=== PATIENT | female | born 1945 | race Caucasian/White ===

== ENCOUNTER → 2018-01-13 | Outpatient (CLI) | payer MEDICARE, OTHER ==
[2018-01-13 11:19] LABS: HCT 40.1 % (34.0-46.0); HGB 13.7 gm/dL (11.4-16.0); Mean Platelet Volume 6.6; Platelet Count 231 k/uL (150-450); RBC 4.27 m/uL (3.80-5.40); RDW 12.8 % (11.5-15.5); WBC 3.9 k/uL (3.8-10.6)
[2018-01-13 11:42] LABS: Ionized Calcium 4.9 mg/dL (4.5-5.3)
[2018-01-13 11:50] LABS: ALT 43 U/L (9-52); AST 26 U/L (14-36); Albumin 4.1 g/dL (3.5-5.0); Alkaline Phosphatase 95 U/L (38-126); Anion Gap 11 mmol/L; Blood Urea Nitrogen 33 mg/dL (7-17); Calcium 9.5 mg/dL (8.4-10.2); Carbon Dioxide 29 mmol/L (22-30); Chloride 99 mmol/L (98-107); Cholesterol 174 mg/dL (<200); Glucose 144 mg/dL (74-99); Potassium 4.9 mmol/L (3.5-5.1); Sodium 139 mmol/L (137-145); Total Bilirubin 0.3 mg/dL (0.2-1.3); Total Protein 6.5 g/dL (6.3-8.2)
== END ==
LOC: LABWHC1 10:48
PROVIDERS: ATTEND Internal Medicine Sleep Medicine
DX: E11.9 Type 2 diabetes mellitus without complications (principal); I10 Essential (primary) hypertension; E83.52 Hypercalcemia
CPT/HCPCS: 36415; 80053; 82330; 82465; 85027

== ENCOUNTER 2018-02-02 09:48 | Inpatient (IN) | payer MEDICARE, OTHER ==
[2018-02-02] MEDS ORDERED: HYDROcodone/APAP 5-325MG 1 EACH TAB PO STA (10:12)
[2018-02-02 10:36] LABS: Amorphous Sediment,Urine Few /hpf; Appearance,Urine Cloudy (Clear); Bacteria,Urine Rare /hpf; Bilirubin,Urine Negative (Negative); Blood,Urine Small (Negative); Color,Urine Yellow; Glucose,Urine (UA) 4+ (Negative); Ketones,Urine Trace (Negative); Leukocyte Esterase,Urine Negative (Negative); Mucus,Urine Rare /hpf; Nitrite,Urine Negative (Negative); PH, Urine 5.5 (5.0-8.0); Protein,Urine 1+ (Negative); RBC,Urine 2 /hpf (0-5); Specific Gravity,Urine 1.023 (1.001-1.035); Squamous Epithelial Cell,Urine 1 /hpf (0-4); Urobilinogen,Urine <2.0 mg/dL (<2.0); WBC,Urine 2 /hpf (0-5)
--- NOTE | 2018-02-02 10:47 | ED ---
General Adult HPI - General Chief complaint: Extremity Injury, Lower Stated complaint: Right Knee Pain Time Seen by Provider: 02/02/18 09:55 Source: patient Mode of arrival: ambulatory Limitations: no limitations - History of Present Illness Initial comments: Patient is a 72-year-old female presents with a chief complaint of right-sided knee pain. Patient states that her symptoms began on Friday and it gradually gotten worse. The patient cannot identify an inciting incident however she states that just prior to the onset of her pain she went to the bathroom. When she stood up, she noticed her knee pain. The patient has a history of bilateral patellectomy. The patient states that aggravating factors are movement of the knee. She also notices swelling of the right knee and states that the pain is worst behind her knee. Alleviating factors are rest. Timing is constant. - Related Data Home Medications Medication Instructions Recorded Confirmed Ascorbic Acid [Vitamin C] 500 mg PO DAILY 01/03/14 02/02/18 Aspirin 325 mg PO DAILY 01/03/14 02/02/18 Bupivacaine HCl/Pf [Bupivacaine 1 dose INTRATHECA DAILY 01/03/14 02/02/18 0.25% Vial] Celecoxib [CeleBREX] 200 mg PO DAILY 01/03/14 02/02/18 Esomeprazole Magnesium [NexIUM] 40 mg PO BID 01/03/14 02/02/18 Ferrous Sulfate [Feosol] 325 mg PO DAILY 01/03/14 02/02/18 Imipramine [Tofranil] 25 mg PO BID 01/03/14 02/02/18 Lidocaine 5% Patch [Lidoderm 5% 1 - 3 patch TOPICAL Q12H 01/03/14 02/02/18 Patch] Lisinopril [Zestril] 5 mg PO BID 01/03/14 02/02/18 Multivitamin [Multivitamins] 1 tab PO DAILY 01/03/14 02/02/18 Potassium Chloride [K-Tab ER] 20 meq PO BID 01/03/14 02/02/18 Solifenacin Succinate [Vesicare] 10 mg PO HS 01/03/14 02/02/18 Zinc 50 mg PO HS 01/03/14 02/02/18 amLODIPine BESYLATE [Norvasc] 10 mg PO DAILY 01/03/14 02/02/18 hydrOXYzine HCL [Atarax] 25 mg PO TID PRN 01/03/14 02/02/18 Armodafinil [Nuvigil] 250 mg PO BID 08/01/15 02/02/18 Calcium/Magnesium/Zinc 1 tab PO DAILY 02/02/18 02/02/18 [Kwnpmzx-Gbjtzarff-Vcls Tablet] Hydromorphone Powder 7.893 mg INTRATHECA DAILY 02/02/18 02/02/18 Simvastatin [Zocor] 20 mg PO HS 02/02/18 02/02/18 cloNIDine HCL [Catapres] 0.2 mg PO DAILY 02/02/18 02/02/18 Allergies Allergy/AdvReac Type Severity Reaction Status Date / Time cephalexin monohydrate Allergy Swelling Verified 02/02/18 14:57 [From Keflex] Cephalosporins Allergy Unknown Verified 02/02/18 14:57 codeine Allergy Rash/Hives Verified 02/02/18 14:57 Penicillins Allergy Anaphylaxis Verified 02/02/18 14:57 tramadol Allergy Rash/Hives Verified 02/02/18 14:57 Review of Systems ROS Statement: Those systems with pertinent positive or pertinent negative responses have been documented in the HPI. ROS Other: All systems not noted in ROS Statement are negative. Constitutional: Reports: fever Genitourinary: Reports: frequency Past Medical History Past Medical History: Diabetes Mellitus, Fibromyalgia, GERD/Reflux, Hypertension , Musculoskeletal Disorder, Osteoarthritis (OA), Sleep Apnea/CPAP/BIPAP Additional Past Medical History / Comment(s): Anemia. asthma. narcolepsy. wound jeremi legs. diet controlled diabetic-pt denies being diabetic but watches what she eats History of Any Multi-Drug Resistant Organisms: None Reported Past Surgical History: Back Surgery, Cholecystectomy, Orthopedic Surgery Additional Past Surgical History / Comment(s): carpal tunnel, rib surgery, collagen implant,\. rt eye catatact. TMJ surgery. chronic back pain-pain pump Past Anesthesia/Blood Transfusion Reactions: No Reported Reaction Past Psychological History: Anxiety, Depression Smoking Status: Former smoker Past Alcohol Use History: None Reported Past Drug Use History: None Reported - Past Family History Brother(s) Family Medical History: Diabetes Mellitus General Exam Limitations: physical limitation General appearance: alert, in no apparent distress Head exam: Present: atraumatic, normocephalic Eye exam: Present: normal appearance ENT exam: Present: normal exam Neck exam: Present: normal inspection Respiratory exam: Present: rhonchi (Left-sided rhonchi). Absent: respiratory distress Cardiovascular Exam: Present: regular rate, normal rhythm GI/Abdominal exam: Present: soft, other (Patient has an intrathecal pump on the left lower abdomen.). Absent: distended, tenderness Rectal exam: Present: deferred Extremities exam: Present: other (Patient has surgical scars over bilateral knees. The right knee is swollen compared to the left. There is no erythema or induration. There is tenderness to palpation of the right popliteal fossa.) Back exam: Present: normal inspection Neurological exam: Present: alert, oriented X3 Psychiatric exam: Present: normal affect, normal mood Skin exam: Present: warm, dry, intact Course Vital Signs 02/02/18 02/02/18 02/02/18 09:56 12:23 13:52 Temperature 100.4 F H 98.4 F Pulse Rate 97 72 64 Respiratory 18 18 18 Rate Blood Pressure 154/106 115/64 108/57 O2 Sat by Pulse 95 97 97 Oximetry Medical Decision Making - Medical Decision Making Patient presents with a chief complaint of right knee pain. On initial evaluation, patient is mildly febrile at 100.4, otherwise vital signs are stable. The patient is no acute distress. History and physical examination are consistent with arthritis versus a Polanco's cyst. Considered a septic joint however there are no overlying skin changes, and the joint otherwise does not appear infected. We'll consider other causes of fever. Patient to be evaluated with basic lab work, chest x-ray, an x-ray of the right knee. ESR and CRP were included workup. 3:35 PM Lab evaluation of this patient is remarkable for an ESR of 42, and a CRP of 227.6. I was unable to identify any other cause a fever therefore verbal consent was obtained, and arthrocentesis was performed. There was minimal fluid returned, just enough for a fluid culture. Patient unable to bare weight at this time and is thought to be an unsafe discharge. I discussed this case with Dr. Mazariegos, who accepts admission under Dr. Simmons with consult to Orthopaedics. patient agreeable with this care plan. - Lab Data Result diagrams: 02/02/18 11:00 02/02/18 11:00 Lab Results 02/02/18 02/02/18 02/02/18 Range/Units 10:20 11:00 11:00 WBC 7.7 (3.8-10.6) k/uL RBC 4.35 (3.80-5.40) m/uL Hgb 13.7 (11.4-16.0) gm/dL Hct 40.4 (34.0-46.0) % MCV 93.0 (80.0-100.0) fL MCH 31.6 (25.0-35.0) pg MCHC 33.9 (31.0-37.0) g/dL RDW 12.8 (11.5-15.5) % Plt Count 227 (150-450) k/uL Neutrophils % 83 % Lymphocytes % 8 % Monocytes % 8 % Eosinophils % 0 % Basophils % 0 % Neutrophils # 6.3 (1.3-7.7) k/uL Lymphocytes # 0.6 L (1.0-4.8) k/uL Monocytes # 0.6 (0-1.0) k/uL Eosinophils # 0.0 (0-0.7) k/uL Basophils # 0.0 (0-0.2) k/uL ESR 42 H (0-20) mm/hr Sodium 139 (137-145) mmol/L Potassium 3.7 (3.5-5.1) mmol/L Chloride 97 L (98-107) mmol/L Carbon Dioxide 30 (22-30) mmol/L Anion Gap 12 mmol/L BUN 20 H (7-17) mg/dL Creatinine 0.48 L (0.52-1.04) mg/dL Est GFR (CKD-EPI)AfAm >90 (>60 ml/min/1.73 sqM) Est GFR (CKD-EPI)NonAf >90 (>60 ml/min/1.73 sqM) Glucose 210 H (74-99) mg/dL Calcium 9.2 (8.4-10.2) mg/dL C-Reactive Protein 227.6 H (<10.0) mg/L Urine Color Yellow Urine Appearance Cloudy H (Clear) Urine pH 5.5 (5.0-8.0) Ur Specific [place] 1.023 (1.001-1.035) Urine Protein 1+ H (Negative) Urine Glucose (UA) 4+ H (Negative) Urine Ketones Trace H (Negative) Urine Blood Small H (Negative) Urine Nitrite Negative (Negative) Urine Bilirubin Negative (Negative) Urine Urobilinogen <2.0 (<2.0) mg/dL Ur Leukocyte Esterase Negative (Negative) Urine RBC 2 (0-5) /hpf Urine WBC 2 (0-5) /hpf Ur Squamous Epith Cells 1 (0-4) /hpf Amorphous Sediment Few H (None) /hpf Urine Bacteria Rare H (None) /hpf Urine Mucus Rare H (None) /hpf Disposition Clinical Impression: Right knee pain, Elevated C-reactive protein (CRP), Elevated erythrocyte sedimentation rate Disposition: ADMITTED IP TO THIS [facility] Condition: Good Referrals: Joel Mazariegos MD [Primary Care Provider] - 1-2 days Decision to Admit Reason: Admit from [facility] - Out of Hospital Transfer - Req. Specs Out of Hospital Transfer - Requested Specifics: Other Non-Acute
[2018-02-02 11:18] LABS: Basophils % (A) 0 %; Eosinophils % (A) 0 %; HCT 40.4 % (34.0-46.0); HGB 13.7 gm/dL (11.4-16.0); Lymphocytes # (A) 0.6 k/uL (1.0-4.8); Lymphocytes % (A) 8 %; MCH 31.6 pg (25.0-35.0); MCHC 33.9 g/dL (31.0-37.0); Mean Platelet Volume 6.7; Monocytes # (A) 0.6 k/uL (0-1.0); Monocytes % (A) 8 %; Neutrophils # (A) 6.3 k/uL (1.3-7.7); Neutrophils % (A) 83 %; Platelet Count 227 k/uL (150-450); RBC 4.35 m/uL (3.80-5.40); RDW 12.8 % (11.5-15.5); WBC 7.7 k/uL (3.8-10.6)
[2018-02-02 11:24] LABS: Anion Gap 12 mmol/L; Blood Urea Nitrogen 20 mg/dL (7-17); Calcium 9.2 mg/dL (8.4-10.2); Carbon Dioxide 30 mmol/L (22-30); Chloride 97 mmol/L (98-107); Glucose 210 mg/dL (74-99); Potassium 3.7 mmol/L (3.5-5.1); Sodium 139 mmol/L (137-145)
[2018-02-02 11:54] LABS: C Reactive Protein 227.6 mg/L (<10.0)
--- NOTE | 2018-02-02 12:47 | US ---
EXAMINATION TYPE: US venous doppler duplex LE RT DATE OF EXAM: 02/02/2018 11:24 AM COMPARISON: NONE CLINICAL HISTORY: Pain. rt leg pain SIDE PERFORMED: Right TECHNIQUE: The lower extremity deep venous system is examined utilizing real time linear array sonog clint with graded compression, doppler sonography and color-flow sonography. VESSELS IMAGED: External Iliac Vein (EIV) Common Femoral Vein Deep Femoral Vein Greater Saphenous Vein * Femoral Vein Popliteal Vein Small Saphenous Vein * Proximal Calf Veins (* superficial vessels) Grayscale, color doppler, spectral doppler imaging performed of the deep veins of the right lower ex tremity. There is normal flow, compressibility, vascular waveforms. Right Leg: Negative for DVT IMPRESSION: No sonographic evidence of deep venous thrombosis within the right lower extremity.
[2018-02-02 13:26] LABS: Erythrocyte Sedimentation Rate 42 mm/hr (0-20)
--- NOTE | 2018-02-02 14:21 | XR ---
EXAMINATION TYPE: XR chest 2V DATE OF EXAM: 02/02/2018 COMPARISON: 07/27/2010 HISTORY: Shortness of breath TECHNIQUE: Frontal and lateral views of the chest are obtained. FINDINGS: Scattered senescent parenchymal changes noted. Progressive elevation right hemidiaphragm. No evidence for infiltrate. No evidence for atelectasis. Heart size is stable. Mediastinal structures are stable and grossly unremarkable. No evidence for hilar prominence. Degenerative changes dorsal spine. IMPRESSION: 1. No evidence for acute pulmonary disease.
--- NOTE | 2018-02-02 14:25 | XR ---
EXAMINATION TYPE: XR knee complete RT DATE OF EXAM: 02/02/2018 CLINICAL HISTORY: pain TECHNIQUE: Three views of the right knee are obtained. COMPARISON: None. FINDINGS: There is no acute fracture/dislocation. Distal femoral bone infarct severe degenerative ch juan carlos throughout all compartments of the knee. Chondrocalcinosis identified. Absence of the patella ma y be related prior surgery. Prepatellar soft tissue swelling as well as a suprapatellar joint effusio n. IMPRESSION: There is no acute fracture or dislocation.ICD 10 NO FRACTURE, INITIAL EVALUATION
[2018-02-02] MEDS ORDERED: NALOXONE 0.4 MG/ML 1 ML VIAL IV PRN (15:37)
[2018-02-02] MEDS ORDERED: VANCOMYCIN IV PER PHARMACY 1 EACH MISC MISCELLANE PRN (15:53)
[2018-02-02] MEDS ORDERED: VANCOMYCIN 1,250 MG in SODIUM CHLORIDE 0.9% 250 ML IVPB STA (15:53)
[2018-02-02] MEDS: HYDROcodone/APAP 5-325MG 1 EACH TAB PO PRN ×2 (16:38→20:27)
[2018-02-03] MEDS: VANCOMYCIN 1,000 MG in SODIUM CHLORIDE 0.9% 250 ML IVPB SCH ×4 (00:01→23:07)
[2018-02-03] MEDS: HYDROcodone/APAP 5-325MG 1 EACH TAB PO PRN ×2 (00:01→04:11)
[2018-02-03] MEDS ORDERED: hydrOXYzine HCL 25 MG TAB PO PRN (01:01)
--- NOTE | 2018-02-03 03:44 | HP ---
HISTORY AND PHYSICAL DATE OF SERVICE: 02/02/2018 CHIEF COMPLAINT: Pain and swelling of the right knee. HISTORY OF PRESENT ILLNESS: This 72-year-old woman with a past medical history of multiple medical problems including history of diabetes, fibromyalgia, GERD, hypertension, DJD, history of anemia, being followed by Dr. Joel Mazariegos in the outpatient setting is complaining of right-sided knee pain. The patient's pain is more in the posterior part of the knee, according to her which has gotten progressively worse and swelling also. There was no antecedent trauma, but however because of increasing difficulty, the patient came to [facility] and the patient was noted elevated ESR and right knee pain and effusion. Aspiration was done because of minimal fluid for fluid culture and the patient unable to bear weight the patient admitted for evaluation and treatment. There is no history of fever, rigors. No history of headache, loss of consciousness, seizures. PAST MEDICAL HISTORY: Diabetes, fibromyalgia, GERD, hypertension, DJD, history of sleep apnea. MEDICATIONS: Prior to admission include home medications are: 1. Atarax 25 mg t.i.d. p.r.n. 2. Catapres 0.2 daily. 3. Norvasc 10 mg p.o. daily. 4. Zinc 50 mg q.h.s. 5. VESIcare 10 mg q.h.s. 6. Zocor 20 mg q.h.s. 7. K-Tab ER 20 mEq p.o. b.i.d. 8. Multivitamins 1 p.o. daily. 9. Zestril 5 mg p.o. b.i.d. 10.Lidoderm 5% patch Q b.i.d. 11.Tofranil 25 mg b.i.d. 12.Hydromorphone 7.893 daily. 13.Iron sulfate 325 mg daily. 14.Nexium 40 mg b.i.d. 15.Celebrex 200 mg daily. 16.Bupivacaine. 17.Aspirin 325 mg daily. 18.Vitamin C 500 mg. 19.250 mg p.o. b.i.d. ALLERGIES: ARE CEPHALEXIN, CEPHALOSPORIN, CODEINE, PENICILLIN, ULTRAM. FAMILY HISTORY: History of diabetes mellitus. SOCIAL HISTORY: Previous history of smoking. No history of alcohol intake. REVIEW OF SYSTEMS: ENT: No diminished hearing or vision. CARDIOVASCULAR: As mentioned earlier. Respiration: As mentioned earlier. GI no nausea or vomiting. : No dysuria. Nervous system: No numbness or weakness. Allergy/Immunology: No asthma or hayfever. Musculoskeletal: As mentioned earlier. HEMATOLOGY/ONCOLOGY: No history of anemia. Endocrine: No history of diabetes or hypothyroidism. Constitutional: As mentioned earlier. Dermatology: Negative. Rheumatology: Negative. Psychiatry: As mentioned earlier. PHYSICAL EXAM: Patient is alert, oriented x2. Pulse is 61, blood pressure 118/60, respirations 18, temperature 98.5, pulse ox 98% on room air. HEENT: Conjunctivae normal. Oral mucosa moist. NECK: No jugular venous distention. No carotid bruit. No lymph node enlargement. CARDIOVASCULAR SYSTEM: S1, S2 muffled. No S3, no S4. RESPIRATORY: Breath sounds diminished in the bases. No rhonchi. No crackles. ABDOMEN: Soft, nontender. No mass palpable. LEGS: Right leg slightly swollen status post aspiration and movements are painful. No other joints involved. NERVOUS SYSTEM: Higher functions as mentioned earlier. Moves all 4 limbs. No focal deficits. LYMPHATICS: No lymph nodes palpable in the neck, axillae or groin. SKIN: No ulcer, rash or bleeding. LABS: CBC within normal limits. ESR is 42. C-reactive protein 227.6. UA is unremarkable. Joint fluids are not available. ASSESSMENT: 1. Right knee pain and swelling and effusion. Rule out infectious arthritis. Rule out gout. 2. Increased ERP and ESR. 3. Diabetes mellitus Type 2. 4. Fibromyalgia. 5. History of gastroesophageal reflux disease. 6. Hypertension. 7. History of degenerative joint disease. 8. Anemia. 10.Diet-controlled diabetes mellitus type 2. 11.History of back surgery. 12.Anxiety, depression. RECOMMENDATIONS AND DISCISSION: In this 72-year-old woman who presented with multiple complex medical issues, we will monitor the patient closely, continue the current management and symptomatic treatment. Otherwise, at this time, I recommend orthopedic evaluation and as well as symptomatic treatment will be provided. We will await the fluid cultures and also recommend symptomatic treatment and Toradol will be offered on a p.r.n. basis and continue to monitor. Further recommendations to follow. A copy of dictation being forwarded to Dr. Mazariegos who is the primary physician. Vancomycin has been initiated. I would also recommend infectious disease evaluation as well. MEREDITHODL / IJN: [id number] / ASHLEY
[2018-02-03] MEDS: LIDOCAINE 5% PATCH TOPICAL SCH ×2 (04:55→13:06)
[2018-02-03 07:08] LABS: Basophils % (A) 0 %; Eosinophils % (A) 1 %; HCT 36.4 % (34.0-46.0); HGB 11.9 gm/dL (11.4-16.0); Lymphocytes # (A) 0.5 k/uL (1.0-4.8); Lymphocytes % (A) 9 %; MCH 31.1 pg (25.0-35.0); MCHC 32.6 g/dL (31.0-37.0); MCV 95.3 fL (80.0-100.0); Mean Platelet Volume 6.8; Monocytes # (A) 0.4 k/uL (0-1.0); Monocytes % (A) 7 %; Neutrophils # (A) 4.9 k/uL (1.3-7.7); Neutrophils % (A) 82 %; Platelet Count 196 k/uL (150-450); RBC 3.82 m/uL (3.80-5.40); RDW 12.7 % (11.5-15.5)
[2018-02-03 07:26] LABS: Anion Gap 8 mmol/L; Blood Urea Nitrogen 19 mg/dL (7-17); Carbon Dioxide 30 mmol/L (22-30); Chloride 101 mmol/L (98-107); Glucose 197 mg/dL (74-99); Potassium 4.1 mmol/L (3.5-5.1); Sodium 139 mmol/L (137-145); Uric Acid 2.3 mg/dL (3.7-7.4)
[2018-02-03] MEDS: ONDANSETRON 4 MG/2 ML VIAL IVP PRN ×2 (07:43→19:11)
[2018-02-03] MEDS: HYDROMORPHONE INTRATHECA SCH (08:54)
[2018-02-03] MEDS: Armodafinil [Nuvigil] 250 MG PO SCH ×2 (08:55→22:25)
[2018-02-03] MEDS ORDERED: PANTOPRAZOLE 40 MG TABLET PO SCH (09:00)
[2018-02-03] MEDS ORDERED: NON-FORMULARY DRUG (Calcium/Magnesium/Zinc [Calcium-Magnesium-Zinc Tablet] 1 TAB) PO SCH (09:00)
[2018-02-03] MEDS ORDERED: methylPREDNISolone 4 MG TAB TAPER PO SCH (10:15)
[2018-02-03] MEDS: amLODIPine 10 MG TAB PO SCH (10:47)
[2018-02-03] MEDS: ASPIRIN 325 MG TAB PO SCH (10:47)
[2018-02-03] MEDS: IMIPRAMINE 25 MG TAB PO SCH ×2 (10:48→22:26)
[2018-02-03] MEDS: FERROUS SULFATE 325 MG TAB PO SCH (10:48)
[2018-02-03] MEDS: cloNIDine HCL 0.2 MG TAB PO SCH (10:48)
[2018-02-03] MEDS: LISINOPRIL 5 MG TAB PO SCH ×2 (10:49→22:26)
[2018-02-03] MEDS: MELOXICAM 7.5 MG TAB PO SCH (10:49)
[2018-02-03] MEDS: MULTIVITAMINS, THERA 1 EACH TAB PO SCH (10:50)
[2018-02-03] MEDS: POTASSIUM CHLORIDE ER 20 MEQ TAB.ER PO SCH ×2 (10:50→22:26)
[2018-02-03] MEDS ORDERED: methylPREDNISolone 4 MG TAB PO ONE (11:00)
[2018-02-03] MEDS ORDERED: ONDANSETRON 4 MG/2 ML VIAL IVP STA (11:32)
[2018-02-03] MEDS: ASCORBIC ACID 500 MG TAB PO SCH (12:50)
[2018-02-03] MEDS: ACETAMINOPHEN TAB 325 MG TAB PO PRN (12:54)
--- NOTE | 2018-02-03 14:52 | P.PN ---
Subjective Progress Note Date: 02/03/18 Progress note being dictated for Dr. Villagomez Interval History: This is a 72-year-old female admitted with acute right knee pain with swelling, effusion, increased CRP and ESR with history of fibromyalgia , degenerative joint disease and multiple other medical issues. Right knee aspirated, culture pending. Evaluated by both infectious disease and orthopedics with recommendations noted. Patient states pain was an abrupt onset. Nausea and vomiting this morning after taking [place]. Maintained on vancomycin. Afebrile, normal WBC. Objective - Vital Signs Vital signs: Vital Signs Temp 98.2 F 02/03/18 07:56 Pulse 56 L 02/03/18 07:56 Resp 16 02/03/18 07:56 BP 124/71 02/03/18 07:56 Pulse Ox 93 L 02/03/18 00:50 Intake & Output 02/02/18 02/03/18 02/03/18 18:59 06:59 18:59 Intake Total 1000 500 Balance 1000 500 Weight 55.338 kg Intake: Amount of Fluid Infused ( 1000 ml) Intake, IV Titration 500 Amount Vancomycin 1,000 mg In 500 Sodium Chloride 0.9% 250 ml @ 125 mls/hr IVPB Q8H [facility] Rx#:[id number] Other: Voiding Method Toilet # Voids 1 # Bowel Movements 1 - Exam PHYSICAL EXAM: VITAL SIGNS: As above GENERAL: Sitting up in bed, tired appearing no acute disc, HEENT: Conjunctivae normal. eyes normal. NECK: No JVD. No thyroid enlargement. No LNs CARDIOVASCULAR: S1, S2 muffled. No murmur RESPIRATION: Breath sounds diminished in the bases. No rhonchi or crackles. ABDOMEN: Soft, nontender . No guarding. no masses palpable. Bowel sounds heard. LEGS: Right leg with mild edema status post aspiration, tender, Sha wrapped PSYCHIATRY: Alert and oriented -3, mood and affect normal. NERVOUS SYSTEM: Cranial N 2-12 grossly normal. Moves all 4 limbs. Diffuse weakness No focal deficits. Skin: no ulcer no rash Lymphatic system. No LN neck axilla or groin. - Labs CBC & Chem 7: 02/03/18 06:39 02/03/18 06:39 Labs: Abnormal Lab Results - Last 24 Hours (Table) 02/02/18 02/02/18 02/02/18 Range/Units 10:20 11:00 11:00 Lymphocytes # 0.6 L (1.0-4.8) k/uL ESR 42 H (0-20) mm/hr Chloride 97 L (98-107) mmol/L BUN 20 H (7-17) mg/dL Creatinine 0.48 L (0.52-1.04) mg/dL Glucose 210 H (74-99) mg/dL Uric Acid (3.7-7.4) mg/dL C-Reactive Protein 227.6 H (<10.0) mg/L Urine Appearance Cloudy H (Clear) Urine Protein 1+ H (Negative) Urine Glucose (UA) 4+ H (Negative) Urine Ketones Trace H (Negative) Urine Blood Small H (Negative) Amorphous Sediment Few H (None) /hpf Urine Bacteria Rare H (None) /hpf Urine Mucus Rare H (None) /hpf 02/03/18 02/03/18 Range/Units 06:39 06:39 Lymphocytes # 0.5 L (1.0-4.8) k/uL ESR (0-20) mm/hr Chloride (98-107) mmol/L BUN 19 H (7-17) mg/dL Creatinine 0.47 L (0.52-1.04) mg/dL Glucose 197 H (74-99) mg/dL Uric Acid 2.3 L (3.7-7.4) mg/dL C-Reactive Protein (<10.0) mg/L Urine Appearance (Clear) Urine Protein (Negative) Urine Glucose (UA) (Negative) Urine Ketones (Negative) Urine Blood (Negative) Amorphous Sediment (None) /hpf Urine Bacteria (None) /hpf Urine Mucus (None) /hpf Microbiology - Last 24 Hours (Table) 02/02/18 15:00 Gram Stain - Preliminary Knee - Right Body Fluid Culture - Preliminary Assessment and Plan Assessment: 1. Right knee pain with swelling and effusion, rule out gout, possible infectious arthritis but doubt as patient states abrupt onset 2. Elevated ERP and ESR 3. Diabetes mellitus of 2 4. Fibromyalgia 5. Gastroesophageal reflux disease 6. Degenerative joint disease Plan: Continue on current medication regime ,monitoring and symptomatic treatment. PPI converted to IV push given patient's nausea and vomiting. Antibiotics as per infectious disease. Follow closely with both orthopedics and infectious disease. Await culture results. The impression and plan of care has been dictated as directed. : I performed a history and examination of this patient, discussed the same with the dictator. I agree with the dictator's note ,documented as a scribe. Any additional findings or plans will be noted.
--- NOTE | 2018-02-03 18:12 | P.CNPUL ---
History of Present Illness Consult date: 02/03/18 Reason for consult: asthma, obstructive sleep apnea, other (Narcolepsy) Chief complaint: Pain and swelling of the right knee started 1 day prior to coming History of present illness: 72-year-old female well-known to me with history of complex past medical history and multiple medical problems and issues patient has a history of severe degree of spine disease and arthritis has been on chronic pain medication pump as well, she walks with a walker, she has a history of sleep disorder breathing and sleep apnea however after losing significant weight sleep apnea has improved significantly and lately patient has not been using CPAP machine, patient does have a history of narcolepsy for which he is she has been on Nuvigil, she takes them 2 times a day, she lives independently at home but does have a history of severe degree of excessive daytime sleepiness, patient was at toilet seat try to get up but developed extreme degree of pain and swelling especially on the posterior part of the right knee no history of trauma or fall is present. Patient has been evaluated by emergency room physician at time was done to drain it very small amount of and minimal fluid obtained orthopedics has been consulted Patient denies any seizure-like to a loss of consciousness or hemiparesis, denies any chest pain or radiation of pain, denies any bowel or bladder dysfunction Review of Systems All systems: negative Past Medical History Past Medical History: Diabetes Mellitus, Fibromyalgia, GERD/Reflux, Hypertension , Musculoskeletal Disorder, Osteoarthritis (OA), Sleep Apnea/CPAP/BIPAP Additional Past Medical History / Comment(s): Anemia, no cpap used. asthma. narcolepsy. wound jeremi legs. diet controlled diabetic-pt denies being diabetic but watches what she eats History of Any Multi-Drug Resistant Organisms: None Reported Past Surgical History: Back Surgery, Cholecystectomy, Orthopedic Surgery Additional Past Surgical History / Comment(s): carpal tunnel, rib surgery, collagen implant,\. rt eye catatact. TMJ surgery. chronic back pain-pain pump Past Anesthesia/Blood Transfusion Reactions: No Reported Reaction Smoking Status: Former smoker - Past Family History Mother Family Medical History: Diabetes Mellitus Father History Unknown: Yes Additional Family Medical History / Comment(s): pt could'nt remember. Brother(s) Family Medical History: Diabetes Mellitus Medications and Allergies Home Medications Medication Instructions Recorded Confirmed Type Ascorbic Acid [Vitamin C] 500 mg PO DAILY 01/03/14 02/02/18 History Aspirin 325 mg PO DAILY 01/03/14 02/02/18 History Bupivacaine HCl/Pf [Bupivacaine 1 dose INTRATHECA DAILY 01/03/14 02/02/18 History 0.25% Vial] Celecoxib [CeleBREX] 200 mg PO DAILY 01/03/14 02/02/18 History Esomeprazole Magnesium [NexIUM] 40 mg PO BID 01/03/14 02/02/18 History Ferrous Sulfate [Feosol] 325 mg PO DAILY 01/03/14 02/02/18 History Imipramine [Tofranil] 25 mg PO BID 01/03/14 02/02/18 History Lidocaine 5% Patch [Lidoderm 5% 1 - 3 patch TOPICAL Q12H 01/03/14 02/02/18 History Patch] Lisinopril [Zestril] 5 mg PO BID 01/03/14 02/02/18 History Multivitamin [Multivitamins] 1 tab PO DAILY 01/03/14 02/02/18 History Potassium Chloride [K-Tab ER] 20 meq PO BID 01/03/14 02/02/18 History Solifenacin Succinate [Vesicare] 10 mg PO HS 01/03/14 02/02/18 History Zinc 50 mg PO HS 01/03/14 02/02/18 History amLODIPine BESYLATE [Norvasc] 10 mg PO DAILY 01/03/14 02/02/18 History hydrOXYzine HCL [Atarax] 25 mg PO TID PRN 01/03/14 02/02/18 History Armodafinil [Nuvigil] 250 mg PO BID 08/01/15 02/02/18 History Calcium/Magnesium/Zinc 1 tab PO DAILY 02/02/18 02/02/18 History [Utosvgb-Xccdtyhzu-Fffh Tablet] Hydromorphone Powder 7.893 mg INTRATHECA DAILY 02/02/18 02/02/18 History Simvastatin [Zocor] 20 mg PO HS 02/02/18 02/02/18 History cloNIDine HCL [Catapres] 0.2 mg PO DAILY 02/02/18 02/02/18 History Allergies Allergy/AdvReac Type Severity Reaction Status Date / Time cephalexin monohydrate Allergy Swelling Verified 02/02/18 14:57 [From Keflex] Cephalosporins Allergy Unknown Verified 02/02/18 14:57 codeine Allergy Rash/Hives Verified 02/02/18 14:57 Penicillins Allergy Anaphylaxis Verified 02/02/18 14:57 tramadol Allergy Rash/Hives Verified 02/02/18 14:57 Physical Exam Vitals: Vital Signs Temp Pulse Resp BP Pulse Ox 02/03/18 15:01 98.7 F 54 L 18 133/66 91 L 02/03/18 07:56 98.2 F 56 L 16 124/71 02/03/18 00:50 98.5 F 60 14 97/59 93 L 02/02/18 19:57 98.1 F 67 16 94/54 96 Intake and Output 02/03/18 02/03/18 02/03/18 06:59 14:59 22:59 Intake Total 250 250 Output Total 125 Balance 250 125 Intake: IV 250 Vancomycin 1,000 mg In 250 Sodium Chloride 0.9% 250 ml @ 125 mls/hr IVPB Q8H [facility] Rx#:[id number] Intake, IV Titration 250 Amount Vancomycin 1,000 mg In 250 Sodium Chloride 0.9% 250 ml @ 125 mls/hr IVPB Q8H [facility] Rx#:[id number] Output: Urine 125 Other: # Voids 1 3 # Bowel Movements 1 Limitations: physical limitation related to severe degree of spine disease with severe degree of kyphoscoliosis General appearance: alert, in no apparent distress Head exam: Present: atraumatic, normocephalic Eye exam: Present: normal appearance ENT exam: Present: normal exam Neck exam: Present: normal inspection Respiratory exam: Present: A lateral good air entry is present without significant raise rhonchi. Raise rhonchi or rub Abdominal exam: Present: soft, other (Patient has an intrathecal pump on the left lower abdomen.). Absent: distended, tenderness Extremities exam: Present: other (Patient has surgical scars over bilateral knees. The right knee is swollen compared to the left. There is no erythema or induration. There is tenderness to palpation of the right popliteal fossa.) Back exam: Present: normal inspection Neurological exam: Present: alert, oriented X3 Psychiatric exam: Present: normal affect, normal mood Skin exam: Present: warm, dry, intact Results - Laboratory Findings CBC and BMP: 02/03/18 06:39 02/03/18 06:39 Abnormal lab findings: Abnormal Labs 02/02/18 02/02/18 02/02/18 10:20 11:00 11:00 Lymphocytes # 0.6 L ESR 42 H Chloride 97 L BUN 20 H Creatinine 0.48 L Glucose 210 H Uric Acid C-Reactive Protein 227.6 H Urine Appearance Cloudy H Urine Protein 1+ H Urine Glucose (UA) 4+ H Urine Ketones Trace H Urine Blood Small H Amorphous Sediment Few H Urine Bacteria Rare H Urine Mucus Rare H 02/03/18 02/03/18 06:39 06:39 Lymphocytes # 0.5 L ESR Chloride BUN 19 H Creatinine 0.47 L Glucose 197 H Uric Acid 2.3 L C-Reactive Protein Urine Appearance Urine Protein Urine Glucose (UA) Urine Ketones Urine Blood Amorphous Sediment Urine Bacteria Urine Mucus - Diagnostic Findings Chest x-ray: report reviewed, image reviewed U/S of Legs: report reviewed, image reviewed Additional studies: Knee x-ray reviewed no fracture or dislocation seen Assessment and Plan Assessment: Right knee pain along with right-sided knee swelling Narcolepsy and excessive daytime sleepiness History of sleep disorder breathing and sleep apnea of of CPAP machine now due to significant weight loss Chronic intermittent mild asthma Kyphoscoliosis Severe degree of fibromyalgia and degenerative joint disease osteoarthritis Diet controlled type 2 diabetes mellitus Severe GERD Hypertension hypertensive cardiovascular disease Plan: Gentle rehydration pain control Continue home medications Suspect soft tissue/ligament tear on the right knee will defer MRI to the orthopedic service Agree with evaluation of gout Consider doing bronchodilator on an as-needed basis Symptomatic supportive care and further evaluation and finding as per clinical response of the patient noted patient is being started on broad-spectrum antibiotics vancomycin by hospitalist service pending further evaluation Time with Patient: Greater than 30
[2018-02-03] MEDS: METOCLOPRAMIDE 5 MG/ML 2 ML VIAL IVP SCH (21:27)
[2018-02-03] MEDS: PANTOPRAZOLE 40 MG/10 ML VIAL IVP SCH (21:27)
[2018-02-03] MEDS: OXYBUTYNIN XL 5 MG TAB.ER.24 PO SCH (22:26)
[2018-02-03] MEDS: ZINC SULFATE 220 MG CAP PO SCH (22:26)
[2018-02-03] MEDS: ATORVASTATIN 10 MG TAB PO SCH (22:26)
--- NOTE | 2018-02-03 23:06 | CONS ---
CONSULTATION DATE OF SERVICE: 02/03/2018. REASON FOR CONSULTATION: Right knee cellulitis. HISTORY OF PRESENT ILLNESS: The patient is a 72-year-old, female presenting to the ER at [facility] yesterday morning with chief complaints of pain to the right knee. The symptoms started over the weekend on Friday without any history of any trauma. The pain started when she stood up. The patient's pain was initially mild, however, subsequently has growth serious in intensity to the point that she was unable to stand up or bear any weight on it. The patient did have associated swelling, as well as redness of the knee, which was more predominant on the back of her knee area. The pain almost 10/10, with some relief with rest. The patient denies any high-grade fever, however, did have some chills. With these symptoms, the patient presented to [facility]. Here on arrival to the ER, the patient did have fever of 100.4. The patient's white count was normal at 7.7. The patient did have a knee aspirate done by the ER physician. Fluid was sent only for Gram stain and culture, not for the cell count, Gram stain shows rare gram-positive cocci and PMN. The patient does have an have allergy to CEPHALOSPORIN and CEPHALEXIN. The patient has been started on vancomycin pharmacy to dose. Infectious Disease consulted for further recommendation regarding antibiotic therapy. REVIEW OF SYSTEMS: CONSTITUTIONAL: Positive for weakness and fever. EYES: No complaint. ENT: No complaint. RESPIRATORY: No complaint. CARDIOVASCULAR: No complaint. GENITOURINARY: No complaint. MUSCULOSKELETAL: As per HPI. INTEGUMENTARY: No complaint. PSYCHOLOGICAL: No complaint. PSYCHOLOGICAL: No complaint. ENDOCRINE: No complaint. NEUROLOGIC: No complaint. PAST MEDICAL HISTORY: Significant for diabetes mellitus, fibromyalgia, gastroesophageal reflux disease, hypertension, osteoarthritis, sleep apnea, anemia, narcolepsy, diet-controlled diabetes mellitus. PAST SURGICAL HISTORY: Back surgery, cholecystectomy, carpal tunnel surgery, TMJ surgery and chronic back pump placement. SOCIAL HISTORY: Remote history of smoking. No drinking or drug use. FAMILY HISTORY: Father with history of diabetes mellitus. ALLERGIES: CEPHALEXIN, TRAMADOL, PENICILLIN. MEDICATIONS: The patient is currently on vancomycin pharmacy to dose, , Protonix, Ditropan, Zofran, Nexium, Marcaine, Theragran, Reglan, Medrol Dosepak, Norvasc, Tylenol. EXAMINATION: Blood pressure 137/76, pulse of 73, temperature 98.6. He is 92% on room air. General description is an elderly female, lying in bed in no distress. No tachypnea or accessory muscle use. HEENT: Shows no pallor or scleral icterus. Oral mucous membranes dry. No pharyngeal erythema or thrush. NECK: Trachea central. No thyromegaly. LUNGS: Unlabored breathing, clear to auscultation anteriorly. No wheeze or crackle. HEART: S1, S2. Regular rate and rhythm. ABDOMEN: Soft, no tenderness, no guarding or rigidity. EXTREMITIES: No edema of the feet. Examination of the right knee, very minimal swelling, no redness. Slight tender to touch. No significant . No skin breakdown. No drainage. NEUROLOGICAL: The patient is awake, alert, oriented. Mood and affect normal. LABS: Hemoglobin 11.9, white count 6.0, BUN of 19, creatinine 0.47. Electrolytes has been normal. CRP was elevated to 227. Urine was cloudy. No significant pyuria. Uric acid was 2.3 Gram stain with PMN's and gram-positive cocci. DIAGNOSTIC IMPRESSION AND PLAN: 1. Patient admitted to the hospital with pain to the right knee, spontaneous with significant swelling and redness. The patient did have a low-grade fever with gram stain on the knee aspirate suspicious for a possible septic arthritis likely from a gram-positive skin shahid such as strep and Staphylococcus aureus. 2. Patient does have multiple antibiotic allergies that limit . PLAN: 1. Vancomycin pharmacy to dose target of 15 while watching the kidney function closely. 2. Await orthopedic evaluation for possible new washout and cultures. 3. We will follow up on the clinical condition, as well as culture to further adjust medication if needed. Thank you for this consultation. We will follow this patient along with you. MMODL / IJN: [id number] /
[2018-02-04] MEDS: LIDOCAINE 5% PATCH TOPICAL SCH ×2 (03:47→15:13)
[2018-02-04] MEDS: METOCLOPRAMIDE 5 MG/ML 2 ML VIAL IVP SCH ×3 (05:08→18:22)
[2018-02-04] MEDS ORDERED: VANCOMYCIN TROUGH DUE 1 EACH MISC MISCELLANE ONE (07:00)
[2018-02-04 07:40] LABS: Basophils % (A) 0 %; Eosinophils % (A) 0 %; HGB 11.9 gm/dL (11.4-16.0); Lymphocytes # (A) 0.9 k/uL (1.0-4.8); Lymphocytes % (A) 16 %; MCH 31.3 pg (25.0-35.0); MCHC 33.9 g/dL (31.0-37.0); MCV 92.4 fL (80.0-100.0); Mean Platelet Volume 6.6; Monocytes # (A) 0.4 k/uL (0-1.0); Monocytes % (A) 8 %; Neutrophils # (A) 4.3 k/uL (1.3-7.7); Neutrophils % (A) 74 %; Platelet Count 249 k/uL (150-450); RBC 3.79 m/uL (3.80-5.40); RDW 12.7 % (11.5-15.5); WBC 5.8 k/uL (3.8-10.6)
[2018-02-04 07:57] LABS: Anion Gap 10 mmol/L; Blood Urea Nitrogen 15 mg/dL (7-17); Calcium 8.8 mg/dL (8.4-10.2); Carbon Dioxide 26 mmol/L (22-30); Chloride 102 mmol/L (98-107); Glucose 166 mg/dL (74-99); Potassium 3.9 mmol/L (3.5-5.1); Sodium 138 mmol/L (137-145)
[2018-02-04] MEDS: cloNIDine HCL 0.2 MG TAB PO SCH (08:45)
[2018-02-04] MEDS: PANTOPRAZOLE 40 MG/10 ML VIAL IVP SCH (08:45)
[2018-02-04] MEDS: MULTIVITAMINS, THERA 1 EACH TAB PO SCH (08:45)
[2018-02-04] MEDS: amLODIPine 10 MG TAB PO SCH (08:45)
[2018-02-04] MEDS: Armodafinil [Nuvigil] 250 MG PO SCH ×2 (08:45→21:04)
[2018-02-04] MEDS: LISINOPRIL 5 MG TAB PO SCH ×2 (08:45→21:07)
[2018-02-04] MEDS: IMIPRAMINE 25 MG TAB PO SCH ×2 (08:46→21:07)
[2018-02-04] MEDS: methylPREDNISolone 4 MG TAB TAPER PO SCH (08:46)
[2018-02-04] MEDS: FERROUS SULFATE 325 MG TAB PO SCH (08:46)
[2018-02-04] MEDS: ASPIRIN 325 MG TAB PO SCH (08:46)
[2018-02-04] MEDS: HYDROMORPHONE INTRATHECA SCH (08:46)
[2018-02-04] MEDS: MELOXICAM 7.5 MG TAB PO SCH (08:47)
[2018-02-04] MEDS: POTASSIUM CHLORIDE ER 20 MEQ TAB.ER PO SCH ×2 (08:48→21:07)
--- NOTE | 2018-02-04 08:48 | P.CNOR ---
History of Present Illness - [facility] Consult date: 02/03/18 Requesting physician: Robert Medina Consult reason: joint pain History of present illness: Patient was admitted through the ED yesterday with concerns of having a left septic knee. She had a temp of 100 and elevated CRP/EXR. WBC was normal. An aspiration was attempted. She has no known history of gout. She had bilateral padillectomies performed in [facility] several years ago. She continues to have pain this am at the right knee. She has no fever chills, chest pain or SOB. Review of Systems All systems: negative Constitutional: Denies chills, Denies fever Eyes: denies blurred vision, denies pain Ears, nose, mouth and throat: Denies headache, Denies sore throat Cardiovascular: Denies chest pain, Denies shortness of breath Respiratory: Denies cough Gastrointestinal: Denies abdominal pain, Denies diarrhea, Denies nausea, Denies vomiting Genitourinary: Denies dysuria, Denies hematuria Musculoskeletal: Denies myalgias Integumentary: Denies pruritus, Denies rash Neurological: Denies numbness, Denies weakness Psychiatric: Denies anxiety, Denies depression Endocrine: Denies fatigue, Denies weight change Past Medical History Past Medical History: Diabetes Mellitus, Fibromyalgia, GERD/Reflux, Hypertension , Musculoskeletal Disorder, Osteoarthritis (OA), Sleep Apnea/CPAP/BIPAP Additional Past Medical History / Comment(s): Anemia, no cpap used. asthma. narcolepsy. wound jeremi legs. diet controlled diabetic-pt denies being diabetic but watches what she eats History of Any Multi-Drug Resistant Organisms: None Reported Past Surgical History: Back Surgery, Cholecystectomy, Orthopedic Surgery Additional Past Surgical History / Comment(s): carpal tunnel, rib surgery, collagen implant,\. rt eye catatact. TMJ surgery. chronic back pain-pain pump Past Anesthesia/Blood Transfusion Reactions: No Reported Reaction Smoking Status: Former smoker - Past Family History Mother Family Medical History: Diabetes Mellitus Father History Unknown: Yes Additional Family Medical History / Comment(s): pt could'nt remember. Brother(s) Family Medical History: Diabetes Mellitus Medications and Allergies Home Medications Medication Instructions Recorded Confirmed Type Ascorbic Acid [Vitamin C] 500 mg PO DAILY 01/03/14 02/02/18 History Aspirin 325 mg PO DAILY 01/03/14 02/02/18 History Bupivacaine HCl/Pf [Bupivacaine 1 dose INTRATHECA DAILY 01/03/14 02/02/18 History 0.25% Vial] Celecoxib [CeleBREX] 200 mg PO DAILY 01/03/14 02/02/18 History Esomeprazole Magnesium [NexIUM] 40 mg PO BID 01/03/14 02/02/18 History Ferrous Sulfate [Feosol] 325 mg PO DAILY 01/03/14 02/02/18 History Imipramine [Tofranil] 25 mg PO BID 01/03/14 02/02/18 History Lidocaine 5% Patch [Lidoderm 5% 1 - 3 patch TOPICAL Q12H 01/03/14 02/02/18 History Patch] Lisinopril [Zestril] 5 mg PO BID 01/03/14 02/02/18 History Multivitamin [Multivitamins] 1 tab PO DAILY 01/03/14 02/02/18 History Potassium Chloride [K-Tab ER] 20 meq PO BID 01/03/14 02/02/18 History Solifenacin Succinate [Vesicare] 10 mg PO HS 01/03/14 02/02/18 History Zinc 50 mg PO HS 01/03/14 02/02/18 History amLODIPine BESYLATE [Norvasc] 10 mg PO DAILY 01/03/14 02/02/18 History hydrOXYzine HCL [Atarax] 25 mg PO TID PRN 01/03/14 02/02/18 History Armodafinil [Nuvigil] 250 mg PO BID 08/01/15 02/02/18 History Calcium/Magnesium/Zinc 1 tab PO DAILY 02/02/18 02/02/18 History [Fvdeofw-Kxcaatjom-Afeu Tablet] Hydromorphone Powder 7.893 mg INTRATHECA DAILY 02/02/18 02/02/18 History Simvastatin [Zocor] 20 mg PO HS 02/02/18 02/02/18 History cloNIDine HCL [Catapres] 0.2 mg PO DAILY 02/02/18 02/02/18 History Allergies Allergy/AdvReac Type Severity Reaction Status Date / Time cephalexin monohydrate Allergy Swelling Verified 02/02/18 14:57 [From Keflex] Cephalosporins Allergy Unknown Verified 02/02/18 14:57 codeine Allergy Rash/Hives Verified 06/04/18 14:57 Penicillins Allergy Anaphylaxis Verified 02/02/18 14:57 tramadol Allergy Rash/Hives Verified 02/02/18 14:57 Physical Examination She has a moderate effusion. It is not red or hot to touch. there effusion and tenderness in the superior aspect of the joint. well healed surgical wound from padillectomy. There is pain with flexion to 90. extension lacks 5 degerees. the knee is ligamentously stable. calf SNT, NVI Results Xray of right knee shows advanced MEHDI DJD. Patella absent. condrocalcinosis present - Labs Labs: Abnormal Lab Results - Last 24 Hours (Table) 02/02/18 02/02/18 02/03/18 Range/Units 11:00 11:00 06:39 Lymphocytes # 0.6 L 0.5 L (1.0-4.8) k/uL ESR 42 H (0-20) mm/hr Chloride 97 L (98-107) mmol/L BUN 20 H (7-17) mg/dL Creatinine 0.48 L (0.52-1.04) mg/dL Glucose 210 H (74-99) mg/dL Uric Acid (3.7-7.4) mg/dL C-Reactive Protein 227.6 H (<10.0) mg/L 02/03/18 Range/Units 06:39 Lymphocytes # (1.0-4.8) k/uL ESR (0-20) mm/hr Chloride (98-107) mmol/L BUN 19 H (7-17) mg/dL Creatinine 0.47 L (0.52-1.04) mg/dL Glucose 197 H (74-99) mg/dL Uric Acid 2.3 L (3.7-7.4) mg/dL C-Reactive Protein (<10.0) mg/L Microbiology - Last 24 Hours (Table) 02/02/18 15:00 Gram Stain - Preliminary Knee - Right Body Fluid Culture - Preliminary H & H 02/02/18 02/03/18 Range/Units 11:00 06:39 Hgb 13.7 11.9 (11.4-16.0) gm/dL Hct 40.4 36.4 (34.0-46.0) % Result Diagrams: 02/04/18 06:42 02/04/18 06:42 - Diagnostic results Knee x-ray: report reviewed, image reviewed Assessment and Plan (1) Osteoarthritis, knee Narrative/Plan: Don't suspect a septic knee. Likely exacerbation of inflammatory condition, OA, or gout like. Recommend rest, ice, compression, and ordered corticosteroids. will continue to monitor closely. Thank you Current Visit: Yes Status: Acute Code(s): M17.10 - UNILATERAL PRIMARY OSTEOARTHRITIS, UNSPECIFIED KNEE SNOMED Code(s): 737040542 (2) Right knee pain Current Visit: Yes Status: Acute Code(s): M25.561 - PAIN IN RIGHT KNEE SNOMED Code(s): 59562296 Time with Patient: Less than 30
[2018-02-04] MEDS: VANCOMYCIN 1,000 MG in SODIUM CHLORIDE 0.9% 250 ML IVPB SCH ×2 (09:08→19:07)
[2018-02-04] MEDS: ASCORBIC ACID 500 MG TAB PO SCH (12:10)
--- NOTE | 2018-02-04 12:58 | P.PN ---
Subjective Progress Note Date: 02/04/18 Principal diagnosis: Right knee pain, swelling. exacerbation of osteoarthritis Patient is seen at bedside this morning. She was admitted through the ED on 11/2017 with concerns of having a right septic knee. It did not appear infected yesterday. Cultures have been negative thus far. She has remained afebrile and with a normal white blood cell count. She has no known history of gout. She had bilateral padillectomies performed in [facility] several years ago. Her pain and swelling is improved this morning. She has no new complaints She has no calf pain, numbness, tingling fever chills, chest pain or SOB. Objective - Vital Signs Vital signs: Vital Signs Temp 98.7 F 02/04/18 07:00 Pulse 50 L 02/04/18 07:00 Resp 16 02/04/18 07:00 BP 113/62 02/04/18 07:00 Pulse Ox 93 L 02/04/18 07:00 Intake & Output 02/03/18 02/04/18 02/04/18 18:59 06:59 18:59 Intake Total 250 Output Total 125 25 Balance 125 -25 Intake: IV 250 Vancomycin 1,000 mg In 250 Sodium Chloride 0.9% 250 ml @ 125 mls/hr IVPB Q8H [facility] Rx#:[id number] Output: Urine 125 25 Other: Voiding Method Bedside Commode Bedside Commode Bedpan Bedpan # Voids 3 3 1 - Exam Inspection of the right knee today shows improved swelling with mild to moderate effusion. There is no erythema. The knee is minimally tender to touch. The joint is not hot. She lacks 5 extension without pain. She flexes to 90 without pain. The knee is ligamentously stable. Calf is soft and nontender. Neurovascular status is intact throughout the right lower extremity. - Constitutional General appearance: Present: no acute distress - Psychiatric Psychiatric: Present: A&O x's 3, appropriate affect, intact judgment & insight - Labs CBC & Chem 7: 02/04/18 06:42 02/04/18 06:42 Labs: Abnormal Lab Results - Last 24 Hours (Table) 02/04/18 02/04/18 Range/Units 06:42 06:42 RBC 3.79 L (3.80-5.40) m/uL Lymphocytes # 0.9 L (1.0-4.8) k/uL Creatinine 0.40 L (0.52-1.04) mg/dL Glucose 166 H (74-99) mg/dL Microbiology - Last 24 Hours (Table) 02/02/18 15:00 Gram Stain - Preliminary Knee - Right Body Fluid Culture - Preliminary Assessment and Plan (1) Osteoarthritis, knee Narrative/Plan: She appears to be significantly improved today. She is afebrile and has a normal white blood cell count. The examination is improved. She has been on oral steroids for the past 24 hours. Continue with rest, ice, compression, and corticosteroids. Should she show continued improvement tomorrow we will initiate physical therapy and test her weightbearing and ambulating ability. We will continue to monitor closely and make further recommendations as appropriate. Thank you Current Visit: Yes Status: Acute Priority: Medium Code(s): M17.10 - UNILATERAL PRIMARY OSTEOARTHRITIS, UNSPECIFIED KNEE SNOMED Code(s): 614842620 (2) Right knee pain Current Visit: Yes Status: Acute Code(s): M25.561 - PAIN IN RIGHT KNEE SNOMED Code(s): 36661568
--- NOTE | 2018-02-04 14:20 | P.PN ---
Subjective Progress Note Date: 02/04/18 Principal diagnosis: Right knee pain and swelling, narcolepsy, chronic persistent mild asthma, severe degree of degenerative joint disease osteoarthritis, generalized weakness and medical debility 02/04/2018, patient seen eval examined during the rounds clinically overall remains stable the swelling in the right knee has improved slightly patient remains on broad-spectrum antibiotics with IV vancomycin culture results and reports are pending preliminary Gram stain positive for few gram-positive cocci question remains of septic arthritis, final ID hours pending 72-year-old female well-known to me with history of complex past medical history and multiple medical problems and issues patient has a history of severe degree of spine disease and arthritis has been on chronic pain medication pump as well, she walks with a walker, she has a history of sleep disorder breathing and sleep apnea however after losing significant weight sleep apnea has improved significantly and lately patient has not been using CPAP machine, patient does have a history of narcolepsy for which he is she has been on Nuvigil, she takes them 2 times a day, she lives independently at home but does have a history of severe degree of excessive daytime sleepiness, patient was at toilet seat try to get up but developed extreme degree of pain and swelling especially on the posterior part of the right knee no history of trauma or fall is present. Patient has been evaluated by emergency room physician at time was done to drain it very small amount of and minimal fluid obtained orthopedics has been consulted Patient denies any seizure-like to a loss of consciousness or hemiparesis, denies any chest pain or radiation of pain, denies any bowel or bladder dysfunction Objective - Vital Signs Vital signs: Vital Signs Temp 98.7 F 02/04/18 07:00 Pulse 50 L 02/04/18 07:00 Resp 16 02/04/18 07:00 BP 113/62 02/04/18 07:00 Pulse Ox 93 L 02/04/18 07:00 Intake & Output 02/03/18 02/04/18 02/04/18 18:59 06:59 18:59 Intake Total 250 237 Output Total 125 25 Balance 125 -25 237 Intake: IV 250 Vancomycin 1,000 mg In 250 Sodium Chloride 0.9% 250 ml @ 125 mls/hr IVPB Q8H [facility] Rx#:[id number] Oral 237 Output: Urine 125 25 Other: Voiding Method Bedside Commode Bedside Commode Bedpan Bedpan # Voids 3 3 1 - Exam Limitations: physical limitation related to severe degree of spine disease with severe degree of kyphoscoliosis General appearance: alert, in no apparent distress Head exam: Present: atraumatic, normocephalic Eye exam: Present: normal appearance ENT exam: Present: normal exam Neck exam: Present: normal inspection Respiratory exam: Present: A lateral good air entry is present without significant raise rhonchi. Raise rhonchi or rub Abdominal exam: Present: soft, other (Patient has an intrathecal pump on the left lower abdomen.). Absent: distended, tenderness Extremities exam: Present: other (Patient has surgical scars over bilateral knees. The right knee is swollen compared to the left. There is no erythema or induration. There is tenderness to palpation of the right popliteal fossa.) Back exam: Present: normal inspection Neurological exam: Present: alert, oriented X3 Psychiatric exam: Present: normal affect, normal mood Skin exam: Present: warm, dry, intact - Labs CBC & Chem 7: 02/04/18 06:42 02/04/18 06:42 Labs: Abnormal Lab Results - Last 24 Hours (Table) 02/04/18 02/04/18 Range/Units 06:42 06:42 RBC 3.79 L (3.80-5.40) m/uL Lymphocytes # 0.9 L (1.0-4.8) k/uL Creatinine 0.40 L (0.52-1.04) mg/dL Glucose 166 H (74-99) mg/dL Microbiology - Last 24 Hours (Table) 02/02/18 15:00 Gram Stain - Preliminary Knee - Right Body Fluid Culture - Preliminary Assessment and Plan Assessment: Right knee pain along with right-sided knee swelling Septic arthritis as Gram stain is growing gram-positive cocci Narcolepsy and excessive daytime sleepiness History of sleep disorder breathing and sleep apnea of of CPAP machine now due to significant weight loss Chronic intermittent mild asthma Kyphoscoliosis Severe degree of fibromyalgia and degenerative joint disease osteoarthritis Diet controlled type 2 diabetes mellitus Severe GERD Hypertension hypertensive cardiovascular disease Plan: Gentle rehydration Continue IV vancomycin as planned pain control Continue home medications Suspect soft tissue/ligament tear on the right knee will defer MRI to the orthopedic service Agree with evaluation of gout Consider doing bronchodilator on an as-needed basis Symptomatic supportive care and further evaluation and finding as per clinical response of the patient Time with Patient: Greater than 30
--- NOTE | 2018-02-04 16:50 | P.PN ---
Subjective Progress Note Date: 02/04/18 Progress note being dictated for Dr. Villagomez Interval History: This is a 72-year-old female admitted with acute right knee pain with swelling, effusion, increased CRP and ESR with history of fibromyalgia , degenerative joint disease and multiple other medical issues. Right knee aspirated, culture pending. Evaluated by both infectious disease and orthopedics with recommendations noted. Patient states pain was an abrupt onset. Nausea and vomiting this morning after taking [place]. Maintained on vancomycin. Afebrile, normal WBC. 02/04/2018 preliminary right knee cultures, Gram stain with rare gram-positive cocci, fluid culture no growth at 48 hours. Uric acid level low. Maintained on IV antibiotics as per infectious disease. Afebrile. Normal WBC. Significant improvement in swelling of right knee as well as pain. Complains of knee pain with weight bearing, ambulating. Nausea has subsided. Denies chest pain, palpitations or increased shortness of breath. Denies lightheadedness, dizziness or focal deficits. Objective - Vital Signs Vital signs: Vital Signs Temp 98.7 F 02/04/18 14:25 Pulse 68 02/04/18 14:25 Resp 16 02/04/18 14:25 BP 131/62 02/04/18 14:25 Pulse Ox 96 02/04/18 14:25 Intake & Output 02/03/18 02/04/18 02/04/18 18:59 06:59 18:59 Intake Total 250 737 Output Total 125 25 Balance 125 -25 737 Intake: IV 250 Vancomycin 1,000 mg In 250 Sodium Chloride 0.9% 250 ml @ 125 mls/hr IVPB Q8H [facility] Rx#:[id number] Oral 737 Output: Urine 125 25 Other: Voiding Method Bedside Commode Bedside Commode Bedpan Bedpan # Voids 3 3 2 - Exam PHYSICAL EXAM: VITAL SIGNS: As above GENERAL: Sitting up in chair, tired appearing no acute distress HEENT: Conjunctivae normal. eyes normal. Oral mucosa moist NECK: No JVD. No thyroid enlargement. No LNs CARDIOVASCULAR: S1, S2 muffled. No murmur RESPIRATION: Breath sounds diminished in the bases. No rhonchi or crackles. ABDOMEN: Soft, nontender . No guarding. no masses palpable. Bowel sounds heard. LEGS: Right leg with improved edema status post aspiration, with effusion, minimal tenderness, Sha wrapped . Flexing knee without pain PSYCHIATRY: Alert and oriented -3, mood and affect normal. NERVOUS SYSTEM: Cranial N 2-12 grossly normal. Moves all 4 limbs. Diffuse weakness No focal deficits. Skin: no ulcer no rash Lymphatic system. No LN neck axilla or groin. - Labs CBC & Chem 7: 02/04/18 06:42 18 06:42 Labs: Abnormal Lab Results - Last 24 Hours (Table) 02/04/18 02/04/18 Range/Units 06:42 06:42 RBC 3.79 L (3.80-5.40) m/uL Lymphocytes # 0.9 L (1.0-4.8) k/uL Creatinine 0.40 L (0.52-1.04) mg/dL Glucose 166 H (74-99) mg/dL Microbiology - Last 24 Hours (Table) 02/02/18 15:00 Gram Stain - Preliminary Knee - Right Body Fluid Culture - Preliminary Assessment and Plan Assessment: 1. Right knee pain with swelling and effusion, possible pseudogout or osteoarthritis induced effusion, inflammatory arthritis. 2. Elevated ERP and ESR 3. Diabetes mellitus of 2 4. Fibromyalgia 5. Gastroesophageal reflux disease 6. Degenerative joint disease Plan: Continue on current medication regime ,monitoring and symptomatic treatment. Maintain PPI, Reglan, steroids. Antibiotics as per infectious disease. Final culture results pending. Follow closely with both orthopedics and infectious disease. PT/OT. Potential subacute rehab at discharge. The impression and plan of care has been dictated as directed. : I performed a history and examination of this patient, discussed the same with the dictator. I agree with the dictator's note ,documented as a scribe. Any additional findings or plans will be noted.
[2018-02-04] MEDS: OXYBUTYNIN XL 5 MG TAB.ER.24 PO SCH (21:07)
[2018-02-04] MEDS: ATORVASTATIN 10 MG TAB PO SCH (21:07)
[2018-02-04] MEDS: ZINC SULFATE 220 MG CAP PO SCH (21:07)
--- NOTE | 2018-02-04 22:28 | PN ---
PROGRESS NOTE DATE OF SERVICE: 02/04/2018 REASON FOR FOLLOWUP: Possible right knee cellulitis/septic arthritis. INTERVAL HISTORY: The patient is afebrile. Overall pain to the right knee is currently controlled. The patient denies having any chest pain or shortness of breath or cough. she was able to get up and around and put some weight on that right knee. PHYSICAL EXAMINATION: Blood pressure is 118/67, pulse of 54, temperature 99. She is 95% on room air. General description is an elderly female lying in bed in no distress. RESPIRATORY SYSTEM: Unlabored breathing. Clear to auscultation anteriorly. HEART: S1, S2. Regular rate and rhythm. ABDOMEN: Soft. No tenderness. Right knee currently covered. No swelling, redness or any drainage. LABS: White count 5.8. BUN of 15, creatinine 0.40. The cultures are currently pending. DIAGNOSTIC IMPRESSION AND PLAN: Patient with right knee pain and swelling. She did have aspirate of the knee and culture Gram stain was showing Gram-positive cocci. We are waiting for the final ID of this pathogen. Keep the patient on vancomycin. Continue with supportive care. MMODL / IJN: [id number] /
[2018-02-05] MEDS: VANCOMYCIN 1,000 MG in SODIUM CHLORIDE 0.9% 250 ML IVPB SCH ×3 (01:19→15:00)
[2018-02-05] MEDS: METOCLOPRAMIDE 5 MG/ML 2 ML VIAL IVP SCH ×4 (01:19→23:20)
[2018-02-05] MEDS: LIDOCAINE 5% PATCH TOPICAL SCH ×2 (05:21→17:08)
[2018-02-05 07:43] LABS: Basophils % (A) 0 %; Eosinophils # (A) 0.1 k/uL (0-0.7); Eosinophils % (A) 2 %; HGB 11.2 gm/dL (11.4-16.0); Lymphocytes # (A) 1.1 k/uL (1.0-4.8); Lymphocytes % (A) 28 %; MCH 31.7 pg (25.0-35.0); MCHC 33.9 g/dL (31.0-37.0); MCV 93.5 fL (80.0-100.0); Mean Platelet Volume 6.8; Monocytes # (A) 0.3 k/uL (0-1.0); Monocytes % (A) 9 %; Neutrophils # (A) 2.3 k/uL (1.3-7.7); Neutrophils % (A) 59 %; Platelet Count 213 k/uL (150-450); RBC 3.53 m/uL (3.80-5.40); RDW 12.6 % (11.5-15.5); WBC 3.9 k/uL (3.8-10.6)
[2018-02-05 08:20] LABS: Anion Gap 10 mmol/L; Blood Urea Nitrogen 18 mg/dL (7-17); Calcium 8.9 mg/dL (8.4-10.2); Carbon Dioxide 27 mmol/L (22-30); Chloride 102 mmol/L (98-107); Glucose 173 mg/dL (74-99); Potassium 4.1 mmol/L (3.5-5.1); Sodium 139 mmol/L (137-145)
--- NOTE | 2018-02-05 09:00 | P.PN ---
Subjective Progress Note Date: 02/05/18 Principal diagnosis: Right knee pain, swelling. exacerbation of osteoarthritis Patient is seen at bedside this morning 02/05/18. She was admitted through the ED on 02/02/2018 with concerns of having a right septic knee. It did not appear infected yesterday. Cultures have been negative thus far. She has remained afebrile and with a normal white blood cell count. She has no known history of gout. She had bilateral padillectomies performed in [facility] several years ago. Her pain and swelling continues to improve. She has no new complaints. She has no calf pain, numbness, tingling fever chills, chest pain or SOB. Objective - Vital Signs Vital signs: Vital Signs Temp 98.6 F 02/05/18 07:00 Pulse 59 L 02/05/18 07:00 Resp 14 02/05/18 07:00 BP 124/73 02/05/18 07:00 Pulse Ox 95 02/05/18 07:00 Intake & Output 02/04/18 02/05/18 02/05/18 18:59 06:59 18:59 Intake Total 737 200 180 Balance 737 200 180 Intake: Oral 737 200 180 Other: Voiding Method Bedside Commode Bedside Commode Bedpan # Voids 1 1 1 - Exam Inspection of the right knee today shows improved swelling with mild to moderate effusion. There is no erythema. The knee is minimally tender to touch. The joint is not hot. She lacks 5 extension without pain. She flexes to 90 without pain. The knee is ligamentously stable. Calf is soft and nontender. Neurovascular status is intact throughout the right lower extremity. - Constitutional General appearance: Present: no acute distress - Psychiatric Psychiatric: Present: A&O x's 3, appropriate affect, intact judgment & insight - Labs CBC & Chem 7: 02/05/18 06:50 02/05/18 06:50 Labs: Abnormal Lab Results - Last 24 Hours (Table) 02/05/18 02/05/18 Range/Units 06:50 06:50 RBC 3.53 L (3.80-5.40) m/uL Hgb 11.2 L (11.4-16.0) gm/dL Hct 33.0 L (34.0-46.0) % BUN 18 H (7-17) mg/dL Creatinine 0.44 L (0.52-1.04) mg/dL Glucose 173 H (74-99) mg/dL Microbiology - Last 24 Hours (Table) 02/02/18 15:00 Gram Stain - Preliminary Knee - Right Body Fluid Culture - Preliminary Assessment and Plan (1) Osteoarthritis, knee Narrative/Plan: She continues to improve. She is afebrile and has a normal white blood cell count. The examination continues to improve with minimal swelling today and no erythema or warmth. Continue with rest, ice, compression, and corticosteroids. Progress with activities and PT as tolerated. . We will continue to monitor closely and make further recommendations as appropriate. Thank you Current Visit: Yes Status: Acute Priority: Medium Code(s): M17.10 - UNILATERAL PRIMARY OSTEOARTHRITIS, UNSPECIFIED KNEE SNOMED Code(s): 092238178 (2) Right knee pain Current Visit: Yes Status: Acute Code(s): M25.561 - PAIN IN RIGHT KNEE SNOMED Code(s): 95230875 Time with Patient: Less than 30
[2018-02-05] MEDS: methylPREDNISolone 4 MG TAB TAPER PO SCH (09:50)
[2018-02-05] MEDS: LISINOPRIL 5 MG TAB PO SCH ×2 (09:51→20:12)
[2018-02-05] MEDS: POTASSIUM CHLORIDE ER 20 MEQ TAB.ER PO SCH ×2 (09:51→20:13)
[2018-02-05] MEDS: MULTIVITAMINS, THERA 1 EACH TAB PO SCH (09:52)
[2018-02-05] MEDS: IMIPRAMINE 25 MG TAB PO SCH ×2 (09:52→20:12)
[2018-02-05] MEDS: ASCORBIC ACID 500 MG TAB PO SCH (09:52)
[2018-02-05] MEDS: ASPIRIN 325 MG TAB PO SCH (09:53)
[2018-02-05] MEDS: MELOXICAM 7.5 MG TAB PO SCH (09:53)
[2018-02-05] MEDS: FERROUS SULFATE 325 MG TAB PO SCH (09:54)
[2018-02-05] MEDS: amLODIPine 10 MG TAB PO SCH ×2 (09:56→15:21)
[2018-02-05] MEDS: Armodafinil [Nuvigil] 250 MG PO SCH ×2 (09:56→20:12)
[2018-02-05] MEDS: HYDROMORPHONE INTRATHECA SCH (09:56)
[2018-02-05] MEDS: cloNIDine HCL 0.2 MG TAB PO SCH ×2 (09:56→15:57)
[2018-02-05] MEDS: ACETAMINOPHEN TAB 325 MG TAB PO PRN ×2 (14:13→20:12)
--- NOTE | 2018-02-05 14:21 | P.PN ---
Subjective Progress Note Date: 02/05/18 Principal diagnosis: Septic right knee arthritis, Right knee pain and swelling, narcolepsy, chronic persistent mild asthma, severe degree of degenerative joint disease osteoarthritis, generalized weakness and medical debility 02/05/2018, patient seen eval examined during the rounds clinically patient has been doing relatively better swelling pain and tenderness has significantly improved still have slight lateral tenderness in the knee is present, the culture results and reports are reviewed few gram-positive cocci are seen on the Gram stain and culture results are not back yet, ID service is following recommending to continue vancomycin 02/04/2018, patient seen eval examined during the rounds clinically overall remains stable the swelling in the right knee has improved slightly patient remains on broad-spectrum antibiotics with IV vancomycin culture results and reports are pending preliminary Gram stain positive for few gram-positive cocci question remains of septic arthritis, final ID hours pending 72-year-old female well-known to me with history of complex past medical history and multiple medical problems and issues patient has a history of severe degree of spine disease and arthritis has been on chronic pain medication pump as well, she walks with a walker, she has a history of sleep disorder breathing and sleep apnea however after losing significant weight sleep apnea has improved significantly and lately patient has not been using CPAP machine, patient does have a history of narcolepsy for which he is she has been on Nuvigil, she takes them 2 times a day, she lives independently at home but does have a history of severe degree of excessive daytime sleepiness, patient was at toilet seat try to get up but developed extreme degree of pain and swelling especially on the posterior part of the right knee no history of trauma or fall is present. Patient has been evaluated by emergency room physician at time was done to drain it very small amount of and minimal fluid obtained orthopedics has been consulted Patient denies any seizure-like to a loss of consciousness or hemiparesis, denies any chest pain or radiation of pain, denies any bowel or bladder dysfunction Objective - Vital Signs Vital signs: Vital Signs Temp 98.6 F 02/05/18 07:00 Pulse 59 L 02/05/18 07:00 Resp 14 02/05/18 07:00 BP 124/73 02/05/18 07:00 Pulse Ox 95 02/05/18 07:00 Intake & Output 02/04/18 02/05/18 02/05/18 18:59 06:59 18:59 Intake Total 737 200 180 Balance 737 200 180 Intake: Oral 737 200 180 Other: Voiding Method Bedside Commode Bedside Commode Toilet Bedpan # Voids 1 1 1 - Exam Limitations: physical limitation related to severe degree of spine disease with severe degree of kyphoscoliosis General appearance: alert, in no apparent distress Head exam: Present: atraumatic, normocephalic Eye exam: Present: normal appearance ENT exam: Present: normal exam Neck exam: Present: normal inspection Respiratory exam: Present: A lateral good air entry is present without significant raise rhonchi. Raise rhonchi or rub Abdominal exam: Present: soft, other (Patient has an intrathecal pump on the left lower abdomen.). Absent: distended, tenderness Extremities exam: Present: other (Patient has surgical scars over bilateral knees. The right knee is swollen compared to the left. There is no erythema or induration. There is tenderness to palpation of the right popliteal fossa.) Back exam: Present: normal inspection Neurological exam: Present: alert, oriented X3 Psychiatric exam: Present: normal affect, normal mood Skin exam: Present: warm, dry, intact - Labs CBC & Chem 7: 02/05/18 06:50 02/05/18 06:50 Labs: Abnormal Lab Results - Last 24 Hours (Table) 02/05/18 02/05/18 Range/Units 06:50 06:50 RBC 3.53 L (3.80-5.40) m/uL Hgb 11.2 L (11.4-16.0) gm/dL Hct 33.0 L (34.0-46.0) % BUN 18 H (7-17) mg/dL Creatinine 0.44 L (0.52-1.04) mg/dL Glucose 173 H (74-99) mg/dL Microbiology - Last 24 Hours (Table) 02/02/18 15:00 Gram Stain - Preliminary Knee - Right Body Fluid Culture - Preliminary Assessment and Plan Assessment: Right knee pain along with right-sided knee swelling Septic arthritis as Gram stain is growing gram-positive cocci Narcolepsy and excessive daytime sleepiness History of sleep disorder breathing and sleep apnea of of CPAP machine now due to significant weight loss Chronic intermittent mild asthma Kyphoscoliosis Severe degree of fibromyalgia and degenerative joint disease osteoarthritis Diet controlled type 2 diabetes mellitus Severe GERD Hypertension hypertensive cardiovascular disease Plan: Awaiting final culture results and report if patient and up in growing gram- positive cocci and likely will need a PICC line if okay with the ID services for long-term antibiotic therapy Gentle rehydration Continue IV vancomycin as planned pain control Continue home medications Consider doing bronchodilator on an as-needed basis Symptomatic supportive care and further evaluation and finding as per clinical response of the patient Time with Patient: Greater than 30
[2018-02-05] MEDS: OXYBUTYNIN XL 5 MG TAB.ER.24 PO SCH (20:12)
[2018-02-05] MEDS: ATORVASTATIN 10 MG TAB PO SCH (20:12)
[2018-02-05] MEDS: ZINC SULFATE 220 MG CAP PO SCH (20:12)
--- NOTE | 2018-02-05 22:47 | PN ---
PROGRESS NOTE DATE OF SERVICE: 02/05/2018. REASON FOR FOLLOWUP: Right knee pain and a question of possible septic arthritis or cellulitis. INTERVAL HISTORY: The patient is currently afebrile. Pain to the right knee is currently controlled. The patient lost the IV yesterday and has not gotten vancomycin. The patient denies having any chest pain, shortness of breath, or cough. No abdominal pain or any diarrhea. PHYSICAL EXAMINATION: Blood pressure is 146/72 with a pulse of 80, temperature of 90. GENERAL DESCRIPTION: An elderly female, up in the chair in no distress. RESPIRATORY SYSTEM: Unlabored breathing. Clear to auscultation anteriorly. HEART: S1, S2. Regular rate and rhythm. ABDOMEN: Soft. EXTREMITIES: Right knee currently no swelling or redness. LABS: The right knee aspirate culture so far negative. DIAGNOSTIC IMPRESSION AND PLAN: Patient admitted to the hospital with pain to the right knee area with concern for possible septic arthritis. The patient did have aspirate of the right knee and the Gram stain was showing a gram-positive cocci. However, the culture has been negative so far. She is currently off antibiotics as the patient has no IV access. With clinical suspicion being low for underlying septic arthritis, we will discontinue vancomycin and monitor the patient closely off antibiotic therapy. Continue supportive care. MMODL / IJN: [id number] /
[2018-02-06] MEDS: METOCLOPRAMIDE 5 MG/ML 2 ML VIAL IVP SCH ×4 (05:10→23:12)
[2018-02-06] MEDS: ACETAMINOPHEN TAB 325 MG TAB PO PRN ×2 (05:41→17:37)
[2018-02-06] MEDS: LIDOCAINE 5% PATCH TOPICAL SCH ×2 (05:52→17:33)
[2018-02-06] MEDS: methylPREDNISolone 4 MG TAB TAPER PO SCH (08:10)
[2018-02-06] MEDS: POTASSIUM CHLORIDE ER 20 MEQ TAB.ER PO SCH (08:11)
[2018-02-06] MEDS: amLODIPine 10 MG TAB PO SCH (08:11)
[2018-02-06] MEDS: MULTIVITAMINS, THERA 1 EACH TAB PO SCH (08:11)
[2018-02-06] MEDS: IMIPRAMINE 25 MG TAB PO SCH ×2 (08:11→20:20)
[2018-02-06] MEDS: ASPIRIN 325 MG TAB PO SCH (08:11)
[2018-02-06] MEDS: LISINOPRIL 5 MG TAB PO SCH ×2 (08:11→20:20)
[2018-02-06] MEDS: MELOXICAM 7.5 MG TAB PO SCH (08:12)
[2018-02-06] MEDS: FERROUS SULFATE 325 MG TAB PO SCH (08:12)
[2018-02-06] MEDS: ASCORBIC ACID 500 MG TAB PO SCH (08:12)
[2018-02-06] MEDS: cloNIDine HCL 0.2 MG TAB PO SCH (08:12)
--- NOTE | 2018-02-06 09:26 | P.PN ---
Subjective Progress Note Date: 02/06/18 Principal diagnosis: Right knee pain, swelling. exacerbation of osteoarthritis Patient is seen at bedside this morning 02/06/18. She was admitted through the ED on 02/02/2018 with concerns of having a right septic knee. It has not appeared infected. Cultures have been negative thus far. She has remained afebrile and with a normal white blood cell count. She has no known history of gout. She had bilateral padillectomies performed in [facility] several years ago. Her pain and swelling continues to improve daily. She has no new complaints. She has no calf pain, numbness, tingling fever chills, chest pain or SOB. Objective - Vital Signs Vital signs: Vital Signs Temp 98.4 F 02/06/18 07:50 Pulse 56 L 02/06/18 07:50 Resp 14 02/06/18 07:50 BP 146/89 02/06/18 07:50 Pulse Ox 98 02/06/18 07:50 Intake & Output 02/05/18 02/06/18 02/06/18 18:59 06:59 18:59 Intake Total 180 40 720 Balance 180 40 720 Intake: Oral 180 40 720 Other: Voiding Method Bedside Commode # Voids 1 1 - Exam Inspection of the right knee today shows improved swelling with minimal effusion. There is no erythema. The knee is minimally tender to touch. The joint is not hot. She lacks 5 extension without pain. She flexes to 90 without pain. The knee is ligamentously stable. Calf is soft and nontender. Neurovascular status is intact throughout the right lower extremity. - Constitutional General appearance: Present: no acute distress - Labs CBC & Chem 7: 02/05/18 06:50 02/05/18 06:50 Labs: Microbiology - Last 24 Hours (Table) 02/02/18 15:00 Gram Stain - Preliminary Knee - Right Body Fluid Culture - Preliminary Assessment and Plan (1) Osteoarthritis, knee Narrative/Plan: She continues to improve. She is afebrile and has a normal white blood cell count. The examination continues to improve with minimal to no swelling today and no erythema or warmth. Continue with rest, ice, compression, and corticosteroids. Progress with activities and PT as tolerated. . She may be discharged from an orthopedic standpoint and follow up with us as an outpatient. Thank you Current Visit: Yes Status: Acute Priority: Medium Code(s): M17.10 - UNILATERAL PRIMARY OSTEOARTHRITIS, UNSPECIFIED KNEE SNOMED Code(s): 665193892 (2) Right knee pain Current Visit: Yes Status: Acute Code(s): M25.561 - PAIN IN RIGHT KNEE SNOMED Code(s): 50971386 Time with Patient: Less than 30
[2018-02-06 09:41] LABS: Basophils % (A) 0 %; Eosinophils # (A) 0.2 k/uL (0-0.7); Eosinophils % (A) 4 %; HCT 39.7 % (34.0-46.0); HGB 13.9 gm/dL (11.4-16.0); Lymphocytes # (A) 1.4 k/uL (1.0-4.8); Lymphocytes % (A) 24 %; MCH 32.7 pg (25.0-35.0); MCHC 35.1 g/dL (31.0-37.0); MCV 93.1 fL (80.0-100.0); Mean Platelet Volume 7.9; Monocytes # (A) 0.6 k/uL (0-1.0); Monocytes % (A) 10 %; Neutrophils # (A) 3.5 k/uL (1.3-7.7); Neutrophils % (A) 60 %; Platelet Count 258 k/uL (150-450); RBC 4.27 m/uL (3.80-5.40); RDW 12.9 % (11.5-15.5); WBC 5.8 k/uL (3.8-10.6)
[2018-02-06 09:51] LABS: Anion Gap 12 mmol/L; Blood Urea Nitrogen 16 mg/dL (7-17); Calcium 9.2 mg/dL (8.4-10.2); Carbon Dioxide 26 mmol/L (22-30); Chloride 98 mmol/L (98-107); Glucose 241 mg/dL (74-99); Sodium 136 mmol/L (137-145)
[2018-02-06] MEDS: HYDROMORPHONE INTRATHECA SCH (09:56)
[2018-02-06] MEDS: Armodafinil [Nuvigil] 250 MG PO SCH ×2 (09:56→20:20)
[2018-02-06 10:19] LABS: Potassium 5.2 mmol/L (3.5-5.1)
--- NOTE | 2018-02-06 14:03 | PN ---
PROGRESS NOTE \DATE OF SERVICE: 02/06/2018 REASON FOR FOLLOWUP: Right knee pain and a question of possible septic arthritis. INTERVAL HISTORY: The patient is currently afebrile. She is breathing comfortably. Did have some shortness of breath this morning, though no cough or abdominal pain. Pain to the right knee. Currently had some ice packs on, though no worsening than yesterday. PHYSICAL EXAMINATION: Blood pressure 146/89, pulse of 56, temperature 98.4. She is 98% on room air. General description is an elderly female, up in the chair in no distress. RESPIRATORY SYSTEM: Unlabored breathing, clear to auscultation anteriorly. HEART: S1, S2. Regular rate and rhythm. ABDOMEN: Soft. Right knee is currently with ice packs on, no drainage. LABS: Hemoglobin is 13.8, white count 5.8. BUN of 16, creatinine 0.44. The right knee culture so far negative. DIAGNOSTIC IMPRESSION AND PLAN: Patient admitted to the hospital with right knee pain with concern for possible septic arthritis. She did have a low-grade fever. She did have an aspirate of the knee. Unfortunately, cell count differential were not done on that, only had the Gram stain, which was showing some gram-positive cocci, though the culture has been negative. Clinically, did not behave like a septic arthritis. The patient has significant swelling, redness to the right knee area and no white count. She is currently off antibiotic for more than 42 hours with no clinical worsening. Hence, recommend keeping her off the antibiotic therapy for now. If the patient develops any fever and redness, may consider doing further workup. MMODL / IJN: [id number] /
--- NOTE | 2018-02-06 15:51 | P.PN ---
Subjective Progress Note Date: 02/05/18 Principal diagnosis: Right knee swelling/effusion Interval History: This is a 72-year-old female admitted with acute right knee pain with swelling, effusion, increased CRP and ESR with history of fibromyalgia , degenerative joint disease and multiple other medical issues. Right knee aspirated, culture pending. Evaluated by both infectious disease and orthopedics with recommendations noted. Patient states pain was an abrupt onset. Nausea and vomiting this morning after taking Shields. Maintained on vancomycin. Afebrile, normal WBC. 02/04/2018 preliminary right knee cultures, Gram stain with rare gram-positive cocci, fluid culture no growth at 48 hours. Uric acid level low. Maintained on IV antibiotics as per infectious disease. Afebrile. Normal WBC. Significant improvement in swelling of right knee as well as pain. Complains of knee pain with weight bearing, ambulating. Nausea has subsided. Denies chest pain, palpitations or increased shortness of breath. Denies lightheadedness, dizziness or focal deficits. 02/05/2018 Patient says that her right knee swelling is almost resolved. Has been afebrile overnight. No complaints of chest pain or shortness of breath. No nausea vomiting or abdominal pain. Wound cultures/fluid cultures are not finalized at this time. Patient is on vancomycin until final culture report. ID is following. All other review of systems negative for the above Current medications reviewed. Objective - Vital Signs Vital signs: Vital Signs Temp 98.6 F 02/05/18 07:00 Pulse 59 L 02/05/18 07:00 Resp 14 02/05/18 07:00 BP 124/73 02/05/18 07:00 Pulse Ox 95 02/05/18 07:00 Intake & Output 02/04/18 02/05/18 02/05/18 18:59 06:59 18:59 Intake Total 737 200 180 Balance 737 200 180 Intake: Oral 737 200 180 Other: Voiding Method Bedside Commode Bedside Commode Toilet Bedpan # Voids 1 1 1 - Exam GENERAL: Sitting up in chair, tired appearing no acute distress HEENT: Conjunctivae normal. eyes normal. Oral mucosa moist NECK: No JVD. No thyroid enlargement. No LNs CARDIOVASCULAR: S1, S2 muffled. No murmur RESPIRATION: Breath sounds diminished in the bases. No rhonchi or crackles. ABDOMEN: Soft, nontender . No guarding. no masses palpable. Bowel sounds heard. LEGS: Right leg with improved edema status post aspiration, with effusion, minimal tenderness, Sha wrapped . Flexing knee without pain PSYCHIATRY: Alert and oriented -3, mood and affect normal. NERVOUS SYSTEM: Cranial N 2-12 grossly normal. Moves all 4 limbs. Diffuse weakness No focal deficits. Skin: no ulcer no rash Lymphatic system. No LN neck axilla or groin. - Labs CBC & Chem 7: 02/06/18 08:50 02/06/18 08:50 Labs: Abnormal Lab Results - Last 24 Hours (Table) 02/05/18 02/05/18 Range/Units 06:50 06:50 RBC 3.53 L (3.80-5.40) m/uL Hgb 11.2 L (11.4-16.0) gm/dL Hct 33.0 L (34.0-46.0) % BUN 18 H (7-17) mg/dL Creatinine 0.44 L (0.52-1.04) mg/dL Glucose 173 H (74-99) mg/dL Microbiology - Last 24 Hours (Table) 02/02/18 15:00 Gram Stain - Preliminary Knee - Right Body Fluid Culture - Preliminary Assessment and Plan Assessment: 1. Right knee pain with swelling and effusion. Likely due to osteoarthritis. Suspected pseudogout/gout due to elevated ESR and CRP. Uric acid is not elevated. Unlikely septic arthritis. 2. Elevated ERP and ESR 3. Diabetes mellitus of 2 4. Fibromyalgia 5. Gastroesophageal reflux disease 6. Degenerative joint disease Plan: Continue on current medication regime ,monitoring and symptomatic treatment. Maintain PPI, Reglan, steroids. Antibiotics as per infectious disease. Final culture results pending. Follow closely with both orthopedics and infectious disease. PT/OT. Potential subacute rehab at discharge. Time with Patient: Greater than 30
--- NOTE | 2018-02-06 15:54 | P.PN ---
Subjective Progress Note Date: 02/06/18 Principal diagnosis: Right knee swelling/effusion Interval History: This is a 72-year-old female admitted with acute right knee pain with swelling, effusion, increased CRP and ESR with history of fibromyalgia , degenerative joint disease and multiple other medical issues. Right knee aspirated, culture pending. Evaluated by both infectious disease and orthopedics with recommendations noted. Patient states pain was an abrupt onset. Nausea and vomiting this morning after taking Emporium. Maintained on vancomycin. Afebrile, normal WBC. 02/04/2018 preliminary right knee cultures, Gram stain with rare gram-positive cocci, fluid culture no growth at 48 hours. Uric acid level low. Maintained on IV antibiotics as per infectious disease. Afebrile. Normal WBC. Significant improvement in swelling of right knee as well as pain. Complains of knee pain with weight bearing, ambulating. Nausea has subsided. Denies chest pain, palpitations or increased shortness of breath. Denies lightheadedness, dizziness or focal deficits. 02/05/2018 Patient says that her right knee swelling is almost resolved. Has been afebrile overnight. No complaints of chest pain or shortness of breath. No nausea vomiting or abdominal pain. Wound cultures/fluid cultures are not finalized at this time. Patient is on vancomycin until final culture report. ID is following. 02/06/2018 Patient denied any complaints of right knee pain. Able to bear weight and ambulate with support. Patient may benefit from rehab transfer. Otherwise patient is off antibiotics. No increase knee swelling. Orthopedic surgery and ID is following. No fever no chills. Tolerating oral diet. No chest pain or shortness of breath. PT OT is following. All other review of systems negative for the above Current medications reviewed. Objective - Vital Signs Vital signs: Vital Signs Temp 98.3 F 02/06/18 13:54 Pulse 58 L 02/06/18 13:54 Resp 17 02/06/18 13:54 BP 105/65 02/06/18 13:54 Pulse Ox 93 L 02/06/18 13:54 Intake & Output 02/05/18 02/06/18 02/06/18 18:59 06:59 18:59 Intake Total 052 12 8050 Balance 009 89 0580 Intake: IV 250 Vancomycin 1,000 mg In 250 Sodium Chloride 0.9% 250 ml @ 125 mls/hr IVPB Q8H [facility] Rx#:[id number] Oral 493 13 [id number] Other: Voiding Method Bedside Commode Bedside Commode # Voids 1 1 2 - Exam GENERAL: Sitting up in chair, tired appearing no acute distress HEENT: Conjunctivae normal. eyes normal. Oral mucosa moist NECK: No JVD. No thyroid enlargement. No LNs CARDIOVASCULAR: S1, S2 muffled. No murmur RESPIRATION: Breath sounds diminished in the bases. No rhonchi or crackles. ABDOMEN: Soft, nontender . No guarding. no masses palpable. Bowel sounds heard. LEGS: Right leg with improved edema status post aspiration, with effusion, minimal tenderness, Sha wrapped . Flexing knee without pain PSYCHIATRY: Alert and oriented -3, mood and affect normal. NERVOUS SYSTEM: Cranial N 2-12 grossly normal. Moves all 4 limbs. Diffuse weakness No focal deficits. Skin: no ulcer no rash Lymphatic system. No LN neck axilla or groin. - Labs CBC & Chem 7: 02/06/18 08:50 02/06/18 08:50 Labs: Abnormal Lab Results - Last 24 Hours (Table) 02/06/18 Range/Units 08:50 Sodium 136 L (137-145) mmol/L Potassium 5.2 H (3.5-5.1) mmol/L Creatinine 0.44 L (0.52-1.04) mg/dL Glucose 241 H (74-99) mg/dL Microbiology - Last 24 Hours (Table) 02/02/18 15:00 Gram Stain - Preliminary Knee - Right Body Fluid Culture - Preliminary Assessment and Plan Assessment: 1. Right knee pain with swelling and effusion. Likely due to osteoarthritis. Suspected pseudogout/gout due to elevated ESR and CRP. Uric acid is not elevated. Unlikely septic arthritis. 2. Elevated ERP and ESR 3. Diabetes mellitus of 2 4. Fibromyalgia 5. Gastroesophageal reflux disease 6. Degenerative joint disease 7. Mild hyperkalemia 5.2 likely due to potassium supplementation. Will be on hold. Patient is on long-term potassium supplementation at home. Plan: Continue on current medication regime ,monitoring and symptomatic treatment. Maintain PPI, Reglan, steroids. Antibiotics as per infectious disease. Final culture results pending. Follow closely with both orthopedics and infectious disease. PT/OT. Potential subacute rehab at discharge. Time with Patient: Greater than 30
[2018-02-06 19:43] VITALS: RESP 16
[2018-02-06] MEDS: ZINC SULFATE 220 MG CAP PO SCH (20:19)
[2018-02-06] MEDS: ATORVASTATIN 10 MG TAB PO SCH (20:20)
[2018-02-06] MEDS: OXYBUTYNIN XL 5 MG TAB.ER.24 PO SCH (20:20)
[2018-02-07] MEDS: ACETAMINOPHEN TAB 325 MG TAB PO PRN ×2 (00:56→15:37)
[2018-02-07] MEDS: LIDOCAINE 5% PATCH TOPICAL SCH ×2 (04:44→18:44)
[2018-02-07] MEDS: METOCLOPRAMIDE 5 MG/ML 2 ML VIAL IVP SCH ×4 (04:50→18:44)
[2018-02-07 07:56] LABS: Glucose,Whole Blood 192 mg/dL (75-99)
[2018-02-07 08:03] LABS: Anion Gap 8 mmol/L; Blood Urea Nitrogen 17 mg/dL (7-17); Calcium 8.9 mg/dL (8.4-10.2); Carbon Dioxide 30 mmol/L (22-30); Chloride 99 mmol/L (98-107); Glucose 209 mg/dL (74-99); Potassium 4.5 mmol/L (3.5-5.1); Sodium 137 mmol/L (137-145)
[2018-02-07 08:05] VITALS: BP 154/84; PULSE 70; TEMP 97.8
[2018-02-07 08:25] LABS: Basophils % (A) 0 %; Eosinophils # (A) 0.3 k/uL (0-0.7); Eosinophils % (A) 5 %; HCT 36.5 % (34.0-46.0); HGB 12.4 gm/dL (11.4-16.0); Lymphocytes # (A) 1.5 k/uL (1.0-4.8); Lymphocytes % (A) 27 %; MCH 31.6 pg (25.0-35.0); MCV 92.9 fL (80.0-100.0); Mean Platelet Volume 7.9; Monocytes # (A) 0.4 k/uL (0-1.0); Monocytes % (A) 6 %; Neutrophils # (A) 3.4 k/uL (1.3-7.7); Neutrophils % (A) 60 %; Platelet Count 250 k/uL (150-450); RBC 3.93 m/uL (3.80-5.40); RDW 12.9 % (11.5-15.5); WBC 5.7 k/uL (3.8-10.6)
--- NOTE | 2018-02-07 09:17 | P.PN ---
Subjective Progress Note Date: 02/07/18 Principal diagnosis: Right knee pain and osteoarthritis The patient is a 72-year-old female who we have been following for a possible septic right knee. She was found to have osteoarthritis with no evidence of infection. She has continued to improve on oral Medrol. We are awaiting rehab placement at this time. Today, the patient states that she is feeling well. She denies fever, chills, rigors, shortness breath, abdominal pain, and chest pain this time. Objective - Vital Signs Vital signs: Vital Signs Temp 97.8 F 02/07/18 07:00 Pulse 70 02/07/18 07:00 Resp 16 02/07/18 07:00 BP 154/84 02/07/18 07:00 Pulse Ox 92 L 02/07/18 07:00 Intake & Output 02/06/18 02/07/18 02/07/18 18:59 06:59 18:59 Intake Total 1450 Balance 1450 Intake: IV 250 Vancomycin 1,000 mg In 250 Sodium Chloride 0.9% 250 ml @ 125 mls/hr IVPB Q8H [facility] Rx#:[id number] Oral 1200 Other: Voiding Method Bedside Commode # Voids 2 3 1 - Exam The patient does not appear in acute distress. Alert and orientated x3. Knee appears fine with no erythema or signs of infection. Thigh-high SMITHA hose are in place bilaterally. Calf is soft and nontender. Good foot and ankle motion without difficulty. Sensation and circulatory status is intact. - Labs CBC & Chem 7: 02/07/18 06:51 02/07/18 07:00 Labs: Abnormal Lab Results - Last 24 Hours (Table) 02/06/18 02/07/18 02/07/18 Range/Units 08:50 07:00 07:42 Sodium 136 L (137-145) mmol/L Potassium 5.2 H (3.5-5.1) mmol/L Creatinine 0.44 L 0.42 L (0.52-1.04) mg/dL Glucose 241 H 209 H (74-99) mg/dL POC Glucose (mg/dL) 192 H (75-99) mg/dL Microbiology - Last 24 Hours (Table) 02/02/18 15:00 Gram Stain - Preliminary Knee - Right Body Fluid Culture - Preliminary Assessment and Plan (1) Osteoarthritis, knee Current Visit: Yes Status: Acute Priority: Medium Code(s): M17.10 - UNILATERAL PRIMARY OSTEOARTHRITIS, UNSPECIFIED KNEE SNOMED Code(s): 227217976 (2) Right knee pain Current Visit: Yes Status: Acute Code(s): M25.561 - PAIN IN RIGHT KNEE SNOMED Code(s): 99535559 Plan: 1. Continue pain control 2. Control oral steriods 3. Continue physical therapy and ambulation 4. Anticipate discharge to skilled rehab when arrangements have been made. She is cleared by orthopedics for discharge.
[2018-02-07 12:57] LABS: Glucose,Whole Blood 331 mg/dL (75-99)
--- NOTE | 2018-02-07 12:59 | P.PN ---
Subjective Progress Note Date: 02/06/18 (Late entry note) Principal diagnosis: right knee arthritis, Right knee pain and swelling, narcolepsy, chronic persistent mild asthma, severe degree of degenerative joint disease osteoarthritis, generalized weakness and medical debility 02/06/2018, patient seen eval examined clinically patient is doing slightly better in terms of pain has mild shortness of breath has been on breathing treatment on an as-needed basis patient is getting pain medications for right knee possibly sprain and swelling and also has a dressing applied cultures the final report revealed no significant growth organism were noted the Gram stain of positive likely contamination as per recommendation infectious disease services no plans for antibiotics except for supportive care and possibly steroids orthopedic service is following this patient, patient is being evaluated for ECF/rehab placement 02/05/2018, patient seen eval examined during the rounds clinically patient has been doing relatively better swelling pain and tenderness has significantly improved still have slight lateral tenderness in the knee is present, the culture results and reports are reviewed few gram-positive cocci are seen on the Gram stain and culture results are not back yet, ID service is following recommending to continue vancomycin 02/04/2018, patient seen eval examined during the rounds clinically overall remains stable the swelling in the right knee has improved slightly patient remains on broad-spectrum antibiotics with IV vancomycin culture results and reports are pending preliminary Gram stain positive for few gram-positive cocci question remains of septic arthritis, final ID hours pending 72-year-old female well-known to me with history of complex past medical history and multiple medical problems and issues patient has a history of severe degree of spine disease and arthritis has been on chronic pain medication pump as well, she walks with a walker, she has a history of sleep disorder breathing and sleep apnea however after losing significant weight sleep apnea has improved significantly and lately patient has not been using CPAP machine, patient does have a history of narcolepsy for which he is she has been on Nuvigil, she takes them 2 times a day, she lives independently at home but does have a history of severe degree of excessive daytime sleepiness, patient was at toilet seat try to get up but developed extreme degree of pain and swelling especially on the posterior part of the right knee no history of trauma or fall is present. Patient has been evaluated by emergency room physician at time was done to drain it very small amount of and minimal fluid obtained orthopedics has been consulted Patient denies any seizure-like to a loss of consciousness or hemiparesis, denies any chest pain or radiation of pain, denies any bowel or bladder dysfunction Objective - Vital Signs Vital signs: Vital Signs Temp 97.8 F 02/07/18 07:00 Pulse 70 02/07/18 07:00 Resp 16 02/07/18 07:00 BP 154/84 02/07/18 07:00 Pulse Ox 92 L 02/07/18 07:00 Intake & Output 02/06/18 02/07/18 02/07/18 18:59 06:59 18:59 Intake Total 1450 Balance 1450 Intake: IV 250 Vancomycin 1,000 mg In 250 Sodium Chloride 0.9% 250 ml @ 125 mls/hr IVPB Q8H [facility] Rx#:[id number] Oral 1200 Other: Voiding Method Bedside Commode # Voids 2 3 1 - Exam Limitations: physical limitation related to severe degree of spine disease with severe degree of kyphoscoliosis General appearance: alert, in no apparent distress Head exam: Present: atraumatic, normocephalic Eye exam: Present: normal appearance ENT exam: Present: normal exam Neck exam: Present: normal inspection Respiratory exam: Present: A lateral good air entry is present without significant raise rhonchi. Raise rhonchi or rub Abdominal exam: Present: soft, other (Patient has an intrathecal pump on the left lower abdomen.). Absent: distended, tenderness Extremities exam: Present: other (Patient has surgical scars over bilateral knees. The right knee is swollen compared to the left. There is no erythema or induration. There is tenderness to palpation of the right popliteal fossa.) Back exam: Present: normal inspection Neurological exam: Present: alert, oriented X3 Psychiatric exam: Present: normal affect, normal mood Skin exam: Present: warm, dry, intact - Labs CBC & Chem 7: 02/07/18 06:51 02/07/18 07:00 Labs: Abnormal Lab Results - Last 24 Hours (Table) 02/07/18 02/07/18 Range/Units 07:00 07:42 Creatinine 0.42 L (0.52-1.04) mg/dL Glucose 209 H (74-99) mg/dL POC Glucose (mg/dL) 192 H (75-99) mg/dL Microbiology - Last 24 Hours (Table) 02/02/18 15:00 Gram Stain - Preliminary Knee - Right Body Fluid Culture - Preliminary Assessment and Plan Assessment: Right knee pain along with right-sided knee swelling Septic arthritis less likely as however Gram stain was positive for gram- positive cocci, however cultures have been negative no growth of organism has been seen may very well be contamination Narcolepsy and excessive daytime sleepiness History of sleep disorder breathing and sleep apnea of of CPAP machine now due to significant weight loss Chronic intermittent mild asthma Kyphoscoliosis Severe degree of fibromyalgia and degenerative joint disease osteoarthritis Diet controlled type 2 diabetes mellitus Severe GERD Hypertension hypertensive cardiovascular disease Plan: Awaiting final culture results and report, ID service has recommended to observe off of antibiotics Gentle rehydration pain control Continue home medications Consider doing bronchodilator on an as-needed basis Symptomatic supportive care and further evaluation and finding as per clinical response of the patient Time with Patient: Greater than 30
[2018-02-07] MEDS: amLODIPine 10 MG TAB PO SCH (13:01)
[2018-02-07] MEDS: Armodafinil [Nuvigil] 250 MG PO SCH (13:02)
[2018-02-07] MEDS: ASPIRIN 325 MG TAB PO SCH (13:02)
--- NOTE | 2018-02-07 13:02 | P.PN ---
Subjective Progress Note Date: 02/07/18 Principal diagnosis: right knee arthritis, Right knee pain and swelling, narcolepsy, chronic persistent mild asthma, severe degree of degenerative joint disease osteoarthritis, generalized weakness and medical debility 02/07/2018, patient seen eval examined during the rounds clinically doing slightly better pain and swelling overall remains stable in the right knee, patient is being monitored off of antibiotics now patient able to stand on her feet and can be transferred to bedside commode, she likely will be placed in ECF , noted recommendation of orthopedic service as well as infectious disease services plan is to observe off of antibiotics patient is going for rehabilitation purposes to [facility] likely for short-term basis that she wishes to go back home, she has some shortness of breath and a prescription has been initiated for breathing treatment as needed at [facility], will follow on outpatient setting 02/06/2018, patient seen eval examined clinically patient is doing slightly better in terms of pain has mild shortness of breath has been on breathing treatment on an as-needed basis patient is getting pain medications for right knee possibly sprain and swelling and also has a dressing applied cultures the final report revealed no significant growth organism were noted the Gram stain of positive likely contamination as per recommendation infectious disease services no plans for antibiotics except for supportive care and possibly steroids orthopedic service is following this patient, patient is being evaluated for ECF/rehab placement 02/05/2018, patient seen eval examined during the rounds clinically patient has been doing relatively better swelling pain and tenderness has significantly improved still have slight lateral tenderness in the knee is present, the culture results and reports are reviewed few gram-positive cocci are seen on the Gram stain and culture results are not back yet, ID service is following recommending to continue vancomycin 02/04/2018, patient seen eval examined during the rounds clinically overall remains stable the swelling in the right knee has improved slightly patient remains on broad-spectrum antibiotics with IV vancomycin culture results and reports are pending preliminary Gram stain positive for few gram-positive cocci question remains of septic arthritis, final ID hours pending 72-year-old female well-known to me with history of complex past medical history and multiple medical problems and issues patient has a history of severe degree of spine disease and arthritis has been on chronic pain medication pump as well, she walks with a walker, she has a history of sleep disorder breathing and sleep apnea however after losing significant weight sleep apnea has improved significantly and lately patient has not been using CPAP machine, patient does have a history of narcolepsy for which he is she has been on Nuvigil, she takes them 2 times a day, she lives independently at home but does have a history of severe degree of excessive daytime sleepiness, patient was at toilet seat try to get up but developed extreme degree of pain and swelling especially on the posterior part of the right knee no history of trauma or fall is present. Patient has been evaluated by emergency room physician at time was done to drain it very small amount of and minimal fluid obtained orthopedics has been consulted Patient denies any seizure-like to a loss of consciousness or hemiparesis, denies any chest pain or radiation of pain, denies any bowel or bladder dysfunction Objective - Vital Signs Vital signs: Vital Signs Temp 97.8 F 02/07/18 07:00 Pulse 70 02/07/18 07:00 Resp 16 02/07/18 07:00 BP 154/84 02/07/18 07:00 Pulse Ox 92 L 02/07/18 07:00 Intake & Output 02/06/18 02/07/18 02/07/18 18:59 06:59 18:59 Intake Total 1450 Balance 1450 Intake: IV 250 Vancomycin 1,000 mg In 250 Sodium Chloride 0.9% 250 ml @ 125 mls/hr IVPB Q8H [facility] Rx#:[id number] Oral 1200 Other: Voiding Method Bedside Commode # Voids 2 3 1 - Exam Limitations: physical limitation related to severe degree of spine disease with severe degree of kyphoscoliosis General appearance: alert, in no apparent distress Head exam: Present: atraumatic, normocephalic Eye exam: Present: normal appearance ENT exam: Present: normal exam Neck exam: Present: normal inspection Respiratory exam: Present: A lateral good air entry is present without significant raise rhonchi. Raise rhonchi or rub Abdominal exam: Present: soft, other (Patient has an intrathecal pump on the left lower abdomen.). Absent: distended, tenderness Extremities exam: Present: other (Patient has surgical scars over bilateral knees. The right knee is swollen compared to the left. There is no erythema or induration. There is tenderness to palpation of the right popliteal fossa.) Back exam: Present: normal inspection Neurological exam: Present: alert, oriented X3 Psychiatric exam: Present: normal affect, normal mood Skin exam: Present: warm, dry, intact - Labs CBC & Chem 7: 02/07/18 06:51 02/07/18 07:00 Labs: Abnormal Lab Results - Last 24 Hours (Table) 02/07/18 02/07/18 02/07/18 Range/Units 07:00 07:42 12:49 Creatinine 0.42 L (0.52-1.04) mg/dL Glucose 209 H (74-99) mg/dL POC Glucose (mg/dL) 192 H 331 H (75-99) mg/dL Microbiology - Last 24 Hours (Table) 02/02/18 15:00 Gram Stain - Preliminary Knee - Right Body Fluid Culture - Preliminary Assessment and Plan Assessment: Right knee pain along with right-sided knee swelling, , likely to be a sprain Septic arthritis less likely, ID services recommend to observe off of antibiotics Narcolepsy and excessive daytime sleepiness History of sleep disorder breathing and sleep apnea of of CPAP machine now due to significant weight loss Chronic intermittent mild asthma Severe Kyphoscoliosis and extensive spine disease Severe degree of fibromyalgia and degenerative joint disease osteoarthritis Diet controlled type 2 diabetes mellitus Severe GERD Hypertension hypertensive cardiovascular disease Plan: Agree with discharge planning to ECF Gentle rehydration pain control Continue home medications Consider doing bronchodilator on an as-needed basis Symptomatic supportive care and further evaluation and finding as per clinical response of the patient Time with Patient: Greater than 30
[2018-02-07] MEDS: cloNIDine HCL 0.2 MG TAB PO SCH (13:03)
[2018-02-07] MEDS: FERROUS SULFATE 325 MG TAB PO SCH (13:03)
[2018-02-07] MEDS: HYDROMORPHONE INTRATHECA SCH (13:04)
[2018-02-07] MEDS: LISINOPRIL 5 MG TAB PO SCH (13:05)
[2018-02-07] MEDS: IMIPRAMINE 25 MG TAB PO SCH (13:05)
[2018-02-07] MEDS: MELOXICAM 7.5 MG TAB PO SCH (13:06)
[2018-02-07] MEDS: MULTIVITAMINS, THERA 1 EACH TAB PO SCH (13:07)
[2018-02-07] MEDS: ASCORBIC ACID 500 MG TAB PO SCH (13:07)
[2018-02-07] MEDS: methylPREDNISolone 4 MG TAB TAPER PO SCH (13:08)
--- NOTE | 2018-02-07 17:46 | PN ---
PROGRESS NOTE DATE OF SERVICE: 02/07/2018 REASON FOR FOLLOWUP: Right knee pain and question of possible cellulitis. INTERVAL HISTORY: The patient is currently afebrile. She still complains of pain to the right knee, but no worsening. The patient denies having any chest pain or shortness of breath or cough. No abdominal pain or any diarrhea. PHYSICAL EXAMINATION: On examination, blood pressure 154/84, pulse is 70, temperature 97.8. She is 92% on room air. General description is an elderly female up in the bed in no distress. RESPIRATORY SYSTEM: Unlabored breathing, clear to auscultation. No wheezing or crackles. HEART: S1, S2. Regular rate and rhythm. ABDOMEN: Soft. No tenderness. Right knee currently with no swelling, redness or any tenderness. LABS: White count has been normal. Culture has been negative. DIAGNOSTIC IMPRESSION AND PLAN: Patient with right knee pain with initial concern for possible septic arthritis. In view of the low-grade fever and the Gram stain, suspicion for a gram-positive cocci, however, subsequently, no fever and the Gram stain has been negative. The patient is off antibiotics for a couple of days now without any worsening symptoms. Hence, we will recommend no antibiotic on discharge. We will continue to monitor her closely. Continue with supportive care. MMODL / IJN: [id number] /
--- NOTE | 2018-02-07 23:18 | P.PN ---
Subjective Progress Note Date: 02/07/18 Principal diagnosis: Right knee swelling/effusion Interval History: This is a 72-year-old female admitted with acute right knee pain with swelling, effusion, increased CRP and ESR with history of fibromyalgia , degenerative joint disease and multiple other medical issues. Right knee aspirated, culture pending. Evaluated by both infectious disease and orthopedics with recommendations noted. Patient states pain was an abrupt onset. Nausea and vomiting this morning after taking [place]. Maintained on vancomycin. Afebrile, normal WBC. 02/04/2018 preliminary right knee cultures, Gram stain with rare gram-positive cocci, fluid culture no growth at 48 hours. Uric acid level low. Maintained on IV antibiotics as per infectious disease. Afebrile. Normal WBC. Significant improvement in swelling of right knee as well as pain. Complains of knee pain with weight bearing, ambulating. Nausea has subsided. Denies chest pain, palpitations or increased shortness of breath. Denies lightheadedness, dizziness or focal deficits. 02/05/2018 Patient says that her right knee swelling is almost resolved. Has been afebrile overnight. No complaints of chest pain or shortness of breath. No nausea vomiting or abdominal pain. Wound cultures/fluid cultures are not finalized at this time. Patient is on vancomycin until final culture report. ID is following. 02/06/2018 Patient denied any complaints of right knee pain. Able to bear weight and ambulate with support. Patient may benefit from rehab transfer. Otherwise patient is off antibiotics. No increase knee swelling. Orthopedic surgery and ID is following. No fever no chills. Tolerating oral diet. No chest pain or shortness of breath. PT OT is following. 02/07/2018 Patient is able to bear weight on the right knee. Otherwise denied any new complaints. No fever no chills. Device have been discontinued. Patient is being discharged to rehab. Patient will be continued on Medrol Dosepak and pain management. PT OT. All other review of systems negative for the above Current medications reviewed. Objective - Vital Signs Vital signs: Vital Signs Temp 97.8 F 02/07/18 07:00 Pulse 70 02/07/18 07:00 Resp 16 02/07/18 07:00 BP 154/84 02/07/18 07:00 Pulse Ox 92 L 02/07/18 07:00 Intake & Output 02/07/18 02/07/18 02/08/18 06:59 18:59 06:59 Intake Total 720 Balance 720 Intake: Oral 720 Other: Voiding Method Incontinent # Voids 3 5 - Exam GENERAL: Sitting up in chair, tired appearing no acute distress HEENT: Conjunctivae normal. eyes normal. Oral mucosa moist NECK: No JVD. No thyroid enlargement. No LNs CARDIOVASCULAR: S1, S2 muffled. No murmur RESPIRATION: Breath sounds diminished in the bases. No rhonchi or crackles. ABDOMEN: Soft, nontender . No guarding. no masses palpable. Bowel sounds heard. LEGS: Right knee with improved swelling status post aspiration, with effusion, minimal tenderness, Sha wrapped . Flexing knee without pain PSYCHIATRY: Alert and oriented -3, mood and affect normal. NERVOUS SYSTEM: Cranial N 2-12 grossly normal. Moves all 4 limbs. Diffuse weakness No focal deficits. Skin: no ulcer no rash Lymphatic system. No LN neck axilla or groin. - Labs CBC & Chem 7: 02/07/18 06:51 02/07/18 07:00 Labs: Abnormal Lab Results - Last 24 Hours (Table) 02/07/18 02/07/18 02/07/18 Range/Units 07:00 07:42 12:49 Creatinine 0.42 L (0.52-1.04) mg/dL Glucose 209 H (74-99) mg/dL POC Glucose (mg/dL) 192 H 331 H (75-99) mg/dL Assessment and Plan Assessment: 1. Right knee pain with swelling and effusion. Likely due to osteoarthritis. Suspected pseudogout/gout due to elevated ESR and CRP. Uric acid is not elevated. Unlikely septic arthritis. 2. Elevated ERP and ESR 3. Diabetes mellitus of 2 4. Fibromyalgia 5. Gastroesophageal reflux disease 6. Degenerative joint disease 7. Mild hyperkalemia 5.2 likely due to potassium supplementation. Will be on hold. Patient is on long-term potassium supplementation at home. Plan: Continue on current medication regime ,monitoring and symptomatic treatment. Maintain PPI, Reglan, steroids. Antibiotics antibiotics have been discontinued Follow closely with both orthopedics and infectious disease. PT/ OT. Potential subacute rehab at discharge. Time with Patient: Greater than 30
--- NOTE | 2018-02-08 00:23 | P.DS ---
Providers Date of admission: 02/02/18 15:37 Expected date of discharge: 02/07/18 Attending physician: Amanda Simmons Consults: 02/03/18 00:59 Consult Physician Routine Consulting Provider: Joel Mazariegos Consult Reason/Comments: copd Do you want consulting provider notified?: Yes 02/03/18 01:00 Consult Physician Routine Consulting Provider: Paulie Upton Consult Reason/Comments: djd rt knee?? Do you want consulting provider notified?: Yes Consult Physician Routine Consulting Provider: Trice Woodard Consult Reason/Comments: septic arhtritis?? Do you want consulting provider notified?: Yes Primary care physician: Joel Mazariegos Hospital Course: Discharge diagnosis 1. Right knee pain with swelling and effusion. Likely due to osteoarthritis. Suspected pseudogout/gout due to elevated ESR and CRP. Uric acid is not elevated. Unlikely septic arthritis. Wound cultures showed no growth. 2. Elevated ERP and ESR 3. Diabetes mellitus of 2 4. Fibromyalgia 5. Gastroesophageal reflux disease 6. Degenerative joint disease 7. Mild hyperkalemia 5.2 likely due to potassium supplementation. Will be on hold. Patient is on long-term potassium supplementation at home. Plan: Continue on current medication regime ,monitoring and symptomatic treatment. Maintain PPI, Reglan, steroids. Antibiotics antibiotics have been discontinued Follow closely with both orthopedics and infectious disease. PT/ OT. Potential subacute rehab at discharge. Hospital course This is a 72-year-old female admitted with acute right knee pain with swelling, effusion, increased CRP and ESR with history of fibromyalgia, degenerative joint disease and multiple other medical issues. Right knee aspirated, culture pending. Evaluated by both infectious disease and orthopedics with recommendations noted. Patient states pain was an abrupt onset. Nausea and vomiting this morning after taking [place]. Maintained on vancomycin. Afebrile, normal WBC. 02/04/2018 preliminary right knee cultures, Gram stain with rare gram-positive cocci, fluid culture no growth at 48 hours. Uric acid level low. Maintained on IV antibiotics as per infectious disease. Afebrile. Normal WBC. Significant improvement in swelling of right knee as well as pain. Complains of knee pain with weight bearing, ambulating. Nausea has subsided. Denies chest pain, palpitations or increased shortness of breath. Denies lightheadedness, dizziness or focal deficits. 02/05/2018 Patient says that her right knee swelling is almost resolved. Has been afebrile overnight. No complaints of chest pain or shortness of breath. No nausea vomiting or abdominal pain. Wound cultures/fluid cultures are not finalized at this time. Patient is on vancomycin until final culture report. ID is following. 02/06/2018 Patient denied any complaints of right knee pain. Able to bear weight and ambulate with support. Patient may benefit from rehab transfer. Otherwise patient is off antibiotics. No increase knee swelling. Orthopedic surgery and ID is following. No fever no chills. Tolerating oral diet. No chest pain or shortness of breath. PT OT is following. 02/07/2018 Patient is able to bear weight on the right knee. Otherwise denied any new complaints. No fever no chills. Antibiotics have been discontinued Discharge physical examination GENERAL: Sitting up in chair, no acute distress. Awake alert oriented 3 HEENT: Conjunctivae normal. eyes normal. Oral mucosa moist NECK: No JVD. No thyroid enlargement. No LNs CARDIOVASCULAR: S1, S2 muffled. No murmur RESPIRATION: Breath sounds diminished in the bases. No rhonchi or crackles. ABDOMEN: Soft, nontender . No guarding. no masses palpable. Bowel sounds heard. LEGS: Right knee with improved swelling status post aspiration, with effusion, minimal tenderness, Sha wrapped . Flexing knee without pain PSYCHIATRY: Alert and oriented -3, mood and affect normal. NERVOUS SYSTEM: Cranial N 2-12 grossly normal. Moves all 4 limbs. Diffuse weakness No focal deficits. Skin: no ulcer no rash Lymphatic system. No LN neck axilla or groin. Vital Signs - 24 hr 02/07/18 02/07/18 01:30 07:00 Temperature 97.6 F 97.8 F Pulse Rate [ 55 L 70 Pulse Oximetery ] Respiratory 16 16 Rate Blood Pressure 158/77 154/84 [Left Arm] O2 Sat by Pulse 93 L 92 L Oximetry Total time taken greater than 35 minutes including 18 minutes for counseling and coordination of care. Patient Condition at Discharge: Good Plan - Discharge Summary Discharge Rx Participant: Yes New Discharge Prescriptions: New methylPREDNISolone Dose Pack [Medrol Dose Pack] 4 mg PO DIRECTED #21 package Ipratropium-Albuterol Nebulize [Duoneb 0.5 mg-3 mg/3 ml Soln] 3 ml INHALATION TID PRN #90 neb PRN Reason: Shortness Of Breath Continue hydrOXYzine HCL [Atarax] 25 mg PO TID PRN PRN Reason: Itching Aspirin 325 mg PO DAILY Bupivacaine HCl/Pf [Bupivacaine 0.25% Vial] 1 dose INTRATHECA DAILY Celecoxib [CeleBREX] 200 mg PO DAILY Ferrous Sulfate [Feosol] 325 mg PO DAILY Lidocaine 5% Patch [Lidoderm 5% Patch] 1 - 3 patch TOPICAL Q12H Lisinopril [Zestril] 5 mg PO BID Multivitamin [Multivitamins] 1 tab PO DAILY Esomeprazole Magnesium [NexIUM] 40 mg PO BID amLODIPine BESYLATE [Norvasc] 10 mg PO DAILY Potassium Chloride [K-Tab ER] 20 meq PO BID Imipramine [Tofranil] 25 mg PO BID Solifenacin Succinate [Vesicare] 10 mg PO HS Ascorbic Acid [Vitamin C] 500 mg PO DAILY Zinc 50 mg PO HS Armodafinil [Nuvigil] 250 mg PO BID Simvastatin [Zocor] 20 mg PO HS Hydromorphone Powder 7.893 mg INTRATHECA DAILY cloNIDine HCL [Catapres] 0.2 mg PO DAILY Calcium/Magnesium/Zinc [Arqctmq-Yzxceqmhn-Ltif Tablet] 1 tab PO DAILY Discharge Medication List Ascorbic Acid [Vitamin C] 500 mg PO DAILY 01/03/14 [History] Aspirin 325 mg PO DAILY 01/03/14 [History] Bupivacaine HCl/Pf [Bupivacaine 0.25% Vial] 1 dose INTRATHECA DAILY 01/03/14 [ History] Celecoxib [CeleBREX] 200 mg PO DAILY 01/03/14 [History] Esomeprazole Magnesium [NexIUM] 40 mg PO BID 01/03/14 [History] Ferrous Sulfate [Feosol] 325 mg PO DAILY 01/03/14 [History] Imipramine [Tofranil] 25 mg PO BID 01/03/14 [History] Lidocaine 5% Patch [Lidoderm 5% Patch] 1 - 3 patch TOPICAL Q12H 01/03/14 [ History] Lisinopril [Zestril] 5 mg PO BID 01/03/14 [History] Multivitamin [Multivitamins] 1 tab PO DAILY 01/03/14 [History] Potassium Chloride [K-Tab ER] 20 meq PO BID 01/03/14 [History] Solifenacin Succinate [Vesicare] 10 mg PO HS 01/03/14 [History] Zinc 50 mg PO HS 01/03/14 [History] amLODIPine BESYLATE [Norvasc] 10 mg PO DAILY 01/03/14 [History] hydrOXYzine HCL [Atarax] 25 mg PO TID PRN 01/03/14 [History] Armodafinil [Nuvigil] 250 mg PO BID 08/01/15 [History] Calcium/Magnesium/Zinc [Mxjoyox-Iiqtplhie-Fwra Tablet] 1 tab PO DAILY 02/02/18 [ History] Hydromorphone Powder 7.893 mg INTRATHECA DAILY 02/02/18 [History] Simvastatin [Zocor] 20 mg PO HS 02/02/18 [History] cloNIDine HCL [Catapres] 0.2 mg PO DAILY 02/02/18 [History] Ipratropium-Albuterol Nebulize [Duoneb 0.5 mg-3 mg/3 ml Soln] 3 ml INHALATION TID PRN #90 neb 02/07/18 [Rx] methylPREDNISolone Dose Pack [Medrol Dose Pack] 4 mg PO DIRECTED #21 package 02/07/18 [Rx] Follow up Appointment(s)/Referral(s): Joel Mazariegos MD [Primary Care Provider] - 1 Week (CALL FOR APPOINTMENT, OFFICE CLOSED AT TIME OF DISCHARGE.) Paulie Upton DO [Doctor of Osteopathic Medicine] - 1 Week (CALL OFFICE TO SCHEDULE APPOINTMENT, OFFICE CLOSED AT TIME OF DISCHARGE.) Patient Instructions/Handouts: Arthritis (GEN) Discharge Disposition: TRANSFER TO SNF/ECF
== END 2018-02-07 19:00 | DRG 554 ==
LOC: EC 09:48 → 3SUR 15:37
PROVIDERS: ADMIT Hospitalist; ATTEND Hospitalist
DX: M17.11 Unilateral primary osteoarthritis, right knee (principal); E87.5 Hyperkalemia; E11.9 Type 2 diabetes mellitus without complications; F32.9 Major depressive disorder, single episode, unspecified; M11.261 Other chondrocalcinosis, right knee; F41.9 Anxiety disorder, unspecified; G47.33 Obstructive sleep apnea (adult) (pediatric); G47.419 Narcolepsy without cataplexy; I11.9 Hypertensive heart disease without heart failure; J45.30 Mild persistent asthma, uncomplicated; K21.9 Gastro-esophageal reflux disease without esophagitis; M41.9 Scoliosis, unspecified; M79.7 Fibromyalgia; M54.9 Dorsalgia, unspecified; R70.0 Elevated erythrocyte sedimentation rate; R79.82 Elevated C-reactive protein (CRP); G89.29 Other chronic pain; R11.2 Nausea with vomiting, unspecified; T50.3X5A Adverse effect of electrolytic, caloric and water-balance agents, initial encounter; Y92.009 Unspecified place in unspecified non-institutional (private) residence as the place of occurrence of the external cause; Z79.82 Long term (current) use of aspirin; Z79.899 Other long term (current) drug therapy; Z79.891 Long term (current) use of opiate analgesic; Z88.1 Allergy status to other antibiotic agents; Z88.5 Allergy status to narcotic agent; Z88.0 Allergy status to penicillin; Z90.49 Acquired absence of other specified parts of digestive tract; Z98.42 Cataract extraction status, left eye; Z98.41 Cataract extraction status, right eye; Z96.1 Presence of intraocular lens; Z87.891 Personal history of nicotine dependence; Z83.3 Family history of diabetes mellitus
CPT/HCPCS: 36415; 71046; 80048; 80202; 81001; 84550; 85025; 85652; 86140; 87070; 87205; 99285

== ENCOUNTER 2018-02-20 17:34 | Inpatient (IN) | payer MEDICARE, OTHER ==
[2018-02-20] MEDS ORDERED: ASPIRIN 325 MG TAB PO STA (17:44)
[2018-02-20] MEDS ORDERED: SODIUM CHLORIDE 0.9% 1,000 ML IV ONE (17:44)
[2018-02-20] MEDS ORDERED: MORPHINE SULFATE 2 MG/ML SYRINGE IVP STA (17:46)
[2018-02-20 18:27] LABS: ALT 949 U/L (9-52); Albumin 3.2 g/dL (3.5-5.0); Alkaline Phosphatase 317 U/L (38-126); Anion Gap 9 mmol/L; Blood Urea Nitrogen 17 mg/dL (7-17); Calcium 8.5 mg/dL (8.4-10.2); Carbon Dioxide 29 mmol/L (22-30); Chloride 96 mmol/L (98-107); Glucose 185 mg/dL (74-99); Lipase 58 U/L (23-300); Potassium 4.8 mmol/L (3.5-5.1); Sodium 134 mmol/L (137-145); Total Protein 5.4 g/dL (6.3-8.2)
[2018-02-20 18:37] LABS: AST 1400 U/L (14-36)
[2018-02-20 19:23] LABS: Basophils % (A) 0 %; Eosinophils # (A) 0.1 k/uL (0-0.7); Eosinophils % (A) 2 %; HCT 36.6 % (34.0-46.0); HGB 12.1 gm/dL (11.4-16.0); Lymphocytes # (A) 0.5 k/uL (1.0-4.8); Lymphocytes % (A) 13 %; MCH 31.1 pg (25.0-35.0); MCHC 32.9 g/dL (31.0-37.0); MCV 94.3 fL (80.0-100.0); Mean Platelet Volume 6.6; Monocytes # (A) 0.3 k/uL (0-1.0); Monocytes % (A) 9 %; Neutrophils # (A) 2.7 k/uL (1.3-7.7); Neutrophils % (A) 73 %; Platelet Count 265 k/uL (150-450); RBC 3.88 m/uL (3.80-5.40); RDW 13.5 % (11.5-15.5); WBC 3.7 k/uL (3.8-10.6)
--- NOTE | 2018-02-20 19:58 | US ---
EXAMINATION TYPE: US gallbladder DATE OF EXAM: 02/20/2018 COMPARISON: CT 2014 CLINICAL HISTORY: Pain. elevated liver enzymes. EXAM MEASUREMENTS: Liver Length: 13.7 cm Gallbladder Wall: not identified, CT from 2014 says is has been removed. Patient believes she still has it. CBD: 0.3 cm Right Kidney: not identified cm Extremely limited study due to extensive midline bowel gas, and patient's kyphotic position. Pancreas: Obscured by bowel gas Liver: limited views to intercostal window Gallbladder: wnl Evidence for sonographic Medina's sign: not identified, CT from 2014 says is has been removed. Pat ient believes she still has it CBD: wnl Right Kidney: not identified due to extensive midline bowel gas. IMPRESSION: No free fluid seen. No dilated ducts. No discrete liver mass. No demonstrated abnormality .
--- NOTE | 2018-02-20 22:30 | ED ---
Abdominal Pain HPI - General Chief Complaint: Abdominal Pain Stated Complaint: Abd.pain Time Seen by Provider: 02/20/18 17:44 Source: patient, EMS Mode of arrival: EMS Limitations: no limitations - History of Present Illness Initial Comments: 73-year-old female with past medical history of diabetes, GERD, hypertension, osteoarthritis, sleep apnea presented for evaluation of intractable abdominal pain with nausea and altered mental status. The assisted/rehab facility she comes from states that she is normally in O 3 and very responsive to questioning however today she has been confused and slow to respond. Abdominal pain is epigastric with radiation into her back. Denies alcohol consumption or gallbladder disease. She hasn't taken any medications for her symptoms and nothing seems to make the mortise. She denies pleurisy having these symptoms. Arrived via EMS - Related Data Home Medications Medication Instructions Recorded Confirmed Ascorbic Acid [Vitamin C] 500 mg PO DAILY@169901/03/14 02/20/18 Aspirin 325 mg PO DAILY@169901/03/14 02/20/18 Bupivacaine HCl/Pf [Bupivacaine 1 dose INTRATHECA DAILY 01/03/14 02/20/18 0.25% Vial] Celecoxib [CeleBREX] 200 mg PO DIRECTED 01/03/14 02/20/18 Esomeprazole Magnesium [NexIUM] 40 mg PO BID 01/03/14 02/20/18 Ferrous Sulfate [Feosol] 325 mg PO DAILY@169901/03/14 02/20/18 Imipramine [Tofranil] 25 mg PO BID@08,17 01/03/14 02/20/18 Lidocaine 5% Patch [Lidoderm 5% 1 patch TRANSDERM Q12H 01/03/14 02/20/18 Patch] Multivitamin [Multivitamins] 1 tab PO DAILY@169901/03/14 02/20/18 Solifenacin Succinate [Vesicare] 10 mg PO HS 01/03/14 02/20/18 Zinc 50 mg PO DAILY@169901/03/14 02/20/18 amLODIPine BESYLATE [Norvasc] 10 mg PO DAILY 01/03/14 02/20/18 hydrOXYzine HCL [Atarax] 25 mg PO TID PRN 01/03/14 02/20/18 Armodafinil [Nuvigil] 250 mg PO BID@06,12 08/01/15 02/20/18 Calcium/Magnesium/Zinc 1 tab PO DAILY@1700 02/02/18 02/20/18 [Nxhurww-Ltzuixajv-Lplm Tablet] Hydromorphone Powder 7.893 mg INTRATHECA DAILY 02/02/18 02/20/18 Simvastatin [Zocor] 20 mg PO HS 02/02/18 02/20/18 cloNIDine HCL [Catapres] 0.2 mg PO DAILY 02/02/18 02/20/18 Acetaminophen Tab [Tylenol Tab] 650 mg PO Q4H PRN 02/20/18 02/20/18 Bisacodyl 10 mg RECTAL DAILY PRN 02/20/18 02/20/18 Ipratropium-Albuterol Nebulize 3 ml INHALATION RT-TID PRN 02/20/18 02/20/18 [Duoneb 0.5 mg-3 mg/3 ml Soln] Lisinopril [Zestril] 10 mg PO DAILY 02/20/18 02/20/18 Magnesium Hydroxide [Milk of 7,200 mg PO Q48H PRN 02/20/18 02/20/18 Magnesia Concentrate] Na Phos,M-B/Na Phos,Di-Ba [Fleet 133 ml RECTAL ONCE PRN 02/20/18 02/20/18 Adult] Potassium Chloride [Klor-Con 20] 20 meq PO DAILY 02/20/18 02/20/18 Allergies Allergy/AdvReac Type Severity Reaction Status Date / Time cephalexin monohydrate Allergy Swelling Verified 02/20/18 18:06 [From Keflex] Cephalosporins Allergy Unknown Verified 02/20/18 18:06 codeine Allergy Rash/Hives Verified 02/20/18 18:06 Penicillins Allergy Anaphylaxis Verified 02/20/18 18:06 tramadol Allergy Rash/Hives Verified 02/20/18 18:06 Review of Systems ROS Statement: Those systems with pertinent positive or pertinent negative responses have been documented in the HPI. ROS Other: All systems not noted in ROS Statement are negative. Constitutional: Denies: fever, chills Eyes: Denies: eye pain, vision change ENT: Denies: ear pain, throat pain Respiratory: Denies: cough, dyspnea Cardiovascular: Denies: chest pain, palpitations, syncope Endocrine: Denies: fatigue, polydipsia, polyuria Gastrointestinal: Reports: abdominal pain, nausea. Denies: vomiting, diarrhea, constipation Genitourinary: Denies: urgency, dysuria Musculoskeletal: Denies: back pain, arthralgia, myalgia Skin: Denies: rash, lesions Neurological: Reports: other (Altered mental status per the rehab facility). Denies: headache, weakness Psychiatric: Denies: anxiety, depression Hematological/Lymphatic: Denies: easy bleeding, easy bruising Past Medical History Past Medical History: Diabetes Mellitus, Fibromyalgia, GERD/Reflux, Hypertension , Musculoskeletal Disorder, Osteoarthritis (OA), Sleep Apnea/CPAP/BIPAP Additional Past Medical History / Comment(s): Anemia, no cpap used. asthma. narcolepsy. wound jeremi legs. diet controlled diabetic-pt denies being diabetic but watches what she eats History of Any Multi-Drug Resistant Organisms: None Reported Past Surgical History: Back Surgery, Cholecystectomy, Orthopedic Surgery Additional Past Surgical History / Comment(s): carpal tunnel, rib surgery, collagen implant,\. rt eye catatact. TMJ surgery. chronic back pain-pain pump Past Anesthesia/Blood Transfusion Reactions: No Reported Reaction Past Psychological History: Anxiety, Depression Smoking Status: Former smoker Past Alcohol Use History: None Reported Past Drug Use History: None Reported - Past Family History Mother Family Medical History: Diabetes Mellitus Father History Unknown: Yes Additional Family Medical History / Comment(s): pt could'nt remember. Brother(s) Family Medical History: Diabetes Mellitus General Exam Limitations: no limitations General appearance: alert, in distress (Mild) Head exam: Present: atraumatic, normocephalic, normal inspection Eye exam: Present: normal appearance, PERRL, EOMI. Absent: scleral icterus, conjunctival injection, periorbital swelling ENT exam: Present: normal exam, mucous membranes moist Neck exam: Present: normal inspection. Absent: tenderness, meningismus, lymphadenopathy Respiratory exam: Present: normal lung sounds bilaterally. Absent: respiratory distress, wheezes, rales Cardiovascular Exam: Present: regular rate, normal rhythm GI/Abdominal exam: Present: soft, tenderness. Absent: distended, guarding, rebound, rigid Rectal exam: Present: deferred Extremities exam: Present: normal inspection, full ROM Back exam: Present: normal inspection, full ROM Neurological exam: Present: alert, altered Psychiatric exam: Present: normal mood. Absent: normal affect (slowed) Skin exam: Present: warm, dry, intact Course Vital Signs 02/20/18 02/20/18 02/20/18 17:38 18:54 21:11 Temperature 98.5 F 98.3 F Pulse Rate 71 71 66 Respiratory 20 18 17 Rate Blood Pressure 113/60 136/83 127/62 O2 Sat by Pulse 91 L 95 94 L Oximetry 02/20/18 22:18 Temperature Pulse Rate 70 Respiratory 16 Rate Blood Pressure 127/62 O2 Sat by Pulse 94 L Oximetry Medical Decision Making - Medical Decision Making 73-year-old female with past medical history as noted above presented for evaluation of altered mental status and abdominal pain. On physical examination she appears to be in [id number] distress with abdominal tenderness to the epigastric abdomen without peritoneal signs of guarding, rigidity, or rebound. The patient has slow responses but does answer appropriately. She does seem confused to some questions and will think contemplated Miki however repeating the question is required. Patient denies any alcohol use or gallbladder disease however concern for pancreatitis is on the differential. Labs are nonsignificant to indicate pink otitis however the patient does have transaminitis with AST at 1400, a LT at 949, and [place] phosphatase at 317. Troponin is not elevated and neither is total bilirubin. Patient reevaluated and had improvement in belly pain however continues to be altered. Given presentation will admit for further treatment and evaluation. Dr. Simmons's PA accepted the admission with request for consults with (GI ). Admission order placed in bed request submitted. - Lab Data Result diagrams: 02/20/18 19:07 02/20/18 17:50 Lab Results 02/20/18 02/20/18 02/20/18 Range/Units 17:50 17:50 17:50 WBC (3.8-10.6) k/uL RBC (3.80-5.40) m/uL Hgb (11.4-16.0) gm/dL Hct (34.0-46.0) % MCV (80.0-100.0) fL MCH (25.0-35.0) pg MCHC (31.0-37.0) g/dL RDW (11.5-15.5) % Plt Count (150-450) k/uL Neutrophils % % Lymphocytes % % Monocytes % % Eosinophils % % Basophils % % Neutrophils # (1.3-7.7) k/uL Lymphocytes # (1.0-4.8) k/uL Monocytes # (0-1.0) k/uL Eosinophils # (0-0.7) k/uL Basophils # (0-0.2) k/uL Sodium 134 L (137-145) mmol/L Potassium 4.8 (3.5-5.1) mmol/L Chloride 96 L (98-107) mmol/L Carbon Dioxide 29 (22-30) mmol/L Anion Gap 9 mmol/L BUN 17 (7-17) mg/dL Creatinine 0.44 L (0.52-1.04) mg/dL Est GFR (CKD-EPI)AfAm >90 (>60 ml/min/1.73 sqM) Est GFR (CKD-EPI)NonAf >90 (>60 ml/min/1.73 sqM) Glucose 185 H (74-99) mg/dL Calcium 8.5 (8.4-10.2) mg/dL Total Bilirubin 1.0 (0.2-1.3) mg/dL AST 1400 H (14-36) U/L ALT 949 H (9-52) U/L Alkaline Phosphatase 317 H (38-126) U/L Troponin I <0.012 (0.000-0.034) ng/mL NT-Pro-B Natriuret Pep 83 pg/mL Total Protein 5.4 L (6.3-8.2) g/dL Albumin 3.2 L (3.5-5.0) g/dL Lipase 58 (23-300) U/L Acetaminophen ug/mL 02/20/18 02/20/18 Range/Units 17:50 19:07 WBC 3.7 L (3.8-10.6) k/uL RBC 3.88 (3.80-5.40) m/uL Hgb 12.1 (11.4-16.0) gm/dL Hct 36.6 (34.0-46.0) % MCV 94.3 (80.0-100.0) fL MCH 31.1 (25.0-35.0) pg MCHC 32.9 (31.0-37.0) g/dL RDW 13.5 (11.5-15.5) % Plt Count 265 (150-450) k/uL Neutrophils % 73 % Lymphocytes % 13 % Monocytes % 9 % Eosinophils % 2 % Basophils % 0 % Neutrophils # 2.7 (1.3-7.7) k/uL Lymphocytes # 0.5 L (1.0-4.8) k/uL Monocytes # 0.3 (0-1.0) k/uL Eosinophils # 0.1 (0-0.7) k/uL Basophils # 0.0 (0-0.2) k/uL Sodium (137-145) mmol/L Potassium (3.5-5.1) mmol/L Chloride (98-107) mmol/L Carbon Dioxide (22-30) mmol/L Anion Gap mmol/L BUN (7-17) mg/dL Creatinine (0.52-1.04) mg/dL Est GFR (CKD-EPI)AfAm (>60 ml/min/1.73 sqM) Est GFR (CKD-EPI)NonAf (>60 ml/min/1.73 sqM) Glucose (74-99) mg/dL Calcium (8.4-10.2) mg/dL Total Bilirubin (0.2-1.3) mg/dL AST (14-36) U/L ALT (9-52) U/L Alkaline Phosphatase (38-126) U/L Troponin I (0.000-0.034) ng/mL NT-Pro-B Natriuret Pep pg/mL Total Protein (6.3-8.2) g/dL Albumin (3.5-5.0) g/dL Lipase (23-300) U/L Acetaminophen <10.0 ug/mL 02/20/18 22:45 [place] sinus rhythm with ventricular rate of 70. Disposition Clinical Impression: Transaminitis, Abdominal pain Disposition: ADMITTED IP TO THIS HOSP Referrals: Joel Mazariegos MD [Primary Care Provider] - 1-2 days Decision to Admit Reason: Admit from EC Decision Date: 02/20/18 Decision Time: 22:30
[2018-02-20] MEDS ORDERED: NALOXONE 0.4 MG/ML 1 ML VIAL IV PRN (22:32)
[2018-02-20] MEDS ORDERED: traMADol 50 MG TAB PO PRN (22:32)
[2018-02-20] MEDS ORDERED: HYDROcodone/APAP 5-325MG 1 EACH TAB PO PRN (22:32)
[2018-02-20] MEDS ORDERED: MORPHINE SULFATE 2 MG/ML SYRINGE IV PRN (22:32)
[2018-02-20] MEDS ORDERED: ONDANSETRON 4 MG/2 ML VIAL IVP PRN (22:32)
[2018-02-20] MEDS ORDERED: NA PHOS,M-B/NA PHOS,DI-BA 133 ML ENEMA RECTAL PRN (22:37)
[2018-02-20] MEDS ORDERED: BISACODYL 10 MG SUPP RECTAL PRN (22:37)
[2018-02-20] MEDS ORDERED: IPRATROPIUM-ALBUTEROL 3 ML NEB INHALATION PRN (22:37)
[2018-02-20] MEDS ORDERED: MAGNESIUM HYDROXIDE 2,400 MG/10 ML CUP PO PRN (22:37)
[2018-02-20] MEDS ORDERED: hydrOXYzine HCL 25 MG TAB PO PRN (22:37)
[2018-02-20 22:59] LABS: Amphetamine Screen,Urine Not Detected (NotDetected); Barbiturate Screen,Urine Not Detected (NotDetected); Benzodiazepines Screen,Urine Not Detected (NotDetected); Cocaine Screen,Urine Not Detected (NotDetected); Methadone Screen, Urine Not Detected (NotDetected); Opiate Screen,Urine Detected (NotDetected); Oxycodone Screen, Urine Not Detected (NotDetected); Phencyclidine Screen,Urine Not Detected (NotDetected); Tricyclic Antidepressant,Urine Detected (NotDetected); Urn Cannabinoid Scrn Not Detected (NotDetected)
[2018-02-21 00:31] VITALS: BMI 21.6
[2018-02-21] MEDS: Armodafinil [Nuvigil] 250 MG PO SCH ×2 (06:04→16:31)
[2018-02-21] MEDS ORDERED: HYDROMORPHONE INTRATHECA SCH (09:00)
[2018-02-21] MEDS ORDERED: MELOXICAM 7.5 MG TAB PO SCH (09:00)
[2018-02-21] MEDS: PANTOPRAZOLE 40 MG TABLET PO SCH ×2 (09:16→16:29)
[2018-02-21] MEDS: POTASSIUM CHLORIDE ER 20 MEQ TAB.ER PO SCH (09:16)
[2018-02-21] MEDS: IMIPRAMINE 25 MG TAB PO SCH ×2 (09:17→18:45)
[2018-02-21] MEDS: amLODIPine 10 MG TAB PO SCH ×2 (09:17→13:11)
[2018-02-21] MEDS: LISINOPRIL 10 MG TAB PO SCH ×2 (09:17→13:12)
[2018-02-21] MEDS: cloNIDine HCL 0.2 MG TAB PO SCH ×2 (09:17→13:11)
[2018-02-21 10:26] LABS: ALT 759 U/L (9-52); AST 624 U/L (14-36); Albumin 3.3 g/dL (3.5-5.0); Alkaline Phosphatase 357 U/L (38-126); Amylase <30 U/L (30-110); Anion Gap 8 mmol/L; Blood Urea Nitrogen 13 mg/dL (7-17); Calcium 8.5 mg/dL (8.4-10.2); Carbon Dioxide 30 mmol/L (22-30); Chloride 96 mmol/L (98-107); Glucose 182 mg/dL (74-99); Lipase 24 U/L (23-300); Magnesium 1.8 mg/dL (1.6-2.3); Phosphorus 3.6 mg/dL (2.5-4.5); Potassium 4.8 mmol/L (3.5-5.1); Sodium 134 mmol/L (137-145); Total Bilirubin 0.5 mg/dL (0.2-1.3); Total Protein 5.6 g/dL (6.3-8.2)
[2018-02-21] MEDS: SODIUM CHLORIDE 0.9% 1,000 ML IV SCH ×3 (10:55→22:02)
[2018-02-21 11:50] LABS: Basophils % (A) 0 %; Eosinophils % (A) 1 %; HCT 39.5 % (34.0-46.0); HGB 12.7 gm/dL (11.4-16.0); Lymphocytes # (A) 0.4 k/uL (1.0-4.8); Lymphocytes % (A) 7 %; MCH 31.1 pg (25.0-35.0); MCHC 32.1 g/dL (31.0-37.0); MCV 97.1 fL (80.0-100.0); Monocytes # (A) 0.4 k/uL (0-1.0); Monocytes % (A) 7 %; Neutrophils # (A) 4.8 k/uL (1.3-7.7); Neutrophils % (A) 84 %; Platelet Count 296 k/uL (150-450); RBC 4.07 m/uL (3.80-5.40); RDW 13.8 % (11.5-15.5); WBC 5.7 k/uL (3.8-10.6)
--- NOTE | 2018-02-21 14:57 | P.CNPUL ---
History of Present Illness Consult date: 02/21/18 Chief complaint: Abdominal discomfort, history of sleep disorder breathing and narcolepsy History of present illness: 83-year-old female well-known to me patient has a history of severe spine disease with chronic pain has been on pain pump patient also has a history of narcolepsy sleep apnea she is currently resident of [facility] where she was admitted because of her severe knee pain thought to be related to soft tissue injury or damage was swelling, patient started having abdominal discomfort of pain on the right side yesterday was brought into the emergency department for further evaluation now she is complaining of more pain on the left side, her blood cultures positive for gram-negative rods, patient is on broad-spectrum antibiotics ID service has been consulted she is stable from her sleep apnea standpoint is she has lost significant amount of weight nose using CPAP machine she has been on Nuvigil at home which is nonformulary over here patient has been advised to bring her medications from home Her labs are significant for elevated liver enzymes along with alk phos however total bilirubin is normal Review of Systems All systems: negative Past Medical History Past Medical History: Diabetes Mellitus, Fibromyalgia, GERD/Reflux, Hypertension , Musculoskeletal Disorder, Osteoarthritis (OA), Sleep Apnea/CPAP/BIPAP Additional Past Medical History / Comment(s): Anemia, no cpap used. asthma. narcolepsy. wound jeremi legs. diet controlled diabetic-pt denies being diabetic but watches what she eats History of Any Multi-Drug Resistant Organisms: None Reported Past Surgical History: Back Surgery, Orthopedic Surgery Additional Past Surgical History / Comment(s): carpal tunnel, rib surgery, collagen implant,\. rt eye catatact. TMJ surgery. chronic back pain-pain pump Past Anesthesia/Blood Transfusion Reactions: No Reported Reaction Past Psychological History: Anxiety, Depression Additional Psychological History / Comment(s): lives alone has 1 pet cat. uses cane during day and walker at night. has a cleaning service . Smoking Status: Former smoker Past Alcohol Use History: None Reported Additional Past Alcohol Use History / Comment(s): started smoking 1961 and quit 1977 smoked 1 ppd Past Drug Use History: None Reported - Past Family History Mother Family Medical History: Diabetes Mellitus Father History Unknown: Yes Additional Family Medical History / Comment(s): pt could'nt remember. Brother(s) Family Medical History: Diabetes Mellitus Medications and Allergies Home Medications Medication Instructions Recorded Confirmed Type Ascorbic Acid [Vitamin C] 500 mg PO DAILY@0 01/03/14 02/20/18 History Aspirin 325 mg PO DAILY@169901/03/14 02/20/18 History Bupivacaine HCl/Pf [Bupivacaine 1 dose INTRATHECA DAILY 01/03/14 02/20/18 History 0.25% Vial] Celecoxib [CeleBREX] 200 mg PO DIRECTED 01/03/14 02/20/18 History Esomeprazole Magnesium [NexIUM] 40 mg PO BID 01/03/14 02/20/18 History Ferrous Sulfate [Feosol] 325 mg PO DAILY@1700 01/03/14 02/20/18 History Imipramine [Tofranil] 25 mg PO BID@01/03/14 02/20/18 History Lidocaine 5% Patch [Lidoderm 5% 1 patch TRANSDERM Q12H 01/03/14 02/20/18 History Patch] Multivitamin [Multivitamins] 1 tab PO DAILY@169901/03/14 02/20/18 History Solifenacin Succinate [Vesicare] 10 mg PO HS 01/03/14 02/20/18 History Zinc 50 mg PO DAILY@0 01/03/14 02/20/18 History amLODIPine BESYLATE [Norvasc] 10 mg PO DAILY 01/03/14 02/20/18 History hydrOXYzine HCL [Atarax] 25 mg PO TID PRN 01/03/14 02/20/18 History Armodafinil [Nuvigil] 250 mg PO BID@12 08/01/15 02/20/18 History Calcium/Magnesium/Zinc 1 tab PO DAILY@0 02/02/18 02/20/18 History [Gszvlna-Xypcvasde-Ogvf Tablet] Hydromorphone Powder 7.893 mg INTRATHECA DAILY 02/02/18 02/20/18 History Simvastatin [Zocor] 20 mg PO HS 02/02/18 02/20/18 History cloNIDine HCL [Catapres] 0.2 mg PO DAILY 02/02/18 02/20/18 History Acetaminophen Tab [Tylenol Tab] 650 mg PO Q4H PRN 02/20/18 02/20/18 History Bisacodyl 10 mg RECTAL DAILY PRN 02/20/18 02/20/18 History Ipratropium-Albuterol Nebulize 3 ml INHALATION RT-TID PRN 02/20/18 02/20/18 History [Duoneb 0.5 mg-3 mg/3 ml Soln] Lisinopril [Zestril] 10 mg PO DAILY 02/20/18 02/20/18 History Magnesium Hydroxide [Milk of 7,200 mg PO Q48H PRN 02/20/18 02/20/18 History Magnesia Concentrate] Na Phos,M-B/Na Phos,Di-Ba [Fleet 133 ml RECTAL ONCE PRN 02/20/18 02/20/18 History Adult] Potassium Chloride [Klor-Con 20] 20 meq PO DAILY 02/20/18 02/20/18 History Allergies Allergy/AdvReac Type Severity Reaction Status Date / Time cephalexin monohydrate Allergy Swelling Verified 02/20/18 18:06 [From Keflex] Cephalosporins Allergy Unknown Verified 02/20/18 18:06 codeine Allergy Rash/Hives Verified 02/20/18 18:06 Penicillins Allergy Anaphylaxis Verified 02/20/18 18:06 tramadol Allergy Rash/Hives Verified 02/20/18 18:06 Physical Exam Vitals: Vital Signs Temp Pulse Pulse Resp BP BP Pulse Ox 02/21/18 07:00 98.9 F 74 16 115/57 88 L 02/21/18 00:06 98.7 F 66 114/55 96 02/20/18 23:10 99.2 F 67 16 116/57 96 02/20/18 22:18 70 16 127/62 94 L 02/20/18 21:11 98.3 F 66 17 127/62 94 L 02/20/18 18:54 71 18 136/83 95 02/20/18 17:38 98.5 F 71 20 113/60 91 L Intake and Output 02/20/18 02/21/18 02/21/18 22:59 06:59 14:59 Intake Total 450 Balance 450 Intake: Intake, IV Titration 450 Amount Sodium Chloride 0.9% 1, 450 000 ml @ 75 mls/hr IV . [id number] [facility] Rx#:[id number] Other: # Voids 1 1 # Bowel Movements 1 Weight 55.338 kg 55.338 kg General appearance: alert, in distress (Mild) Head exam: Present: atraumatic, normocephalic, normal inspection Eye exam: Present: normal appearance, PERRL, EOMI. Absent: scleral icterus, conjunctival injection, periorbital swelling ENT exam: Present: normal exam, mucous membranes moist Neck exam: Present: normal inspection. Absent: tenderness, meningismus, lymphadenopathy Respiratory exam: Present: normal lung sounds bilaterally. Absent: respiratory distress, wheezes, rales Cardiovascular Exam: Present: regular rate, normal rhythm GI/Abdominal exam: Present: soft, tenderness. Absent: distended, guarding, rebound, rigid Rectal exam: Present: deferred Extremities exam: Present: normal inspection, full ROM Back exam: Present: normal inspection, full ROM Neurological exam: Present: alert, altered Psychiatric exam: Present: normal mood. Absent: normal affect (slowed) Skin exam: Present: warm, dry, intact Results - Laboratory Findings CBC and BMP: 02/21/18 08:58 02/21/18 08:58 Abnormal lab findings: Abnormal Labs 02/20/18 02/20/18 02/20/18 17:50 19:07 22:32 WBC 3.7 L Lymphocytes # 0.5 L Sodium 134 L Chloride 96 L Creatinine 0.44 L Glucose 185 H AST 1400 H ALT 949 H Alkaline Phosphatase 317 H Total Protein 5.4 L Albumin 3.2 L Amylase Urine Opiates Screen Detected H U Tricyclic Antidepress Detected H 02/21/18 02/21/18 08:58 08:58 WBC Lymphocytes # 0.4 L Sodium 134 L Chloride 96 L Creatinine 0.48 L Glucose 182 H AST 624 H ALT 759 H Alkaline Phosphatase 357 H Total Protein 5.6 L Albumin 3.3 L Amylase <30 L Urine Opiates Screen U Tricyclic Antidepress - Diagnostic Findings Additional studies: RN verbal report of blood culture positive for gram-negative rods Assessment and Plan Assessment: Acute liver injury of unclear etiology Gram-negative bacteremia suspect cholangitis Urinary tract infection cannot be excluded Narcolepsy Sleep disorder breathing and sleep apnea Generalized weakness and medical debility Plan: Broad-spectrum antibiotics Gentle rehydration ID consultation Patient will probably need a computed tomography scan of the abdominal and pelvis Deep breathing sense incentive spirometry Increase activity as tolerated Further recommendations pending plan of care as per clinical response of the patient Time with Patient: Greater than 30
[2018-02-21] MEDS ORDERED: NON-FORMULARY DRUG (Calcium/Magnesium/Zinc [Calcium-Magnesium-Zinc Tablet] 1 TAB) PO SCH (17:00)
[2018-02-21] MEDS: ASPIRIN 325 MG TAB PO SCH (18:44)
[2018-02-21] MEDS: ASCORBIC ACID 500 MG TAB PO SCH (18:44)
[2018-02-21] MEDS: FERROUS SULFATE 325 MG TAB PO SCH (18:45)
[2018-02-21] MEDS: MULTIVITAMINS, THERA 1 EACH TAB PO SCH (18:45)
[2018-02-21] MEDS ORDERED: ATORVASTATIN 10 MG TAB PO SCH (21:00)
--- NOTE | 2018-02-21 21:03 | XR ---
EXAMINATION TYPE: XR chest 1V portable DATE OF EXAM: 02/21/2018 Comparison: 02/02/2018 Clinical History: 73-year-old female short of breath Findings: Right heart margin obscured by adjacent right hemidiaphragmatic eventration. Aorta within normal limi ts. Pulmonary vasculature appears more prominent from prior. There is also some patchy left basilar o pacity new from prior. Impression: 1. Interstitium appears more pronounced. Correlate to exclude mild pulmonary vascular congestion. 2. There is new patchy atelectasis or developing infiltrate at the left base. 3. Large eventration of the right hemidiaphragm with prominent right basilar volume loss.
--- NOTE | 2018-02-21 21:30 | HP ---
HISTORY AND PHYSICAL DATE OF SERVICE: 02/21/2018 CHIEF COMPLAINT: Abdominal pain. HISTORY OF PRESENT ILLNESS: This is a 73-year-old woman with a past medical history of multiple medical problems including diabetes mellitus, fibromyalgia, GERD, history of asthma, sleep apnea , DJD being followed by Dr. Mazariegos in the outpatient setting was complaining of abdominal pain. The patient was admitted for further evaluation and treatment and the patient was found to have elevated LFTs. The patient also had chronic pain syndrome on pain pump. The patient also history of narcolepsy as well. The patient currently lives in an extended care facility. The patient being closely monitored. There is no history of fever, rigors or chills. No history of headache, loss of consciousness, seizures. PAST MEDICAL HISTORY: Diabetes, fibromyalgia, GERD, hypertension, history of narcolepsy, chronic pain syndrome, pain pump. MEDICATIONS: Prior to admission include: 1. Atarax 25 mg p.o. t.i.d. p.r.n. 2. Catapres 0.2 daily. 3. Norvasc 10 mg p.o. daily. 4. Zinc 50 mg p.o. daily. 5. VESIcare 10 mg q.h.s. 6. Zocor 20 mg q.h.s. 7. Klor-Con 20 mEq p.o. daily. 8. 133 daily p.r.n. 9. Multivitamins one p.o. daily. 10.Milk of Magnesia. 11.Zestril 10 mg p.o. daily. 12.Lidoderm patch. 13.DuoNeb q.i.d. and p.r.n. 14.Tofranil 25 mg p.o. b.i.d. 15.Hydromorphone 7.893. 16.Iron sulfate 320 mg daily. 17.Nexium 40 mg b.i.d. 18.Celebrex 200 mg p.r.n. 19.Calcium with magnesium and zinc 1 tab p.o. daily. 20.Bupivacaine 1 dose daily. 21.Bisacodyl 10 mg daily p.r.n. 22.Aspirin 320 mg daily. 23.Vitamin C 500 mg p.o. daily. 24.Nuvigil 250 mg p.o. b.i.d. 25.Tylenol 650 q.4h p.r.n. ALLERGIES: CEPHALEXIN, CEPHALOSPORIN, CODEINE, PENICILLIN, ULTRAM. FAMILY HISTORY: History of diabetes in the family. SOCIAL HISTORY: Previous history of smoking. No history of current smoking or alcohol intake. REVIEW OF SYSTEMS: ENT: No diminished hearing or vision. CARDIOVASCULAR: No angina or palpitations. RESPIRATORY: As mentioned earlier. GI: As mentioned earlier. : No dysuria. NERVOUS SYSTEM: No numbness or weakness. ALLERGY/IMMUNOLOGY: As mentioned earlier. MUSCULOSKELETAL: As mentioned earlier. HEMATOLOGY/ONCOLOGY: As mentioned earlier. ENDOCRINE: As mentioned earlier. CONSTITUTIONAL: As mentioned earlier. DERMATOLOGY: Negative. RHEUMATOLOGY: Negative. PSYCHIATRIC: As mentioned earlier. PHYSICAL EXAM: GENERAL: The patient is alert and oriented times three. VITAL SIGNS: Pulse 68, blood pressure 108/69, respiration 16, temperature 98.1, pulse ox 98% on room air. HEENT: Conjunctivae normal. Oral mucosa moist. NECK is no jugular venous distention. No carotid bruit. No lymph node enlargement. CARDIOVASCULAR SYSTEM: S1, S2 muffled. No S3, no S4. RESPIRATORY: Breath sounds diminished in the bases. No rhonchi. No crackles. ABDOMEN: Soft. Mild diffuse discomfort on palpation right upper quadrant. Otherwise no mass palpable. No hepatosplenomegaly. No ascites. LEGS: No edema and no swelling. NERVOUS SYSTEM: Higher functions as mentioned earlier, moves all 4 limbs, no focal deficits. LYMPHATICS: No lymph nodes palpable in the neck, axillae or groin. SKIN: No ulcer, rash or bleeding. LABS: At this time shows WBC 3.7, sodium 134, AST is 1400 and ALT is 914, alk phos 317 , albumin 3.2. Urine drug scree positive for opiates. ASSESSMENT: 1. Abdominal pain with elevated AST, ALT, possibly acute hepatitis. 2. Hyponatremia. 3. Chronic pain syndrome. 4. Diabetes Type 2. 5. Fibromyalgia. 6. Gastroesophageal reflux disease. 7. Hypertension. 8. Degenerative joint disease. 9. Sleep apnea. 10.History of asthma. 11.History of narcolepsy. 12.History of chronic pain syndrome on pain pump. 13.History of back pain. 14.Anxiety, depression. RECOMMENDATIONS AND DISCUSSION: In this 73-year-old woman who presented with multiple complex medical issues, we will monitor the patient closely, continue the current medications, management and symptomatic treatment. We will stop possible hepatic toxic medications including Zocor and Lipitor. Other than that, I would recommend repeat LFTs. Ultram is being ordered at this time. Gastroenterology consultation will be sought. Dr. Mazariegos is following the patient closely as well and gallbladder/liver ultrasound was done which showed no discrete liver mass and no acute abnormality at this time. We will recommend acute hepatitis panel. Otherwise followup labs also will be ordered. There is no evidence of any infection. Baseline chest x-ray will be obtained. Prognosis guarded because of multiple complex medical issues and further recommendations to follow. See orders for details. Medication reconciliation has been done. MMODL / IJN: [id number] / ASHLEY
[2018-02-21] MEDS: OXYBUTYNIN XL 5 MG TAB.ER.24 PO SCH (22:02)
[2018-02-21] MEDS: LIDOCAINE 5% PATCH TOPICAL SCH (22:03)
[2018-02-22] MEDS: Armodafinil [Nuvigil] 250 MG PO SCH ×2 (05:41→13:39)
[2018-02-22] MEDS: POTASSIUM CHLORIDE ER 20 MEQ TAB.ER PO SCH (10:29)
[2018-02-22] MEDS: cloNIDine HCL 0.2 MG TAB PO SCH (10:29)
[2018-02-22] MEDS: amLODIPine 10 MG TAB PO SCH (10:29)
[2018-02-22] MEDS: IMIPRAMINE 25 MG TAB PO SCH ×2 (10:29→19:24)
[2018-02-22] MEDS: PANTOPRAZOLE 40 MG TABLET PO SCH ×2 (10:29→22:09)
[2018-02-22] MEDS: LISINOPRIL 10 MG TAB PO SCH (10:29)
[2018-02-22 12:09] LABS: HGB 12.7 gm/dL (11.4-16.0); MCH 34.2 pg (25.0-35.0); MCHC 36.4 g/dL (31.0-37.0); Mean Platelet Volume 8.6; RBC 3.73 m/uL (3.80-5.40); RDW 14.3 % (11.5-15.5); WBC 5.7 k/uL (3.8-10.6)
[2018-02-22 12:20] LABS: Albumin 3.1 g/dL (3.5-5.0); Anion Gap 10 mmol/L; Calcium 8.4 mg/dL (8.4-10.2); Carbon Dioxide 25 mmol/L (22-30); Chloride 96 mmol/L (98-107); Glucose 267 mg/dL (74-99); Sodium 131 mmol/L (137-145); Total Bilirubin 0.5 mg/dL (0.2-1.3); Total Protein 5.5 g/dL (6.3-8.2)
[2018-02-22 12:23] LABS: ALT 398 U/L (9-52); AST 125 U/L (14-36); Alkaline Phosphatase 237 U/L (38-126); Blood Urea Nitrogen 10 mg/dL (7-17); Potassium 5.2 mmol/L (3.5-5.1)
[2018-02-22] MEDS: SODIUM CHLORIDE 0.9% 1,000 ML IV SCH (18:57)
[2018-02-22] MEDS: ASCORBIC ACID 500 MG TAB PO SCH (19:24)
[2018-02-22] MEDS: MULTIVITAMINS, THERA 1 EACH TAB PO SCH (19:24)
[2018-02-22] MEDS: FERROUS SULFATE 325 MG TAB PO SCH (19:24)
[2018-02-22] MEDS: ASPIRIN 325 MG TAB PO SCH (19:24)
[2018-02-22] MEDS: LIDOCAINE 5% PATCH TOPICAL SCH (22:10)
[2018-02-22] MEDS: OXYBUTYNIN XL 5 MG TAB.ER.24 PO SCH (22:10)
--- NOTE | 2018-02-22 22:31 | PN ---
PROGRESS NOTE DATE OF SERVICE: 02/22/2018. INTERVAL HISTORY: This 73-year-old woman is admitted with abdominal pain and elevated LFTs. No chest pain. No palpitations. No fever. Abdominal ultrasound was unremarkable. PHYSICAL EXAM: Alert and oriented x3. Pulse is 83, blood pressure 130/70, respiration 17, temperature 101.8, pulse ox 90% on 3 L. HEENT: Conjunctivae normal. Oral mucosa moist. Neck is no jugular venous distention. No carotid bruit. No lymph node enlargement. Cardiovascular systems: S1, S2 muffled. Respirations: Breath sounds diminished in the bases. No rhonchi and no crackles. ABDOMEN: Soft, nontender. Legs are no edema. No swelling. CENTRAL NERVOUS SYSTEM: No focal deficits. LABS: Sodium 137, potassium 5.2, and glucose 167 and alkaline phosphatase is 237. ASSESSMENT: 1. Abdominal pain with elevated AST, ALT, possibly acute hepatitis. 2. Fever. 3. Hyponatremia. 4. Chronic pain syndrome. 5. Diabetes type 2. 6. Fibromyalgia. 7. Gastroesophageal reflux disease. 8. Hypertension. 9. Degenerative joint disease. 10.Sleep apnea. 11.History of asthma. 12.History of narcolepsy. 13.History of chronic pain syndrome on pain pump. 14.History of back pain. 15.Anxiety, depression. RECOMMENDATIONS AND DISCUSSION: This 73-year-old woman who presented with multiple complex medical issues, at this time I would obtain cultures, blood and urine. Otherwise, repeat labs. LFTs seems to be improving. Most likely high LFTs are drug-induced, but however, fever is a concern. I would recommend cultures and infectious disease evaluation. Closely follow. Further recommendations to follow. See orders for details. Avoid hepatotoxic medications. MMODL / IJN: [id number] /
[2018-02-23] MEDS: SODIUM CHLORIDE 0.9% 1,000 ML IV SCH ×2 (03:44→20:12)
[2018-02-23] MEDS: Armodafinil [Nuvigil] 250 MG PO SCH ×2 (05:16→13:39)
--- NOTE | 2018-02-23 07:00 | P.CONS ---
History of Present Illness - Reason for Consult Consult date: 02/22/18 Elevated liver enzymes - History of Present Illness 73-year-old female with past medical history of diabetes, GERD, hypertension, osteoarthritis, sleep apnea presented to ER via EMS for evaluation of intractable abdominal pain with nausea and altered mental status. The custodial/rehab facility staff, where she was for knee pain and soft tissue swelling, stated that she is normally in O 3 and very responsive to questioning, however, she has been confused and slow to respond. Abdominal pain is epigastric with radiation into her back. Denies alcohol consumption or gallbladder disease. We are asked to see her for elevated liver enzymes. Her AST February 20 was 1400, ALT 949 and alkaline phosphatase 317, and these numbers came down yesterday to 624, 759 and 357 and today to 125, 398 and 257. Total bilirubin remained normal. Ultrasound of the abdomen did not reveal any significant abnormality. Patient had prior cholecystectomy. The patient is currently on antibiotics for gram-negative bacteremia. We are asked to see her for the elevated liver enzymes. Review of Systems Constitutional: Denies fever, chills, sweats, weight gain, or loss. HEENT: Negative for migraines, blurred vision or loss, earaches, drainage, tinnitus, oral mucosal lesions, dysphagia, or odynophagia. CARDIAC: Negative for chest pain, arrhythmias, or palpitation. RESPIRATORY: Negative for shortness of breath, hemoptysis, cough, or sputum production. GI: See HPI for pertinent findings. : Negative for hematuria, urgency, frequency, polyuria, or dysuria. MUSCULOSKELETAL: Negative for muscle aches, swelling, arthritis, and arthralgias. NEUROLOGIC: Negative for stroke or TIA. ENDOCRINE: Negative for thyroid problems. SKIN: Negative for rash or itching. PSYCHIATRIC: Negative history for depression and anxiety Past Medical History Past Medical History: Diabetes Mellitus, Fibromyalgia, GERD/Reflux, Hypertension , Musculoskeletal Disorder, Osteoarthritis (OA), Sleep Apnea/CPAP/BIPAP Additional Past Medical History / Comment(s): Anemia, no cpap used. asthma. narcolepsy. wound jeremi legs. diet controlled diabetic-pt denies being diabetic but watches what she eats History of Any Multi-Drug Resistant Organisms: None Reported Past Surgical History: Back Surgery, Orthopedic Surgery Additional Past Surgical History / Comment(s): carpal tunnel, rib surgery, collagen implant,\. rt eye catatact. TMJ surgery. chronic back pain-pain pump Past Anesthesia/Blood Transfusion Reactions: No Reported Reaction Past Psychological History: Anxiety, Depression Additional Psychological History / Comment(s): lives alone has 1 pet cat. uses cane during day and walker at night. has a cleaning service . Smoking Status: Former smoker Past Alcohol Use History: None Reported Additional Past Alcohol Use History / Comment(s): started smoking 1961 and quit 1977 smoked 1 ppd Past Drug Use History: None Reported - Past Family History Mother Family Medical History: Diabetes Mellitus Father History Unknown: Yes Additional Family Medical History / Comment(s): pt could'nt remember. Brother(s) Family Medical History: Diabetes Mellitus Medications and Allergies Home Medications Medication Instructions Recorded Confirmed Type Ascorbic Acid [Vitamin C] 500 mg PO DAILY@169901/03/14 02/20/18 History Aspirin 325 mg PO DAILY@169901/03/14 02/20/18 History Bupivacaine HCl/Pf [Bupivacaine 1 dose INTRATHECA DAILY 01/03/14 02/20/18 History 0.25% Vial] Celecoxib [CeleBREX] 200 mg PO DIRECTED 01/03/14 02/20/18 History Esomeprazole Magnesium [NexIUM] 40 mg PO BID 01/03/14 02/20/18 History Ferrous Sulfate [Feosol] 325 mg PO DAILY@169901/03/14 02/20/18 History Imipramine [Tofranil] 25 mg PO BID@08,17 01/03/14 02/20/18 History Lidocaine 5% Patch [Lidoderm 5% 1 patch TRANSDERM Q12H 01/03/14 02/20/18 History Patch] Multivitamin [Multivitamins] 1 tab PO DAILY@169901/03/14 02/20/18 History Solifenacin Succinate [Vesicare] 10 mg PO HS 01/03/14 02/20/18 History Zinc 50 mg PO DAILY@169901/03/14 02/20/18 History amLODIPine BESYLATE [Norvasc] 10 mg PO DAILY 01/03/14 02/20/18 History hydrOXYzine HCL [Atarax] 25 mg PO TID PRN 01/03/14 02/20/18 History Armodafinil [Nuvigil] 250 mg PO BID@06,12 08/01/15 02/20/18 History Calcium/Magnesium/Zinc 1 tab PO DAILY@1700 02/02/18 02/20/18 History [Dmsjthf-Cwbkklpby-Afxx Tablet] Hydromorphone Powder 7.893 mg INTRATHECA DAILY 02/02/18 02/20/18 History Simvastatin [Zocor] 20 mg PO HS 02/02/18 02/20/18 History cloNIDine HCL [Catapres] 0.2 mg PO DAILY 02/02/18 02/20/18 History Acetaminophen Tab [Tylenol Tab] 650 mg PO Q4H PRN 02/20/18 02/20/18 History Bisacodyl 10 mg RECTAL DAILY PRN 02/20/18 02/20/18 History Ipratropium-Albuterol Nebulize 3 ml INHALATION RT-TID PRN 02/20/18 02/20/18 History [Duoneb 0.5 mg-3 mg/3 ml Soln] Lisinopril [Zestril] 10 mg PO DAILY 02/20/18 02/20/18 History Magnesium Hydroxide [Milk of 7,200 mg PO Q48H PRN 02/20/18 02/20/18 History Magnesia Concentrate] Na Phos,M-B/Na Phos,Di-Ba [Fleet 133 ml RECTAL ONCE PRN 02/20/18 02/20/18 History Adult] Potassium Chloride [Klor-Con 20] 20 meq PO DAILY 02/20/18 02/20/18 History Allergies Allergy/AdvReac Type Severity Reaction Status Date / Time cephalexin monohydrate Allergy Swelling Verified 02/20/18 18:06 [From [facility]] Cephalosporins Allergy Unknown Verified 02/20/18 18:06 codeine Allergy Rash/Hives Verified 02/20/18 18:06 Penicillins Allergy Anaphylaxis Verified 02/20/18 18:06 tramadol Allergy Rash/Hives Verified 02/20/18 18:06 Physical Exam Vitals: Vital Signs Temp Pulse Resp BP Pulse Ox 02/22/18 08:43 99.1 F 89 18 139/73 94 L 02/22/18 01:25 97.5 F L 85 16 134/66 92 L 02/21/18 23:00 97.1 F L 66 16 127/60 85 L 02/21/18 22:00 16 02/21/18 20:21 98.5 F 73 16 136/65 90 L 02/21/18 14:50 98.1 F 68 16 108/69 93 L Intake and Output 02/21/18 02/22/18 02/22/18 22:59 06:59 14:59 Intake Total 270 400 Output Total 300 480 Balance -30 -80 Intake: Oral 270 400 Output: Urine 300 480 Other: Voiding Method Bedside Commode Bedside Commode Diaper Diaper # Voids 1 1 1 # Bowel Movements 0 General appearance: The patient is alert, sleepy but easily arousable, in no acute distress. HET: Head is normocephalic and atraumatic. Pupils are equal and reactive. Oropharynx is clear without lesions. Neck: Supple without lymphadenopathy. Trachea midline. Heart: S1 S2. Regular rate and rhythm. Lungs: No crackles or wheezes are heard. No dullness to percussion. Abdomen: Soft, nontender, nondistended with bowel sounds. No peritoneal signs. No palpable organomegaly or masses. Extremities: Normal skin color and turgor. No cyanosis, rash, ulceration, clubbing, or edema. Radial and pedal pulses are 2/4 bilaterally. Neurological: No focal deficits. Strength and sensation are grossly intact. Results CBC & Chem 7: 02/22/18 11:37 02/22/18 11:37 Labs: Abnormal Lab Results - Last 24 Hours (Table) 02/22/18 Range/Units 11:37 RBC 3.73 L (3.80-5.40) m/uL Assessment and Plan Assessment: Abnormal liver enzymes improving fairly quickly but not normal yet, could be related to systemic sepsis or an episode of hypotension or hypoxemia prior to arrival to the hospital. There is no suggestion of underlying liver disease. With the normal bilirubin it is less likely that we are dealing with common bile duct pathology and cholangitis but this should be considered. Plan: Agree with your current management. We will continue to monitor her liver enzymes closely. If they do not continue to improve and normalize I would consider further investigation of the biliary tree and the liver. We will follow with you with interest.
[2018-02-23] MEDS: LISINOPRIL 10 MG TAB PO SCH (07:52)
[2018-02-23] MEDS: IMIPRAMINE 25 MG TAB PO SCH ×2 (07:52→20:11)
[2018-02-23] MEDS: ACETAMINOPHEN TAB 325 MG TAB PO PRN ×3 (07:52→21:04)
[2018-02-23] MEDS: PANTOPRAZOLE 40 MG TABLET PO SCH ×2 (07:52→20:54)
[2018-02-23] MEDS: amLODIPine 10 MG TAB PO SCH (07:52)
[2018-02-23] MEDS: cloNIDine HCL 0.2 MG TAB PO SCH (07:52)
--- NOTE | 2018-02-23 08:09 | P.PN ---
Subjective Progress Note Date: 02/22/18 (Late entry note) Principal diagnosis: Transaminitis/elevated liver enzymes, acute liver injury, narcolepsy, sleep disorder breathing and sleep apnea, generalized weakness and medical debility, February 22 2018, patient seen eval reexamined during the rounds care plan discussed with the patient as well as the staff noted that the blood cultures were negative also discussed with RN, repeat blood test couldn't be done however there is a pattern of liver enzymes coming down, reviewed reports of the ultrasound and GI consult 83-year-old female well-known to me patient has a history of severe spine disease with chronic pain has been on pain pump patient also has a history of narcolepsy sleep apnea she is currently resident of [facility] where she was admitted because of her severe knee pain thought to be related to soft tissue injury or damage was swelling, patient started having abdominal discomfort of pain on the right side yesterday was brought into the emergency department for further evaluation now she is complaining of more pain on the left side, patient is on broad-spectrum antibiotics ID service has been consulted she is stable from her sleep apnea standpoint is she has lost significant amount of weight nose using CPAP machine she has been on Nuvigil at home which is nonformulary over here patient has been advised to bring her medications from home Objective - Vital Signs Vital signs: Vital Signs Temp 98.9 F 02/23/18 07:00 Pulse 80 02/23/18 07:00 Resp 18 02/23/18 07:00 BP 162/70 02/23/18 07:00 Pulse Ox 91 L 02/23/18 07:00 Intake & Output 02/22/18 02/23/18 02/23/18 18:59 06:59 18:59 Intake Total 540 Balance 540 Intake: Oral 540 Other: Voiding Method Bedside Commode Bedside Commode Diaper Diaper # Voids 2 1 # Bowel Movements 0 - Exam General appearance: alert, in distress (Mild) Head exam: Present: atraumatic, normocephalic, normal inspection Eye exam: Present: normal appearance, PERRL, EOMI. Absent: scleral icterus, conjunctival injection, periorbital swelling ENT exam: Present: normal exam, mucous membranes moist Neck exam: Present: normal inspection. Absent: tenderness, meningismus, lymphadenopathy Respiratory exam: Present: normal lung sounds bilaterally. Absent: respiratory distress, wheezes, rales Cardiovascular Exam: Present: regular rate, normal rhythm GI/Abdominal exam: Present: soft, tenderness. Absent: distended, guarding, rebound, rigid Rectal exam: Present: deferred Extremities exam: Present: normal inspection, full ROM Back exam: Present: normal inspection, full ROM Neurological exam: Present: alert, altered Psychiatric exam: Present: normal mood. Absent: normal affect (slowed) Skin exam: Present: warm, dry, intact - Labs CBC & Chem 7: 02/22/18 11:37 02/22/18 11:37 Labs: Abnormal Lab Results - Last 24 Hours (Table) 02/22/18 02/22/18 Range/Units 11:37 11:37 RBC 3.73 L (3.80-5.40) m/uL Sodium 131 L (137-145) mmol/L Potassium 5.2 H (3.5-5.1) mmol/L Chloride 96 L (98-107) mmol/L Creatinine 0.40 L (0.52-1.04) mg/dL Glucose 267 H (74-99) mg/dL AST 125 H (14-36) U/L ALT 398 H (9-52) U/L Alkaline Phosphatase 237 H (38-126) U/L Total Protein 5.5 L (6.3-8.2) g/dL Albumin 3.1 L (3.5-5.0) g/dL Assessment and Plan Assessment: Acute liver injury of unclear etiology Elevated liver enzymes showing a pattern of improvement No evidence of Gram-negative bacteremia to suspect cholangitis Nonspecific abdominal pain however resolved now Narcolepsy Sleep disorder breathing and sleep apnea Generalized weakness and medical debility Plan: Broad-spectrum antibiotics, will defer to ID service if it can be discontinued Gentle rehydration GI consultation Deep breathing sense incentive spirometry Increase activity as tolerated Further recommendations pending plan of care as per clinical response of the patient Time with Patient: Greater than 30
--- NOTE | 2018-02-23 08:11 | P.PN ---
Subjective Progress Note Date: 02/23/18 Principal diagnosis: Transaminitis/elevated liver enzymes, acute liver injury, narcolepsy, sleep disorder breathing and sleep apnea, generalized weakness and medical debility, 02/23/2018, patient seen eval reexamined during the rounds clinically doing better tolerating by mouth well no other abdominal discomfort of pain is present patient couldn't undergo a third check on liver enzymes that she refuses yesterday today phlebotomies unable to obtain the blood clinically patient appears to be doing well denies any nausea vomiting denies any abdominal pain breathing comfortably February 22 2018, patient seen eval reexamined during the rounds care plan discussed with the patient as well as the staff noted that the blood cultures were negative also discussed with RN, repeat blood test couldn't be done however there is a pattern of liver enzymes coming down, reviewed reports of the ultrasound and GI consult 83-year-old female well-known to me patient has a history of severe spine disease with chronic pain has been on pain pump patient also has a history of narcolepsy sleep apnea she is currently resident of [facility] where she was admitted because of her severe knee pain thought to be related to soft tissue injury or damage was swelling, patient started having abdominal discomfort of pain on the right side yesterday was brought into the emergency department for further evaluation now she is complaining of more pain on the left side, patient is on broad-spectrum antibiotics ID service has been consulted she is stable from her sleep apnea standpoint is she has lost significant amount of weight nose using CPAP machine she has been on Nuvigil at home which is nonformulary over here patient has been advised to bring her medications from home Objective - Vital Signs Vital signs: Vital Signs Temp 98.9 F 02/23/18 07:00 Pulse 80 02/23/18 07:00 Resp 18 02/23/18 07:00 BP 162/70 02/23/18 07:00 Pulse Ox 91 L 02/23/18 07:00 Intake & Output 02/22/18 02/23/18 02/23/18 18:59 06:59 18:59 Intake Total 540 Balance 540 Intake: Oral 540 Other: Voiding Method Bedside Commode Bedside Commode Diaper Diaper # Voids 2 1 # Bowel Movements 0 - Exam General appearance: alert, in distress (Mild) Head exam: Present: atraumatic, normocephalic, normal inspection Eye exam: Present: normal appearance, PERRL, EOMI. Absent: scleral icterus, conjunctival injection, periorbital swelling ENT exam: Present: normal exam, mucous membranes moist Neck exam: Present: normal inspection. Absent: tenderness, meningismus, lymphadenopathy Respiratory exam: Present: normal lung sounds bilaterally. Absent: respiratory distress, wheezes, rales Cardiovascular Exam: Present: regular rate, normal rhythm GI/Abdominal exam: Present: soft, tenderness. Absent: distended, guarding, rebound, rigid Rectal exam: Present: deferred Extremities exam: Present: normal inspection, full ROM Back exam: Present: normal inspection, full ROM Neurological exam: Present: alert, altered Psychiatric exam: Present: normal mood. Absent: normal affect (slowed) Skin exam: Present: warm, dry, intact - Labs CBC & Chem 7: 02/22/18 11:37 02/22/18 11:37 Labs: Abnormal Lab Results - Last 24 Hours (Table) 02/22/18 02/22/18 Range/Units 11:37 11:37 RBC 3.73 L (3.80-5.40) m/uL Sodium 131 L (137-145) mmol/L Potassium 5.2 H (3.5-5.1) mmol/L Chloride 96 L (98-107) mmol/L Creatinine 0.40 L (0.52-1.04) mg/dL Glucose 267 H (74-99) mg/dL AST 125 H (14-36) U/L ALT 398 H (9-52) U/L Alkaline Phosphatase 237 H (38-126) U/L Total Protein 5.5 L (6.3-8.2) g/dL Albumin 3.1 L (3.5-5.0) g/dL Assessment and Plan Assessment: Acute liver injury of unclear etiology Elevated liver enzymes showing a pattern of improvement No evidence of Gram-negative bacteremia to suspect cholangitis Nonspecific abdominal pain however resolved now Narcolepsy Sleep disorder breathing and sleep apnea Generalized weakness and medical debility Plan: Gentle rehydration GI consultation recommendation reviewed Deep breathing sense incentive spirometry Increase activity as tolerated Further recommendations pending plan of care as per clinical response of the patient Agree with discharge planning, follow-up labs can perform an outpatient basis once patient is more hydrated Time with Patient: Greater than 30
[2018-02-23 10:13] LABS: Basophils % (A) 0 %; Eosinophils # (A) 0.1 k/uL (0-0.7); Eosinophils % (A) 1 %; HGB 12.3 gm/dL (11.4-16.0); Lymphocytes # (A) 0.5 k/uL (1.0-4.8); Lymphocytes % (A) 9 %; MCHC 34.2 g/dL (31.0-37.0); MCV 93.6 fL (80.0-100.0); Mean Platelet Volume 7.7; Monocytes # (A) 0.5 k/uL (0-1.0); Monocytes % (A) 9 %; Neutrophils # (A) 4.9 k/uL (1.3-7.7); Neutrophils % (A) 80 %; Platelet Count 262 k/uL (150-450); RBC 3.85 m/uL (3.80-5.40); RDW 13.9 % (11.5-15.5); WBC 6.1 k/uL (3.8-10.6)
[2018-02-23 10:22] LABS: ALT 270 U/L (9-52); AST 60 U/L (14-36); Alkaline Phosphatase 197 U/L (38-126); Anion Gap 11 mmol/L; Blood Urea Nitrogen 14 mg/dL (7-17); Calcium 8.4 mg/dL (8.4-10.2); Carbon Dioxide 26 mmol/L (22-30); Chloride 95 mmol/L (98-107); Glucose 305 mg/dL (74-99); Potassium 4.8 mmol/L (3.5-5.1); Sodium 132 mmol/L (137-145); Total Bilirubin 0.5 mg/dL (0.2-1.3); Total Protein 5.3 g/dL (6.3-8.2)
[2018-02-23 11:07] LABS: Hepatitis B Core IgM Non-Reactive (Non-Reactive)
[2018-02-23 11:08] LABS: Hepatitis A Antibody IgM Non-Reactive (Non-Reactive)
[2018-02-23 11:24] LABS: Poikilocytosis (M) Present
[2018-02-23 11:26] LABS: Polychromasia Present
[2018-02-23] MEDS ORDERED: IOPAMIDOL-300 CONTRAST 30 ML VIAL (ORAL USE) PO PRN (12:03)
--- NOTE | 2018-02-23 12:51 | XR ---
EXAMINATION TYPE: XR chest 1V portable DATE OF EXAM: 02/23/2018 COMPARISON: 02/21/2018 INDICATION: Pneumonia TECHNIQUE: Single frontal view of the chest is obtained. FINDINGS: The heart size is normal. The pulmonary vasculature is normal. The lungs are clear. There is poor inspiration. Findings appear stable from comparison. There is chronic elevation of the right diaphragm. IMPRESSION: 1. No acute pulmonary process.
[2018-02-23] MEDS: POTASSIUM CHLORIDE ER 20 MEQ TAB.ER PO SCH (13:44)
[2018-02-23] MEDS: IPRATROPIUM-ALBUTEROL 3 ML NEB INHALATION SCH ×3 (16:08→20:37)
--- NOTE | 2018-02-23 16:11 | PN ---
PROGRESS NOTE DATE OF SERVICE: 02/23/2018 This 73-year-old woman was admitted with abdominal pain, but is also having fever. Patient apparently had bronchopneumonia as well. No chest pain. No palpitations. No fever. PHYSICAL EXAM: Alert and oriented x3. Pulse 80, blood pressure 162/70, respiration 18, temp 98.2, pulse ox 91% on room air. HEENT: Conjunctivae normal. Oral mucosa moist. Neck is no jugular venous distention. No carotid bruit. No lymph node enlargement. Cardiovascular systems: S1, S2 muffled. Respiration: Breath sounds diminished in the bases. A few scattered rhonchi and crackles. ABDOMEN: Soft and nontender. No mass palpable. Legs are no edema, no swelling. Nervous system: No focal deficits. LABORATORY DATA: CBC within normal limits and bilirubin is 0.5 and AST 16, ALT is albumin 3.3. ASSESSMENT: 1. Abdominal pain with possible elevated AST, ALT, possibly acute hepatitis of undetermined etiology. Possibly medication induced, improving. 2. Fever, possible bronchopneumonia bilaterally. 3. Hyponatremia. 4. Chronic pain syndrome. 5. Diabetes type 2. 6. Fibromyalgia. 7. History of gastroesophageal reflux disease. 8. Hypertension. 9. Degenerative joint disease. 10.Sleep apnea. 11.History of asthma. 12.History of narcolepsy. 13.History of chronic pain syndrome on pain pump. 14.History of back pain. 15.Anxiety, depression. RECOMMENDATIONS AND DISCUSSION: This 73-year-old woman who presented with multiple complex medical issues. At this time, we will monitor the patient closely. Continue the current medications, management and symptomatic treatment. Recommend bronchodilators. The patient is on empiric antibiotics already. Guarded prognosis. Further recommendations to follow. We will monitor the liver function which appears to be improving. Further recommendations to follow. MMODL / IJN: [id number] / MTDFara
--- NOTE | 2018-02-23 16:27 | CONS ---
CONSULTATION DATE OF SERVICE: 02/23/2018. REASON FOR CONSULTATION: Fever. HISTORY OF PRESENT ILLNESS: The patient is a 73-year-old female who was brought into the ER at [facility] 02/20/2018 with evaluation of intractable abdominal pain, nausea, and mental status changes in a patient was normally awake, alert, oriented x3, was noticed to be confused and slow to respond. The pain has been in the epigastric area with some radiation down to the back area. With these symptoms the patient was evaluated by the ER physician. On arrival to the ER, the patient was afebrile. The patient did have a normal white count. However, her liver enzymes were elevated. Urine was positive for opiates and antidepressant. No cultures were done. Ultrasound was negative. The patient subsequently has been managed medically. The patient did spike a fever last evening of 101.8 degrees Fahrenheit with repeat of 100.3 for which blood culture was done and Infectious Disease was consulted for further recommendation. As of this morning no fever has been recorded. The patient denies having any chest pain or shortness of breath or cough. No further abdominal pain, nausea, vomiting or any diarrhea. The pain to the right knee is currently resolved and no urinary symptoms. REVIEW OF SYSTEMS: CONSTITUTIONAL: Positive for weakness and new fever. EYES: No complaint. ENT: No complaint. RESPIRATORY: No complaint. CARDIOVASCULAR: No complaint. GENITOURINARY: No complaint. GASTROINTESTINAL: As per HPI. MUSCULOSKELETAL: No complaint. INTEGUMENTARY: No complaint. PSYCHOLOGICAL: No complaint. ENDOCRINE: No complaint. NEUROLOGICAL: No complaint. PAST MEDICAL HISTORY: Significant for diabetes mellitus, fibromyalgia, gastroesophageal reflux disease, hypertension, osteoarthritis, sleep apnea, narcolepsy and diabetes mellitus. PAST SURGICAL HISTORY: Back surgery, cholecystectomy, carpal tunnel surgery, chronic back pain. SOCIAL HISTORY: Remote history of smoking, no drinking or drug use. FAMILY HISTORY: Father with history of diabetes mellitus. ALLERGIES: PENICILLIN with anaphylaxis. She told me that she could take Keflex though KEFLEX ALLERGY has been documented along with allergy to TRAMADOL. MEDICATION: Currently include the patient is on Tylenol, DuoNeb, Norvasc, vitamin C, aspirin, Dulcolax, Catapres, iron sulfate, Atarax, Tofranil, Lidoderm patch, Zestril, Theragran, Narcan, Zofran, Ditropan, Protonix, Ultram. EXAMINATION: Her blood pressure is 162/70, pulse of 80, temperature 98.7, T-max is 101.8. She is 91% on room air. General description is an elderly female up in the chair in no distress. No tachypnea or accessory muscle of respiration use. HEENT: Shows no pallor or scleral icterus. Oral mucosa membrane is dry. No pharyngeal erythema or thrush. NECK: Trachea central. No thyromegaly. LUNGS: Unlabored breathing. Clear to auscultation anteriorly. No wheeze or crackle. HEART: S1, S2. Regular rate and rhythm. ABDOMEN: Soft, slightly tender. No guarding or rigidity, no organomegaly. EXTREMITIES: No edema feet. SKIN EXAMINATION: No rashes. No mass palpable. NEUROLOGICAL: Patient is awake, alert, oriented x3. Mood and affect are normal. LABS: Hemoglobin is 12.8, white count 6.1 with a BUN of 14, creatinine 0.40. Liver enzymes are slightly elevated, though showing downward trend with ALT down to 197. Blood culture obtained last night currently pending. DIAGNOSTIC IMPRESSION AND PLAN: 1. Patient presented to hospital with mental status changes, intractable abdominal pain. Pain has been mostly in the epigastric area with some radiation down to the back with elevated liver enzymes. Amylase and lipase have been normal. Ultrasound was normal. Source is likely intraabdominal for this episode of fever. 2. Patient does have MULTIPLE ANTIBIOTIC ALLERGIES that do limit the number of antibiotics that will be safely used. PLAN: 1. We will obtain a CT abdomen and pelvis with contrast to determine intraabdominal pathology. 2. We will start the patient on Azactam 2 grams q.12 in addition to the Flagyl while awaiting for the culture to finalize and work up will be complete. 3. We will follow up on the clinical condition and culture to further adjust medication if needed. Thank you for this consultation. I will follow this patient along with you. MMODL / IJN: [id number] /
[2018-02-23] MEDS: IOPAMIDOL-300 CONTRAST 30 ML VIAL (ORAL USE) PO PRN ×2 (17:30→18:42)
[2018-02-23] MEDS: metroNIDAZOLE-NS PMX 500 MG in SALINE 1 100ML.BAG IVPB SCH ×2 (20:10→23:51)
[2018-02-23] MEDS: ASPIRIN 325 MG TAB PO SCH (20:11)
[2018-02-23] MEDS: ASCORBIC ACID 500 MG TAB PO SCH (20:11)
[2018-02-23] MEDS: MULTIVITAMINS, THERA 1 EACH TAB PO SCH (20:11)
[2018-02-23] MEDS: FERROUS SULFATE 325 MG TAB PO SCH (20:11)
[2018-02-23] MEDS: AZTREONAM 2 GM in SODIUM CHLORIDE 0.9% 100 ML IVPB SCH ×2 (20:11→23:51)
--- NOTE | 2018-02-23 20:25 | CT ---
EXAMINATION TYPE: CT abdomen pelvis wo con DATE OF EXAM: 02/23/2018 COMPARISON: 09/21/2014 HISTORY: Abdominal pain. Poor historian. CT DLP: 756.1 mGycm Automated exposure control for dose reduction was used. TECHNIQUE: Helical acquisition of images was performed from the lung bases through the pelvis. FINDINGS: There is some consolidation and atelectasis at the posterior lung bases. There is large hiatal hernia . There is small left pleural effusion. Heart size is normal. There is no pericardial effusion. Liver shows no focal defect. Spleen appears normal. There is no sign of a pancreatic mass. There is a large amount of retained fecal material in the right colon. There is no evidence of a bowel obstruct ion. There is no adrenal mass. Kidneys have normal size. There is no hydronephrosis. There is no evid ence of retroperitoneal adenopathy. Abdominal aorta is atheromatous. There is no ascites. Bladder dis tends smoothly. There are sigmoid diverticula without sign of diverticulitis. There is multilevel pos terior lumbar spine fusion surgery. There is no compression fracture. There is osteopenia. There is n o sign of free air. There is a mild kyphotic deformity at L2-3 level. There is implanted device over the left lower abdomen. IMPRESSION: LARGE HIATAL HERNIA. BILATERAL BASILAR PULMONARY CONSOLIDATION AND ATELECTASIS. CONSTIPATION. Pulmona ry abnormalities are increased compared to old CT scan. Abdomen appears not significantly different.
[2018-02-23] MEDS: OXYBUTYNIN XL 5 MG TAB.ER.24 PO SCH (20:54)
[2018-02-23] MEDS: LIDOCAINE 5% PATCH TOPICAL SCH (20:54)
[2018-02-24] MEDS: Armodafinil [Nuvigil] 250 MG PO SCH ×2 (06:14→11:24)
[2018-02-24] MEDS: SODIUM CHLORIDE 0.9% 1,000 ML IV SCH ×2 (06:14→10:19)
[2018-02-24 07:29] LABS: Basophils % (A) 0 %; Eosinophils % (A) 0 %; HCT 35.8 % (34.0-46.0); HGB 11.9 gm/dL (11.4-16.0); Lymphocytes # (A) 0.4 k/uL (1.0-4.8); Lymphocytes % (A) 8 %; MCH 31.5 pg (25.0-35.0); MCHC 33.1 g/dL (31.0-37.0); MCV 95.1 fL (80.0-100.0); Mean Platelet Volume 6.5; Monocytes # (A) 0.2 k/uL (0-1.0); Monocytes % (A) 4 %; Neutrophils # (A) 3.9 k/uL (1.3-7.7); Neutrophils % (A) 86 %; Platelet Count 253 k/uL (150-450); RBC 3.76 m/uL (3.80-5.40); RDW 13.7 % (11.5-15.5); WBC 4.5 k/uL (3.8-10.6)
[2018-02-24 07:54] LABS: ALT 190 U/L (9-52); AST 40 U/L (14-36); Albumin 2.9 g/dL (3.5-5.0); Alkaline Phosphatase 183 U/L (38-126); Anion Gap 8 mmol/L; Blood Urea Nitrogen 13 mg/dL (7-17); Calcium 8.2 mg/dL (8.4-10.2); Carbon Dioxide 32 mmol/L (22-30); Chloride 92 mmol/L (98-107); Glucose 200 mg/dL (74-99); Potassium 5.1 mmol/L (3.5-5.1); Sodium 132 mmol/L (137-145); Total Bilirubin 0.4 mg/dL (0.2-1.3)
[2018-02-24] MEDS: POTASSIUM CHLORIDE ER 20 MEQ TAB.ER PO SCH (08:27)
[2018-02-24] MEDS: IPRATROPIUM-ALBUTEROL 3 ML NEB INHALATION SCH ×3 (08:36→19:21)
[2018-02-24] MEDS: IMIPRAMINE 25 MG TAB PO SCH ×2 (08:38→16:27)
[2018-02-24] MEDS: LISINOPRIL 10 MG TAB PO SCH (08:38)
[2018-02-24] MEDS: amLODIPine 10 MG TAB PO SCH (08:38)
[2018-02-24] MEDS: PANTOPRAZOLE 40 MG TABLET PO SCH ×2 (08:38→21:08)
[2018-02-24] MEDS: cloNIDine HCL 0.2 MG TAB PO SCH (08:38)
[2018-02-24] MEDS: ACETAMINOPHEN TAB 325 MG TAB PO PRN (08:41)
[2018-02-24] MEDS: metroNIDAZOLE-NS PMX 500 MG in SALINE 1 100ML.BAG IVPB SCH (10:19)
[2018-02-24] MEDS: AZTREONAM 2 GM in SODIUM CHLORIDE 0.9% 100 ML IVPB SCH ×2 (11:25→22:57)
--- NOTE | 2018-02-24 12:54 | P.PN ---
Subjective Progress Note Date: 02/24/18 Principal diagnosis: Transaminitis 73-year-old female admitted with abdominal pain transaminitis secondary medication related. Transaminases improving. Denies abdominal pain. Requesting discharge. CT abdomen and pelvis reported constipation large hiatal hernia pulmonary consolidation and atelectasis. Objective - Vital Signs Vital signs: Vital Signs Temp 99.6 F 02/24/18 10:34 Pulse 101 H 02/24/18 07:05 Resp 16 02/24/18 07:05 BP 156/78 02/24/18 07:05 Pulse Ox 92 L 02/24/18 07:05 Intake & Output 02/23/18 02/24/18 02/24/18 18:59 06:59 18:59 Weight 55.338 kg Other: Voiding Method Bedside Commode Incontinent Incontinent Diaper # Voids 2 - Exam General appearance: The patient is alert, oriented, in no acute distress. HET: Head is normocephalic and atraumatic. Pupils are equal and reactive. Oropharynx is clear without lesions. Neck: Supple without lymphadenopathy. Trachea midline. Heart: S1 S2. Regular rate and rhythm. Lungs: No crackles or wheezes are heard. Diminished in bases bilaterally. Abdomen: Soft, nontender, nondistended with bowel sounds. No peritoneal signs. No palpable organomegaly or masses. Extremities: Normal skin color and turgor. No cyanosis, rash, ulceration, clubbing, or edema. Radial and pedal pulses are 2/4 bilaterally. Neurological: No focal deficits. Strength and sensation are grossly intact. - Labs CBC & Chem 7: 02/24/18 06:46 02/24/18 06:46 Labs: Abnormal Lab Results - Last 24 Hours (Table) 02/24/18 02/24/18 Range/Units 06:46 06:46 RBC 3.76 L (3.80-5.40) m/uL Lymphocytes # 0.4 L (1.0-4.8) k/uL Sodium 132 L (137-145) mmol/L Chloride 92 L (98-107) mmol/L Carbon Dioxide 32 H (22-30) mmol/L Creatinine 0.49 L (0.52-1.04) mg/dL Glucose 200 H (74-99) mg/dL Calcium 8.2 L (8.4-10.2) mg/dL AST 40 H (14-36) U/L ALT 190 H (9-52) U/L Alkaline Phosphatase 183 H (38-126) U/L Total Protein 5.0 L (6.3-8.2) g/dL Albumin 2.9 L (3.5-5.0) g/dL Microbiology - Last 24 Hours (Table) 02/22/18 21:46 Blood Culture - Preliminary Blood No Growth after 24 hours Assessment and Plan (1) Transaminitis Narrative/Plan: Improving possibly medication related possible sepsis possible hypoxemia possible hypotension no evidence to suggest underlying liver disease at this time. Current Visit: Yes Status: Acute Code(s): R74.0 - NONSPEC ELEV OF LEVELS OF TRANSAMNS & LACTIC ACID DEHYDRGNSE SNOMED Code(s): 861734757 Plan: 1. Transaminases are improving continue supportive measures. No further workup. We'll follow as needed. Assessment and plan a care discussed with Dr. Jeffries
[2018-02-24 13:31] LABS: Appearance,Urine Clear (Clear); Bacteria,Urine Rare /hpf; Bilirubin,Urine Negative (Negative); Blood,Urine Small (Negative); Color,Urine Yellow; Glucose,Urine (UA) 4+ (Negative); Leukocyte Esterase,Urine Negative (Negative); Mucus,Urine Rare /hpf; Nitrite,Urine Negative (Negative); PH, Urine 6.5 (5.0-8.0); Protein,Urine 1+ (Negative); RBC,Urine 7 /hpf (0-5); Specific Gravity,Urine 1.012 (1.001-1.035); Squamous Epithelial Cell,Urine 1 /hpf (0-4); Urobilinogen,Urine <2.0 mg/dL (<2.0); WBC,Urine 1 /hpf (0-5)
[2018-02-24 13:34] LABS: Ketones,Urine 2+ (Negative)
[2018-02-24 14:11] LABS: Glucose,Whole Blood 268 mg/dL (75-99)
[2018-02-24] MEDS ORDERED: VANCOMYCIN IV PER PHARMACY 1 EACH MISC MISCELLANE PRN (14:57)
[2018-02-24] MEDS ORDERED: FUROSEMIDE 10 MG/ML 2 ML VIAL IV ONE (15:00)
--- NOTE | 2018-02-24 15:22 | PN ---
PROGRESS NOTE DATE OF SERVICE: 02/24/2018 This 73-year-old woman was admitted with abdominal pain, possibly elevated AST, ALT, also had bilateral bronchopneumonia. The patient is on broad-spectrum IV antibiotics. No chest pain. No palpitation. Mild fever is noted. PHYSICAL EXAM: Alert and oriented x3. Pulse 101, blood pressure 150/78, respiration 16, temperature 102.2, pulse ox 98% on room air. HEENT: Conjunctivae normal, oral mucosa moist. Neck is no jugular venous distention, no carotid bruit, no lymph node enlargement. CARDIOVASCULAR SYSTEM: S1, S2, muffled. RESPIRATORY: Breath sounds diminished at the bases, a few scattered rhonchi. No crackles. ABDOMEN: Soft, nontender. LEGS: No edema, no swelling. NERVOUS SYSTEM: No focal deficits. LABS: CBC within normal limits. Sodium 132. LFTs are noted which is improving steadily at this time. ASSESSMENT: 1. Abdominal pain with possible elevated AST, ALT, possibly acute hepatitis of undetermined etiology. Possibly medication-induced. 2. Fever, bilateral bronchopneumonia. 3. Hyponatremia. 4. Chronic pain. 5. Diabetes mellitus type 2. 6. Fibromyalgia. 7. History of gastroesophageal reflux disease. 8. Hypertension. 9. History of degenerative joint disease. 10.Sleep apnea, history of asthma. 11.History of narcolepsy. 12.Chronic pain, on pain pump. 13.History of back pain. 14.History of depression. RECOMMENDATION AND DISCUSSION: Recommend to continue current management and continue with symptomatic treatment. Continue with empiric antibiotics. Will add bronchodilators to the current regimen, hepatitis panel is negative, otherwise closely monitor. We will stop the IV also. We will monitor the patient closely. Prognosis guarded. Further recommendations to follow. MMODL / IJN: [id number] /
[2018-02-24] MEDS ORDERED: VANCOMYCIN 1,250 MG in SODIUM CHLORIDE 0.9% 250 ML IVPB ONE (16:00)
[2018-02-24] MEDS: metroNIDAZOLE 500 MG TAB PO SCH ×2 (16:27→22:58)
[2018-02-24] MEDS: MULTIVITAMINS, THERA 1 EACH TAB PO SCH (16:27)
[2018-02-24] MEDS: FERROUS SULFATE 325 MG TAB PO SCH (16:27)
[2018-02-24] MEDS: ASCORBIC ACID 500 MG TAB PO SCH (16:27)
[2018-02-24] MEDS: ASPIRIN 325 MG TAB PO SCH (16:27)
[2018-02-24] MEDS: methylPREDNISolone SOD SUCCI 40 MG/ML 1 ML VIAL IV SCH ×2 (16:28→22:57)
[2018-02-24 16:41] LABS: Glucose,Whole Blood 279 mg/dL (75-99)
--- NOTE | 2018-02-24 17:31 | P.PN ---
Subjective Progress Note Date: 02/24/18 Principal diagnosis: Bilateral basal pneumonia, chest tightness with cough, Transaminitis/elevated liver enzymes, acute liver injury, narcolepsy, sleep disorder breathing and sleep apnea, generalized weakness and medical debility, 02/24/2018, patient seen eval examined during the rounds clinically patient is not much change however now she is having more cough which is dry and nonproductive a computed tomography scan of the abdominal and pelvis was unremarkable however does show by basilar pneumonia patient is on broad- spectrum antibiotics liver enzymes noted to be slowly improving, patient get short of breath on minimal activity and exertion, pneumonia appears to be gram- negative and/or or mixed bacterial 02/23/2018, patient seen eval reexamined during the rounds clinically doing better tolerating by mouth well no other abdominal discomfort of pain is present patient couldn't undergo a third check on liver enzymes that she refuses yesterday today phlebotomies unable to obtain the blood clinically patient appears to be doing well denies any nausea vomiting denies any abdominal pain breathing comfortably February 22 2018, patient seen eval reexamined during the rounds care plan discussed with the patient as well as the staff noted that the blood cultures were negative also discussed with RN, repeat blood test couldn't be done however there is a pattern of liver enzymes coming down, reviewed reports of the ultrasound and GI consult 83-year-old female well-known to me patient has a history of severe spine disease with chronic pain has been on pain pump patient also has a history of narcolepsy sleep apnea she is currently resident of [facility] where she was admitted because of her severe knee pain thought to be related to soft tissue injury or damage was swelling, patient started having abdominal discomfort of pain on the right side yesterday was brought into the emergency department for further evaluation now she is complaining of more pain on the left side, patient is on broad-spectrum antibiotics ID service has been consulted she is stable from her sleep apnea standpoint is she has lost significant amount of weight nose using CPAP machine she has been on Nuvigil at home which is nonformulary over here patient has been advised to bring her medications from home Objective - Vital Signs Vital signs: Vital Signs Temp 99.5 F 02/24/18 15:00 Pulse 69 02/24/18 15:00 Resp 16 02/24/18 15:00 BP 107/63 02/24/18 15:00 Pulse Ox 90 L 02/24/18 15:00 Intake & Output 02/23/18 02/24/18 02/24/18 18:59 06:59 18:59 Weight 55.338 kg Other: Voiding Method Bedside Commode Incontinent Bedside Commode Diaper Diaper # Voids 2 2 - Exam General appearance: alert, in distress (Mild) Head exam: Present: atraumatic, normocephalic, normal inspection Eye exam: Present: normal appearance, PERRL, EOMI. Absent: scleral icterus, conjunctival injection, periorbital swelling ENT exam: Present: normal exam, mucous membranes moist Neck exam: Present: normal inspection. Absent: tenderness, meningismus, lymphadenopathy Respiratory exam: Present: normal lung sounds bilaterally. Bilateral basilar crackles more so on the right side compared to left side with fine expiratory wheeze Cardiovascular Exam: Present: regular rate, normal rhythm GI/Abdominal exam: Present: soft, tenderness. Absent: distended, guarding, rebound, rigid Rectal exam: Present: deferred Extremities exam: Present: normal inspection, full ROM Back exam: Present: normal inspection, full ROM Neurological exam: Present: alert, altered Psychiatric exam: Present: normal mood. Absent: normal affect (slowed) Skin exam: Present: warm, dry, intact - Labs CBC & Chem 7: 02/24/18 06:46 02/24/18 06:46 Labs: Abnormal Lab Results - Last 24 Hours (Table) 02/24/18 02/24/18 02/24/18 Range/Units 06:46 06:46 13:05 RBC 3.76 L (3.80-5.40) m/uL Lymphocytes # 0.4 L (1.0-4.8) k/uL Sodium 132 L (137-145) mmol/L Chloride 92 L (98-107) mmol/L Carbon Dioxide 32 H (22-30) mmol/L Creatinine 0.49 L (0.52-1.04) mg/dL Glucose 200 H (74-99) mg/dL POC Glucose (mg/dL) (75-99) mg/dL Calcium 8.2 L (8.4-10.2) mg/dL AST 40 H (14-36) U/L ALT 190 H (9-52) U/L Alkaline Phosphatase 183 H (38-126) U/L Total Protein 5.0 L (6.3-8.2) g/dL Albumin 2.9 L (3.5-5.0) g/dL Urine Protein 1+ H (Negative) Urine Glucose (UA) 4+ H (Negative) Urine Ketones 2+ H (Negative) Urine Blood Small H (Negative) Urine RBC 7 H (0-5) /hpf Urine Bacteria Rare H (None) /hpf Urine Mucus Rare H (None) /hpf 02/24/18 02/24/18 Range/Units 14:09 16:39 RBC (3.80-5.40) m/uL Lymphocytes # (1.0-4.8) k/uL Sodium (137-145) mmol/L Chloride (98-107) mmol/L Carbon Dioxide (22-30) mmol/L Creatinine (0.52-1.04) mg/dL Glucose (74-99) mg/dL POC Glucose (mg/dL) 268 H 279 H (75-99) mg/dL Calcium (8.4-10.2) mg/dL AST (14-36) U/L ALT (9-52) U/L Alkaline Phosphatase (38-126) U/L Total Protein (6.3-8.2) g/dL Albumin (3.5-5.0) g/dL Urine Protein (Negative) Urine Glucose (UA) (Negative) Urine Ketones (Negative) Urine Blood (Negative) Urine RBC (0-5) /hpf Urine Bacteria (None) /hpf Urine Mucus (None) /hpf Microbiology - Last 24 Hours (Table) 02/22/18 21:46 Blood Culture - Preliminary Blood No Growth after 24 hours Assessment and Plan Assessment: Bilateral pneumonia basal Large hiatal hernia Acute liver injury of unclear etiology Elevated liver enzymes showing a pattern of improvement No evidence of Gram-negative bacteremia to suspect cholangitis Nonspecific abdominal pain however resolved now Narcolepsy Sleep disorder breathing and sleep apnea Generalized weakness and medical debility Plan: Broad-spectrum antibiotics IV steroids Gentle rehydration GI consultation recommendation reviewed Deep breathing sense incentive spirometry Increase activity as tolerated Further recommendations pending plan of care as per clinical response of the patient Agree with discharge planning, follow-up labs can perform an outpatient basis once patient is more hydrated Time with Patient: Greater than 30
[2018-02-24] MEDS: INSULIN ASPART 100 UNIT/ML 1 ML 10 ML VIAL SQ SCH ×2 (18:00→21:06)
[2018-02-24 20:14] LABS: Glucose,Whole Blood 312 mg/dL (75-99)
[2018-02-24] MEDS: OXYBUTYNIN XL 5 MG TAB.ER.24 PO SCH (21:08)
[2018-02-24] MEDS: LIDOCAINE 5% PATCH TOPICAL SCH (21:08)
--- NOTE | 2018-02-24 23:11 | PN ---
PROGRESS NOTE DATE OF SERVICE: 02/24/2018. REASON FOR FOLLOWUP VISIT: Fever. INTERVAL HISTORY: The patient did have another fever this morning of 102.6 degrees Fahrenheit. The patient denies having any chest pain or shortness of breath. Very minimal cough. No nausea, vomiting. No further abdominal pain or any diarrhea. EXAMINATION: Blood pressure 117/68 with a pulse of 79, temperature 100.3. She is 92% on room air. General description is an elderly female up in the bed in no distress. RESPIRATORY SYSTEM: Unlabored breathing clear to auscultation anteriorly. HEART: S1, S2. Regular rate and rhythm. ABDOMEN: Soft. No tenderness. LABS: BUN of 13, creatinine 0.49. Liver enzymes have improved. Hepatitis serology was negative. Blood culture has been negative. DIAGNOSTIC IMPRESSION AND PLAN: Patient with a fever. So far workup, including a CT abdomen and pelvis, has been negative. Chest x-ray was negative for any pneumonia. Patient was covered with Azactam. Vancomycin was added today. We will check influenza serology as well and continue upon her clinical course closely. MMODL / IJN: [id number] /
[2018-02-25] MEDS ORDERED: VANCOMYCIN 1,000 MG in SODIUM CHLORIDE 0.9% 250 ML IVPB SCH (06:00)
[2018-02-25 06:50] LABS: Glucose,Whole Blood 321 mg/dL (75-99)
[2018-02-25] MEDS ORDERED: amLODIPine 10 MG TAB ONE (07:25)
[2018-02-25] MEDS ORDERED: IMIPRAMINE 25 MG TAB ONE (07:25)
[2018-02-25] MEDS ORDERED: metroNIDAZOLE 500 MG TAB ONE (07:25)
[2018-02-25] MEDS ORDERED: LISINOPRIL 10 MG TAB ONE (07:25)
[2018-02-25] MEDS ORDERED: INSULIN ASPART 100 UNIT/ML 1 ML 10 ML VIAL SQ ONE (07:25)
[2018-02-25] MEDS ORDERED: IPRATROPIUM-ALBUTEROL 3 ML NEB ONE (07:25)
[2018-02-25] MEDS ORDERED: POTASSIUM CHLORIDE ER 20 MEQ TAB.ER PO ONE (07:25)
[2018-02-25] MEDS ORDERED: cloNIDine HCL 0.2 MG TAB ONE (07:25)
[2018-02-25] MEDS ORDERED: PANTOPRAZOLE 40 MG TABLET PO ONE (07:25)
[2018-02-25 09:20] LABS: ALT 166 U/L (9-52); AST 44 U/L (14-36); Albumin 3.3 g/dL (3.5-5.0); Alkaline Phosphatase 178 U/L (38-126); Anion Gap 13 mmol/L; Blood Urea Nitrogen 16 mg/dL (7-17); Calcium 8.6 mg/dL (8.4-10.2); Carbon Dioxide 27 mmol/L (22-30); Chloride 94 mmol/L (98-107); Glucose 313 mg/dL (74-99); Potassium 4.4 mmol/L (3.5-5.1); Sodium 134 mmol/L (137-145); Total Bilirubin 0.4 mg/dL (0.2-1.3); Total Protein 5.7 g/dL (6.3-8.2)
[2018-02-25] MEDS: IPRATROPIUM-ALBUTEROL 3 ML NEB INHALATION SCH ×3 (10:57→19:49)
[2018-02-25 11:11] LABS: Basophils % (A) 0 %; Eosinophils % (A) 0 %; HCT 38.8 % (34.0-46.0); HGB 12.6 gm/dL (11.4-16.0); Lymphocytes # (A) 0.4 k/uL (1.0-4.8); Lymphocytes % (A) 11 %; MCH 30.8 pg (25.0-35.0); MCHC 32.4 g/dL (31.0-37.0); MCV 95.1 fL (80.0-100.0); Mean Platelet Volume 7.2; Monocytes # (A) 0.2 k/uL (0-1.0); Monocytes % (A) 6 %; Neutrophils # (A) 2.9 k/uL (1.3-7.7); Neutrophils % (A) 80 %; Platelet Count 260 k/uL (150-450); RBC 4.08 m/uL (3.80-5.40); RDW 13.5 % (11.5-15.5); WBC 3.6 k/uL (3.8-10.6)
[2018-02-25 11:32] LABS: Glucose,Whole Blood 361 mg/dL (75-99)
[2018-02-25] MEDS: Armodafinil [Nuvigil] 250 MG PO SCH ×2 (11:58→12:46)
[2018-02-25] MEDS: PANTOPRAZOLE 40 MG TABLET PO SCH ×2 (12:00→21:19)
[2018-02-25] MEDS: INSULIN ASPART 100 UNIT/ML 1 ML 10 ML VIAL SQ SCH ×4 (12:00→21:19)
[2018-02-25] MEDS: IMIPRAMINE 25 MG TAB PO SCH ×2 (12:00→17:24)
[2018-02-25] MEDS: cloNIDine HCL 0.2 MG TAB PO SCH (12:00)
[2018-02-25] MEDS: methylPREDNISolone SOD SUCCI 40 MG/ML 1 ML VIAL IV SCH ×3 (12:00→23:54)
[2018-02-25] MEDS: metroNIDAZOLE 500 MG TAB PO SCH ×3 (12:00→23:55)
[2018-02-25] MEDS: LISINOPRIL 10 MG TAB PO SCH (12:00)
[2018-02-25] MEDS: amLODIPine 10 MG TAB PO SCH (12:00)
[2018-02-25] MEDS: POTASSIUM CHLORIDE ER 20 MEQ TAB.ER PO SCH (12:01)
[2018-02-25] MEDS: AZTREONAM 2 GM in SODIUM CHLORIDE 0.9% 100 ML IVPB SCH ×2 (12:47→23:55)
--- NOTE | 2018-02-25 14:12 | P.PN ---
Subjective Progress Note Date: 02/25/18 Principal diagnosis: Bilateral basal pneumonia, chest tightness with cough, Transaminitis/elevated liver enzymes, acute liver injury, narcolepsy, sleep disorder breathing and sleep apnea, generalized weakness and medical debility, 02/25/2018, patient seen eval examined during the rounds clinically patient is not much different baseline but still have intermittent cough which is dry and nonproductive respiratory status stable denies any, reviewed computed tomography scan finding with the patient 02/24/2018, patient seen eval examined during the rounds clinically patient is not much change however now she is having more cough which is dry and nonproductive a computed tomography scan of the abdominal and pelvis was unremarkable however does show by basilar pneumonia patient is on broad- spectrum antibiotics liver enzymes noted to be slowly improving, patient get short of breath on minimal activity and exertion, pneumonia appears to be gram- negative and/or or mixed bacterial 02/23/2018, patient seen eval reexamined during the rounds clinically doing better tolerating by mouth well no other abdominal discomfort of pain is present patient couldn't undergo a third check on liver enzymes that she refuses yesterday today phlebotomies unable to obtain the blood clinically patient appears to be doing well denies any nausea vomiting denies any abdominal pain breathing comfortably February 22 2018, patient seen eval reexamined during the rounds care plan discussed with the patient as well as the staff noted that the blood cultures were negative also discussed with RN, repeat blood test couldn't be done however there is a pattern of liver enzymes coming down, reviewed reports of the ultrasound and GI consult 83-year-old female well-known to me patient has a history of severe spine disease with chronic pain has been on pain pump patient also has a history of narcolepsy sleep apnea she is currently resident of [facility] where she was admitted because of her severe knee pain thought to be related to soft tissue injury or damage was swelling, patient started having abdominal discomfort of pain on the right side yesterday was brought into the emergency department for further evaluation now she is complaining of more pain on the left side, patient is on broad-spectrum antibiotics ID service has been consulted she is stable from her sleep apnea standpoint is she has lost significant amount of weight nose using CPAP machine she has been on Nuvigil at home which is nonformulary over here patient has been advised to bring her medications from home Objective - Vital Signs Vital signs: Vital Signs Temp 98.6 F 02/25/18 08:01 Pulse 105 H 02/25/18 08:01 Resp 16 02/25/18 08:01 BP 151/76 02/25/18 08:01 Pulse Ox 90 L 02/25/18 08:01 Intake & Output 02/24/18 02/25/18 02/25/18 18:59 06:59 18:59 Intake Total 475 Output Total 600 Balance -125 Intake: Intake, IV Titration 475 Amount Sodium Chloride 0.9% 1, 225 000 ml @ 75 mls/hr IV . [id number] [facility] Rx#:[id number] Vancomycin 1,000 mg In 250 Sodium Chloride 0.9% 250 ml @ 125 mls/hr IVPB Q12H [facility] Rx#:[id number] Output: Urine 600 Stool 0 Other: Voiding Method Bedside Commode Bedside Commode Bedside Commode Diaper Diaper Diaper # Voids 2 2 - Exam General appearance: alert, in distress (Mild) Head exam: Present: atraumatic, normocephalic, normal inspection Eye exam: Present: normal appearance, PERRL, EOMI. Absent: scleral icterus, conjunctival injection, periorbital swelling ENT exam: Present: normal exam, mucous membranes moist Neck exam: Present: normal inspection. Absent: tenderness, meningismus, lymphadenopathy Respiratory exam: Present: normal lung sounds bilaterally. Bilateral basilar crackles more so on the right side compared to left side with fine expiratory wheeze Cardiovascular Exam: Present: regular rate, normal rhythm GI/Abdominal exam: Present: soft, tenderness. Absent: distended, guarding, rebound, rigid Rectal exam: Present: deferred Extremities exam: Present: normal inspection, full ROM Back exam: Present: normal inspection, full ROM Neurological exam: Present: alert, altered Psychiatric exam: Present: normal mood. Absent: normal affect (slowed) Skin exam: Present: warm, dry, intact - Labs CBC & Chem 7: 02/25/18 08:13 02/24/18 06:46 Labs: Abnormal Lab Results - Last 24 Hours (Table) 02/24/18 02/24/18 02/24/18 Range/Units 14:09 16:39 20:11 WBC (3.8-10.6) k/uL Lymphocytes # (1.0-4.8) k/uL POC Glucose (mg/dL) 268 H 279 H 312 H (75-99) mg/dL 02/25/18 02/25/18 02/25/18 Range/Units 06:47 08:13 11:29 WBC 3.6 L (3.8-10.6) k/uL Lymphocytes # 0.4 L (1.0-4.8) k/uL POC Glucose (mg/dL) 321 H 361 H (75-99) mg/dL Microbiology - Last 24 Hours (Table) 02/24/18 09:07 Blood Culture - Preliminary Blood No Growth after 24 hours 02/24/18 08:54 Blood Culture - Preliminary Blood No Growth after 24 hours 02/22/18 21:46 Blood Culture - Preliminary Blood No Growth after 48 hours 02/24/18 13:05 Urine Culture - Preliminary Urine,Clean Catch Assessment and Plan Assessment: Bilateral pneumonia basal Large hiatal hernia Acute liver injury of unclear etiology Elevated liver enzymes showing a pattern of improvement No evidence of Gram-negative bacteremia to suspect cholangitis Nonspecific abdominal pain however resolved now Narcolepsy Sleep disorder breathing and sleep apnea Generalized weakness and medical debility Plan: Broad-spectrum antibiotics IV steroids Gentle rehydration GI consultation recommendation reviewed Deep breathing sense incentive spirometry Increase activity as tolerated Further recommendations pending plan of care as per clinical response of the patient Agree with discharge planning, follow-up labs can perform an outpatient basis once patient is more hydrated Time with Patient: Greater than 30
[2018-02-25] MEDS: VANCOMYCIN 1,000 MG in SODIUM CHLORIDE 0.9% 250 ML IVPB SCH (15:14)
--- NOTE | 2018-02-25 15:20 | PN ---
PROGRESS NOTE DATE OF SERVICE: 02/25/2018 This 73-year-old woman was admitted with abdominal pain, had AST, ALT with also bibasilar pneumonia, patient running fever. No chest pain. No palpitations. No fever. PHYSICAL EXAM: Alert and oriented x3, pulse 105, blood pressure 151/76, respirations 16, temperature 98.2, pulse ox 98% on 3 L. HEENT: Conjunctivae normal. Oral mucosa moist. Neck is no jugular venous distention. No lymph node enlargement. CARDIOVASCULAR: S1, S2, muffled. RESPIRATORY: Breath sounds diminished at the bases. A few scattered rhonchi, no crackles. ABDOMEN: Soft, nontender. NERVOUS SYSTEM: No focal deficits. LABS: WBC 3.2, hemoglobin 12.6. ASSESSMENT: 1. Abdominal pain with possibly elevated AST, ALT, possibly acute hepatitis of undetermined etiology. Possibly medication-induced. 2. Fever, bilateral pneumonia, possibly gram-negative. 3. Hyponatremia. 4. Chronic pain syndrome. 5. Diabetes mellitus type 2. 6. Fibromyalgia. 7. History of degenerative joint disease. 8. Hypertension. 9. History of sleep apnea. 10.History of asthma. 11.History of narcolepsy. 12.History of chronic pain, on pain pump. 13.History of back pain. 14.History of depression. RECOMMENDATION: Continue current management. Symptomatic treatment. Continue with empiric antibiotics. We will taper the steroids further. Closely monitor with Pulmonology. Cultures are negative so far. Continue the rest of the medications. Guarded prognosis. Further recommendations to follow. MMODL / IJN: [id number] /
[2018-02-25 15:57] LABS: Hemoglobin A1C 8.5 % (4.0-6.0)
[2018-02-25 16:53] LABS: Glucose,Whole Blood 258 mg/dL (75-99)
[2018-02-25] MEDS: MULTIVITAMINS, THERA 1 EACH TAB PO SCH (17:24)
[2018-02-25] MEDS: ASPIRIN 325 MG TAB PO SCH (17:24)
[2018-02-25] MEDS: FERROUS SULFATE 325 MG TAB PO SCH (17:24)
[2018-02-25] MEDS: ASCORBIC ACID 500 MG TAB PO SCH (18:15)
[2018-02-25 21:04] LABS: Glucose,Whole Blood 326 mg/dL (75-99)
[2018-02-25] MEDS: OXYBUTYNIN XL 5 MG TAB.ER.24 PO SCH (21:18)
[2018-02-25] MEDS: LIDOCAINE 5% PATCH TOPICAL SCH (21:20)
--- NOTE | 2018-02-25 23:24 | PN ---
PROGRESS NOTE DATE OF SERVICE: 02/25/2018 REASON FOR FOLLOWUP: Fever. INTERVAL HISTORY: The patient's overall fever pattern has improved. The highest temperature, last night, has been 100.3. The patient has been breathing comfortably. She did mention that she did have a cough and brought up some sputum, but no abdominal pain. No nausea. No vomiting. No diarrhea. PHYSICAL EXAMINATION: Blood pressure 120/76 with a pulse of 76, temperature 98.9. She is 90% on room air. General description is an elderly female up in the bed in no distress. RESPIRATORY SYSTEM: Unlabored breathing. Some decreased breath sounds at the bases. No wheeze. HEART: S1, S2. Regular rate and rhythm. ABDOMEN: Soft. No tenderness. LABS: Hemoglobin is 12.6, white count 3.6 with a BUN of 16, creatinine 0.41. Culture has been negative so far. DIAGNOSTIC IMPRESSION AND PLAN: Patient with a fever in a patient admitted to hospital with mental status changes and elevated liver enzymes. CT of abdomen and pelvis has been negative so far. With concern about persistent fever, vancomycin was added, and the patient's fever seems to have resolved. She has been complaining of some cough with sputum production. A chest x-ray will be repeated tomorrow morning and we will try to obtain a sputum sample. We will keep the patient on the Azactam and vancomycin because of multiple antibiotic allergies and follow up on the cultures and clinical condition to determine her discharge antibiotics. Continue with supportive care. MMODL / HATTIEN: [id number] /
[2018-02-26] MEDS: VANCOMYCIN 1,000 MG in SODIUM CHLORIDE 0.9% 250 ML IVPB SCH ×2 (02:32→14:22)
--- NOTE | 2018-02-26 06:33 | ECHOF ---
Referral Reason:fever MEASUREMENTS -------- HEIGHT: 162.6 cm WEIGHT: 55.3 kg BP: 130/40 RVIDd: 2.7 cm (< 3.3) IVSd: 0.9 cm (0.6 - 1.1) LVIDd: 4.8 cm (3.9 - 5.3) LVPWd: 0.9 cm (0.6 - 1.1) IVSs: 1.2 cm LVIDs: 2.8 cm LVPWs: 1.3 cm LA Diam: 3.4 cm (2.7 - 3.8) Ao Diam: 3.7 cm (2.0 - 3.7) AV Cusp: 2.0 cm (1.5 - 2.6) LA Diam: 4.0 cm (2.7 - 3.8) MV EXCURSION: 14.924 mm (> 18.000) MV EF SLOPE: 90 mm/s (70 - 150) EPSS: 0.5 cm MV E Isreal: 0.84 m/s MV DecT: 153 ms MV A Isreal: 1.07 m/s MV E/A Ratio: 0.79 RAP: 5.00 mmHg RVSP: 24.48 mmHg FINDINGS -------- Sinus rhythm. This was a technically good study. LV size, wall thickness and systolic function are normal, with an EF greater than 55%. The left donna tricular size is normal. The right ventricle is normal in size. The left atrial size is normal. The right atrial size is normal. The aortic valve is trileaflet, and appears structurally normal. No aortic stenosis or regurgitation. Mild mitral regurgitation is present. Mild tricuspid regurgitation present. There is no evidence of pulmonary hypertension. The right v entricular systolic pressure, as measured by Doppler, is 24.48mmHg. There is no pulmonic regurgitation present. The aortic root size is normal. There is no pericardial effusion. CONCLUSIONS -------- 1. LV size, wall thickness and systolic function are normal, with an EF greater than 55%. 2. The left ventricular size is normal. 3. The right ventricle is normal in size. 4. The left atrial size is normal. 5. The right atrial size is normal. 6. The aortic valve is trileaflet, and appears structurally normal. No aortic stenosis or regurgitati on. 7. Mild mitral regurgitation is present. 8. Mild tricuspid regurgitation present. 9. There is no evidence of pulmonary hypertension. 10. The right ventricular systolic pressure, as measured by Doppler, is 24.48mmHg. 11. There is no pulmonic regurgitation present. 12. The aortic root size is normal. 13. There is no pericardial effusion. PACKERHEAD MACHINE OPERATOR: Mimi Saldana RDCS
[2018-02-26] MEDS: Armodafinil [Nuvigil] 250 MG PO SCH ×2 (06:51→11:10)
[2018-02-26 06:54] LABS: Basophils % (A) 0 %; Eosinophils % (A) 0 %; HCT 35.3 % (34.0-46.0); HGB 11.3 gm/dL (11.4-16.0); Lymphocytes # (A) 0.3 k/uL (1.0-4.8); Lymphocytes % (A) 5 %; MCH 30.1 pg (25.0-35.0); MCHC 31.9 g/dL (31.0-37.0); MCV 94.3 fL (80.0-100.0); Mean Platelet Volume 6.7; Monocytes # (A) 0.1 k/uL (0-1.0); Monocytes % (A) 3 %; Neutrophils % (A) 90 %; Platelet Count 289 k/uL (150-450); RBC 3.75 m/uL (3.80-5.40); RDW 13.8 % (11.5-15.5); WBC 5.6 k/uL (3.8-10.6)
[2018-02-26 07:16] LABS: ALT 142 U/L (9-52); AST 50 U/L (14-36); Albumin 2.9 g/dL (3.5-5.0); Alkaline Phosphatase 139 U/L (38-126); Anion Gap 9 mmol/L; Blood Urea Nitrogen 19 mg/dL (7-17); Calcium 8.6 mg/dL (8.4-10.2); Carbon Dioxide 28 mmol/L (22-30); Chloride 99 mmol/L (98-107); Glucose 240 mg/dL (74-99); Potassium 4.4 mmol/L (3.5-5.1); Sodium 136 mmol/L (137-145); Total Bilirubin 0.2 mg/dL (0.2-1.3); Total Protein 5.3 g/dL (6.3-8.2)
[2018-02-26 07:17] LABS: Glucose,Whole Blood 244 mg/dL (75-99)
[2018-02-26] MEDS ORDERED: FUROSEMIDE 10 MG/ML 4 ML VIAL IV STA (07:29)
[2018-02-26] MEDS: IPRATROPIUM-ALBUTEROL 3 ML NEB INHALATION SCH ×3 (07:33→20:00)
[2018-02-26] MEDS: methylPREDNISolone SOD SUCCI 40 MG/ML 1 ML VIAL IV SCH (07:45)
[2018-02-26 08:09] LABS: ABG Base Excess 4.8 mmol/L; ABG HCO3 28 mmol/L (21-25); ABG PCO2 37 mmHg (35-45); ABG PH 7.49 (7.35-7.45); ABG PO2 47 mmHg (83-108); ABG TCO2 29 mmol/L (19-24)
--- NOTE | 2018-02-26 08:26 | XR ---
EXAMINATION TYPE: XR chest 1V portable DATE OF EXAM: 02/26/2018 COMPARISON: 02/23/2019 HISTORY: Shortness of breath TECHNIQUE: Frontal and lateral views of the chest are obtained. FINDINGS: Scattered senescent parenchymal changes noted. Hyperinflation compatible with COPD. Patchy basilar infiltrates and small effusions persist. Heart size is stable. Mediastinal structures are stable and grossly unremarkable. No evidence for hilar prominence. Degenerative changes dorsal spine. IMPRESSION: 1. Patchy basilar infiltrates and small effusions persist.
[2018-02-26] MEDS: metroNIDAZOLE 500 MG TAB PO SCH ×3 (09:47→23:25)
[2018-02-26] MEDS: amLODIPine 10 MG TAB PO SCH (09:47)
[2018-02-26] MEDS: LISINOPRIL 10 MG TAB PO SCH (09:47)
[2018-02-26] MEDS: INSULIN ASPART 100 UNIT/ML 1 ML 10 ML VIAL SQ SCH ×4 (09:47→20:39)
[2018-02-26] MEDS: POTASSIUM CHLORIDE ER 20 MEQ TAB.ER PO SCH (09:47)
[2018-02-26] MEDS: IMIPRAMINE 25 MG TAB PO SCH ×2 (09:47→16:36)
[2018-02-26] MEDS: cloNIDine HCL 0.2 MG TAB PO SCH (09:47)
[2018-02-26] MEDS: PANTOPRAZOLE 40 MG TABLET PO SCH ×2 (09:47→20:41)
[2018-02-26] MEDS: AZTREONAM 2 GM in SODIUM CHLORIDE 0.9% 100 ML IVPB SCH (11:14)
[2018-02-26 11:25] LABS: Glucose,Whole Blood 372 mg/dL (75-99)
[2018-02-26] MEDS: ACETAMINOPHEN TAB 325 MG TAB PO PRN ×2 (12:14→23:25)
--- NOTE | 2018-02-26 14:32 | P.PN ---
Subjective 73-year-old the female was initially admitted secondary to transaminitis which is improving patient was later found to have bilateral pneumonia and sepsis secondary to that and the patient is on broad-spectrum antibiotics vancomycin, azetreonam and metronidazole, patient blood cultures are positive for gram- positive cocci patient is already on vancomycin repeat blood cultures will obtain for today and tomorrow. Patient went into respiratory distress as today patient is presently on 10 L of oxygen was not using any oxygen yesterday. Chest x-ray did not show any significant change compared to her hot admission. It did show bilateral, bibasilar pneumonia. CT of the chest will be obtained to rule out any pulmonary embolism considering her hypoxemia which cannot be completely explained by bibasilar pneumonia. Patient does not appear to have any pulmonary edema ABG showed hypoxic respiratory failure. Patient is not wheezing on exam will actually cut down the steroids to 40 mg daily as her blood sugars are very high and patient does not appear to be in significant COPD exacerbation either. Patient elevated liver enzymes which are presently coming down may be related to her sepsis. Constitutional: Denied any fatigue denied any fever. Cardio vascular: denied any chest pain, palpitations Gastrointestinal denied any nausea vomiting Pulmonary: She feels better regarding her respiratory status now than compared to earlier today morning. Neurologic denied any new focal deficits Objective - Vital Signs Vital signs: Vital Signs Temp 98.7 F 02/26/18 14:15 Pulse 80 02/26/18 14:15 Resp 16 02/26/18 14:15 BP 116/72 02/26/18 14:15 Pulse Ox 90 L 02/26/18 14:15 Intake & Output 02/25/18 02/26/18 02/26/18 18:59 06:59 18:59 Intake Total 2240 937 Output Total 300 2050 Balance -300 2240 -1113 Intake: Intake, IV Titration 2000 Amount Aztreonam 2 gm In Sodium 100 Chloride 0.9% 100 ml @ 100 mls/hr IVPB Q12HR@ 0000,1200 [facility] Rx#: [id number] Sodium Chloride 0.9% 1, 900 000 ml @ 75 mls/hr IV . [id number] [facility] Rx#:[id number] Vancomycin 1,000 mg In 1000 Sodium Chloride 0.9% 250 ml @ 125 mls/hr IVPB Q12H [facility] Rx#:[id number] Oral 240 937 Output: Urine 300 2050 Uretheral (Hewitt) 2049 Other: Voiding Method Bedside Commode Diaper # Voids 2 - Exam PHYSICAL EXAMINATION: GENERAL: The patient is alert and oriented x3, not in any acute distress. Thin built female HEENT: Pupils are round and equally reacting to light. EOMI. No scleral icterus. No conjunctival pallor. Normocephalic, atraumatic. No pharyngeal erythema. No thyromegaly. CARDIOVASCULAR: S1 and S2 present. No murmurs, rubs, or gallops. PULMONARY: Chest is clear to auscultation, no wheezing or crackles. ABDOMEN: Soft, nontender, nondistended, normoactive bowel sounds. No palpable organomegaly. MUSCULOSKELETAL: No joint swelling or deformity. EXTREMITIES: No cyanosis, clubbing, or pedal edema. NEUROLOGICAL: Gross neurological examination did not reveal any focal deficits. SKIN: No rashes. - Labs CBC & Chem 7: 02/26/18 06:17 02/26/18 06:17 Labs: Abnormal Lab Results - Last 24 Hours (Table) 02/24/18 02/25/18 02/25/18 Range/Units 06:46 08:13 16:52 RBC (3.80-5.40) m/uL Hgb (11.4-16.0) gm/dL Lymphocytes # (1.0-4.8) k/uL ABG pH (7.35-7.45) ABG pO2 (83-108) mmHg ABG HCO3 (21-25) mmol/L ABG Total CO2 (19-24) mmol/L ABG O2 Saturation (94-97) % Sodium 134 L (137-145) mmol/L Chloride 94 L (98-107) mmol/L BUN (7-17) mg/dL Creatinine 0.41 L (0.52-1.04) mg/dL Glucose 313 H (74-99) mg/dL POC Glucose (mg/dL) 258 H (75-99) mg/dL Hemoglobin A1c 8.5 H (4.0-6.0) % AST 44 H (14-36) U/L ALT 166 H (9-52) U/L Alkaline Phosphatase 178 H (38-126) U/L Total Protein 5.7 L (6.3-8.2) g/dL Albumin 3.3 L (3.5-5.0) g/dL 02/25/18 02/26/18 02/26/18 Range/Units 21:02 06:17 06:17 RBC 3.75 L (3.80-5.40) m/uL Hgb 11.3 L (11.4-16.0) gm/dL Lymphocytes # 0.3 L (1.0-4.8) k/uL ABG pH (7.35-7.45) ABG pO2 (83-108) mmHg ABG HCO3 (21-25) mmol/L ABG Total CO2 (19-24) mmol/L ABG O2 Saturation (94-97) % Sodium 136 L (137-145) mmol/L Chloride (98-107) mmol/L BUN 19 H (7-17) mg/dL Creatinine 0.40 L (0.52-1.04) mg/dL Glucose 240 H (74-99) mg/dL POC Glucose (mg/dL) 326 H (75-99) mg/dL Hemoglobin A1c (4.0-6.0) % AST 50 H (14-36) U/L ALT 142 H (9-52) U/L Alkaline Phosphatase 139 H (38-126) U/L Total Protein 5.3 L (6.3-8.2) g/dL Albumin 2.9 L (3.5-5.0) g/dL 02/26/18 02/26/18 02/26/18 Range/Units 07:12 07:55 11:06 RBC (3.80-5.40) m/uL Hgb (11.4-16.0) gm/dL Lymphocytes # (1.0-4.8) k/uL ABG pH 7.49 H (7.35-7.45) ABG pO2 47 L (83-108) mmHg ABG HCO3 28 H (21-25) mmol/L ABG Total CO2 29 H (19-24) mmol/L ABG O2 Saturation 85.0 L (94-97) % Sodium (137-145) mmol/L Chloride (98-107) mmol/L BUN (7-17) mg/dL Creatinine (0.52-1.04) mg/dL Glucose (74-99) mg/dL POC Glucose (mg/dL) 244 H 372 H (75-99) mg/dL Hemoglobin A1c (4.0-6.0) % AST (14-36) U/L ALT (9-52) U/L Alkaline Phosphatase (38-126) U/L Total Protein (6.3-8.2) g/dL Albumin (3.5-5.0) g/dL Microbiology - Last 24 Hours (Table) 02/25/18 19:50 Gram Stain - Preliminary Sputum Sputum Culture - Preliminary 02/24/18 09:07 Blood Culture - Preliminary Blood No Growth after 48 hours 02/24/18 08:54 Blood Culture Gram Stain - Preliminary Blood 02/24/18 08:54 Blood Culture - Final Blood 02/24/18 13:05 Urine Culture - Final Urine,Clean Catch 02/22/18 21:46 Blood Culture - Preliminary Blood No Growth after 72 hours Assessment and Plan Plan: -Sepsis: Secondary to bibasilar pneumonia continue with the above-mentioned antibiotics patient does have bacteremia with gram-positive cocci repeat blood cultures today and tomorrow. Infectious disease is following the patient -Elevated liver enzymes as mentioned above can be related to sepsis which actually improved now -Hypoxic respiratory failure acute etiology is not clear they can be contribution from pneumonia we need to rule out pulmonary embolism. -Type 2 diabetes mellitus uncontrolled blood sugars secondary to systemic strides -Fibromyalgia -Sleep apnea -Asthma without any acute exacerbation -Chronic pain and patient has a pain pump patient does have chronic back pain -Depression
--- NOTE | 2018-02-26 16:29 | CT ---
EXAMINATION TYPE: CT angio chest DATE OF EXAM: 02/26/2018 COMPARISON: 09/21/2014 HISTORY: 73-year-old female SOB/CHEST PAIN, rule out PE TECHNIQUE: Contiguous axial scanning of the chest performed with IV Contrast, patient injected with 1 00 mL of Isovue 370. Coronal/sagittal MIP reconstructions performed. CT DLP: 549 mGycm Automated exposure control for dose reduction was used. FINDINGS: Stable dominant thyroid nodules on the left measuring up to 2.5 and 2.0 cm. Diffuse anasarca type changes noted. Heart normal size. Displaced towards the left by elevation of the right hemidiaphragm, similar to miquel or. Aorta normal caliber with conventional arch vessel branching anatomy. Satisfactory opacification of the pulmonary arterial system with motion artifact at the lung bases bu t no definite pulmonary embolus seen. A moderate to large hiatal hernia and moderate fluid distending the mid to lower thoracic esophagus. Possible subcarinal lymph node measuring 1.4 cm, upper limits of normal. Low lung volumes with prominent lower lung areas of atelectasis. There is prominent dependent subpleu ral opacity superior segment right lower lobe, collapse of the right middle lobe, and near complete c ollapse of the right lower lobe. On the left, there is a small effusion with partial collapse superior segment left lower lobe and rio r complete collapse and consolidation within the left lower lobe. Small anterior splenules. Bilateral renal cysts. Bones: Severe degenerative changes at the left shoulder. Rotator cuff muscle atrophy at the right sh oulder with suspected rotator cuff tear. Degenerative changes thoracolumbar junction. Interbody anky losis within the cervical spine, partially visualized. Spinal stimulator array terminating at the lo wer thoracic spine. IMPRESSION: 1. SEVERE BIBASILAR VOLUME LOSS WITH ELEVATION OF NEAR COMPLETE COLLAPSE AND CONSOLIDATION OF THE BAS ILAR LOWER LOBES, partial atelectasis of the superior segments lower lobes, and collapse of the right middle lobe. Correlate to exclude underlying infectious or aspiration pneumonitis. 2. Moderate to large hilar hernia with extensive fluid distending the esophagus. Findings suggest gas troesophageal reflux. Again, correlate to exclude aspiration.
[2018-02-26 16:32] LABS: Glucose,Whole Blood 315 mg/dL (75-99)
[2018-02-26] MEDS: ASCORBIC ACID 500 MG TAB PO SCH (16:36)
[2018-02-26] MEDS: MULTIVITAMINS, THERA 1 EACH TAB PO SCH (16:36)
[2018-02-26] MEDS: FERROUS SULFATE 325 MG TAB PO SCH (16:36)
[2018-02-26] MEDS: ASPIRIN 325 MG TAB PO SCH (16:36)
[2018-02-26] MEDS ORDERED: FUROSEMIDE 10 MG/ML 2 ML VIAL IV ONE (18:04)
--- NOTE | 2018-02-26 18:55 | P.PN ---
Subjective Progress Note Date: 02/26/18 (Critical care time spent 35 minutes) Principal diagnosis: Bilateral basal aspiration and/or or mixed bacterial pneumonia, chest tightness with cough, Transaminitis/elevated liver enzymes, acute liver injury, narcolepsy , sleep disorder breathing and sleep apnea, generalized weakness and medical debility, 02/26/2018, patient seen eval examined during the rounds clinically patient is not much change but did have an episode of severe degree of desaturation cough congestion as stat arterial blood gas was performed to rule out hypercapnic hypoxic respirator failure the pH and pCO2 is fairly within normal limit however patient extremely hypoxic computed tomography scan of the chest reviewed chest x-ray reviewed care plan discussed with the primary service as well as the Lasix has been given with that patient did put out about 500 mL , computed tomography scan of the chest reviewed in length discussed with the staff as well patient has dense bilateral basal infiltrate which however not much different compared to baseline patient has been eating fairly well in spite of being significantly hypoxic does not appear to be very short of breath saturation however remains marginal on 15 L high flow oxygen sats are about 88- 90% patient able to complete full sentences will hold on transfer to the ICU rather monitor observe patient on medical floor as hemodynamic status stable and oxygenation even though is marginal but ventilation stable and patient has adequate mental status labs reviewed medications reviewed, vancomycin has been added will continue to monitor aspiration precautions closely care time spent 35 minutes 02/25/2018, patient seen eval examined during the rounds clinically patient is not much different baseline but still have intermittent cough which is dry and nonproductive respiratory status stable denies any, reviewed computed tomography scan finding with the patient 02/24/2018, patient seen eval examined during the rounds clinically patient is not much change however now she is having more cough which is dry and nonproductive a computed tomography scan of the abdominal and pelvis was unremarkable however does show by basilar pneumonia patient is on broad- spectrum antibiotics liver enzymes noted to be slowly improving, patient get short of breath on minimal activity and exertion, pneumonia appears to be gram- negative and/or or mixed bacterial 02/23/2018, patient seen eval reexamined during the rounds clinically doing better tolerating by mouth well no other abdominal discomfort of pain is present patient couldn't undergo a third check on liver enzymes that she refuses yesterday today phlebotomies unable to obtain the blood clinically patient appears to be doing well denies any nausea vomiting denies any abdominal pain breathing comfortably February 22 2018, patient seen eval reexamined during the rounds care plan discussed with the patient as well as the staff noted that the blood cultures were negative also discussed with RN, repeat blood test couldn't be done however there is a pattern of liver enzymes coming down, reviewed reports of the ultrasound and GI consult 83-year-old female well-known to me patient has a history of severe spine disease with chronic pain has been on pain pump patient also has a history of narcolepsy sleep apnea she is currently resident of [facility] where she was admitted because of her severe knee pain thought to be related to soft tissue injury or damage was swelling, patient started having abdominal discomfort of pain on the right side yesterday was brought into the emergency department for further evaluation now she is complaining of more pain on the left side, patient is on broad-spectrum antibiotics ID service has been consulted she is stable from her sleep apnea standpoint is she has lost significant amount of weight nose using CPAP machine she has been on Nuvigil at home which is nonformulary over here patient has been advised to bring her medications from home Objective - Vital Signs Vital signs: Vital Signs Temp 99.2 F 02/26/18 17:00 Pulse 81 02/26/18 17:40 Resp 18 02/26/18 17:40 BP 117/59 02/26/18 17:00 Pulse Ox 86 L 02/26/18 17:00 Intake & Output 02/25/18 02/26/18 02/26/18 18:59 06:59 18:59 Intake Total 2240 937 Output Total 300 2825 Balance -300 2240 -1888 Intake: Intake, IV Titration 2000 Amount Aztreonam 2 gm In Sodium 100 Chloride 0.9% 100 ml @ 100 mls/hr IVPB Q12HR@ 0000,1200 [facility] Rx#: [id number] Sodium Chloride 0.9% 1, 900 000 ml @ 75 mls/hr IV . [id number] [facility] Rx#:[id number] Vancomycin 1,000 mg In 1000 Sodium Chloride 0.9% 250 ml @ 125 mls/hr IVPB Q12H [facility] Rx#:[id number] Oral 240 937 Output: Urine 300 2825 Uretheral (Hewitt) 0 Other: Voiding Method Bedside Commode Indwelling Catheter Diaper # Voids 2 - Exam General appearance: alert, in distress (Mild) Head exam: Present: atraumatic, normocephalic, normal inspection Eye exam: Present: normal appearance, PERRL, EOMI. Absent: scleral icterus, conjunctival injection, periorbital swelling ENT exam: Present: normal exam, mucous membranes moist Neck exam: Present: normal inspection. Absent: tenderness, meningismus, lymphadenopathy Respiratory exam: Present: normal lung sounds bilaterally upper part however noted to have Bilateral basilar crackles more so on the right side compared to left side with fine expiratory wheeze Cardiovascular Exam: Present: regular rate, normal rhythm GI/Abdominal exam: Present: soft, tenderness. Absent: distended, guarding, rebound, rigid Rectal exam: Present: deferred Extremities exam: Present: normal inspection, full ROM Back exam: Present: Severe kyphoscoliosis Neurological exam: Present: alert, altered Psychiatric exam: Present: normal mood. Absent: normal affect (slowed) Skin exam: Present: warm, dry, intact - Labs CBC & Chem 7: 02/26/18 06:17 02/26/18 06:17 Labs: Abnormal Lab Results - Last 24 Hours (Table) 02/25/18 02/26/18 02/26/18 Range/Units 21:02 06:17 06:17 RBC 3.75 L (3.80-5.40) m/uL Hgb 11.3 L (11.4-16.0) gm/dL Lymphocytes # 0.3 L (1.0-4.8) k/uL ABG pH (7.35-7.45) ABG pO2 (83-108) mmHg ABG HCO3 (21-25) mmol/L ABG Total CO2 (19-24) mmol/L ABG O2 Saturation (94-97) % Sodium 136 L (137-145) mmol/L BUN 19 H (7-17) mg/dL Creatinine 0.40 L (0.52-1.04) mg/dL Glucose 240 H (74-99) mg/dL POC Glucose (mg/dL) 326 H (75-99) mg/dL AST 50 H (14-36) U/L ALT 142 H (9-52) U/L Alkaline Phosphatase 139 H (38-126) U/L Total Protein 5.3 L (6.3-8.2) g/dL Albumin 2.9 L (3.5-5.0) g/dL 02/26/18 02/26/18 02/26/18 Range/Units 07:12 07:55 11:06 RBC (3.80-5.40) m/uL Hgb (11.4-16.0) gm/dL Lymphocytes # (1.0-4.8) k/uL ABG pH 7.49 H (7.35-7.45) ABG pO2 47 L (83-108) mmHg ABG HCO3 28 H (21-25) mmol/L ABG Total CO2 29 H (19-24) mmol/L ABG O2 Saturation 85.0 L (94-97) % Sodium (137-145) mmol/L BUN (7-17) mg/dL Creatinine (0.52-1.04) mg/dL Glucose (74-99) mg/dL POC Glucose (mg/dL) 244 H 372 H (75-99) mg/dL AST (14-36) U/L ALT (9-52) U/L Alkaline Phosphatase (38-126) U/L Total Protein (6.3-8.2) g/dL Albumin (3.5-5.0) g/dL 02/26/18 Range/Units 16:29 RBC (3.80-5.40) m/uL Hgb (11.4-16.0) gm/dL Lymphocytes # (1.0-4.8) k/uL ABG pH (7.35-7.45) ABG pO2 (83-108) mmHg ABG HCO3 (21-25) mmol/L ABG Total CO2 (19-24) mmol/L ABG O2 Saturation (94-97) % Sodium (137-145) mmol/L BUN (7-17) mg/dL Creatinine (0.52-1.04) mg/dL Glucose (74-99) mg/dL POC Glucose (mg/dL) 315 H (75-99) mg/dL AST (14-36) U/L ALT (9-52) U/L Alkaline Phosphatase (38-126) U/L Total Protein (6.3-8.2) g/dL Albumin (3.5-5.0) g/dL Microbiology - Last 24 Hours (Table) 02/25/18 19:50 Gram Stain - Preliminary Sputum Sputum Culture - Preliminary 02/24/18 09:07 Blood Culture - Preliminary Blood No Growth after 48 hours 02/24/18 08:54 Blood Culture Gram Stain - Preliminary Blood 02/24/18 08:54 Blood Culture - Final Blood 02/24/18 13:05 Urine Culture - Final Urine,Clean Catch 02/22/18 21:46 Blood Culture - Preliminary Blood No Growth after 72 hours Assessment and Plan Assessment: Acute hypoxic restrictive failure related to bilateral pneumonia Bilateral pneumonia basal, aspiration pneumonia cannot be excluded related to large hiatal hernia Large hiatal hernia baseline Acute liver injury of unclear etiology Elevated liver enzymes showing a pattern of improvement No evidence of Gram-negative bacteremia to suspect cholangitis Nonspecific abdominal pain however resolved now Narcolepsy Sleep disorder breathing and sleep apnea Generalized weakness and medical debility Plan: Broad-spectrum antibiotics IV steroids Aspiration precautions Monitor mental status closely Vancomycin added Labs CAT scan ABG reviewed care plan discussed with the staff at length GI consultation recommendation reviewed Deep breathing sense incentive spirometry Increase activity as tolerated Further recommendations pending plan of care as per clinical response of the patient Agree with discharge planning, follow-up labs can perform an outpatient basis once patient is more hydrated
[2018-02-26 20:29] LABS: Glucose,Whole Blood 360 mg/dL (75-99)
[2018-02-26] MEDS: HEPARIN SODIUM,PORCINE 5,000 UNIT/ML 1 ML VIAL SQ SCH (20:39)
[2018-02-26] MEDS: LIDOCAINE 5% PATCH TOPICAL SCH ×2 (20:40→20:55)
[2018-02-26] MEDS: OXYBUTYNIN XL 5 MG TAB.ER.24 PO SCH (20:40)
--- NOTE | 2018-02-26 22:00 | PN ---
PROGRESS NOTE DATE OF SERVICE: 02/26/2018 REASON FOR FOLLOWUP: Fever and bacteremia. INTERVAL HISTORY: The patient is afebrile. Her blood cultures have been called positive this morning with Gram-positive cocci in clusters. The patient denies having any chest pain. She did have a cough, bringing up some sputum. No nausea, vomiting. No abdominal pain. No diarrhea. PHYSICAL EXAMINATION: Blood pressure 117/59 with a pulse of 71, temperature 99.2. General description is a middle-aged female up in the bed in no distress. RESPIRATORY SYSTEM: Unlabored breathing with decreased intensity of breath sounds. No wheeze. HEART: S1, S2. Regular rate and rhythm. ABDOMEN: Soft. No tenderness. LABS: Hemoglobin 11.3, white count 5.6, BUN of 19, creatinine 0.40. DIAGNOSTIC IMPRESSION AND PLAN: Patient with fever, now with evidence of a Gram-positive bacteremia, source likely pneumonia. The patient is on vancomycin, Pharmacy to dose. That will be continued. As there is no Gram-negative, Azactam will be discontinued. Repeat blood culture is ordered to document clearance of bacteremia. Continue supportive care. MMODL / IJN: [id number] /
[2018-02-27] MEDS: VANCOMYCIN 1,000 MG in SODIUM CHLORIDE 0.9% 250 ML IVPB SCH ×3 (01:50→23:06)
[2018-02-27] MEDS: Armodafinil [Nuvigil] 250 MG PO SCH ×2 (06:48→12:10)
[2018-02-27 07:22] LABS: Glucose,Whole Blood 236 mg/dL (75-99)
[2018-02-27] MEDS: IPRATROPIUM-ALBUTEROL 3 ML NEB INHALATION SCH ×3 (07:45→20:10)
[2018-02-27] MEDS: predniSONE 20 MG TAB PO SCH (08:05)
[2018-02-27] MEDS: metroNIDAZOLE 500 MG TAB PO SCH ×3 (08:05→23:06)
[2018-02-27] MEDS: HEPARIN SODIUM,PORCINE 5,000 UNIT/ML 1 ML VIAL SQ SCH ×2 (08:05→20:52)
[2018-02-27] MEDS: IMIPRAMINE 25 MG TAB PO SCH ×2 (08:06→17:59)
[2018-02-27] MEDS: amLODIPine 10 MG TAB PO SCH (08:06)
[2018-02-27] MEDS: LISINOPRIL 10 MG TAB PO SCH (08:06)
[2018-02-27] MEDS: PANTOPRAZOLE 40 MG TABLET PO SCH ×2 (08:06→20:52)
[2018-02-27] MEDS: POTASSIUM CHLORIDE ER 20 MEQ TAB.ER PO SCH (08:06)
[2018-02-27] MEDS: INSULIN ASPART 100 UNIT/ML 1 ML 10 ML VIAL SQ SCH ×4 (08:11→23:06)
[2018-02-27 08:13] LABS: ALT 116 U/L (9-52); AST 55 U/L (14-36); Albumin 2.8 g/dL (3.5-5.0); Alkaline Phosphatase 123 U/L (38-126); Anion Gap 8 mmol/L; Blood Urea Nitrogen 15 mg/dL (7-17); Calcium 8.4 mg/dL (8.4-10.2); Carbon Dioxide 34 mmol/L (22-30); Chloride 96 mmol/L (98-107); Glucose 247 mg/dL (74-99); Potassium 3.9 mmol/L (3.5-5.1); Sodium 138 mmol/L (137-145); Total Bilirubin 0.3 mg/dL (0.2-1.3); Total Protein 5.2 g/dL (6.3-8.2)
[2018-02-27 08:46] LABS: Basophils % (A) 1 %; Eosinophils % (A) 0 %; HCT 35.8 % (34.0-46.0); HGB 11.5 gm/dL (11.4-16.0); Lymphocytes # (A) 0.4 k/uL (1.0-4.8); Lymphocytes % (A) 6 %; MCH 30.3 pg (25.0-35.0); MCV 94.8 fL (80.0-100.0); Monocytes # (A) 0.3 k/uL (0-1.0); Monocytes % (A) 4 %; Neutrophils # (A) 5.4 k/uL (1.3-7.7); Neutrophils % (A) 87 %; Platelet Count 280 k/uL (150-450); RBC 3.78 m/uL (3.80-5.40); WBC 6.2 k/uL (3.8-10.6)
[2018-02-27 12:19] LABS: Glucose,Whole Blood 281 mg/dL (75-99)
[2018-02-27] MEDS ORDERED: VANCOMYCIN TROUGH DUE 1 EACH MISC MISCELLANE ONE (13:00)
--- NOTE | 2018-02-27 14:52 | P.PN ---
Subjective 73-year-old the female was initially admitted secondary to transaminitis which is improving patient was later found to have bilateral pneumonia and sepsis secondary to that and the patient is on broad-spectrum antibiotics vancomycin, azetreonam and metronidazole, patient blood cultures are positive for gram- positive cocci patient is already on vancomycin repeat blood cultures will obtain for today and tomorrow. Patient went into respiratory distress as today patient is presently on 10 L of oxygen was not using any oxygen yesterday. Chest x-ray did not show any significant change compared to her hot admission. It did show bilateral, bibasilar pneumonia. CT of the chest will be obtained to rule out any pulmonary embolism considering her hypoxemia which cannot be completely explained by bibasilar pneumonia. Patient does not appear to have any pulmonary edema ABG showed hypoxic respiratory failure. Patient is not wheezing on exam will actually cut down the steroids to 40 mg daily as her blood sugars are very high and patient does not appear to be in significant COPD exacerbation either. Patient elevated liver enzymes which are presently coming down may be related to her sepsis. 02/27/2018 Patient mentions and 15 L of oxygen although clinically looks good. Repeat CAT scan did not show any pulmonary embolism but showed extensive pneumonia contributing to her severe hypoxemia. We'll try to wean off her oxygen patient continues to be on vancomycin and Aztreonam. Blood cultures are positive for micrococcus mostly contaminant Constitutional: Denied any fatigue denied any fever. Cardio vascular: denied any chest pain, palpitations Gastrointestinal denied any nausea vomiting Pulmonary: She feels better regarding her respiratory status now than compared to earlier today morning. Neurologic denied any new focal deficits Objective - Vital Signs Vital signs: Vital Signs Temp 98.3 F 02/27/18 06:20 Pulse 80 02/27/18 12:54 Resp 24 02/27/18 06:20 BP 133/78 02/27/18 06:20 Pulse Ox 92 L 02/27/18 14:40 Intake & Output 02/26/18 02/27/18 02/27/18 18:59 06:59 18:59 Intake Total 937 240 Output Total 2825 1200 Balance -1888 -1200 240 Weight 55.338 kg Intake: Oral 937 240 Output: Urine 2825 1200 Uretheral (Hewitt) 2049 Other: Voiding Method Indwelling Catheter Indwelling Catheter Indwelling Catheter - Exam PHYSICAL EXAMINATION: GENERAL: The patient is alert and oriented x3, not in any acute distress. Thin built female HEENT: Pupils are round and equally reacting to light. EOMI. No scleral icterus. No conjunctival pallor. Normocephalic, atraumatic. No pharyngeal erythema. No thyromegaly. CARDIOVASCULAR: S1 and S2 present. No murmurs, rubs, or gallops. PULMONARY: Chest is clear to auscultation, no wheezing or crackles. ABDOMEN: Soft, nontender, nondistended, normoactive bowel sounds. No palpable organomegaly. MUSCULOSKELETAL: No joint swelling or deformity. EXTREMITIES: No cyanosis, clubbing, or pedal edema. NEUROLOGICAL: Gross neurological examination did not reveal any focal deficits. SKIN: No rashes. - Labs CBC & Chem 7: 02/27/18 07:33 02/27/18 07:33 Labs: Abnormal Lab Results - Last 24 Hours (Table) 02/26/18 02/26/18 02/27/18 Range/Units 16:29 20:28 07:20 RBC (3.80-5.40) m/uL Lymphocytes # (1.0-4.8) k/uL Chloride (98-107) mmol/L Carbon Dioxide (22-30) mmol/L Creatinine (0.52-1.04) mg/dL Glucose (74-99) mg/dL POC Glucose (mg/dL) 315 H 360 H 236 H (75-99) mg/dL AST (14-36) U/L ALT (9-52) U/L Total Protein (6.3-8.2) g/dL Albumin (3.5-5.0) g/dL 02/27/18 02/27/18 02/27/18 Range/Units 07:33 07:33 12:16 RBC 3.78 L (3.80-5.40) m/uL Lymphocytes # 0.4 L (1.0-4.8) k/uL Chloride 96 L (98-107) mmol/L Carbon Dioxide 34 H (22-30) mmol/L Creatinine 0.43 L (0.52-1.04) mg/dL Glucose 247 H (74-99) mg/dL POC Glucose (mg/dL) 281 H (75-99) mg/dL AST 55 H (14-36) U/L ALT 116 H (9-52) U/L Total Protein 5.2 L (6.3-8.2) g/dL Albumin 2.8 L (3.5-5.0) g/dL Microbiology - Last 24 Hours (Table) 02/25/18 19:50 Gram Stain - Final Sputum Sputum Culture - Final 02/24/18 09:07 Blood Culture - Preliminary Blood No Growth after 72 hours 02/26/18 07:48 Blood Culture - Preliminary Blood No Growth after 24 hours 02/24/18 08:54 Blood Culture Gram Stain - Final Blood Blood Culture - Final Micrococcus species 02/22/18 21:46 Blood Culture - Preliminary Blood No Growth after 96 hours Assessment and Plan Plan: -Sepsis: Secondary to bibasilar pneumonia continue with the above-mentioned antibiotics patient blood cultures are positive for micrococcus. Patient does have extensive pneumonia. -Elevated liver enzymes as mentioned above can be related to sepsis which actually improved now -Hypoxic respiratory failure secondary to bilateral extensive pneumonia. -Type 2 diabetes mellitus uncontrolled blood sugars secondary to systemic steroids -Fibromyalgia -Sleep apnea -Asthma without any acute exacerbation -Chronic pain and patient has a pain pump patient does have chronic back pain -Depression
--- NOTE | 2018-02-27 16:29 | P.PN ---
Subjective Progress Note Date: 02/27/18 Principal diagnosis: Bilateral basal aspiration and/or or mixed bacterial pneumonia, chest tightness with cough, Transaminitis/elevated liver enzymes, acute liver injury, narcolepsy , sleep disorder breathing and sleep apnea, generalized weakness and medical debility, 02/27/2018, patient seen eval examined during the rounds clinically patient has been doing slightly better in terms of breathing cuff congestion is improved patient remains on broad-spectrum antibiotics which are being adjusted, patient remains on 8 L high flow oxygen saturation are in high 80s to low 90s labs reviewed medications reviewed radiographic studies reviewed as well 02/26/2018, patient seen eval examined during the rounds clinically patient is not much change but did have an episode of severe degree of desaturation cough congestion as stat arterial blood gas was performed to rule out hypercapnic hypoxic respirator failure the pH and pCO2 is fairly within normal limit however patient extremely hypoxic computed tomography scan of the chest reviewed chest x-ray reviewed care plan discussed with the primary service as well as the Lasix has been given with that patient did put out about 500 mL , computed tomography scan of the chest reviewed in length discussed with the staff as well patient has dense bilateral basal infiltrate which however not much different compared to baseline patient has been eating fairly well in spite of being significantly hypoxic does not appear to be very short of breath saturation however remains marginal on 15 L high flow oxygen sats are about 88- 90% patient able to complete full sentences will hold on transfer to the ICU rather monitor observe patient on medical floor as hemodynamic status stable and oxygenation even though is marginal but ventilation stable and patient has adequate mental status labs reviewed medications reviewed, vancomycin has been added will continue to monitor aspiration precautions closely care time spent 35 minutes 02/25/2018, patient seen eval examined during the rounds clinically patient is not much different baseline but still have intermittent cough which is dry and nonproductive respiratory status stable denies any, reviewed computed tomography scan finding with the patient 02/24/2018, patient seen eval examined during the rounds clinically patient is not much change however now she is having more cough which is dry and nonproductive a computed tomography scan of the abdominal and pelvis was unremarkable however does show by basilar pneumonia patient is on broad- spectrum antibiotics liver enzymes noted to be slowly improving, patient get short of breath on minimal activity and exertion, pneumonia appears to be gram- negative and/or or mixed bacterial 02/23/2018, patient seen eval reexamined during the rounds clinically doing better tolerating by mouth well no other abdominal discomfort of pain is present patient couldn't undergo a third check on liver enzymes that she refuses yesterday today phlebotomies unable to obtain the blood clinically patient appears to be doing well denies any nausea vomiting denies any abdominal pain breathing comfortably February 22 2018, patient seen eval reexamined during the rounds care plan discussed with the patient as well as the staff noted that the blood cultures were negative also discussed with RN, repeat blood test couldn't be done however there is a pattern of liver enzymes coming down, reviewed reports of the ultrasound and GI consult 83-year-old female well-known to me patient has a history of severe spine disease with chronic pain has been on pain pump patient also has a history of narcolepsy sleep apnea she is currently resident of [facility] [place] where she was admitted because of her severe knee pain thought to be related to soft tissue injury or damage was swelling, patient started having abdominal discomfort of pain on the right side yesterday was brought into the emergency department for further evaluation now she is complaining of more pain on the left side, patient is on broad-spectrum antibiotics ID service has been consulted she is stable from her sleep apnea standpoint is she has lost significant amount of weight nose using CPAP machine she has been on Nuvigil at home which is nonformulary over here patient has been advised to bring her medications from home Objective - Vital Signs Vital signs: Vital Signs Temp 99.3 F 02/27/18 15:00 Pulse 74 02/27/18 15:00 Resp 18 02/27/18 15:00 BP 135/62 02/27/18 15:00 Pulse Ox 90 L 02/27/18 15:00 Intake & Output 02/26/18 02/27/18 02/27/18 18:59 06:59 18:59 Intake Total 937 480 Output Total 2825 1200 Balance -1888 -1200 480 Weight 55.338 kg Intake: Oral 937 480 Output: Urine 2825 1200 Uretheral (Hewitt) 2049 Other: Voiding Method Indwelling Catheter Indwelling Catheter Indwelling Catheter # Bowel Movements 0 - Exam General appearance: alert, in distress (Mild) Head exam: Present: atraumatic, normocephalic, normal inspection Eye exam: Present: normal appearance, PERRL, EOMI. Absent: scleral icterus, conjunctival injection, periorbital swelling ENT exam: Present: normal exam, mucous membranes moist Neck exam: Present: normal inspection. Absent: tenderness, meningismus, lymphadenopathy Respiratory exam: Present: normal lung sounds bilaterally upper part however noted to have Bilateral basilar crackles more so on the right side compared to left side with fine expiratory wheeze Cardiovascular Exam: Present: regular rate, normal rhythm GI/Abdominal exam: Present: soft, tenderness. Absent: distended, guarding, rebound, rigid Rectal exam: Present: deferred Extremities exam: Present: normal inspection, full ROM Back exam: Present: Severe kyphoscoliosis Neurological exam: Present: alert, altered Psychiatric exam: Present: normal mood. Absent: normal affect (slowed) Skin exam: Present: warm, dry, intact - Labs CBC & Chem 7: 02/27/18 07:33 02/27/18 07:33 Labs: Abnormal Lab Results - Last 24 Hours (Table) 02/26/18 02/26/18 02/27/18 Range/Units 16:29 20:28 07:20 RBC (3.80-5.40) m/uL Lymphocytes # (1.0-4.8) k/uL Chloride (98-107) mmol/L Carbon Dioxide (22-30) mmol/L Creatinine (0.52-1.04) mg/dL Glucose (74-99) mg/dL POC Glucose (mg/dL) 315 H 360 H 236 H (75-99) mg/dL AST (14-36) U/L ALT (9-52) U/L Total Protein (6.3-8.2) g/dL Albumin (3.5-5.0) g/dL 02/27/18 02/27/18 02/27/18 Range/Units 07:33 07:33 12:16 RBC 3.78 L (3.80-5.40) m/uL Lymphocytes # 0.4 L (1.0-4.8) k/uL Chloride 96 L (98-107) mmol/L Carbon Dioxide 34 H (22-30) mmol/L Creatinine 0.43 L (0.52-1.04) mg/dL Glucose 247 H (74-99) mg/dL POC Glucose (mg/dL) 281 H (75-99) mg/dL AST 55 H (14-36) U/L ALT 116 H (9-52) U/L Total Protein 5.2 L (6.3-8.2) g/dL Albumin 2.8 L (3.5-5.0) g/dL Microbiology - Last 24 Hours (Table) 02/25/18 19:50 Gram Stain - Final Sputum Sputum Culture - Final 02/24/18 09:07 Blood Culture - Preliminary Blood No Growth after 72 hours 02/26/18 07:48 Blood Culture - Preliminary Blood No Growth after 24 hours 02/24/18 08:54 Blood Culture Gram Stain - Final Blood Blood Culture - Final Micrococcus species 02/22/18 21:46 Blood Culture - Preliminary Blood No Growth after 96 hours Assessment and Plan Assessment: Acute hypoxic restrictive failure related to bilateral pneumonia Bilateral pneumonia basal, aspiration pneumonia cannot be excluded related to large hiatal hernia Large hiatal hernia baseline Acute liver injury of unclear etiology Elevated liver enzymes showing a pattern of improvement No evidence of Gram-negative bacteremia to suspect cholangitis Nonspecific abdominal pain however resolved now Narcolepsy Sleep disorder breathing and sleep apnea Generalized weakness and medical debility Plan: Broad-spectrum antibiotics IV steroids Aspiration precautions Monitor mental status closely Vancomycin added Labs CAT scan ABG reviewed care plan discussed with the staff at length GI consultation recommendation reviewed Deep breathing sense incentive spirometry Increase activity as tolerated Further recommendations pending plan of care as per clinical response of the patient Agree with discharge planning, follow-up labs can perform an outpatient basis once patient is more hydrated Time with Patient: Greater than 30
[2018-02-27 17:48] LABS: Glucose,Whole Blood 266 mg/dL (75-99)
[2018-02-27] MEDS: ASPIRIN 325 MG TAB PO SCH (17:59)
[2018-02-27] MEDS: FERROUS SULFATE 325 MG TAB PO SCH (17:59)
[2018-02-27] MEDS: ASCORBIC ACID 500 MG TAB PO SCH (17:59)
[2018-02-27] MEDS: MULTIVITAMINS, THERA 1 EACH TAB PO SCH (17:59)
[2018-02-27] MEDS: LIDOCAINE 5% PATCH TOPICAL SCH (20:52)
[2018-02-27] MEDS: OXYBUTYNIN XL 5 MG TAB.ER.24 PO SCH (20:52)
[2018-02-27 22:58] LABS: Glucose,Whole Blood 308 mg/dL (75-99)
--- NOTE | 2018-02-27 23:03 | PN ---
PROGRESS NOTE DATE OF SERVICE: 02/27/2018. REASON FOR FOLLOW UP: Fever with positive blood culture. INTERVAL HISTORY: The patient overall fever pattern has improved. No fever has been recorded for 48 hours. The patient has been breathing comfortably. He did have a cough and bringing up some sputum. No chest pain. No abdominal pain. No diarrhea. EXAM: Blood pressure 135/62 with a pulse of 64, temp 99.3. She is 92% on 10 L high-flow oxygen. General description is an elderly female up in the chair in no distress. Respiratory system: Unlabored breathing with decreased breath sounds at the bases. Heart S1, S2. Regular rate and rhythm. ABDOMEN: Soft. No tenderness. LABS: Hemoglobin 11.5, white count 6.2 with a BUN of 15, creatinine 0.43. Blood culture has been micrococcus species. Patient's sputum has been many normal respiratory shahid. DIAGNOSTIC IMPRESSION AND PLAN: Patient with fever with concern for possible pneumonia. He also has positive blood culture, which is more likely a contamination rather than true infection. Plan is to go along with it. Currently on vancomycin, transition to oral antibiotics such as Levaquin on discharge to finished to cover for possible pneumonia. Continue supportive care. MMODL / IJN: [id number] /
[2018-02-28] MEDS: Armodafinil [Nuvigil] 250 MG PO SCH ×2 (06:01→12:54)
[2018-02-28] MEDS: IPRATROPIUM-ALBUTEROL 3 ML NEB INHALATION SCH ×3 (07:28→20:24)
[2018-02-28 07:45] LABS: Glucose,Whole Blood 215 mg/dL (75-99)
[2018-02-28] MEDS ORDERED: ALPRAZolam 0.25 MG TAB PO STA (08:30)
[2018-02-28] MEDS: HEPARIN SODIUM,PORCINE 5,000 UNIT/ML 1 ML VIAL SQ SCH ×2 (08:48→22:21)
[2018-02-28] MEDS: VANCOMYCIN 1,000 MG in SODIUM CHLORIDE 0.9% 250 ML IVPB SCH ×2 (08:48→18:03)
[2018-02-28] MEDS: IMIPRAMINE 25 MG TAB PO SCH ×2 (08:49→18:03)
[2018-02-28] MEDS: POTASSIUM CHLORIDE ER 20 MEQ TAB.ER PO SCH (08:49)
[2018-02-28] MEDS: PANTOPRAZOLE 40 MG TABLET PO SCH ×2 (08:49→22:20)
[2018-02-28] MEDS: INSULIN ASPART 100 UNIT/ML 1 ML 10 ML VIAL SQ SCH ×4 (08:49→22:18)
[2018-02-28] MEDS: predniSONE 20 MG TAB PO SCH (08:49)
[2018-02-28] MEDS: amLODIPine 10 MG TAB PO SCH (08:49)
[2018-02-28] MEDS: metroNIDAZOLE 500 MG TAB PO SCH ×2 (08:49→18:03)
[2018-02-28] MEDS: LISINOPRIL 10 MG TAB PO SCH (08:49)
[2018-02-28 12:17] LABS: Glucose,Whole Blood 194 mg/dL (75-99)
[2018-02-28] MEDS ORDERED: ALPRAZolam 0.25 MG TAB PO PRN (12:32)
[2018-02-28] MEDS ORDERED: VANCOMYCIN TROUGH DUE 1 EACH MISC MISCELLANE ONE (15:00)
--- NOTE | 2018-02-28 15:48 | P.PN ---
Subjective 73-year-old the female was initially admitted secondary to transaminitis which is improving patient was later found to have bilateral pneumonia and sepsis secondary to that and the patient is on broad-spectrum antibiotics vancomycin, azetreonam and metronidazole, patient blood cultures are positive for gram- positive cocci patient is already on vancomycin repeat blood cultures will obtain for today and tomorrow. Patient went into respiratory distress as today patient is presently on 10 L of oxygen was not using any oxygen yesterday. Chest x-ray did not show any significant change compared to her hot admission. It did show bilateral, bibasilar pneumonia. CT of the chest will be obtained to rule out any pulmonary embolism considering her hypoxemia which cannot be completely explained by bibasilar pneumonia. Patient does not appear to have any pulmonary edema ABG showed hypoxic respiratory failure. Patient is not wheezing on exam will actually cut down the steroids to 40 mg daily as her blood sugars are very high and patient does not appear to be in significant COPD exacerbation either. Patient elevated liver enzymes which are presently coming down may be related to her sepsis. 02/27/2018 Patient mentions and 15 L of oxygen although clinically looks good. Repeat CAT scan did not show any pulmonary embolism but showed extensive pneumonia contributing to her severe hypoxemia. We'll try to wean off her oxygen patient continues to be on vancomycin and Aztreonam. Blood cultures are positive for micrococcus mostly contaminant 02/28/2018 Patient remains in 10 L of oxygen. Patient's has episodes of anxiety patient is quite anxious to go to subacute rehabilitation although not at ready as she is on 10 L of oxygen. Patient was started on Xanax as needed basis for anxiety. Constitutional: Denied any fatigue denied any fever. Cardio vascular: denied any chest pain, palpitations Gastrointestinal denied any nausea vomiting Pulmonary: She feels better regarding her respiratory status now than compared to earlier today morning. Neurologic denied any new focal deficits Objective - Vital Signs Vital signs: Vital Signs Temp 98.4 F 02/28/18 14:50 Pulse 87 02/28/18 14:50 Resp 20 02/28/18 14:50 BP 122/68 02/28/18 14:50 Pulse Ox 88 L 02/28/18 14:50 Intake & Output 02/27/18 02/28/18 02/28/18 18:59 06:59 18:59 Intake Total 480 600 Output Total 2000 800 Balance 480 -1400 -800 Weight 55.338 kg Intake: Oral 480 600 Output: Urine 2000 800 Uretheral (Hewitt) 1500 Other: Voiding Method Indwelling Catheter Indwelling Catheter Indwelling Catheter # Bowel Movements 0 - Exam PHYSICAL EXAMINATION: GENERAL: The patient is alert and oriented x3, not in any acute distress. Thin built female HEENT: Pupils are round and equally reacting to light. EOMI. No scleral icterus. No conjunctival pallor. Normocephalic, atraumatic. No pharyngeal erythema. No thyromegaly. CARDIOVASCULAR: S1 and S2 present. No murmurs, rubs, or gallops. PULMONARY: Chest is clear to auscultation, no wheezing or crackles. ABDOMEN: Soft, nontender, nondistended, normoactive bowel sounds. No palpable organomegaly. MUSCULOSKELETAL: No joint swelling or deformity. EXTREMITIES: No cyanosis, clubbing, or pedal edema. NEUROLOGICAL: Gross neurological examination did not reveal any focal deficits. SKIN: No rashes. - Labs CBC & Chem 7: 02/27/18 07:33 02/27/18 07:33 Labs: Abnormal Lab Results - Last 24 Hours (Table) 02/27/18 02/27/18 02/28/18 Range/Units 17:40 22:54 07:42 POC Glucose (mg/dL) 266 H 308 H 215 H (75-99) mg/dL 02/28/18 Range/Units 12:11 POC Glucose (mg/dL) 194 H (75-99) mg/dL Microbiology - Last 24 Hours (Table) 02/24/18 09:07 Blood Culture - Preliminary Blood No Growth after 96 hours 02/26/18 07:48 Blood Culture - Preliminary Blood No Growth after 48 hours 02/27/18 07:33 Blood Culture - Preliminary Blood No Growth after 24 hours 02/22/18 21:46 Blood Culture - Preliminary Blood No Growth after 120 hours 02/25/18 19:50 Gram Stain - Final Sputum Sputum Culture - Final Assessment and Plan Plan: -Sepsis: Secondary to bibasilar pneumonia continue with the above-mentioned antibiotics patient blood cultures are positive for micrococcus which is a contamination. Patient does have extensive pneumonia. Patient will be discharged on levofloxacin whenever we can wean down the oxygen to around 2-3 L -Elevated liver enzymes as mentioned above can be related to sepsis which actually improved now -Hypoxic respiratory failure secondary to bilateral extensive pneumonia. -Type 2 diabetes mellitus uncontrolled blood sugars secondary to systemic steroids -Fibromyalgia -Sleep apnea -Asthma without any acute exacerbation -Chronic pain and patient has a pain pump patient does have chronic back pain -Depression and anxiety disorder
[2018-02-28 17:07] LABS: Glucose,Whole Blood 400 mg/dL (75-99)
[2018-02-28] MEDS: FERROUS SULFATE 325 MG TAB PO SCH (18:03)
[2018-02-28] MEDS: ASCORBIC ACID 500 MG TAB PO SCH (18:03)
[2018-02-28] MEDS: ASPIRIN 325 MG TAB PO SCH (18:03)
[2018-02-28] MEDS: MULTIVITAMINS, THERA 1 EACH TAB PO SCH (18:03)
[2018-02-28 20:57] LABS: Glucose,Whole Blood 359 mg/dL (75-99)
--- NOTE | 2018-02-28 21:36 | P.PN ---
Subjective Progress Note Date: 02/28/18 Principal diagnosis: Bilateral basal aspiration and/or or mixed bacterial pneumonia, chest tightness with cough, Transaminitis/elevated liver enzymes, acute liver injury, narcolepsy , sleep disorder breathing and sleep apnea, generalized weakness and medical debility, 02/28/2018, patient seen eval examined during the rounds clinically has not much change from baseline is still less than intermittently short of breath, remained congested, on 10 L high flow oxygen sats about 88-90% 02/27/2018, patient seen eval examined during the rounds clinically patient has been doing slightly better in terms of breathing cuff congestion is improved patient remains on broad-spectrum antibiotics which are being adjusted, patient remains on 8 L high flow oxygen saturation are in high 80s to low 90s labs reviewed medications reviewed radiographic studies reviewed as well 02/26/2018, patient seen eval examined during the rounds clinically patient is not much change but did have an episode of severe degree of desaturation cough congestion as stat arterial blood gas was performed to rule out hypercapnic hypoxic respirator failure the pH and pCO2 is fairly within normal limit however patient extremely hypoxic computed tomography scan of the chest reviewed chest x-ray reviewed care plan discussed with the primary service as well as the Lasix has been given with that patient did put out about 500 mL , computed tomography scan of the chest reviewed in length discussed with the staff as well patient has dense bilateral basal infiltrate which however not much different compared to baseline patient has been eating fairly well in spite of being significantly hypoxic does not appear to be very short of breath saturation however remains marginal on 15 L high flow oxygen sats are about 88- 90% patient able to complete full sentences will hold on transfer to the ICU rather monitor observe patient on medical floor as hemodynamic status stable and oxygenation even though is marginal but ventilation stable and patient has adequate mental status labs reviewed medications reviewed, vancomycin has been added will continue to monitor aspiration precautions closely care time spent 35 minutes 02/25/2018, patient seen eval examined during the rounds clinically patient is not much different baseline but still have intermittent cough which is dry and nonproductive respiratory status stable denies any, reviewed computed tomography scan finding with the patient 02/24/2018, patient seen eval examined during the rounds clinically patient is not much change however now she is having more cough which is dry and nonproductive a computed tomography scan of the abdominal and pelvis was unremarkable however does show by basilar pneumonia patient is on broad- spectrum antibiotics liver enzymes noted to be slowly improving, patient get short of breath on minimal activity and exertion, pneumonia appears to be gram- negative and/or or mixed bacterial 02/23/2018, patient seen eval reexamined during the rounds clinically doing better tolerating by mouth well no other abdominal discomfort of pain is present patient couldn't undergo a third check on liver enzymes that she refuses yesterday today phlebotomies unable to obtain the blood clinically patient appears to be doing well denies any nausea vomiting denies any abdominal pain breathing comfortably February 22 2018, patient seen eval reexamined during the rounds care plan discussed with the patient as well as the staff noted that the blood cultures were negative also discussed with RN, repeat blood test couldn't be done however there is a pattern of liver enzymes coming down, reviewed reports of the ultrasound and GI consult 83-year-old female well-known to me patient has a history of severe spine disease with chronic pain has been on pain pump patient also has a history of narcolepsy sleep apnea she is currently resident of [facility] where she was admitted because of her severe knee pain thought to be related to soft tissue injury or damage was swelling, patient started having abdominal discomfort of pain on the right side yesterday was brought into the emergency department for further evaluation now she is complaining of more pain on the left side, patient is on broad-spectrum antibiotics ID service has been consulted she is stable from her sleep apnea standpoint is she has lost significant amount of weight nose using CPAP machine she has been on Nuvigil at home which is nonformulary over here patient has been advised to bring her medications from home Objective - Vital Signs Vital signs: Vital Signs Temp 98.4 F 02/28/18 14:50 Pulse 86 02/28/18 20:32 Resp 20 02/28/18 14:50 BP 122/68 02/28/18 14:50 Pulse Ox 88 L 02/28/18 14:50 Intake & Output 02/28/18 02/28/18 03/01/18 06:59 18:59 06:59 Intake Total 600 250 Output Total 1999 1400 Balance -1400 -1150 Intake: Intake, IV Titration 250 Amount Vancomycin 1,250 mg In 250 Sodium Chloride 0.9% 250 ml @ 125 mls/hr IVPB Q8HR [facility] Rx#:[id number] Oral 600 Output: Urine 1999 1400 Uretheral (Hewitt) 1500 Other: Voiding Method Indwelling Catheter Indwelling Catheter - Exam General appearance: alert, in distress (Mild) Head exam: Present: atraumatic, normocephalic, normal inspection Eye exam: Present: normal appearance, PERRL, EOMI. Absent: scleral icterus, conjunctival injection, periorbital swelling ENT exam: Present: normal exam, mucous membranes moist Neck exam: Present: normal inspection. Absent: tenderness, meningismus, lymphadenopathy Respiratory exam: Present: normal lung sounds bilaterally upper part however noted to have Bilateral basilar crackles more so on the right side compared to left side with fine expiratory wheeze Cardiovascular Exam: Present: regular rate, normal rhythm GI/Abdominal exam: Present: soft, tenderness. Absent: distended, guarding, rebound, rigid Rectal exam: Present: deferred Extremities exam: Present: normal inspection, full ROM Back exam: Present: Severe kyphoscoliosis Neurological exam: Present: alert, altered Psychiatric exam: Present: normal mood. Absent: normal affect (slowed) Skin exam: Present: warm, dry, intact - Labs CBC & Chem 7: 02/27/18 07:33 02/27/18 07:33 Labs: Abnormal Lab Results - Last 24 Hours (Table) 02/27/18 02/28/18 02/28/18 Range/Units 22:54 07:42 12:11 POC Glucose (mg/dL) 308 H 215 H 194 H (75-99) mg/dL 02/28/18 02/28/18 Range/Units 17:04 20:51 POC Glucose (mg/dL) 400 H 359 H (75-99) mg/dL Microbiology - Last 24 Hours (Table) 02/24/18 09:07 Blood Culture - Preliminary Blood No Growth after 96 hours 02/26/18 07:48 Blood Culture - Preliminary Blood No Growth after 48 hours 02/27/18 07:33 Blood Culture - Preliminary Blood No Growth after 24 hours 02/22/18 21:46 Blood Culture - Preliminary Blood No Growth after 120 hours Assessment and Plan Assessment: Acute hypoxic restrictive failure related to bilateral pneumonia Bilateral pneumonia basal, aspiration pneumonia cannot be excluded related to large hiatal hernia Large hiatal hernia baseline Acute liver injury of unclear etiology Elevated liver enzymes showing a pattern of improvement No evidence of Gram-negative bacteremia to suspect cholangitis Nonspecific abdominal pain however resolved now Narcolepsy Sleep disorder breathing and sleep apnea Generalized weakness and medical debility Plan: Broad-spectrum antibiotics IV steroids Aspiration precautions Monitor mental status closely Vancomycin added Labs CAT scan ABG reviewed care plan discussed with the staff at length GI consultation recommendation reviewed Deep breathing sense incentive spirometry Increase activity as tolerated Further recommendations pending plan of care as per clinical response of the patient Agree with discharge planning, follow-up labs can perform an outpatient basis once patient is more hydrated Time with Patient: Greater than 30
[2018-02-28] MEDS: OXYBUTYNIN XL 5 MG TAB.ER.24 PO SCH (22:25)
[2018-02-28] MEDS: LIDOCAINE 5% PATCH TOPICAL SCH (22:35)
[2018-03-01] MEDS: VANCOMYCIN 1,250 MG in SODIUM CHLORIDE 0.9% 250 ML IVPB SCH ×3 (00:51→18:11)
[2018-03-01] MEDS: metroNIDAZOLE 500 MG TAB PO SCH ×4 (00:52→21:22)
[2018-03-01] MEDS: Armodafinil [Nuvigil] 250 MG PO SCH ×2 (06:57→11:54)
[2018-03-01 07:47] LABS: Glucose,Whole Blood 241 mg/dL (75-99)
[2018-03-01] MEDS: INSULIN ASPART 100 UNIT/ML 1 ML 10 ML VIAL SQ SCH ×4 (08:26→21:22)
[2018-03-01] MEDS: POTASSIUM CHLORIDE ER 20 MEQ TAB.ER PO SCH (08:27)
[2018-03-01] MEDS: HEPARIN SODIUM,PORCINE 5,000 UNIT/ML 1 ML VIAL SQ SCH ×2 (08:27→21:23)
[2018-03-01] MEDS: LISINOPRIL 10 MG TAB PO SCH (08:27)
[2018-03-01] MEDS: PANTOPRAZOLE 40 MG TABLET PO SCH ×2 (08:27→21:23)
[2018-03-01] MEDS: IMIPRAMINE 25 MG TAB PO SCH ×2 (08:27→18:11)
[2018-03-01] MEDS: amLODIPine 10 MG TAB PO SCH (08:27)
[2018-03-01] MEDS: predniSONE 20 MG TAB PO SCH (08:27)
[2018-03-01] MEDS: IPRATROPIUM-ALBUTEROL 3 ML NEB INHALATION SCH ×3 (08:55→20:32)
[2018-03-01 09:37] LABS: Anion Gap 7 mmol/L; Blood Urea Nitrogen 15 mg/dL (7-17); Calcium 8.2 mg/dL (8.4-10.2); Carbon Dioxide 35 mmol/L (22-30); Chloride 95 mmol/L (98-107); Glucose 282 mg/dL (74-99); Potassium 4.3 mmol/L (3.5-5.1); Sodium 137 mmol/L (137-145)
--- NOTE | 2018-03-01 09:52 | P.PN ---
Subjective Progress Note Date: 03/01/18 Principal diagnosis: Bilateral basal aspiration and/or or mixed bacterial pneumonia, chest tightness with cough, Transaminitis/elevated liver enzymes, acute liver injury, narcolepsy , sleep disorder breathing and sleep apnea, generalized weakness and medical debility, Large first 2018, patient seen and evaluated examined during the rounds overall to do short of breath on activity and exertion continue to require significant amount of oxygen has cough congestion slightly better, hemodynamic status stable labs reviewed medications reviewed 02/28/2018, patient seen eval examined during the rounds clinically has not much change from baseline is still less than intermittently short of breath, remained congested, on 10 L high flow oxygen sats about 88-90% 02/27/2018, patient seen eval examined during the rounds clinically patient has been doing slightly better in terms of breathing cuff congestion is improved patient remains on broad-spectrum antibiotics which are being adjusted, patient remains on 8 L high flow oxygen saturation are in high 80s to low 90s labs reviewed medications reviewed radiographic studies reviewed as well 02/26/2018, patient seen eval examined during the rounds clinically patient is not much change but did have an episode of severe degree of desaturation cough congestion as stat arterial blood gas was performed to rule out hypercapnic hypoxic respirator failure the pH and pCO2 is fairly within normal limit however patient extremely hypoxic computed tomography scan of the chest reviewed chest x-ray reviewed care plan discussed with the primary service as well as the 18th Lasix has been given with that patient did put out about 500 mL , computed tomography scan of the chest reviewed in length discussed with the staff as well patient has dense bilateral basal infiltrate which however not much different compared to baseline patient has been eating fairly well in spite of being significantly hypoxic does not appear to be very short of breath saturation however remains marginal on 15 L high flow oxygen sats are about 88- 90% patient able to complete full sentences will hold on transfer to the ICU rather monitor observe patient on medical floor as hemodynamic status stable and oxygenation even though is marginal but ventilation stable and patient has adequate mental status labs reviewed medications reviewed, vancomycin has been added will continue to monitor aspiration precautions closely care time spent 35 minutes 02/25/2018, patient seen eval examined during the rounds clinically patient is not much different baseline but still have intermittent cough which is dry and nonproductive respiratory status stable denies any, reviewed computed tomography scan finding with the patient 02/24/2018, patient seen eval examined during the rounds clinically patient is not much change however now she is having more cough which is dry and nonproductive a computed tomography scan of the abdominal and pelvis was unremarkable however does show by basilar pneumonia patient is on broad- spectrum antibiotics liver enzymes noted to be slowly improving, patient get short of breath on minimal activity and exertion, pneumonia appears to be gram- negative and/or or mixed bacterial 02/23/2018, patient seen eval reexamined during the rounds clinically doing better tolerating by mouth well no other abdominal discomfort of pain is present patient couldn't undergo a third check on liver enzymes that she refuses yesterday today phlebotomies unable to obtain the blood clinically patient appears to be doing well denies any nausea vomiting denies any abdominal pain breathing comfortably February 22 2018, patient seen eval reexamined during the rounds care plan discussed with the patient as well as the staff noted that the blood cultures were negative also discussed with RN, repeat blood test couldn't be done however there is a pattern of liver enzymes coming down, reviewed reports of the ultrasound and GI consult 83-year-old female well-known to me patient has a history of severe spine disease with chronic pain has been on pain pump patient also has a history of narcolepsy sleep apnea she is currently resident of [facility] where she was admitted because of her severe knee pain thought to be related to soft tissue injury or damage was swelling, patient started having abdominal discomfort of pain on the right side yesterday was brought into the emergency department for further evaluation now she is complaining of more pain on the left side, patient is on broad-spectrum antibiotics ID service has been consulted she is stable from her sleep apnea standpoint is she has lost significant amount of weight nose using CPAP machine she has been on Nuvigil at home which is nonformulary over here patient has been advised to bring her medications from home Objective - Vital Signs Vital signs: Vital Signs Temp 97.1 F L 03/01/18 06:00 Pulse 64 03/01/18 06:00 Resp 22 03/01/18 06:00 BP 116/65 03/01/18 06:00 Pulse Ox 88 L 03/01/18 06:00 Intake & Output 02/28/18 03/01/18 03/01/18 18:59 06:59 18:59 Intake Total 250 700 Output Total 1400 2200 Balance -1150 -1500 Intake: Intake, IV Titration 250 Amount Vancomycin 1,250 mg In 250 Sodium Chloride 0.9% 250 ml @ 125 mls/hr IVPB Q8HR [facility] Rx#:[id number] Oral 700 Output: Urine 1400 2200 Uretheral (Hewitt) 1000 Other: Voiding Method Indwelling Catheter Indwelling Catheter - Exam General appearance: alert, in distress (Mild) Head exam: Present: atraumatic, normocephalic, normal inspection Eye exam: Present: normal appearance, PERRL, EOMI. Absent: scleral icterus, conjunctival injection, periorbital swelling ENT exam: Present: normal exam, mucous membranes moist Neck exam: Present: normal inspection. Absent: tenderness, meningismus, lymphadenopathy Respiratory exam: Present: normal lung sounds bilaterally upper part however noted to have Bilateral basilar crackles more so on the right side compared to left side with fine expiratory wheeze Cardiovascular Exam: Present: regular rate, normal rhythm GI/Abdominal exam: Present: soft, tenderness. Absent: distended, guarding, rebound, rigid Rectal exam: Present: deferred Extremities exam: Present: normal inspection, full ROM Back exam: Present: Severe kyphoscoliosis Neurological exam: Present: alert, altered Psychiatric exam: Present: normal mood. Absent: normal affect (slowed) Skin exam: Present: warm, dry, intact - Labs CBC & Chem 7: 02/27/18 07:33 03/01/18 08:57 Labs: Abnormal Lab Results - Last 24 Hours (Table) 02/28/18 02/28/18 02/28/18 Range/Units 12:11 17:04 20:51 Chloride (98-107) mmol/L Carbon Dioxide (22-30) mmol/L Creatinine (0.52-1.04) mg/dL Glucose (74-99) mg/dL POC Glucose (mg/dL) 194 H 400 H 359 H (75-99) mg/dL Calcium (8.4-10.2) mg/dL 03/01/18 03/01/18 Range/Units 07:44 08:57 Chloride 95 L (98-107) mmol/L Carbon Dioxide 35 H (22-30) mmol/L Creatinine 0.38 L (0.52-1.04) mg/dL Glucose 282 H (74-99) mg/dL POC Glucose (mg/dL) 241 H (75-99) mg/dL Calcium 8.2 L (8.4-10.2) mg/dL Microbiology - Last 24 Hours (Table) 02/27/18 07:33 Blood Culture - Preliminary Blood No Growth after 48 hours 02/22/18 21:46 Blood Culture - Final Blood No Growth after 144 hours 02/24/18 09:07 Blood Culture - Preliminary Blood No Growth after 96 hours 02/26/18 07:48 Blood Culture - Preliminary Blood No Growth after 48 hours Assessment and Plan Assessment: Acute hypoxic restrictive failure related to bilateral pneumonia Bilateral pneumonia basal, aspiration pneumonia cannot be excluded related to large hiatal hernia Bacteremia related to micrococcus of unclear source Large hiatal hernia baseline Acute liver injury of unclear etiology Elevated liver enzymes showing a pattern of improvement No evidence of Gram-negative bacteremia to suspect cholangitis Nonspecific abdominal pain however resolved now Narcolepsy Sleep disorder breathing and sleep apnea Generalized weakness and medical debility Plan: Broad-spectrum antibiotics IV steroids Aspiration precautions Monitor mental status closely Vancomycin added, he services following Labs CAT scan ABG reviewed care plan discussed with the staff at length GI consultation recommendation reviewed Deep breathing sense incentive spirometry Increase activity as tolerated Further recommendations pending plan of care as per clinical response of the patient Agree with discharge planning, follow-up labs can perform an outpatient basis once patient is more hydrated Time with Patient: Greater than 30
[2018-03-01 12:06] LABS: Glucose,Whole Blood 277 mg/dL (75-99)
--- NOTE | 2018-03-01 16:08 | P.PN ---
Subjective 73-year-old the female was initially admitted secondary to transaminitis which is improving patient was later found to have bilateral pneumonia and sepsis secondary to that and the patient is on broad-spectrum antibiotics vancomycin, azetreonam and metronidazole, patient blood cultures are positive for gram- positive cocci patient is already on vancomycin repeat blood cultures will obtain for today and tomorrow. Patient went into respiratory distress as today patient is presently on 10 L of oxygen was not using any oxygen yesterday. Chest x-ray did not show any significant change compared to her hot admission. It did show bilateral, bibasilar pneumonia. CT of the chest will be obtained to rule out any pulmonary embolism considering her hypoxemia which cannot be completely explained by bibasilar pneumonia. Patient does not appear to have any pulmonary edema ABG showed hypoxic respiratory failure. Patient is not wheezing on exam will actually cut down the steroids to 40 mg daily as her blood sugars are very high and patient does not appear to be in significant COPD exacerbation either. Patient elevated liver enzymes which are presently coming down may be related to her sepsis. 02/27/2018 Patient mentions and 15 L of oxygen although clinically looks good. Repeat CAT scan did not show any pulmonary embolism but showed extensive pneumonia contributing to her severe hypoxemia. We'll try to wean off her oxygen patient continues to be on vancomycin and Aztreonam. Blood cultures are positive for micrococcus mostly contaminant 02/28/2018 Patient remains in 10 L of oxygen. Patient's has episodes of anxiety patient is quite anxious to go to subacute rehabilitation although not at ready as she is on 10 L of oxygen. Patient was started on Xanax as needed basis for anxiety. 03/01/2018 Patient has little bit of improvement is presently any liters of oxygen. Constitutional: Denied any fatigue denied any fever. Cardio vascular: denied any chest pain, palpitations Gastrointestinal denied any nausea vomiting Pulmonary: She feels better regarding her respiratory status now than compared to earlier today morning. Neurologic denied any new focal deficits Objective - Vital Signs Vital signs: Vital Signs Temp 97.1 F L 03/01/18 06:00 Pulse 84 03/01/18 12:40 Resp 22 03/01/18 06:00 BP 116/65 03/01/18 06:00 Pulse Ox 88 L 03/01/18 06:00 Intake & Output 02/28/18 03/01/18 03/01/18 18:59 06:59 18:59 Intake Total 250 700 Output Total 1400 2200 1100 Balance -1150 -1500 -1100 Intake: Intake, IV Titration 250 Amount Vancomycin 1,250 mg In 250 Sodium Chloride 0.9% 250 ml @ 125 mls/hr IVPB Q8HR [facility] Rx#:[id number] Oral 700 Output: Urine 1400 2200 1100 Uretheral (Hewitt) 1000 Other: Voiding Method Indwelling Catheter Indwelling Catheter Indwelling Catheter - Exam PHYSICAL EXAMINATION: GENERAL: The patient is alert and oriented x3, not in any acute distress. Thin built female HEENT: Pupils are round and equally reacting to light. EOMI. No scleral icterus. No conjunctival pallor. Normocephalic, atraumatic. No pharyngeal erythema. No thyromegaly. CARDIOVASCULAR: S1 and S2 present. No murmurs, rubs, or gallops. PULMONARY: Chest is clear to auscultation, no wheezing or crackles. ABDOMEN: Soft, nontender, nondistended, normoactive bowel sounds. No palpable organomegaly. MUSCULOSKELETAL: No joint swelling or deformity. EXTREMITIES: No cyanosis, clubbing, or pedal edema. NEUROLOGICAL: Gross neurological examination did not reveal any focal deficits. SKIN: No rashes. - Labs CBC & Chem 7: 02/27/18 07:33 03/01/18 08:57 Labs: Abnormal Lab Results - Last 24 Hours (Table) 02/28/18 02/28/18 03/01/18 Range/Units 17:04 20:51 07:44 Chloride (98-107) mmol/L Carbon Dioxide (22-30) mmol/L Creatinine (0.52-1.04) mg/dL Glucose (74-99) mg/dL POC Glucose (mg/dL) 400 H 359 H 241 H (75-99) mg/dL Calcium (8.4-10.2) mg/dL 03/01/18 03/01/18 Range/Units 08:57 12:04 Chloride 95 L (98-107) mmol/L Carbon Dioxide 35 H (22-30) mmol/L Creatinine 0.38 L (0.52-1.04) mg/dL Glucose 282 H (74-99) mg/dL POC Glucose (mg/dL) 277 H (75-99) mg/dL Calcium 8.2 L (8.4-10.2) mg/dL Microbiology - Last 24 Hours (Table) 02/24/18 09:07 Blood Culture - Preliminary Blood No Growth after 120 hours 02/26/18 07:48 Blood Culture - Preliminary Blood No Growth after 72 hours 02/27/18 07:33 Blood Culture - Preliminary Blood No Growth after 48 hours 02/22/18 21:46 Blood Culture - Final Blood No Growth after 144 hours Assessment and Plan Plan: -Sepsis: Secondary to bibasilar pneumonia continue with the above-mentioned antibiotics patient blood cultures are positive for micrococcus which is a contamination. Patient does have extensive pneumonia. Patient will be discharged on levofloxacin whenever we can wean down the oxygen to around 2-3 L -Elevated liver enzymes as mentioned above can be related to sepsis which actually improved now -Hypoxic respiratory failure secondary to bilateral extensive pneumonia. -Type 2 diabetes mellitus uncontrolled blood sugars secondary to systemic steroids -Fibromyalgia -Sleep apnea -Asthma without any acute exacerbation -Chronic pain and patient has a pain pump patient does have chronic back pain -Depression and anxiety disorder
[2018-03-01 17:40] LABS: Glucose,Whole Blood 361 mg/dL (75-99)
[2018-03-01] MEDS: ASPIRIN 325 MG TAB PO SCH (18:10)
[2018-03-01] MEDS: MULTIVITAMINS, THERA 1 EACH TAB PO SCH (18:10)
[2018-03-01] MEDS: FERROUS SULFATE 325 MG TAB PO SCH (18:10)
[2018-03-01] MEDS: ASCORBIC ACID 500 MG TAB PO SCH (18:11)
[2018-03-01 20:39] LABS: Glucose,Whole Blood 311 mg/dL (75-99)
[2018-03-01] MEDS: LIDOCAINE 5% PATCH TOPICAL SCH (21:20)
[2018-03-01] MEDS: OXYBUTYNIN XL 5 MG TAB.ER.24 PO SCH (21:22)
[2018-03-02] MEDS: VANCOMYCIN 1,250 MG in SODIUM CHLORIDE 0.9% 250 ML IVPB SCH ×3 (00:47→15:34)
[2018-03-02] MEDS: Armodafinil [Nuvigil] 250 MG PO SCH ×2 (06:07→12:04)
--- NOTE | 2018-03-02 06:44 | PN ---
PROGRESS NOTE DATE OF SERVICE: 03/01/2018 REASON FOR FOLLOWUP: 1. Pneumonia. 2. Positive blood culture. INTERVAL HISTORY: The patient has been afebrile. She seemed to be breathing comfortably. Denies any significant chest pain. Occasional cough, though not bringing up any sputum. No chest pain. No abdominal pain or diarrhea. PHYSICAL EXAMINATION: On examination, blood pressure 97/61 with a pulse of 91, temperature 9. She is 90% on 4 L nasal cannula. General description is an elderly female lying in bed in no distress. RESPIRATORY SYSTEM: Unlabored breathing with decreased breath sounds at the bases. No wheeze. HEART: S1, S2. Regular rate and rhythm. ABDOMEN: Soft, no tenderness. LABS: BUN of 15, creatinine 0.38. DIAGNOSTIC IMPRESSION AND PLAN: 1. Patient with positive blood culture more likely indicative of contamination with repeat blood culture has been negative. 2. Patient with hypoxemia with concern for possible pneumonia in patient who did have a CT which shows bibasilar volume loss elevation and near-complete collapse and consolidation of the lower lobes with concern patient has possible aspiration pneumonia. DIAGNOSTIC IMPRESSION AND PLAN: 1. Patient with positive blood culture, more likely contamination . 2. Patient with pneumonia possible aspiration etiology. Patient did have history of PENICILLIN allergy. She can be transitioned to oral Avelox 400 daily for about a week on discharge. Continue supportive care. MMODL / IJN: [id number] /
[2018-03-02] MEDS ORDERED: VANCOMYCIN TROUGH DUE 1 EACH MISC MISCELLANE ONE (07:00)
[2018-03-02 08:23] LABS: Glucose,Whole Blood 216 mg/dL (75-99)
[2018-03-02] MEDS: IMIPRAMINE 25 MG TAB PO SCH ×2 (08:23→17:44)
[2018-03-02] MEDS: metroNIDAZOLE 500 MG TAB PO SCH ×2 (08:23→17:44)
[2018-03-02] MEDS: HEPARIN SODIUM,PORCINE 5,000 UNIT/ML 1 ML VIAL SQ SCH ×2 (08:24→22:04)
[2018-03-02] MEDS: LISINOPRIL 10 MG TAB PO SCH (08:24)
[2018-03-02] MEDS: amLODIPine 10 MG TAB PO SCH (08:24)
[2018-03-02] MEDS: PANTOPRAZOLE 40 MG TABLET PO SCH ×2 (08:25→21:03)
[2018-03-02] MEDS: predniSONE 20 MG TAB PO SCH (08:25)
[2018-03-02] MEDS: POTASSIUM CHLORIDE ER 20 MEQ TAB.ER PO SCH (08:25)
[2018-03-02] MEDS: INSULIN ASPART 100 UNIT/ML 1 ML 10 ML VIAL SQ SCH ×4 (08:29→21:00)
[2018-03-02] MEDS: IPRATROPIUM-ALBUTEROL 3 ML NEB INHALATION SCH ×3 (09:10→19:15)
--- NOTE | 2018-03-02 12:51 | P.PN ---
Subjective Progress Note Date: 03/02/18 Principal diagnosis: Bilateral basal aspiration and/or or mixed bacterial pneumonia, chest tightness with cough, Transaminitis/elevated liver enzymes, acute liver injury, narcolepsy , sleep disorder breathing and sleep apnea, generalized weakness and medical debility, 03/02/2018, patient seen eval examined during the rounds clinically patient has been doing well but is still short of breath continued to require high flow oxygen about 8 L saturation about 88-90% able to lower down to 4 L sats are about 86-88% patient is being monitor observe, remains on broad-spectrum antibiotics March, patient seen and evaluated examined during the rounds overall to do short of breath on activity and exertion continue to require significant amount of oxygen has cough congestion slightly better, hemodynamic status stable labs reviewed medications reviewed 02/28/2018, patient seen eval examined during the rounds clinically has not much change from baseline is still less than intermittently short of breath, remained congested, on 10 L high flow oxygen sats about 88-90% 02/27/2018, patient seen eval examined during the rounds clinically patient has been doing slightly better in terms of breathing cuff congestion is improved patient remains on broad-spectrum antibiotics which are being adjusted, patient remains on 8 L high flow oxygen saturation are in high 80s to low 90s labs reviewed medications reviewed radiographic studies reviewed as well 02/26/2018, patient seen eval examined during the rounds clinically patient is not much change but did have an episode of severe degree of desaturation cough congestion as stat arterial blood gas was performed to rule out hypercapnic hypoxic respirator failure the pH and pCO2 is fairly within normal limit however patient extremely hypoxic computed tomography scan of the chest reviewed chest x-ray reviewed care plan discussed with the primary service as well as the th Lasix has been given with that patient did put out about 500 mL , computed tomography scan of the chest reviewed in length discussed with the staff as well patient has dense bilateral basal infiltrate which however not much different compared to baseline patient has been eating fairly well in spite of being significantly hypoxic does not appear to be very short of breath saturation however remains marginal on 15 L high flow oxygen sats are about 88- 90% patient able to complete full sentences will hold on transfer to the ICU rather monitor observe patient on medical floor as hemodynamic status stable and oxygenation even though is marginal but ventilation stable and patient has adequate mental status labs reviewed medications reviewed, vancomycin has been added will continue to monitor aspiration precautions closely care time spent 35 minutes 02/25/2018, patient seen eval examined during the rounds clinically patient is not much different baseline but still have intermittent cough which is dry and nonproductive respiratory status stable denies any, reviewed computed tomography scan finding with the patient 02/24/2018, patient seen eval examined during the rounds clinically patient is not much change however now she is having more cough which is dry and nonproductive a computed tomography scan of the abdominal and pelvis was unremarkable however does show by basilar pneumonia patient is on broad- spectrum antibiotics liver enzymes noted to be slowly improving, patient get short of breath on minimal activity and exertion, pneumonia appears to be gram- negative and/or or mixed bacterial 02/23/2018, patient seen eval reexamined during the rounds clinically doing better tolerating by mouth well no other abdominal discomfort of pain is present patient couldn't undergo a third check on liver enzymes that she refuses yesterday today phlebotomies unable to obtain the blood clinically patient appears to be doing well denies any nausea vomiting denies any abdominal pain breathing comfortably February 22 2018, patient seen eval reexamined during the rounds care plan discussed with the patient as well as the staff noted that the blood cultures were negative also discussed with RN, repeat blood test couldn't be done however there is a pattern of liver enzymes coming down, reviewed reports of the ultrasound and GI consult 83-year-old female well-known to me patient has a history of severe spine disease with chronic pain has been on pain pump patient also has a history of narcolepsy sleep apnea she is currently resident of [facility] care facility where she was admitted because of her severe knee pain thought to be related to soft tissue injury or damage was swelling, patient started having abdominal discomfort of pain on the right side yesterday was brought into the emergency department for further evaluation now she is complaining of more pain on the left side, patient is on broad-spectrum antibiotics ID service has been consulted she is stable from her sleep apnea standpoint is she has lost significant amount of weight nose using CPAP machine she has been on Nuvigil at home which is nonformulary over here patient has been advised to bring her medications from home Objective - Vital Signs Vital signs: Vital Signs Temp 97.7 F 03/02/18 06:16 Pulse 84 03/02/18 12:37 Resp 17 03/02/18 06:16 BP 113/58 03/02/18 06:16 Pulse Ox 86 L 03/02/18 06:16 Intake & Output 03/01/18 03/02/18 03/02/18 18:59 06:59 18:59 Output Total 1100 601 Balance -1100 -601 Output: Urine 1100 600 Stool 1 Other: Voiding Method Indwelling Catheter Bedside Commode Diaper Incontinent # Voids 1 1 - Exam General appearance: alert, in distress (Mild) Head exam: Present: atraumatic, normocephalic, normal inspection Eye exam: Present: normal appearance, PERRL, EOMI. Absent: scleral icterus, conjunctival injection, periorbital swelling ENT exam: Present: normal exam, mucous membranes moist Neck exam: Present: normal inspection. Absent: tenderness, meningismus, lymphadenopathy Respiratory exam: Present: normal lung sounds bilaterally upper part however noted to have Bilateral basilar crackles more so on the right side compared to left side with fine expiratory wheeze Cardiovascular Exam: Present: regular rate, normal rhythm GI/Abdominal exam: Present: soft, tenderness. Absent: distended, guarding, rebound, rigid Rectal exam: Present: deferred Extremities exam: Present: normal inspection, full ROM Back exam: Present: Severe kyphoscoliosis Neurological exam: Present: alert, altered Psychiatric exam: Present: normal mood. Absent: normal affect (slowed) Skin exam: Present: warm, dry, intact - Labs CBC & Chem 7: 02/27/18 07:33 03/01/18 08:57 Labs: Abnormal Lab Results - Last 24 Hours (Table) 03/01/18 03/01/18 03/02/18 Range/Units 17:36 20:38 07:42 POC Glucose (mg/dL) 361 H 311 H 216 H (75-99) mg/dL Microbiology - Last 24 Hours (Table) 02/24/18 09:07 Blood Culture - Final Blood No Growth after 144 hours 02/26/18 07:48 Blood Culture - Preliminary Blood No Growth after 96 hours 02/27/18 07:33 Blood Culture - Preliminary Blood No Growth after 72 hours Assessment and Plan Assessment: Acute hypoxic restrictive failure related to bilateral pneumonia Bilateral pneumonia basal, aspiration pneumonia cannot be excluded related to large hiatal hernia Bacteremia related to micrococcus of unclear source Large hiatal hernia baseline Acute liver injury of unclear etiology Elevated liver enzymes showing a pattern of improvement No evidence of Gram-negative bacteremia to suspect cholangitis Nonspecific abdominal pain however resolved now Narcolepsy Sleep disorder breathing and sleep apnea Generalized weakness and medical debility Plan: Broad-spectrum antibiotics IV steroids Aspiration precautions Monitor mental status closely Vancomycin added, he services following Labs CAT scan ABG reviewed care plan discussed with the staff at length GI consultation recommendation reviewed Deep breathing sense incentive spirometry Increase activity as tolerated Further recommendations pending plan of care as per clinical response of the patient Agree with discharge planning, follow-up labs can perform an outpatient basis once patient is more hydrated
[2018-03-02 12:59] LABS: Glucose,Whole Blood 267 mg/dL (75-99)
--- NOTE | 2018-03-02 14:45 | P.PN ---
Subjective 73-year-old the female was initially admitted secondary to transaminitis which is improving patient was later found to have bilateral pneumonia and sepsis secondary to that and the patient is on broad-spectrum antibiotics vancomycin, azetreonam and metronidazole, patient blood cultures are positive for gram- positive cocci patient is already on vancomycin repeat blood cultures will obtain for today and tomorrow. Patient went into respiratory distress as today patient is presently on 10 L of oxygen was not using any oxygen yesterday. Chest x-ray did not show any significant change compared to her hot admission. It did show bilateral, bibasilar pneumonia. CT of the chest will be obtained to rule out any pulmonary embolism considering her hypoxemia which cannot be completely explained by bibasilar pneumonia. Patient does not appear to have any pulmonary edema ABG showed hypoxic respiratory failure. Patient is not wheezing on exam will actually cut down the steroids to 40 mg daily as her blood sugars are very high and patient does not appear to be in significant COPD exacerbation either. Patient elevated liver enzymes which are presently coming down may be related to her sepsis. 02/27/2018 Patient mentions and 15 L of oxygen although clinically looks good. Repeat CAT scan did not show any pulmonary embolism but showed extensive pneumonia contributing to her severe hypoxemia. We'll try to wean off her oxygen patient continues to be on vancomycin and Aztreonam. Blood cultures are positive for micrococcus mostly contaminant 02/28/2018 Patient remains in 10 L of oxygen. Patient's has episodes of anxiety patient is quite anxious to go to subacute rehabilitation although not at ready as she is on 10 L of oxygen. Patient was started on Xanax as needed basis for anxiety. 03/01/2018 Patient has little bit of improvement is presently any liters of oxygen. 03/02/2018 Patient is presently on 4 L of and hopefully will be able to get naproxen by tomorrow and will be discharged tomorrow patient is still insisting on going to subacute rehabilitation today. Patient will be discharged on moxifloxacin upon discharge Constitutional: Denied any fatigue denied any fever. Cardio vascular: denied any chest pain, palpitations Gastrointestinal denied any nausea vomiting Pulmonary: No shortness of breath Neurologic denied any new focal deficits Objective - Vital Signs Vital signs: Vital Signs Temp 97.7 F 03/02/18 06:16 Pulse 84 03/02/18 12:37 Resp 17 03/02/18 06:16 BP 113/58 07/02/18 06:16 Pulse Ox 87 L 03/02/18 13:50 Intake & Output 03/01/18 03/02/18 03/02/18 18:59 06:59 18:59 Output Total 1100 601 Balance -1100 -601 Output: Urine 1100 600 Stool 1 Other: Voiding Method Indwelling Catheter Bedside Commode Diaper Incontinent # Voids 1 1 - Exam PHYSICAL EXAMINATION: GENERAL: The patient is alert and oriented x3, not in any acute distress. Thin built female HEENT: Pupils are round and equally reacting to light. EOMI. No scleral icterus. No conjunctival pallor. Normocephalic, atraumatic. No pharyngeal erythema. No thyromegaly. CARDIOVASCULAR: S1 and S2 present. No murmurs, rubs, or gallops. PULMONARY: Chest is clear to auscultation, no wheezing or crackles. ABDOMEN: Soft, nontender, nondistended, normoactive bowel sounds. No palpable organomegaly. MUSCULOSKELETAL: No joint swelling or deformity. EXTREMITIES: No cyanosis, clubbing, or pedal edema. NEUROLOGICAL: Gross neurological examination did not reveal any focal deficits. SKIN: No rashes. - Labs CBC & Chem 7: 02/27/18 07:33 03/01/18 08:57 Labs: Abnormal Lab Results - Last 24 Hours (Table) 03/01/18 03/01/18 03/02/18 Range/Units 17:36 20:38 07:42 POC Glucose (mg/dL) 361 H 311 H 216 H (75-99) mg/dL 03/02/18 Range/Units 12:34 POC Glucose (mg/dL) 267 H (75-99) mg/dL Microbiology - Last 24 Hours (Table) 02/24/18 09:07 Blood Culture - Final Blood No Growth after 144 hours 02/26/18 07:48 Blood Culture - Preliminary Blood No Growth after 96 hours 02/27/18 07:33 Blood Culture - Preliminary Blood No Growth after 72 hours Assessment and Plan Plan: -Sepsis: Secondary to bibasilar pneumonia continue with the above-mentioned antibiotics patient blood cultures are positive for micrococcus which is a contamination. Patient does have extensive pneumonia. Patient will be discharged on levofloxacin/moxifloxacin whenever we can wean down the oxygen to around 2-3 L -Elevated liver enzymes as mentioned above can be related to sepsis which actually improved now -Hypoxic respiratory failure secondary to bilateral extensive pneumonia. -Type 2 diabetes mellitus uncontrolled blood sugars secondary to systemic steroids will be treated with sliding scale insulin -Fibromyalgia -Sleep apnea -Asthma without any acute exacerbation -Chronic pain and patient has a pain pump patient does have chronic back pain -Depression and anxiety disorder
[2018-03-02 17:27] LABS: Glucose,Whole Blood 343 mg/dL (75-99)
[2018-03-02] MEDS: FERROUS SULFATE 325 MG TAB PO SCH (17:44)
[2018-03-02] MEDS: ASPIRIN 325 MG TAB PO SCH (17:44)
[2018-03-02] MEDS: ASCORBIC ACID 500 MG TAB PO SCH (17:44)
[2018-03-02] MEDS: MULTIVITAMINS, THERA 1 EACH TAB PO SCH (17:44)
[2018-03-02 20:28] LABS: Glucose,Whole Blood 444 mg/dL (75-99)
[2018-03-02] MEDS: LIDOCAINE 5% PATCH TOPICAL SCH ×2 (21:02→21:10)
[2018-03-02] MEDS: OXYBUTYNIN XL 5 MG TAB.ER.24 PO SCH (21:03)
[2018-03-03] MEDS: metroNIDAZOLE 500 MG TAB PO SCH ×2 (00:04→07:51)
[2018-03-03 01:47] LABS: Glucose,Whole Blood 217 mg/dL (75-99)
[2018-03-03] MEDS: Armodafinil [Nuvigil] 250 MG PO SCH ×2 (05:14→11:43)
--- NOTE | 2018-03-03 05:29 | PN ---
PROGRESS NOTE DATE OF SERVICE: 03/02/2018 REASON FOR FOLLOWUP: Pneumonia possible aspiration. INTERVAL HISTORY: The patient is afebrile. She has been breathing comfortably. Still requiring high- flow oxygen. Denies having any chest pain. Occasional cough which is dry in nature. No abdominal pain or any diarrhea. PHYSICAL EXAMINATION: On examination, blood pressure 109/71 with a pulse of 82, temperature 98.7. General description is an elderly female up in the bed in no distress. RESPIRATORY SYSTEM: Unlabored breathing with some coarse breath sounds at the bases. No wheeze. HEART: S1, S2. Regular rate and rhythm. ABDOMEN: Soft, no tenderness. LABS: No CBC has taken today. Creatinine 0.38. Blood culture repeat has been negative. DIAGNOSTIC IMPRESSION AND PLAN: 1. Patient with a positive blood culture, more likely a contamination. 2. Patient pneumonia likely aspiration etiology. Recommend switching to Levaquin that can be transitioned to oral Avelox 400 daily on discharge. Continue with supportive care. MMODL / IJN: [id number] /
[2018-03-03 05:55] VITALS: BP 146/80; RESP 17; TEMP 97.9
[2018-03-03] MEDS: IPRATROPIUM-ALBUTEROL 3 ML NEB INHALATION SCH (07:09)
[2018-03-03 07:22] VITALS: PULSE 84
[2018-03-03 07:22] LABS: Glucose,Whole Blood 110 mg/dL (75-99)
[2018-03-03] MEDS: INSULIN ASPART 100 UNIT/ML 1 ML 10 ML VIAL SQ SCH ×2 (07:50→12:49)
[2018-03-03] MEDS: IMIPRAMINE 25 MG TAB PO SCH (07:51)
[2018-03-03] MEDS: amLODIPine 10 MG TAB PO SCH (07:51)
[2018-03-03] MEDS: HEPARIN SODIUM,PORCINE 5,000 UNIT/ML 1 ML VIAL SQ SCH (07:51)
[2018-03-03] MEDS: POTASSIUM CHLORIDE ER 20 MEQ TAB.ER PO SCH (07:52)
[2018-03-03] MEDS: LISINOPRIL 10 MG TAB PO SCH (07:52)
[2018-03-03] MEDS: PANTOPRAZOLE 40 MG TABLET PO SCH (07:52)
[2018-03-03] MEDS: VANCOMYCIN 1,250 MG in SODIUM CHLORIDE 0.9% 250 ML IVPB SCH (08:39)
[2018-03-03] MEDS ORDERED: LEVOFLOXACIN 750 MG TAB PO SCH ×2 (09:00)
[2018-03-03] MEDS ORDERED: predniSONE 10 MG TAB PO SCH (09:00)
[2018-03-03 09:06] LABS: Anion Gap 8 mmol/L; Blood Urea Nitrogen 14 mg/dL (7-17); Calcium 8.5 mg/dL (8.4-10.2); Carbon Dioxide 33 mmol/L (22-30); Chloride 95 mmol/L (98-107); Glucose 105 mg/dL (74-99); Potassium 4.2 mmol/L (3.5-5.1); Sodium 136 mmol/L (137-145)
--- NOTE | 2018-03-03 11:18 | PN ---
PROGRESS NOTE She was seen on 03/03/2018. She is at her baseline as far as shortness of breath is concerned. She does not want to wear her nasal cannula oxygen. PHYSICAL EXAMINATION: On physical examination, her blood pressure 146/80, respiratory rate 17, pulse rate of 76, temperature 97.9 degrees Fahrenheit. HEENT reveals no new changes. Chest is clear. Cardiovascular system revealed an S1, S2. Abdomen is soft. There is no pedal edema. Labs and medications were reviewed. IMPRESSION AT THIS TIME: 1. Acute hypoxic respiratory failure secondary to bilateral pneumonia. 2. Large hiatal hernia. 3. Elevated liver enzymes. Continue current medications, which were reviewed and agree with possible discharge planning to the [facility]. Depending on how she does, we shall make further changes to her care if she remains in the hospital. MMGRISELL / IJN: [id number] /
[2018-03-03 11:40] LABS: Glucose,Whole Blood 355 mg/dL (75-99)
--- NOTE | 2018-03-03 14:24 | PN ---
PROGRESS NOTE DATE OF SERVICE: 03/03/2018 REASON FOR FOLLOWUP: Possible aspiration pneumonia. INTERVAL HISTORY: The patient is afebrile, she is breathing comfortably. Denies having any significant chest pain, occasional cough, no abdominal pain or any diarrhea. PHYSICAL EXAMINATION: Blood pressure 146/80 with a pulse of 80, temperature 97.9, she is 90% on room air. General description is a elderly female, up in the chair in no distress. RESPIRATORY SYSTEM: Unlabored breathing, clear to auscultation anteriorly. HEART: S1, S2. Regular rate and rhythm. ABDOMEN: Soft, no tenderness. LABS: BUN of 14, creatinine 0.39. Blood culture repeat has been negative. DIAGNOSTIC IMPRESSION AND PLAN: 1. Patient with a positive blood culture, more likely contamination, will repeat blood culture. 2. Patient with possible aspiration pneumonia. Currently on p.o. Levaquin that will transition to oral Avelox for about a week on discharge. Continue supportive care. MMODL / IJN: [id number] /
--- NOTE | 2018-03-03 16:40 | P.DS ---
Providers Date of admission: 02/20/18 22:30 Attending physician: Amanda Simmons Consults: 02/20/18 22:46 Consult Physician Routine Consulting Provider: Joel Mazariegos Consult Reason/Comments: Transaminitis Do you want consulting provider notified?: Already Contacted 02/22/18 20:33 Consult Physician Routine Consulting Provider: Trice Woodard Consult Reason/Comments: fever Do you want consulting provider notified?: Yes Primary care physician: Joel Mazariegos Hospital Course: 73-year-old the female was initially admitted secondary to transaminitis which is improving patient was later found to have bilateral pneumonia and sepsis secondary to that and the patient is on broad-spectrum antibiotics vancomycin, azetreonam and metronidazole, patient blood cultures are positive for gram- positive cocci patient is already on vancomycin repeat blood cultures will obtain for today and tomorrow. Patient went into respiratory distress as today patient is presently on 10 L of oxygen was not using any oxygen yesterday. Chest x-ray did not show any significant change compared to her hot admission. It did show bilateral, bibasilar pneumonia. CT of the chest will be obtained to rule out any pulmonary embolism considering her hypoxemia which cannot be completely explained by bibasilar pneumonia. Patient does not appear to have any pulmonary edema ABG showed hypoxic respiratory failure. Patient is not wheezing on exam will actually cut down the steroids to 40 mg daily as her blood sugars are very high and patient does not appear to be in significant COPD exacerbation either. Patient elevated liver enzymes which are presently coming down may be related to her sepsis. 02/27/2018 Patient mentions and 15 L of oxygen although clinically looks good. Repeat CAT scan did not show any pulmonary embolism but showed extensive pneumonia contributing to her severe hypoxemia. We'll try to wean off her oxygen patient continues to be on vancomycin and Aztreonam. Blood cultures are positive for micrococcus mostly contaminant 02/28/2018 Patient remains in 10 L of oxygen. Patient's has episodes of anxiety patient is quite anxious to go to subacute rehabilitation although not at ready as she is on 10 L of oxygen. Patient was started on Xanax as needed basis for anxiety. 03/01/2018 Patient has little bit of improvement is presently any liters of oxygen. 03/02/2018 Patient is presently on 4 L of and hopefully will be able to get naproxen by tomorrow and will be discharged tomorrow patient is still insisting on going to subacute rehabilitation today. Patient will be discharged on moxifloxacin PHYSICAL EXAMINATION: GENERAL: The patient is alert and oriented x3, not in any acute distress. Well developed, well nourished. HEENT: Pupils are round and equally reacting to light. EOMI. No scleral icterus. No conjunctival pallor. Normocephalic, atraumatic. No pharyngeal erythema. No thyromegaly. CARDIOVASCULAR: S1 and S2 present. No murmurs, rubs, or gallops. PULMONARY: Chest is clear to auscultation, no wheezing or crackles. ABDOMEN: Soft, nontender, nondistended, normoactive bowel sounds. No palpable organomegaly. MUSCULOSKELETAL: No joint swelling or deformity. EXTREMITIES: No cyanosis, clubbing, or pedal edema. NEUROLOGICAL: Gross neurological examination did not reveal any focal deficits. SKIN: No rashes. Assessment and Plan Plan: -Sepsis: Secondary to bibasilar pneumonia continue with the above-mentioned antibiotics patient blood cultures are positive for micrococcus which is a contamination. Patient does have extensive pneumonia. Patient will be discharged on levofloxacin and patient is still requiring [place] hopefully temporary -Elevated liver enzymes as mentioned above can be related to sepsis which actually improved now -Hypoxic respiratory failure secondary to bilateral extensive pneumonia. -Type 2 diabetes mellitus uncontrolled blood sugars secondary to systemic steroids -Fibromyalgia -Sleep apnea -Asthma without any acute exacerbation -Chronic pain and patient has a pain pump patient does have chronic back pain -Depression and anxiety disorder Plan - Discharge Summary Discharge Rx Participant: No New Discharge Prescriptions: New Levofloxacin [Levaquin] 500 mg PO DAILY #6 tab predniSONE See Taper PO DAILY #20 tab Continue hydrOXYzine HCL [Atarax] 25 mg PO TID PRN PRN Reason: Itching Aspirin 325 mg PO DAILY@1700 Bupivacaine HCl/Pf [Bupivacaine 0.25% Vial] 1 dose INTRATHECA DAILY Celecoxib [CeleBREX] 200 mg PO DIRECTED Ferrous Sulfate [Feosol] 325 mg PO DAILY@1700 Lidocaine 5% Patch [Lidoderm 5% Patch] 1 patch TRANSDERM Q12H Multivitamin [Multivitamins] 1 tab PO DAILY@1700 Esomeprazole Magnesium [NexIUM] 40 mg PO BID amLODIPine BESYLATE [Norvasc] 10 mg PO DAILY Solifenacin Succinate [Vesicare] 10 mg PO HS Ascorbic Acid [Vitamin C] 500 mg PO DAILY@1699 Zinc 50 mg PO DAILY@1699 Simvastatin [Zocor] 20 mg PO HS Hydromorphone Powder 7.893 mg INTRATHECA DAILY Calcium/Magnesium/Zinc [Hqcnqpq-Nhwuuvefe-Blyb Tablet] 1 tab PO DAILY@1699 Na Phos,M-B/Na Phos,Di-Ba [Fleet Adult] 133 ml RECTAL ONCE PRN PRN Reason: Constipation Ipratropium-Albuterol Nebulize [Duoneb 0.5 mg-3 mg/3 ml Soln] 3 ml INHALATION RT-TID PRN PRN Reason: Shortness Of Breath Bisacodyl 10 mg RECTAL DAILY PRN PRN Reason: Constipation Acetaminophen Tab [Tylenol] 650 mg PO Q4H PRN PRN Reason: Fever And/ Or Pain Lisinopril [Zestril] 10 mg PO DAILY Potassium Chloride [Klor-Con 20] 20 meq PO DAILY Magnesium Hydroxide [Milk of Magnesia Concentrate] 7,200 mg PO Q48H PRN PRN Reason: Constipation Imipramine [Tofranil] 25 mg PO BID@ #6 tab Discontinued Armodafinil [Nuvigil] 250 mg PO BID@ cloNIDine HCL [Catapres] 0.2 mg PO DAILY Discharge Medication List Ascorbic Acid [Vitamin C] 500 mg PO DAILY@169901/03/14 [History] Aspirin 325 mg PO DAILY@169901/03/14 [History] Bupivacaine HCl/Pf [Bupivacaine 0.25% Vial] 1 dose INTRATHECA DAILY 01/03/14 [ History] Celecoxib [CeleBREX] 200 mg PO DIRECTED 01/03/14 [History] Esomeprazole Magnesium [NexIUM] 40 mg PO BID 01/03/14 [History] Ferrous Sulfate [Feosol] 325 mg PO DAILY@169901/03/14 [History] Lidocaine 5% Patch [Lidoderm 5% Patch] 1 patch TRANSDERM Q12H 01/03/14 [History] Multivitamin [Multivitamins] 1 tab PO DAILY@169901/03/14 [History] Solifenacin Succinate [Vesicare] 10 mg PO HS 01/03/14 [History] Zinc 50 mg PO DAILY@169901/03/14 [History] amLODIPine BESYLATE [Norvasc] 10 mg PO DAILY 01/03/14 [History] hydrOXYzine HCL [Atarax] 25 mg PO TID PRN 01/03/14 [History] Calcium/Magnesium/Zinc [Mnzhebm-Fioptmfmz-Syus Tablet] 1 tab PO DAILY@1700 02/02 [History] Hydromorphone Powder 7.893 mg INTRATHECA DAILY 02/02/18 [History] Simvastatin [Zocor] 20 mg PO HS 02/02/18 [History] Acetaminophen Tab [Tylenol] 650 mg PO Q4H PRN 02/20/18 [History] Bisacodyl 10 mg RECTAL DAILY PRN 02/20/18 [History] Ipratropium-Albuterol Nebulize [Duoneb 0.5 mg-3 mg/3 ml Soln] 3 ml INHALATION RT -TID PRN 02/20/18 [History] Lisinopril [Zestril] 10 mg PO DAILY 02/20/18 [History] Magnesium Hydroxide [Milk of Magnesia Concentrate] 7,200 mg PO Q48H PRN [History] Na Phos,M-B/Na Phos,Di-Ba [Fleet Adult] 133 ml RECTAL ONCE PRN 02/20/18 [History ] Potassium Chloride [Klor-Con 20] 20 meq PO DAILY 02/20/18 [History] Imipramine [Tofranil] 25 mg PO BID@08,17 #6 tab 03/03/18 [Rx] Levofloxacin [Levaquin] 500 mg PO DAILY #6 tab 03/03/18 [Rx] predniSONE See Taper PO DAILY #20 tab 03/03/18 [Rx] Follow up Appointment(s)/Referral(s): Chalo Oliva MD [STAFF PHYSICIAN] - 1 Week Joel Mazariegos MD [Primary Care Provider] - 3 Days Discharge Disposition: TRANSFER TO SNF/ECF
== END 2018-03-03 18:34 | DRG 871 ==
LOC: EC 17:34 → 3SUR 22:30 → 4MS4W 02-26 16:45
PROVIDERS: ADMIT Hospitalist; ATTEND Hospitalist
PROC: 05HY33Z Insertion of Infusion Device into Upper Vein, Percutaneous Approach (ICD-10-PCS; principal; 2018-03-02)
DX: A41.9 Sepsis, unspecified organism (principal); J69.0 Pneumonitis due to inhalation of food and vomit; E87.1 Hypo-osmolality and hyponatremia; J98.11 Atelectasis; E11.65 Type 2 diabetes mellitus with hyperglycemia; K75.89 Other specified inflammatory liver diseases; F32.9 Major depressive disorder, single episode, unspecified; F41.9 Anxiety disorder, unspecified; G47.30 Sleep apnea, unspecified; G47.419 Narcolepsy without cataplexy; G89.4 Chronic pain syndrome; I10 Essential (primary) hypertension; J45.909 Unspecified asthma, uncomplicated; K21.9 Gastro-esophageal reflux disease without esophagitis; K44.9 Diaphragmatic hernia without obstruction or gangrene; K59.00 Constipation, unspecified; M19.90 Unspecified osteoarthritis, unspecified site; M79.7 Fibromyalgia; T38.0X5A Adverse effect of glucocorticoids and synthetic analogues, initial encounter; M54.9 Dorsalgia, unspecified; R09.02 Hypoxemia; M48.9 Spondylopathy, unspecified; Z79.82 Long term (current) use of aspirin; Z79.899 Other long term (current) drug therapy; Z88.1 Allergy status to other antibiotic agents; Z88.5 Allergy status to narcotic agent; Z88.0 Allergy status to penicillin; Z87.891 Personal history of nicotine dependence; Z90.49 Acquired absence of other specified parts of digestive tract; Z83.3 Family history of diabetes mellitus
CPT/HCPCS: 36415; 36569; 36600; 71045; 71275; 74176; 76705; 76937; 80048; 80053; 80074; 80202; 80306; 81001; 82150; 82805; 83036; 83520; 83605; 83690; 83735; 83880; 84100; 84484; 85025; 85027; 87040; 87070; 87086; 87205; 87502; 87503; 93005; 93306; 94640; 94760; 96361; 96374; 99285

== ENCOUNTER 2018-03-22 06:02 | Observation (INO) | payer MEDICARE, OTHER ==
[2018-03-22] MEDS ORDERED: ONDANSETRON 4 MG/2 ML VIAL IVP STA (06:09)
[2018-03-22] MEDS ORDERED: SODIUM CHLORIDE 0.9% 1,000 ML IV STA (06:09)
[2018-03-22 06:15] LABS: Glucose,Whole Blood 388 mg/dL (75-99)
[2018-03-22 06:40] LABS: Basophils % (A) 0 %; Eosinophils % (A) 0 %; HCT 38.6 % (34.0-46.0); HGB 12.3 gm/dL (11.4-16.0); Lymphocytes # (A) 1.1 k/uL (1.0-4.8); Lymphocytes % (A) 11 %; MCH 30.6 pg (25.0-35.0); MCHC 31.8 g/dL (31.0-37.0); Mean Platelet Volume 7.1; Monocytes # (A) 0.7 k/uL (0-1.0); Monocytes % (A) 7 %; Neutrophils # (A) 8.3 k/uL (1.3-7.7); Neutrophils % (A) 80 %; Platelet Count 463 k/uL (150-450); RBC 4.03 m/uL (3.80-5.40); RDW 15.9 % (11.5-15.5); WBC 10.4 k/uL (3.8-10.6)
[2018-03-22 06:43] LABS: Albumin 3.8 g/dL (3.5-5.0); Amylase 44 U/L (30-110); Anion Gap 10 mmol/L; Calcium 9.4 mg/dL (8.4-10.2); Carbon Dioxide 28 mmol/L (22-30); Chloride 96 mmol/L (98-107); Glucose 432 mg/dL (74-99); Lipase 23 U/L (23-300); Sodium 134 mmol/L (137-145); Total Bilirubin 0.4 mg/dL (0.2-1.3); Total Protein 6.7 g/dL (6.3-8.2)
[2018-03-22 06:47] LABS: ALT 32 U/L (9-52); AST 28 U/L (14-36); Alkaline Phosphatase 90 U/L (38-126); Blood Urea Nitrogen 22 mg/dL (7-17); Potassium 5.6 mmol/L (3.5-5.1)
[2018-03-22 07:15] LABS: VBG PH 7.42 (7.31-7.41)
[2018-03-22 07:24] LABS: Appearance,Urine Clear (Clear); Bilirubin,Urine Negative (Negative); Blood,Urine Negative (Negative); Color,Urine Colorless; Glucose,Urine (UA) 4+ (Negative); Ketones,Urine Negative (Negative); Leukocyte Esterase,Urine Negative (Negative); Nitrite,Urine Negative (Negative); Protein,Urine Negative (Negative); Urobilinogen,Urine <2.0 mg/dL (<2.0)
--- NOTE | 2018-03-22 08:02 | ED ---
General Adult HPI - General Chief complaint: Recheck/Abnormal Lab/Rx Stated complaint: HYPERGLYCEMIA Time Seen by Provider: 03/22/18 06:08 Source: patient, EMS Mode of arrival: EMS Limitations: physical limitation - History of Present Illness Initial comments: Early 3 years old lady came from one of the nursing homes with high sugar her sugar was above 400, she is also complaining about nausea and abdominal pain she denies any chest pain no shortness of breath no frequency urgency dysuria no symptoms of TIA or CVA - Related Data Home Medications Medication Instructions Recorded Confirmed Ascorbic Acid [Vitamin C] 500 mg PO DAILY@169901/03/14 02/20/18 Aspirin 325 mg PO DAILY@169901/03/14 02/20/18 Bupivacaine HCl/Pf [Bupivacaine 1 dose INTRATHECA DAILY 01/03/14 02/20/18 0.25% Vial] Celecoxib [CeleBREX] 200 mg PO DIRECTED 01/03/14 02/20/18 Esomeprazole Magnesium [NexIUM] 40 mg PO BID 01/03/14 02/20/18 Ferrous Sulfate [Feosol] 325 mg PO DAILY@169901/03/14 02/20/18 Lidocaine 5% Patch [Lidoderm 5% 1 patch TRANSDERM Q12H 01/03/14 02/20/18 Patch] Multivitamin [Multivitamins] 1 tab PO DAILY@169901/03/14 02/20/18 Solifenacin Succinate [Vesicare] 10 mg PO HS 01/03/14 02/20/18 Zinc 50 mg PO DAILY@169901/03/14 02/20/18 amLODIPine BESYLATE [Norvasc] 10 mg PO DAILY 01/03/14 02/20/18 hydrOXYzine HCL [Atarax] 25 mg PO TID PRN 01/03/14 02/20/18 Calcium/Magnesium/Zinc 1 tab PO DAILY@169902/02/18 02/20/18 [Zeljonz-Itewbhzcd-Lrgq Tablet] Hydromorphone Powder 7.893 mg INTRATHECA DAILY 02/02/18 02/20/18 Simvastatin [Zocor] 20 mg PO HS 02/02/18 02/20/18 Acetaminophen Tab [Tylenol] 650 mg PO Q4H PRN 02/20/18 02/20/18 Bisacodyl 10 mg RECTAL DAILY PRN 02/20/18 02/20/18 Ipratropium-Albuterol Nebulize 3 ml INHALATION RT-TID PRN 02/20/18 02/20/18 [Duoneb 0.5 mg-3 mg/3 ml Soln] Lisinopril [Zestril] 10 mg PO DAILY 02/20/18 02/20/18 Magnesium Hydroxide [Milk of 7,200 mg PO Q48H PRN 02/20/18 02/20/18 Magnesia Concentrate] Na Phos,M-B/Na Phos,Di-Ba [Fleet 133 ml RECTAL ONCE PRN 02/20/18 02/20/18 Adult] Potassium Chloride [Klor-Con 20] 20 meq PO DAILY 02/20/18 02/20/18 Previous Rx's Medication Instructions Recorded Imipramine [Tofranil] 25 mg PO BID@08,17 #6 tab 03/03/18 Levofloxacin [Levaquin] 500 mg PO DAILY #6 tab 03/03/18 predniSONE See Taper PO DAILY #20 tab 03/03/18 Allergies Allergy/AdvReac Type Severity Reaction Status Date / Time cephalexin monohydrate Allergy Swelling Verified 02/20/18 18:06 [From Keflex] Cephalosporins Allergy Unknown Verified 02/20/18 18:06 codeine Allergy Rash/Hives Verified 02/20/18 18:06 Penicillins Allergy Anaphylaxis Verified 02/20/18 18:06 tramadol Allergy Rash/Hives Verified 02/20/18 18:06 Review of Systems ROS Statement: Those systems with pertinent positive or pertinent negative responses have been documented in the HPI. ROS Other: All systems not noted in ROS Statement are negative. Past Medical History Past Medical History: Diabetes Mellitus, Fibromyalgia, GERD/Reflux, Hypertension , Musculoskeletal Disorder, Osteoarthritis (OA), Sleep Apnea/CPAP/BIPAP Additional Past Medical History / Comment(s): Anemia, no cpap used. asthma. narcolepsy. wound jeremi legs. diet controlled diabetic-pt denies being diabetic but watches what she eats History of Any Multi-Drug Resistant Organisms: None Reported Past Surgical History: Back Surgery, Orthopedic Surgery Additional Past Surgical History / Comment(s): carpal tunnel, rib surgery, collagen implant,\. rt eye catatact. TMJ surgery. chronic back pain-pain pump Past Anesthesia/Blood Transfusion Reactions: No Reported Reaction Past Psychological History: Anxiety, Depression Smoking Status: Former smoker Past Alcohol Use History: None Reported Past Drug Use History: None Reported - Past Family History Mother Family Medical History: Diabetes Mellitus Father History Unknown: Yes Additional Family Medical History / Comment(s): pt could'nt remember. Brother(s) Family Medical History: Diabetes Mellitus General Exam - General Exam Comments Initial Comments: General: The patient is awake and in moderate distress Skin: Skin is warm and dry and no rashes or lesions are noted. Eye: Pupils are equal, round and reactive to light, extra-ocular movements are intact; there is normal conjunctiva bilaterally. Ears, nose, mouth and throat: There are moist mucous membranes and no oral lesions. Neck: The neck is supple, there is no tenderness or JVD. Cardiovascular: There is a regular rate and rhythm. No murmur, rub or gallop is appreciated. Respiratory: To auscultation bilateral, no wheezing no rhonchi no distress respiratory de leon noticed Gastrointestinal: She is slightly tender in the left upper quadrant sounds are positive no guarding no rebound Back: There is no tenderness to palpation in the midline. There is no obvious deformity. Musculoskeletal: Normal ROM, no tenderness, There is no pedal edema. There is no calf tenderness or swelling. No cords were appreciated. Neurological: CN II-XII intact, Cranial nerves III through XII are intact. There are no obvious motor or sensory deficits. Coordination appears grossly intact. Speech is normal. Psychiatric: Cooperative, appropriate mood & affect, normal judgment. Limitations: physical limitation Course Vital Signs 03/22/18 03/22/18 06:12 07:26 Temperature 99.1 F Pulse Rate 116 H 96 Respiratory 17 18 Rate Blood Pressure 160/80 111/65 O2 Sat by Pulse 92 L 95 Oximetry (Not reassessment noticed CBC, venous blood gases are within normal range potassium is 5.6 glucose is 432 lactate is 2.3 troponin is negative so his urinalysis chest and abdomen x-rays are pending this point I will give her 15 units of firm subcu insulin and that would push the potassium intracellular and she also has some fluids that would help to normalize the potassium I don't think she needs any member and stabilizing potassium chloride GLUCONATE AT THIS POINT Medical Decision Making - Lab Data Result diagrams: 03/22/18 06:15 03/22/18 06:15 Lab Results 03/22/18 03/22/18 03/22/18 Range/Units 06:10 06:15 06:15 WBC 10.4 (3.8-10.6) k/uL RBC 4.03 (3.80-5.40) m/uL Hgb 12.3 (11.4-16.0) gm/dL Hct 38.6 (34.0-46.0) % MCV 96.0 (80.0-100.0) fL MCH 30.6 (25.0-35.0) pg MCHC 31.8 (31.0-37.0) g/dL RDW 15.9 H (11.5-15.5) % Plt Count 463 H (150-450) k/uL Neutrophils % 80 % Lymphocytes % 11 % Monocytes % 7 % Eosinophils % 0 % Basophils % 0 % Neutrophils # 8.3 H (1.3-7.7) k/uL Lymphocytes # 1.1 (1.0-4.8) k/uL Monocytes # 0.7 (0-1.0) k/uL Eosinophils # 0.0 (0-0.7) k/uL Basophils # 0.0 (0-0.2) k/uL VBG pH (7.31-7.41) VBG pCO2 (37-51) mmHg VBG HCO3 (24-28) mmol/L Sodium 134 L (137-145) mmol/L Potassium 5.6 H (3.5-5.1) mmol/L Chloride 96 L (98-107) mmol/L Carbon Dioxide 28 (22-30) mmol/L Anion Gap 10 mmol/L BUN 22 H (7-17) mg/dL Creatinine 0.45 L (0.52-1.04) mg/dL Est GFR (CKD-EPI)AfAm >90 (>60 ml/min/1.73 sqM) Est GFR (CKD-EPI)NonAf >90 (>60 ml/min/1.73 sqM) Glucose 432 H (74-99) mg/dL POC Glucose (mg/dL) 388 H (75-99) mg/dL POC Glu [employer] Namita Hawley Plasma Lactic Acid [place] (0.7-2.0) mmol/L Calcium 9.4 (8.4-10.2) mg/dL Total Bilirubin 0.4 (0.2-1.3) mg/dL AST 28 (14-36) U/L ALT 32 (9-52) U/L Alkaline Phosphatase 90 (38-126) U/L Troponin I (0.000-0.034) ng/mL Total Protein 6.7 (6.3-8.2) g/dL Albumin 3.8 (3.5-5.0) g/dL Amylase 44 (30-110) U/L Lipase 23 (23-300) U/L Urine Color Urine Appearance (Clear) Urine pH (5.0-8.0) Ur Specific [place] (1.001-1.035) Urine Protein (Negative) Urine Glucose (UA) (Negative) Urine Ketones (Negative) Urine Blood (Negative) Urine Nitrite (Negative) Urine Bilirubin (Negative) Urine Urobilinogen (<2.0) mg/dL Ur Leukocyte Esterase (Negative) 03/22/18 03/22/18 03/22/18 Range/Units 06:15 06:15 07:02 WBC (3.8-10.6) k/uL RBC (3.80-5.40) m/uL Hgb (11.4-16.0) gm/dL Hct (34.0-46.0) % MCV (80.0-100.0) fL MCH (25.0-35.0) pg MCHC (31.0-37.0) g/dL RDW (11.5-15.5) % Plt Count (150-450) k/uL Neutrophils % % Lymphocytes % % Monocytes % % Eosinophils % % Basophils % % Neutrophils # (1.3-7.7) k/uL Lymphocytes # (1.0-4.8) k/uL Monocytes # (0-1.0) k/uL Eosinophils # (0-0.7) k/uL Basophils # (0-0.2) k/uL VBG pH 7.42 H (7.31-7.41) VBG pCO2 46 (37-51) mmHg VBG HCO3 29 H (24-28) mmol/L Sodium (137-145) mmol/L Potassium (3.5-5.1) mmol/L Chloride (98-107) mmol/L Carbon Dioxide (22-30) mmol/L Anion Gap mmol/L BUN (7-17) mg/dL Creatinine (0.52-1.04) mg/dL Est GFR (CKD-EPI)AfAm (>60 ml/min/1.73 sqM) Est GFR (CKD-EPI)NonAf (>60 ml/min/1.73 sqM) Glucose (74-99) mg/dL POC Glucose (mg/dL) (75-99) mg/dL POC Glu [employer] ID Plasma Lactic Acid [place] 2.3 H* (0.7-2.0) mmol/L Calcium (8.4-10.2) mg/dL Total Bilirubin (0.2-1.3) mg/dL AST (14-36) U/L ALT (9-52) U/L Alkaline Phosphatase (38-126) U/L Troponin I <0.012 (0.000-0.034) ng/mL Total Protein (6.3-8.2) g/dL Albumin (3.5-5.0) g/dL Amylase (30-110) U/L Lipase (23-300) U/L Urine Color Urine Appearance (Clear) Urine pH (5.0-8.0) Ur Specific [place] (1.001-1.035) Urine Protein (Negative) Urine Glucose (UA) (Negative) Urine Ketones (Negative) Urine Blood (Negative) Urine Nitrite (Negative) Urine Bilirubin (Negative) Urine Urobilinogen (<2.0) mg/dL Ur Leukocyte Esterase (Negative) 03/22/18 Range/Units 07:17 WBC (3.8-10.6) k/uL RBC (3.80-5.40) m/uL Hgb (11.4-16.0) gm/dL Hct (34.0-46.0) % MCV (80.0-100.0) fL MCH (25.0-35.0) pg MCHC (31.0-37.0) g/dL RDW (11.5-15.5) % Plt Count (150-450) k/uL Neutrophils % % Lymphocytes % % Monocytes % % Eosinophils % % Basophils % % Neutrophils # (1.3-7.7) k/uL Lymphocytes # (1.0-4.8) k/uL Monocytes # (0-1.0) k/uL Eosinophils # (0-0.7) k/uL Basophils # (0-0.2) k/uL VBG pH (7.31-7.41) VBG pCO2 (37-51) mmHg VBG HCO3 (24-28) mmol/L Sodium (137-145) mmol/L Potassium (3.5-5.1) mmol/L Chloride (98-107) mmol/L Carbon Dioxide (22-30) mmol/L Anion Gap mmol/L BUN (7-17) mg/dL Creatinine (0.52-1.04) mg/dL Est GFR (CKD-EPI)AfAm (>60 ml/min/1.73 sqM) Est GFR (CKD-EPI)NonAf (>60 ml/min/1.73 sqM) Glucose (74-99) mg/dL POC Glucose (mg/dL) (75-99) mg/dL POC Glu [employer] ID Plasma Lactic Acid [place] (0.7-2.0) mmol/L Calcium (8.4-10.2) mg/dL Total Bilirubin (0.2-1.3) mg/dL AST (14-36) U/L ALT (9-52) U/L Alkaline Phosphatase (38-126) U/L Troponin I (0.000-0.034) ng/mL Total Protein (6.3-8.2) g/dL Albumin (3.5-5.0) g/dL Amylase (30-110) U/L Lipase (23-300) U/L Urine Color Colorless Urine Appearance Clear (Clear) Urine pH 7.0 (5.0-8.0) Ur Specific [place] 1.020 (1.001-1.035) Urine Protein Negative (Negative) Urine Glucose (UA) 4+ H (Negative) Urine Ketones Negative (Negative) Urine Blood Negative (Negative) Urine Nitrite Negative (Negative) Urine Bilirubin Negative (Negative) Urine Urobilinogen <2.0 (<2.0) mg/dL Ur Leukocyte Esterase Negative (Negative) Disposition Clinical Impression: Hyperglycemia Disposition: ADMITTED IP TO THIS HOSP Condition: Good Referrals: Joel Mazariegos MD [Primary Care Provider] - 1-2 days
--- NOTE | 2018-03-22 08:27 | XR ---
EXAMINATION TYPE: XR abdomen acute w cxr , 3 VIEWS DATE OF EXAM ORDERED: 03/22/2018 HISTORY: Pain. COMPARISON: None. FINDINGS: There is apparent elevation right hemidiaphragm. Heart size is obscured. There is right ba silar atelectasis. There is some airspace disease behind the left heart. Pleural spaces appear clear. Within the abdomen, the abdominal gas pattern is within normal limits. There is no evidence of obstru ction or free air. A pain stimulator projects over the left side of the pelvis. No unusual calcificat ions are seen. There is been a previous cholecystectomy. There is moderate stool present. IMPRESSION: 1. NONOBSTRUCTIVE BOWEL GAS PATTERN. 2. CONSTIPATION. 3. APPARENT ELEVATION OF THE RIGHT HEMIDIAPHRAGM. 4. LEFT BASILAR AIRSPACE DISEASE.
[2018-03-22] MEDS ORDERED: LEVOFLOXACIN 750MG-D5W PMX 750 MG in DEXTROSE/WATER 1 150ML.BAG IVPB STA (08:32)
[2018-03-22] MEDS ORDERED: NALOXONE 0.4 MG/ML 1 ML VIAL IV PRN (08:49)
[2018-03-22] MEDS ORDERED: ACETAMINOPHEN TAB 325 MG TAB PO PRN (08:49)
[2018-03-22] MEDS ORDERED: INSULIN REGULAR 100 UNIT/ML VIAL SQ ONE (08:49)
[2018-03-22] MEDS ORDERED: hydrOXYzine HCL 25 MG TAB PO PRN (08:53)
[2018-03-22] MEDS ORDERED: IPRATROPIUM-ALBUTEROL 3 ML NEB INHALATION PRN (08:53)
[2018-03-22] MEDS ORDERED: BISACODYL 10 MG SUPP RECTAL PRN (08:53)
[2018-03-22] MEDS ORDERED: MAGNESIUM HYDROXIDE 2,400 MG/10 ML CUP PO PRN (08:53)
[2018-03-22] MEDS ORDERED: HYDROMORPHONE INTRATHECA SCH (09:00)
[2018-03-22 09:34] LABS: Glucose,Whole Blood 378 mg/dL (75-99)
[2018-03-22] MEDS: LIDOCAINE 5% PATCH TOPICAL SCH ×2 (11:59→22:14)
[2018-03-22] MEDS: POTASSIUM CHLORIDE ER 20 MEQ TAB.ER PO SCH (12:00)
[2018-03-22] MEDS: PANTOPRAZOLE 40 MG TABLET PO SCH ×2 (12:00→22:13)
[2018-03-22] MEDS: predniSONE 10 MG TAB PO SCH (12:00)
[2018-03-22] MEDS: LISINOPRIL 10 MG TAB PO SCH (12:00)
[2018-03-22] MEDS: TROSPIUM CHLORIDE 20 MG TABLET PO SCH ×2 (12:01→22:23)
[2018-03-22 12:14] LABS: Glucose,Whole Blood 218 mg/dL (75-99)
[2018-03-22] MEDS: IMIPRAMINE 25 MG TAB PO SCH ×2 (13:33→17:52)
[2018-03-22] MEDS: amLODIPine 10 MG TAB PO SCH (13:33)
[2018-03-22 15:03] LABS: Glucose,Whole Blood 164 mg/dL (75-99)
[2018-03-22 15:37] VITALS: BMI 22.3
[2018-03-22] MEDS: SODIUM CHLORIDE 0.9% 1,000 ML IV SCH ×2 (15:47→22:25)
[2018-03-22] MEDS ORDERED: ASCORBIC ACID 500 MG TAB PO SCH (17:00)
[2018-03-22] MEDS ORDERED: ZINC SULFATE 220 MG CAP PO SCH (17:00)
[2018-03-22] MEDS ORDERED: FERROUS SULFATE 325 MG TAB PO SCH (17:00)
[2018-03-22] MEDS ORDERED: MULTIVITAMINS, THERA 1 EACH TAB PO SCH (17:00)
[2018-03-22] MEDS ORDERED: CALCIUM CARB-VIT D 500MG-200UN 1 EACH TAB PO SCH (17:00)
[2018-03-22] MEDS ORDERED: ASPIRIN 325 MG TAB PO SCH (17:00)
[2018-03-22 17:08] LABS: Glucose,Whole Blood 222 mg/dL (75-99)
[2018-03-22] MEDS: INSULIN ASPART 100 UNIT/ML 1 ML 10 ML VIAL SQ SCH ×2 (17:55→22:12)
[2018-03-22 18:26] LABS: Basophils % (A) 0 %; Eosinophils % (A) 0 %; HCT 34.9 % (34.0-46.0); HGB 11.5 gm/dL (11.4-16.0); Lymphocytes # (A) 0.9 k/uL (1.0-4.8); Lymphocytes % (A) 11 %; MCH 31.1 pg (25.0-35.0); MCHC 32.9 g/dL (31.0-37.0); MCV 94.6 fL (80.0-100.0); Mean Platelet Volume 6.8; Monocytes # (A) 0.4 k/uL (0-1.0); Monocytes % (A) 4 %; Neutrophils % (A) 83 %; Platelet Count 397 k/uL (150-450); RBC 3.69 m/uL (3.80-5.40); RDW 15.9 % (11.5-15.5); WBC 8.4 k/uL (3.8-10.6)
--- NOTE | 2018-03-22 18:28 | XR ---
EXAMINATION TYPE: XR chest 2V DATE OF EXAM: 03/22/2018 COMPARISON: Today HISTORY: Pneumonia. TECHNIQUE: Frontal and lateral views of the chest are obtained. FINDINGS: There is elevated right diaphragm. There is no gross heart failure. There is some mild inf iltrate in the left lower lobe. There is linear density at the right lung base. There is no sign of p leural effusion. IMPRESSION: Chronic elevated right diaphragm. This is consistent with paralysis. Mild atelectasis at the right lung base. Mild infiltrate at the left lung base. No significant change.
[2018-03-22] MEDS ORDERED: ALPRAZolam 0.25 MG TAB PO PRN (20:27)
[2018-03-22] MEDS ORDERED: TEMAZEPAM 15 MG CAP PO PRN (20:27)
[2018-03-22] MEDS ORDERED: NA PHOS,M-B/NA PHOS,DI-BA 133 ML ENEMA RECTAL PRN (20:27)
[2018-03-22] MEDS ORDERED: ATORVASTATIN 10 MG TAB PO SCH (21:00)
[2018-03-22 21:27] LABS: Glucose,Whole Blood 222 mg/dL (75-99)
--- NOTE | 2018-03-22 22:04 | HP ---
HISTORY AND PHYSICAL CHIEF COMPLAINT: Hyperglycemia. HISTORY OF PRESENT ILLNESS: This 73-year-old woman with a past history of multiple medical problems, including fibromyalgia, diabetes, hypertension, hyperlipidemia, being followed by Dr. Mazariegos in the outpatient setting, was having bilateral pneumonia and sepsis. The patient was sent to the [facility] currently. Apparently the patient was noted to have hyperglycemia in the outpatient setting, and the sugar was more than 400. Patient also complains of nausea and abdominal pain. Patient admitted for evaluation and treatment. There is no history of fevers or rigors. No headache, loss conscious, or seizures. Acute abdominal CT showed constipation, elevated right hemidiaphragm, and left basilar airspace disease also. There is no history of fevers or rigors. A chest x-ray showed chronic elevation of the right hemidiaphragm. PAST MEDICAL HISTORY: History of diabetes type 2, fibromyalgia, GERD, hypertension, hyperlipidemia, DJD, history of anemia. MEDICATIONS: Prior to admission include home medications of: 1. Atarax 25 mg t.i.d. p.r.n. 2. Norvasc 10 mg p.o. daily. 3. Singulair 50 mg p.o. daily. 4. VESIcare 10 mg at bedtime. 5. Zocor 20 mg at bedtime. 6. Fleet daily p.r.n. 7. Multivitamins 1 p.o. daily. 8. Milk of magnesia. 9. Zestril 10 mg p.o. daily. 10.Lidoderm patch 5% patch b.i.d. 11.DuoNeb t.i.d. p.r.n. 12.Tofranil 25 mg p.o. b.i.d. 13.Hydromorphone. 14.Glucerna shake 1 p.o. t.i.d. 15.Iron sulfate 320 mg p.o. daily. 16.Nexium 40 mg p.o. b.i.d. 17.Celebrex 20 mg p.o. daily. 18.Calcium and magnesium 1 tablet p.o. daily. 19.Bupivacaine 1 daily. 20.Bisacodyl. 21.Aspirin 325 mg daily. 22.Vitamin C 500 mg. 23.Tylenol 650 every 4 hours p.r.n. ALLERGIES: CEPHALEXIN, CEPHALOSPORIN, CODEINE, PENICILLIN, ULTRAM. FAMILY HISTORY: History of diabetes mellitus in the family. SOCIAL HISTORY: Previous history of smoking, no history of current smoking or alcohol intake. REVIEW OF SYSTEMS: ENT: No diminished vision. CARDIOVASCULAR: As mentioned. GI: No nausea. : As mentioned earlier. No dysuria. NERVOUS SYSTEM: As mentioned. ALLERGY/IMMUNOLOGY: No asthma or hayfever. MUSCULOSKELETAL: As mentioned earlier. ENDOCRINE: As mentioned. CONSTITUTIONAL: As mentioned. DERMATOLOGIC: As mentioned. PSYCHIATRY: As mentioned. PHYSICAL EXAMINATION: Alert oriented x3. Pulse 90, blood pressure 108/77, respiration 18, temperature 98 degrees, pulse ox 94% on 2 L. HEENT: Conjunctivae normal. Oral mucosa moist. NECK: No jugular venous distention. No carotid bruits. No lymph node enlargement. CARDIOVASCULAR: S1 and S2. No S3 or S4. RESPIRATORY: Breath sounds diminished in the bases. No rhonchi no crackles. ABDOMEN: Soft, nontender. No mass palpable. EXTREMITIES: Legs no edema, no swelling. NERVOUS SYSTEM: Higher functions as mentioned. LYMPHATICS: No lymph nodes palpable in the neck or axillae. SKIN: No ulcer, rash or bleeding. LABS: WBC 8, hemoglobin 7.5. ASSESSMENT: 1. Diabetes type 2 with uncontrolled blood sugars, present on admission. 2. Fibromyalgia. 3. Gastroesophageal reflux disease. 4. History of recent sepsis secondary to bibasilar pneumonia. 5. History of hypertension. 6. History of sleep apnea. 7. History of anemia. 8. History of degenerative joint disease. 9. Anxiety and depression. RECOMMENDATION AND DISCUSSION: This 73-year-old woman who presented with multiple complicated medical problems. We will monitor the patient closely. Continue the current management and symptomatic treatment. We will monitor blood sugars closely. Otherwise continue the rest of the medications. Accu-Cheks with meals and at bedtime. Guarded prognosis because of multiple complex medical issues. Further recommendations to follow. Also recommend hemoglobin A1c also. Dr. Mazariegos will be consulted. MMODL / IJN: [id number] /
[2018-03-22] MEDS: HEPARIN SODIUM,PORCINE 5,000 UNIT/ML 1 ML VIAL SQ SCH (22:13)
[2018-03-23 06:28] VITALS: BP 97/67; PULSE 74; RESP 16; TEMP 98.2
[2018-03-23 07:20] LABS: Glucose,Whole Blood 137 mg/dL (75-99)
[2018-03-23] MEDS ORDERED: NON-FORMULARY DRUG (Glucerna Shake 1 CAN) PO SCH (08:00)
[2018-03-23] MEDS: INSULIN ASPART 100 UNIT/ML 1 ML 10 ML VIAL SQ SCH ×2 (08:15→13:00)
[2018-03-23] MEDS: LISINOPRIL 10 MG TAB PO SCH ×2 (08:16→08:40)
[2018-03-23] MEDS: predniSONE 10 MG TAB PO SCH (08:16)
[2018-03-23] MEDS: IMIPRAMINE 25 MG TAB PO SCH (08:16)
[2018-03-23] MEDS: HEPARIN SODIUM,PORCINE 5,000 UNIT/ML 1 ML VIAL SQ SCH (08:17)
[2018-03-23] MEDS: PANTOPRAZOLE 40 MG TABLET PO SCH (08:18)
[2018-03-23] MEDS: POTASSIUM CHLORIDE ER 20 MEQ TAB.ER PO SCH (08:18)
[2018-03-23] MEDS: amLODIPine 10 MG TAB PO SCH ×2 (08:18→08:40)
[2018-03-23] MEDS: LIDOCAINE 5% PATCH TOPICAL SCH ×2 (08:19→08:29)
[2018-03-23] MEDS: TROSPIUM CHLORIDE 20 MG TABLET PO SCH (08:20)
[2018-03-23 08:43] LABS: Basophils % (A) 0 %; Eosinophils # (A) 0.1 k/uL (0-0.7); Eosinophils % (A) 2 %; HCT 34.2 % (34.0-46.0); HGB 11.1 gm/dL (11.4-16.0); Lymphocytes # (A) 1.4 k/uL (1.0-4.8); Lymphocytes % (A) 26 %; MCH 31.2 pg (25.0-35.0); MCHC 32.4 g/dL (31.0-37.0); MCV 96.2 fL (80.0-100.0); Monocytes # (A) 0.3 k/uL (0-1.0); Monocytes % (A) 6 %; Neutrophils # (A) 3.4 k/uL (1.3-7.7); Neutrophils % (A) 63 %; Platelet Count 330 k/uL (150-450); RBC 3.56 m/uL (3.80-5.40); RDW 15.9 % (11.5-15.5); WBC 5.3 k/uL (3.8-10.6)
[2018-03-23 08:50] LABS: Anion Gap 6 mmol/L; Blood Urea Nitrogen 16 mg/dL (7-17); Calcium 9.4 mg/dL (8.4-10.2); Carbon Dioxide 30 mmol/L (22-30); Chloride 101 mmol/L (98-107); Glucose 163 mg/dL (74-99); Potassium 4.3 mmol/L (3.5-5.1); Sodium 137 mmol/L (137-145)
[2018-03-23] MEDS ORDERED: MELOXICAM 7.5 MG TAB PO SCH (09:00)
[2018-03-23] MEDS ORDERED: BUPIVACAINE (PF) 0.25% 30 ML VIAL EPIDURAL SCH (09:00)
[2018-03-23 11:48] LABS: Hemoglobin A1C 9.6 % (4.0-6.0)
[2018-03-23] MEDS: SODIUM CHLORIDE 0.9% 1,000 ML IV SCH (11:59)
[2018-03-23 12:33] LABS: Glucose,Whole Blood 251 mg/dL (75-99)
--- NOTE | 2018-03-23 14:51 | P.DS ---
Providers Date of admission: 03/22/18 08:49 Expected date of discharge: 03/23/18 Attending physician: Amanda Simmons Consults: 03/22/18 08:49 Consult Physician Stat Consulting Provider: Joel Mazariegos Consult Reason/Comments: COPD Do you want consulting provider notified?: Yes Primary care physician: Joel Mazariegos Hospital Course: Final Diagnoses: Diabetes type 2 with uncontrolled blood sugars, present on admission, hemoglobin A1c 9.6 Fibromyalgia gastroesophageal reflux disease Hospital course: This is a 73-year-old female admitted with uncontrolled diabetes mellitus, abdominal pain in a patient with history of multiple medical issues including fibromyalgia, diabetes, hypertension, hyperlipidemia. Hemoglobin A1c 9.6. CT reported constipation, elevated right hemidiaphragm and left basilar airspace disease. Chest x-ray reported chronic elevated right hemidiaphragm. Treated with insulin, gentle IV fluid hydration. Significant clinical improvement. Patient is being discharged to [facility] subacute rehab in a stable condition with guarded prognosis. Exam: Gen.: Alert 3, no acute distress CV: Regular S1 and S2, no murmurs, gallops or rubs LUNGS: Bilateral bases diminished ABD: Soft nontender positive bowel sounds NEURO: Higher functions as previously mentioned, no focal deficits The impression and plan of care has been dictated as directed. : I performed a history and examination of this patient, discussed the same with the dictator. I agree with the dictator's note ,documented as a scribe. Any additional findings or plans will be noted. Time taken: 35 minutes Patient Condition at Discharge: Stable Plan - Discharge Summary New Discharge Prescriptions: New Insulin Glargine [Lantus] 10 unit SQ HS #1 vial Continue hydrOXYzine HCL [Atarax] 25 mg PO TID PRN PRN Reason: Itching Aspirin 325 mg PO DAILY@1700 Bupivacaine HCl/Pf [Bupivacaine 0.25% Vial] 1 dose INTRATHECA DAILY Celecoxib [CeleBREX] 200 mg PO DAILY Ferrous Sulfate [Feosol] 325 mg PO DAILY@1700 Lidocaine 5% Patch [Lidoderm 5% Patch] 1 patch TRANSDERM Q12H Multivitamin [Multivitamins] 1 tab PO DAILY@1700 Esomeprazole Magnesium [NexIUM] 40 mg PO BID Solifenacin Succinate [Vesicare] 10 mg PO HS Ascorbic Acid [Vitamin C] 500 mg PO DAILY@1700 Zinc 50 mg PO DAILY@1700 Simvastatin [Zocor] 20 mg PO HS Hydromorphone Powder 7.893 mg INTRATHECA DAILY Calcium/Magnesium/Zinc [Bscxnze-Bvm[place]-Flop Tablet] 1 tab PO DAILY@1699 Na Phos,M-B/Na Phos,Di-Ba [Fleet Adult] 133 ml RECTAL DAILY PRN PRN Reason: Constipation Bisacodyl 10 mg RECTAL DAILY PRN PRN Reason: Constipation Acetaminophen Tab [Tylenol] 650 mg PO Q4H PRN PRN Reason: Fever And/ Or Pain Lisinopril [Zestril] 10 mg PO DAILY Magnesium Hydroxide [Milk of Magnesia Concentrate] 7,200 mg PO Q48H PRN PRN Reason: Constipation Imipramine [Tofranil] 25 mg PO BID@,17 #6 tab Glucerna Shake 1 can PO TID@0800,1200,1700 Ipratropium-Albuterol Nebulize [Duoneb 0.5 mg-3 mg/3 ml Soln] 3 ml INHALATION RT-TID PRN #0 PRN Reason: Shortness Of Breath Discharge Medication List Ascorbic Acid [Vitamin C] 500 mg PO DAILY@169901/03/14 [History] Aspirin 325 mg PO DAILY@169901/03/14 [History] Bupivacaine HCl/Pf [Bupivacaine 0.25% Vial] 1 dose INTRATHECA DAILY 01/03/14 [ History] Celecoxib [CeleBREX] 200 mg PO DAILY 01/03/14 [History] Esomeprazole Magnesium [NexIUM] 40 mg PO BID 01/03/14 [History] Ferrous Sulfate [Feosol] 325 mg PO DAILY@169901/03/14 [History] Lidocaine 5% Patch [Lidoderm 5% Patch] 1 patch TRANSDERM Q12H 01/03/14 [History] Multivitamin [Multivitamins] 1 tab PO DAILY@169901/03/14 [History] Solifenacin Succinate [Vesicare] 10 mg PO HS 01/03/14 [History] Zinc 50 mg PO DAILY@169901/03/14 [History] hydrOXYzine HCL [Atarax] 25 mg PO TID PRN 01/03/14 [History] Calcium/Magnesium/Zinc [Twcrqbi-Zsqtsnawj-Mneh Tablet] 1 tab PO DAILY@02/02 [History] Hydromorphone Powder 7.893 mg INTRATHECA DAILY 02/02/18 [History] Simvastatin [Zocor] 20 mg PO HS 02/02/18 [History] Acetaminophen Tab [Tylenol] 650 mg PO Q4H PRN 02/20/18 [History] Bisacodyl 10 mg RECTAL DAILY PRN 02/20/18 [History] Lisinopril [Zestril] 10 mg PO DAILY 02/20/18 [History] Magnesium Hydroxide [Milk of Magnesia Concentrate] 7,200 mg PO Q48H PRN [History] Na Phos,M-B/Na Phos,Di-Ba [Fleet Adult] 133 ml RECTAL DAILY PRN 02/20/18 [ History] Imipramine [Tofranil] 25 mg PO BID@08,17 #6 tab 03/03/18 [Rx] Glucerna Shake 1 can PO TID@0800,1200,1700 03/22/18 [History] Insulin Glargine [Lantus] 10 unit SQ HS #1 vial 03/23/18 [Rx] Ipratropium-Albuterol Nebulize [Duoneb 0.5 mg-3 mg/3 ml Soln] 3 ml INHALATION RT -TID PRN #0 03/23/18 [Rx] Follow up Appointment(s)/Referral(s): Joel Mazariegos MD [Primary Care Provider] - 3 Days Activity/Diet/Wound Care/Special Instructions: [id number] Diet: consist. Carb accucheks achs, maintain log, take to F/U visit with PCP for further erec. activity: Limited TIll F/u
== END 2018-03-23 15:15 ==
LOC: EC 06:02 → 4MS4W 08:49
PROVIDERS: ADMIT Hospitalist; ATTEND Hospitalist
DX: E11.65 Type 2 diabetes mellitus with hyperglycemia (principal); K59.00 Constipation, unspecified; J98.6 Disorders of diaphragm; M79.7 Fibromyalgia; I10 Essential (primary) hypertension; E78.5 Hyperlipidemia, unspecified; F41.9 Anxiety disorder, unspecified; F32.9 Major depressive disorder, single episode, unspecified; K21.9 Gastro-esophageal reflux disease without esophagitis; G47.30 Sleep apnea, unspecified; M19.90 Unspecified osteoarthritis, unspecified site; G89.29 Other chronic pain; M54.9 Dorsalgia, unspecified; Z99.89 Dependence on other enabling machines and devices; Z97.8 Presence of other specified devices; J44.9 Chronic obstructive pulmonary disease, unspecified; D64.9 Anemia, unspecified; G47.419 Narcolepsy without cataplexy; Z79.82 Long term (current) use of aspirin; Z79.891 Long term (current) use of opiate analgesic; Z79.899 Other long term (current) drug therapy; Z88.0 Allergy status to penicillin; Z88.1 Allergy status to other antibiotic agents; Z88.5 Allergy status to narcotic agent; Z98.41 Cataract extraction status, right eye; Z87.891 Personal history of nicotine dependence; Z86.19 Personal history of other infectious and parasitic diseases; Z87.01 Personal history of pneumonia (recurrent); Z83.3 Family history of diabetes mellitus
CPT/HCPCS: 99285 ×2; 96365 ×2; 96366 ×3; 96361 ×7; 96372 ×2; 36415; 97162; 97166; 80053; 80048; 82150; 82803; 83605; 83690; 84484; 85025 ×2; 81003; 87040; 87086; 83036; 74022; 71046; G0378 ×2; J1644 ×2; J1956; J7512 ×2

== ENCOUNTER 2018-03-23 21:27 | Inpatient (IN) | payer MEDICARE, OTHER ==
[2018-03-23] MEDS ORDERED: diphenhydrAMINE 50 MG/ML 1 ML VIAL IVP STA (21:43)
[2018-03-23] MEDS ORDERED: METOCLOPRAMIDE 5 MG/ML 2 ML VIAL IVP STA (21:43)
[2018-03-23] MEDS ORDERED: SODIUM CHLORIDE 0.9% 1,000 ML IV ONE (21:43)
--- NOTE | 2018-03-23 21:56 | ED ---
Nausea/Vomiting/Diarrhea HPI - General Chief complaint: Nausea/Vomiting/Diarrhea Stated complaint: Nausea,Vomiting Time Seen by Provider: 03/23/18 21:34 Source: patient, EMS Mode of arrival: EMS Limitations: no limitations - History of Present Illness Initial comments: This is a 73-year-old female with multiple medical problems who presents emergency department for nausea and vomiting. She states it started suddenly about one hour ago. She denies any diarrhea associated with this she states that she had a normal bowel movement just prior to arrival. She states that she feels extremely nauseous however does not complain of any abdominal pain area the patient denies any fevers or chills. No lightheadedness. She was recently hospitalized for hyperglycemia and her blood sugar in route was 417. She denies any other acute complaints including chest pain or shortness of breath. No dysuria or hematuria. - Related Data Home Medications Medication Instructions Recorded Confirmed Ascorbic Acid [Vitamin C] 500 mg PO DAILY@169901/03/14 03/23/18 Aspirin 325 mg PO DAILY@169901/03/14 03/23/18 Bupivacaine HCl/Pf [Bupivacaine 1 dose INTRATHECA DAILY 01/03/14 03/23/18 0.25% Vial] Celecoxib [CeleBREX] 200 mg PO DAILY 01/03/14 03/23/18 Esomeprazole Magnesium [NexIUM] 40 mg PO BID 01/03/14 03/23/18 Ferrous Sulfate [Feosol] 325 mg PO DAILY@169901/03/14 03/23/18 Lidocaine 5% Patch [Lidoderm 5% 1 patch TRANSDERM Q12H 01/03/14 03/23/18 Patch] Multivitamin [Multivitamins] 1 tab PO DAILY@169901/03/14 03/23/18 Solifenacin Succinate [Vesicare] 10 mg PO HS 01/03/14 03/23/18 Zinc 50 mg PO DAILY@169901/03/14 03/23/18 hydrOXYzine HCL [Atarax] 25 mg PO TID PRN 01/03/14 03/23/18 Calcium/Magnesium/Zinc 1 tab PO DAILY@169902/02/18 03/23/18 [Ydgjxpg-[id number]-Rblp Tablet] Hydromorphone Powder 7.893 mg INTRATHECA DAILY 02/02/18 03/23/18 Simvastatin [Zocor] 20 mg PO HS 02/02/18 03/23/18 Acetaminophen Tab [Tylenol] 650 mg PO Q4H PRN 02/20/18 03/23/18 Bisacodyl 10 mg RECTAL DAILY PRN 02/20/18 03/23/18 Lisinopril [Zestril] 10 mg PO DAILY 02/20/18 03/23/18 Magnesium Hydroxide [Milk of 7,200 mg PO Q48H PRN 02/20/18 03/23/18 Magnesia Concentrate] Na Phos,M-B/Na Phos,Di-Ba [Fleet 133 ml RECTAL DAILY PRN 02/20/18 03/23/18 Adult] Previous Rx's Medication Instructions Recorded Imipramine [Tofranil] 25 mg PO BID@08,17 #6 tab 03/03/18 Insulin Glargine [Lantus] 10 unit SQ HS #1 vial 03/23/18 Ipratropium-Albuterol Nebulize 3 ml INHALATION RT-TID PRN #0 03/23/18 [Duoneb 0.5 mg-3 mg/3 ml Soln] Allergies Allergy/AdvReac Type Severity Reaction Status Date / Time cephalexin monohydrate Allergy Swelling Verified 03/23/18 22:30 [From Keflex] Cephalosporins Allergy Unknown Verified 03/23/18 22:30 codeine Allergy Rash/Hives Verified 03/23/18 22:30 Penicillins Allergy Anaphylaxis Verified 03/23/18 22:30 tramadol Allergy Rash/Hives Verified 03/23/18 22:30 Review of Systems ROS Statement: Those systems with pertinent positive or pertinent negative responses have been documented in the HPI. ROS Other: All systems not noted in ROS Statement are negative. Past Medical History Past Medical History: Diabetes Mellitus, Fibromyalgia, GERD/Reflux, Hyperlipidemia, Hypertension, Musculoskeletal Disorder, Osteoarthritis (OA), Sleep Apnea/CPAP/BIPAP Additional Past Medical History / Comment(s): Anemia, no cpap used for apnea, asthma (denies), narcolepsy, wound jeremi legs, diet controlled diabetic History of Any Multi-Drug Resistant Organisms: None Reported Past Surgical History: Back Surgery, Orthopedic Surgery Additional Past Surgical History / Comment(s): carpal tunnel, rib surgery, collagen implant(patient denies this), rt eye catatact,TMJ surgery,chronic back pain-pain pump Past Anesthesia/Blood Transfusion Reactions: No Reported Reaction Past Psychological History: Anxiety, Depression Smoking Status: Former smoker Past Alcohol Use History: None Reported Past Drug Use History: None Reported - Past Family History Mother Family Medical History: Diabetes Mellitus Father History Unknown: Yes Additional Family Medical History / Comment(s): pt could'nt remember. Brother(s) Family Medical History: Diabetes Mellitus General Exam - General Exam Comments Initial Comments: Constitutional: Awake alert Appears comfortable Head: Normocephalic atraumatic Eyes: no conjunctival injection No scleral icterus EOMI Neck: No JVD Supple Heart: Tachycardia with regular rhythm normal S1-S2 no murmurs Lungs: Clear to auscultation bilaterally No wheezing No rales Abdomen: Soft nondistended nontender, pain pump to left lower abdomen Extremities: Non edematous DP pulses intact Radial pulses intact Neuro: A&Ox3 No focal neurologic deficits Psych: Appropriate mood and affect Limitations: no limitations Course Vital Signs 03/23/18 03/23/18 03/23/18 21:29 23:30 23:48 Temperature 99.3 F 98.5 F Pulse Rate 115 H 117 H 110 H Respiratory 18 18 18 Rate Blood Pressure 180/92 149/88 159/91 O2 Sat by Pulse 94 L 93 L 95 Oximetry - Reevaluation(s) Reevaluation #1: 03/23/18 21:56 EKG showing sinus tachycardia with a rate of 115. There is no abnormal ST segment changes or T-wave inversion. QTC is 426. Other intervals normal. No ectopy. Medical Decision Making - Medical Decision Making This is a 73-year-old female who presents emergency department for nausea and vomiting. The patient was given Zofran in route and also Reglan, Benadryl, and Phenergan emergency department. The patient still significant nausea and vomiting. She did seem to vomit up appears to be coffee ground emesis. I did offer the patient an NG tube however she declined. Blood work was reviewed and for the most part unremarkable except for hyperglycemia. The patient was given NovoLog 10 units for this. The patient did remain mildly tachycardic throughout the entire ED stay even after 1 L of normal saline. At this time I feel the patient is not safe to go home and requires IV hydration and further treatment for her nausea and questionable upper GI bleed. Dr. Estrada accepts the admission - Lab Data Result diagrams: 03/23/18 22:23 03/23/18 22:23 Lab Results 03/23/18 03/23/18 03/23/18 Range/Units 22:23 22:23 22:23 WBC 11.0 H (3.8-10.6) k/uL RBC 4.06 (3.80-5.40) m/uL Hgb 12.6 (11.4-16.0) gm/dL Hct 38.2 (34.0-46.0) % MCV 94.1 (80.0-100.0) fL MCH 31.0 (25.0-35.0) pg MCHC 33.0 (31.0-37.0) g/dL RDW 16.0 H (11.5-15.5) % Plt Count 609 H (150-450) k/uL Neutrophils % 79 % Lymphocytes % 11 % Monocytes % 8 % Eosinophils % 0 % Basophils % 0 % Neutrophils # 8.6 H (1.3-7.7) k/uL Lymphocytes # 1.2 (1.0-4.8) k/uL Monocytes # 0.9 (0-1.0) k/uL Eosinophils # 0.0 (0-0.7) k/uL Basophils # 0.0 (0-0.2) k/uL Anisocytosis Slight PT 10.1 (9.0-12.0) sec INR 1.0 (<1.2) APTT 21.1 L (22.0-30.0) sec VBG pH (7.31-7.41) VBG pCO2 (37-51) mmHg VBG HCO3 (24-28) mmol/L Sodium 134 L (137-145) mmol/L Potassium 4.4 (3.5-5.1) mmol/L Chloride 96 L (98-107) mmol/L Carbon Dioxide 27 (22-30) mmol/L Anion Gap 11 mmol/L BUN 20 H (7-17) mg/dL Creatinine 0.42 L (0.52-1.04) mg/dL Est GFR (CKD-EPI)AfAm >90 (>60 ml/min/1.73 sqM) Est GFR (CKD-EPI)NonAf >90 (>60 ml/min/1.73 sqM) Glucose 370 H (74-99) mg/dL POC Glucose (mg/dL) (75-99) mg/dL POC Glu Pediatric Speech Language Pathologist ID Calcium 9.8 (8.4-10.2) mg/dL Magnesium 1.8 (1.6-2.3) mg/dL Total Bilirubin 0.4 (0.2-1.3) mg/dL AST 36 (14-36) U/L ALT 47 (9-52) U/L Alkaline Phosphatase 103 (38-126) U/L Troponin I (0.000-0.034) ng/mL Total Protein 6.8 (6.3-8.2) g/dL Albumin 4.0 (3.5-5.0) g/dL Lipase 21 L (23-300) U/L Acetone, Qual Positive (Negative) 03/23/18 03/23/18 03/23/18 Range/Units 22:23 23:15 23:53 WBC (3.8-10.6) k/uL RBC (3.80-5.40) m/uL Hgb (11.4-16.0) gm/dL Hct (34.0-46.0) % MCV (80.0-100.0) fL MCH (25.0-35.0) pg MCHC (31.0-37.0) g/dL RDW (11.5-15.5) % Plt Count (150-450) k/uL Neutrophils % % Lymphocytes % % Monocytes % % Eosinophils % % Basophils % % Neutrophils # (1.3-7.7) k/uL Lymphocytes # (1.0-4.8) k/uL Monocytes # (0-1.0) k/uL Eosinophils # (0-0.7) k/uL Basophils # (0-0.2) k/uL Anisocytosis PT (9.0-12.0) sec INR (<1.2) APTT (22.0-30.0) sec VBG pH 7.43 H (7.31-7.41) VBG pCO2 39 (37-51) mmHg VBG HCO3 26 (24-28) mmol/L Sodium (137-145) mmol/L Potassium (3.5-5.1) mmol/L Chloride (98-107) mmol/L Carbon Dioxide (22-30) mmol/L Anion Gap mmol/L BUN (7-17) mg/dL Creatinine (0.52-1.04) mg/dL Est GFR (CKD-EPI)AfAm (>60 ml/min/1.73 sqM) Est GFR (CKD-EPI)NonAf (>60 ml/min/1.73 sqM) Glucose (74-99) mg/dL POC Glucose (mg/dL) 330 H (75-99) mg/dL POC Glu Pediatric Speech Language Pathologist ID HorneSvetlana Calcium (8.4-10.2) mg/dL Magnesium (1.6-2.3) mg/dL Total Bilirubin (0.2-1.3) mg/dL AST (14-36) U/L ALT (9-52) U/L Alkaline Phosphatase (38-126) U/L Troponin I <0.012 (0.000-0.034) ng/mL Total Protein (6.3-8.2) g/dL Albumin (3.5-5.0) g/dL Lipase (23-300) U/L Acetone, Qual (Negative) Disposition Clinical Impression: Intractable nausea and vomiting, Tachycardia, Upper GI bleed Disposition: ADMITTED IP TO THIS [facility] Condition: Stable
[2018-03-23 22:42] LABS: Anisocytosis Slight; Basophils % (A) 0 %; Eosinophils % (A) 0 %; HCT 38.2 % (34.0-46.0); HGB 12.6 gm/dL (11.4-16.0); Lymphocytes # (A) 1.2 k/uL (1.0-4.8); Lymphocytes % (A) 11 %; MCV 94.1 fL (80.0-100.0); Mean Platelet Volume 6.9; Monocytes # (A) 0.9 k/uL (0-1.0); Monocytes % (A) 8 %; Neutrophils # (A) 8.6 k/uL (1.3-7.7); Neutrophils % (A) 79 %; Platelet Count 609 k/uL (150-450); RBC 4.06 m/uL (3.80-5.40)
[2018-03-23 22:55] LABS: ALT 47 U/L (9-52); AST 36 U/L (14-36); Alkaline Phosphatase 103 U/L (38-126); Anion Gap 11 mmol/L; Blood Urea Nitrogen 20 mg/dL (7-17); Calcium 9.8 mg/dL (8.4-10.2); Carbon Dioxide 27 mmol/L (22-30); Chloride 96 mmol/L (98-107); Glucose 370 mg/dL (74-99); Lipase 21 U/L (23-300); Magnesium 1.8 mg/dL (1.6-2.3); Potassium 4.4 mmol/L (3.5-5.1); Sodium 134 mmol/L (137-145); Total Bilirubin 0.4 mg/dL (0.2-1.3); Total Protein 6.8 g/dL (6.3-8.2)
[2018-03-23] MEDS ORDERED: INSULIN ASPART 100 UNIT/ML 1 ML 10 ML VIAL SQ ONE (23:00)
[2018-03-23 23:06] LABS: Prothrombin Time 10.1 sec (9.0-12.0)
--- NOTE | 2018-03-23 23:10 | XR ---
EXAMINATION TYPE: XR abdomen acute w cxr DATE OF EXAM: 03/23/2018 COMPARISON: 03/22/2018 HISTORY: Vomiting TECHNIQUE: Chest x-ray and supine and upright abdomen FINDINGS: There is chronic elevated right diaphragm. There is no heart failure. There is large hiatal hernia. There is no sign of intestinal obstruction or pneumoperitoneum. There is retained fecal material in t he right colon. There are chest leads. IMPRESSION: Constipation. Hiatal hernia. No free air. Chronic right diaphragm elevation consistent with paralysis . No change compared to old exam.
[2018-03-23 23:14] LABS: Partial Thromboplastin Time 21.1 sec (22.0-30.0)
[2018-03-23 23:25] LABS: VBG PH 7.43 (7.31-7.41)
[2018-03-23] MEDS ORDERED: PROMETHAZINE INJ 25 MG in SODIUM CHLORIDE 0.9% 50 ML IVPB STA (23:27)
[2018-03-23] MEDS ORDERED: SODIUM CHLORIDE 0.9% 1,000 ML IV SCH (23:30)
[2018-03-23 23:55] LABS: Glucose,Whole Blood 330 mg/dL (75-99)
[2018-03-24] MEDS ORDERED: NALOXONE 0.4 MG/ML 1 ML VIAL IV PRN (00:03)
[2018-03-24] MEDS ORDERED: PANTOPRAZOLE 40 MG/10 ML VIAL IVP SCH (00:15)
[2018-03-24] MEDS ORDERED: ONDANSETRON 4 MG/2 ML VIAL IVP STA (00:46)
[2018-03-24 01:52] LABS: Glucose,Whole Blood 358 mg/dL (75-99)
[2018-03-24 05:59] LABS: Glucose,Whole Blood 479 mg/dL (75-99)
[2018-03-24] MEDS ORDERED: INSULIN ASPART 100 UNIT/ML 1 ML 10 ML VIAL SQ ONE (06:08)
[2018-03-24] MEDS ORDERED: ONDANSETRON 4 MG/2 ML VIAL IVP PRN (06:09)
[2018-03-24] MEDS ORDERED: ROCURONIUM BROMIDE 10 MG/ML 10 ML VIAL IV ONE (07:04)
[2018-03-24] MEDS ORDERED: ePHEDrine SULFATE/0.9% NACL/PF 50 MG/5 ML SYRINGE IV ONE (07:04)
[2018-03-24] MEDS ORDERED: MIDAZOLAM 1 MG/ML 5 ML VIAL ONE (07:04)
[2018-03-24 07:06] LABS: ABG Base Excess -12.1 mmol/L; ABG HCO3 14 mmol/L (21-25); ABG Oxygen Saturation 94.5 % (94-97); ABG PCO2 26 mmHg (35-45); ABG PH 7.34 (7.35-7.45); ABG PO2 83 mmHg (83-108); ABG TCO2 15 mmol/L (19-24)
[2018-03-24] MEDS ORDERED: LORazepam 2 MG/ML INJ IV PRN (07:17)
[2018-03-24 07:29] LABS: Glucose,Whole Blood 548 mg/dL (75-99)
[2018-03-24] MEDS ORDERED: INSULIN ASPART 100 UNIT/ML 1 ML 10 ML VIAL SQ SCH (07:30)
[2018-03-24 08:00] LABS: Creatine Kinase <20 U/L (30-135)
[2018-03-24 08:03] LABS: Anisocytosis Slight; Basophils % (A) 0 %; Hypochromasia Moderate; Macrocytosis Slight; RDW 16.1 % (11.5-15.5)
[2018-03-24 08:07] LABS: Calcium 9.2 mg/dL (8.4-10.2); Potassium 5.5 mmol/L (3.5-5.1)
[2018-03-24 08:13] LABS: Creatine Kinase MB 1.3 ng/mL (0.0-2.4); Eosinophils % (A) 0 %; HCT 30.5 % (34.0-46.0); Lymphocytes # (A) 1.2 k/uL (1.0-4.8); Lymphocytes % (A) 9 %; MCH 30.8 pg (25.0-35.0); MCHC 30.8 g/dL (31.0-37.0); Monocytes # (A) 0.8 k/uL (0-1.0); Monocytes % (A) 6 %; Neutrophils # (A) 12.1 k/uL (1.3-7.7); Neutrophils % (A) 85 %; Platelet Count 537 k/uL (150-450); RBC 3.05 m/uL (3.80-5.40); Troponin I 0.014 ng/mL (0.000-0.034); WBC 14.3 k/uL (3.8-10.6)
[2018-03-24 08:17] LABS: HGB 9.4 gm/dL (11.4-16.0)
[2018-03-24 08:21] VITALS: BMI 23.3
--- NOTE | 2018-03-24 08:29 | XR ---
EXAMINATION TYPE: XR chest 1V portable DATE OF EXAM: 03/24/2018 COMPARISON: 03/22/2018 HISTORY: Shortness of breath. TECHNIQUE: Single frontal view of the chest is obtained. FINDINGS: There is redemonstration of a large hiatal hernia and right hemidiaphragm elevation, chron ic. Trace pleural effusion is seen on the right. Cardia mediastinal silhouette is shifted to the left . Mild bibasilar subsegmental atelectasis is seen. Osseous demineralization is present throughout. No new focal consolidation. IMPRESSION: Chronic changes with no acute cardiopulmonary process. Chronic bibasilar atelectasis and right hemidiaphragm elevation with hiatal hernia.
[2018-03-24] MEDS ORDERED: SODIUM BICARB 8.4% 50 ML SYR (1 MEQ/ML) ONE (08:36)
[2018-03-24] MEDS ORDERED: EPINEPHrine 10 ML SYRINGE (0.1 MG/ML) ONE (08:36)
[2018-03-24 08:51] VITALS: RESP 18
[2018-03-24 19:33] LABS: Hemoglobin A1C 9.3 % (4.0-6.0)
[2018-03-24 19:39] VITALS: TEMP 98.2
[2018-03-24 19:41] VITALS: BP 85/47
[2018-03-24 19:42] VITALS: PULSE 111
[2018-03-24] MEDS ORDERED: INSULIN DETEMIR 100 UNIT/ML 10 ML VIAL SQ SCH (21:00)
--- NOTE | 2018-04-01 05:11 | HP ---
HISTORY AND PHYSICAL HISTORY AND PHYSICAL AND DISCHARGE SUMMARY CHIEF COMPLAINTS: Nausea, vomiting. HISTORY OF PRESENT ILLNESS: This 73-year-old woman with a past medical history of multiple medical problems was recently admitted to [facility] with hyperglycemia and other multiple medical issues. Patient was discharged to [facility]. The patient was readmitted with complaints of nausea and vomiting and NG tube was offered from the ER which the patient declined. The blood sugar was also elevated. There was no evidence of any diabetic ketoacidosis, but however the patient became later obtunded, suffered cardiorespiratory arrest and could not be resuscitated. The NG tube inserted during the resuscitation revealed significant copious fluid and hemoglobin went from 12.6 to 9.4. The possibility of GI bleed is also considered. Please refer to the ER notes and staff notes for further information. PRELIMINARY CAUSE OF : Nausea, vomiting, possible upper gastrointestinal bleeding. OTHER DIAGNOSES: 1. Diabetes mellitus type 2. 2. Other multiple medical issues. MMODL / IJN: [id number] /
--- NOTE | 2018-04-07 17:15 | DS ---
DISCHARGE SUMMARY DISCHARGE ADDENDUM: OTHER DIAGNOSES: 1. Acute hypoxic respiratory failure requiring BiPAP. 2. Change in mental status, metabolic encephalopathy. 3. Lactic acidosis. 4. Hypovolemic shock from possible GI bleed 5. Acute blood-loss anemia from GI bleed. MMODL / IJN: [id number] / MTDD
== END 2018-03-24 12:23 | disposition expired | DRG 377 ==
LOC: EC 21:27 → OBSVTOIN 03-24 00:07 → 6SEL 03-24 00:07 → 6ICU 03-24 07:41
PROVIDERS: ADMIT Hospitalist; ATTEND Hospitalist
PROC: 5A12012 Performance of Cardiac Output, Single, Manual (ICD-10-PCS; principal; 2018-03-24)
PROC: 0BH17EZ Insertion of Endotracheal Airway into Trachea, Via Natural or Artificial Opening (ICD-10-PCS; 2018-03-24)
PROC: 5A1935Z Respiratory Ventilation, Less than 24 Consecutive Hours (ICD-10-PCS; 2018-03-24)
PROC: 0D9670Z Drainage of Stomach with Drainage Device, Via Natural or Artificial Opening (ICD-10-PCS; 2018-03-24)
DX: K92.2 Gastrointestinal hemorrhage, unspecified (principal); J96.01 Acute respiratory failure with hypoxia; G93.41 Metabolic encephalopathy; E87.2 Acidosis; D62 Acute posthemorrhagic anemia; I46.9 Cardiac arrest, cause unspecified; R57.1 Hypovolemic shock; E11.65 Type 2 diabetes mellitus with hyperglycemia; R19.7 Diarrhea, unspecified; I10 Essential (primary) hypertension; M79.7 Fibromyalgia; K21.9 Gastro-esophageal reflux disease without esophagitis; E78.5 Hyperlipidemia, unspecified; G47.30 Sleep apnea, unspecified; M19.91 Primary osteoarthritis, unspecified site; G47.419 Narcolepsy without cataplexy; Z79.82 Long term (current) use of aspirin; Z79.4 Long term (current) use of insulin; Z79.1 Long term (current) use of non-steroidal anti-inflammatories (NSAID); Z79.899 Other long term (current) drug therapy; Z87.891 Personal history of nicotine dependence; Z86.59 Personal history of other mental and behavioral disorders; Z98.41 Cataract extraction status, right eye; Z88.1 Allergy status to other antibiotic agents; Z88.5 Allergy status to narcotic agent; Z88.0 Allergy status to penicillin; Z83.3 Family history of diabetes mellitus
CPT/HCPCS: 36415; 36600; 71045; 74022; 80048; 80053; 82009; 82550; 82553; 82803; 82805; 83036; 83605; 83690; 83735; 84484; 85025; 85379; 85610; 85730; 93005; 94002; 96361; 96374; 96375; 99285